=== PATIENT | female | born 1930 | race Caucasian/White ===

== ENCOUNTER 2017-02-24 09:01 | Inpatient (IN) | payer MEDICARE, OTHER ==
[2017-02-24] VITALS (9 sets, daily range): BP systolic 77–177; BP diastolic 59–88; PULSE 82–109; RESP 18–31; Ht 157.5 cm; Wt 66.0 kg
[~2017-02-24] VITALS: Ht 157.5 cm; Wt 66.0 kg
[~2017-02-24 09:01] MED LIST: ACET-141 PO; AMLO1CAP15 PO; ASPI-716 PO; ATOR40TA21 PO; CALC1TAB79 PO; CARV3.1260 PO; CLON-379 PO; ERGO500014 PO; FER325 PO; FURO40TA4 PO; GABA300C16 PO; INSU100V3 IJ; ISOS60TA PO; LANT3I SC; ONDA4TAB14 PO; PANT40VI7 PO; SENN-53 PO; TRAM-40 PO; ZOLP10TA PO
[2017-02-24] MEDS ORDERED: SODIUM CHLORIDE 0.9% 1L BAG IV* STA (09:15)
[2017-02-24] MEDS ORDERED: CEFTRIAXONE 1 GM/50 ML (PMX) 50 ML IVPB STA (09:15)
[2017-02-24] MEDS ORDERED: AZITHROMYCIN 500MG/NS (PMX) 250 ML IV STA (09:15)
[2017-02-24] MEDS ORDERED: PIPER-TAZO 3.375 GM IV (PMX) 50 ML IVPB STA (09:26)
--- NOTE | 2017-02-24 09:32 | ERD ---
ER Documentation Chief Complaint Chief Complaint WEAKNESS VSS HPI This is an 87-year-old female with a history of hypertension, CAD, diabetes brought in by ambulance from home complaining of generalized weakness and left lower quadrant pain. The patient states that she always has left lower quadrant pain from a hernia that she has, however it is slightly worse today. The pain is a 7 out of 10, nonradiating. No associated nausea, vomiting, fever , chills, diarrhea, constipation. She denies any dysuria. Her only complaint is generalized weakness but denies any associated headache, dizziness, chest pain, or shortness of breath. She has no new focal weakness or numbness. ROS All systems reviewed and are negative except as per history of present illness. Medications Home Meds Active Scripts Ondansetron (Ondansetron Odt) 4 Mg Tab.rapdis, 4 MG PO Q6H Y for NAUSEA AND/OR VOMITING, #10 TAB Prov:RG MOSQUEDA MD 01/02/16 Reported Medications Lisinopril* (Lisinopril*) 2.5 Mg Tablet, 2.5 MG PO DAILY, #30 TAB 02/24/17 Plecanatide (Trulance) 3 Mg Tablet, 3 MG PO DAILY, TAB 02/24/17 Insulin Detemir (Levemir Flextouch) 100 Unit/1 Ml Insuln.pen, 2 UNIT SQ QPM 02/24/17 Metoclopramide* (Reglan*) 5 Mg Tablet, 5 MG PO BID WITH MEALS, TAB 02/24/17 Insulin Degludec (Tresiba Flextouch U-200) 200 Unit/1 Ml Insuln.pen, 0 SQ QAM SLIDING SCALE 02/24/17 Carvedilol* (Carvedilol*) 6.25 Mg Tablet, 6.25 MG PO BID, #60 TAB 02/24/17 Sennosides* (Senna Lax*) 8.6 Mg Tablet, 1 TAB PO DAILY, TAB 01/02/16 Ferrous Sulfate* (Ferrous Sulfate*) 325 Mg Tabec, 325 MG PO DAILY, TAB 01/02/16 Calcium Carbonate/Vitamin D3 (Oysco 500+D Tablet) 1 Each Tablet, 1 EACH PO DAILY , TAB 01/02/16 Ergocalciferol* (Drisdol* (Vitamin D2)) 50,000 Unit Capsule, 73054 UNIT PO Q7D, CAP 01/02/16 Gabapentin* (Gabapentin*) 300 Mg Capsule, 300 MG PO TID, #90 CAP 01/02/16 Tramadol Hcl* (Ultram*) 50 Mg Tablet, 50 MG PO BID Y for PAIN, TAB 01/02/16 Amlodipine-Benazepril (Amlodipine-Benazepril) 10-40 Mg Capsule, 1 TAB PO DAILY, #30 TAB 01/02/16 Acetaminophen* (Acetaminophen*) 500 MG Extra Strength Tablet, 1-2 TAB PO Q6H Y for PAIN AND OR ELEVATED TEMP, TAB 01/02/16 Furosemide (Lasix) 40 Mg Tab, 40 MG PO DAILY 12/05/12 Aspirin* (Ecotrin*) 81 Mg Tablet.dr, 81 MG PO DAILY 12/05/12 Zolpidem Tartrate* (Ambien*) 10 Mg Tablet, 10 MG PO HS 12/05/12 Isosorbide Mononitrate* (Isosorbide Mononitrate*) 60 Mg Tab.er.24h, 60 MG PO DAILY 12/05/12 Clonidine Hcl* (Clonidine Hcl*) 0.1 Mg Tab, 0.1 MG PO BID 11/25/12 Atorvastatin (Lipitor) 40 Mg Tablet, 1 TAB PO HS 02/20/12 Pantoprazole* (Protonix* IV) 40 Mg Soln, 1 TAB PO DAILY 02/20/12 Discontinued Reported Medications Insulin Regular, Human (Humulin R) 100 Unit/1 Ml Vial, 0-6 UNIT IJ DIRECTED, VIAL SLIDING SCALE 01/02/16 Insulin Glargine* (Lantus*) 100 Unit/Ml Soln, 55 UNIT SC DAILY, #1 VIAL 01/02/16 Carvedilol* (Carvedilol*) 3.125 Mg Tablet, 3.125 MG PO BID, #60 TAB 01/02/16 Allergies Allergies: Coded Allergies: No Known Allergy (Unverified , 02/24/17) PMhx/Soc History of Surgery: No Hx Neurological Disorder: No Hx Respiratory Disorders: No Hx Cardiac Disorders: Yes (HTN, CAD) Hx Psychiatric Problems: No Hx Miscellaneous Medical Probl: Yes (R PELVIC FXS, DM, HTN, DJD, CAD, DEMENTIA , HYPERLIPID, OP, HYPONAT) Hx Alcohol Use: No Hx Substance Use: No Hx Tobacco Use: No FmHx Family History: No diabetes Physical Exam Vitals Vital Signs Date Time Temp Pulse Resp B/P Pulse Ox O2 Delivery O2 Flow Rate FiO2 02/24/17 13:13 90 18 120/54 100 Room Air 02/24/17 10:36 Nasal Cannula 2 02/24/17 09:08 97.8 105 32 95/62 98 Physical Exam Const: Nontoxic, appears to be in mild distress secondary to pain. Head: Atraumatic Eyes: Normal Conjunctiva ENT: Dry mucous membranes Neck: Full range of motion..~ No meningismus. Resp: Tachypneic, clear to auscultation bilaterally Cardio: Tachycardic with regular rhythm, no murmurs Abd: Soft, non tender, non distended. Normal bowel sounds Skin: No petechiae or rashes Back: No midline or flank tenderness Ext: No cyanosis, or edema Neur: Awake and alert , oriented to self and place, no facial asymmetry. Strength and sensations grossly intact. Psych: Normal Mood and Affect Result Diagram: 02/24/17 0915 02/24/17 1445 Results 24 hrs Laboratory Tests Test 02/24/17 09:15 02/24/17 09:23 02/24/17 10:00 02/24/17 12:30 White Blood Count 15.110^3/ul Red Blood Count 4.2110^6/ul Hemoglobin 10.6g/dl Hematocrit 32.5% Mean Corpuscular Volume 77.2fl Mean Corpuscular Hemoglobin 25.2pg Mean Corpuscular Hemoglobin Concent 32.6g/dl Red Cell Distribution Width 13.2% Platelet Count 32680^3/UL Mean Platelet Volume 10.2fl Neutrophils % 67.3% Lymphocytes % 21.2% Monocytes % 10.4% Eosinophils % 0.1% Basophils % 0.5% Nucleated Red Blood Cells % 0.0/100WBC Neutrophils # 10.210^3/ul Lymphocytes # 3.210^3/ul Monocytes # 1.610^3/ul Eosinophils # 0.010^3/ul Basophils # 0.110^3/ul Nucleated Red Blood Cells # 0.010^3/ul Prothrombin Time 14.1Sec Prothrombin Time Ratio 1.1 INR International Normalized Ratio 1.08 Activated Partial Thromboplast Time 28.7Sec Sodium Level 124mmol/L Potassium Level 5.2mmol/L Chloride Level 87mmol/L Carbon Dioxide Level 26mmol/L Anion Gap 16 Blood Urea Nitrogen 20mg/dl Creatinine 1.02mg/dl Glucose Level 205mg/dl Lactic Acid Level 1.6mmol/L 3.4mmol/L Calcium Level 9.3mg/dl Total Bilirubin 0.6mg/dl Direct Bilirubin 0.00mg/dl Indirect Bilirubin 0.6mg/dl Aspartate Amino Transf (AST/SGOT) 13IU/L Alanine Aminotransferase (ALT/SGPT) 27IU/L Alkaline Phosphatase 63IU/L Troponin I < 0.012ng/ml Total Protein 6.8g/dl Albumin 3.8g/dl Globulin 3.00g/dl Albumin/Globulin Ratio 1.26 Bedside Glucose 200mg/dL Urine Color YELLOW Urine Clarity TURBID Urine pH 5.0 Urine Specific [place] 1.019 Urine Ketones NEGATIVEmg/dL Urine Nitrite NEGATIVEmg/dL Urine Bilirubin NEGATIVEmg/dL Urine Urobilinogen 1+mg/dL Urine Leukocyte Esterase 2+Iesha/ul Urine Microscopic RBC 58/HPF Urine Microscopic WBC > 182/HPF Urine Bacteria MANY/HPF Urine Mucus FEW/HPF Urine Hemoglobin 3+mg/dL Urine Glucose NEGATIVEmg/dL Urine Total Protein 2+mg/dl Current Medications Medications (Trade) Dose Ordered Sig/Norma Route PRN Reason Start Time Stop Time Status Last Admin Dose Admin Sodium Chloride 2230 ml 2,230 ml BOLUS OVER 2 HOURS STAT IV* 02/24/17 09:15 02/24/17 09:21 DC 02/24/17 09:15 Ceftriaxone Sodium 50 ml @ 100 mls/hr ONCE STAT IVPB 02/24/17 09:15 02/24/17 09:27 DC Azithromycin 250 ml @ 250 mls/hr ONCE STAT IV 02/24/17 09:15 02/24/17 09:28 DC Piperacillin Sod/ Tazobactam Sod (Zosyn 3.375gm/ 50 ml (Pmx)) 50 ml @ 100 mls/hr ONCE STAT IVPB 02/24/17 09:26 02/24/17 09:55 DC 02/24/17 09:26 Procedures/MDM EMERGENT LABS AND DIAGNOSTIC STUDIES: Lab Results above were reviewed and interpreted by me. CBC: Leukocytosis of 15, anemia with hemoglobin of 10, thrombocytosis 480 CMP: Hyponatremia, hypochloremia, evidence of mild dehydration with elevated BUN and creatinine. Troponin within normal limits Lactate within normal limits UA: There is evidence of infection 12-lead EKG was interpreted by Elyssa Espinoza MD: Sinus tachycardia at 104 bpm Normal axis Normal intervals No acute ST or T wave changes suggestive of acute ischemia or STEMI. Radiology Results as interpreted by Radiology below were reviewed by Brigette Espinoza MD: Chest x-ray shows no acute abnormalities CT abdomen and pelvis show no acute abnormalities Initial Nursing notes reviewed. Previous Medical Records requested via the Electronic Health Record. EMERGENCY DEPARTMENT COURSE / MEDICAL DECISION MAKING: Patient was initially presenting with generalized weakness with vital signs notable for tachycardia and tachypnea. On my exam, her urine did have a foul odor, increasing my suspicion for possible UTI. Sepsis workup was initiated. Broad-spectrum antibiotics and a 30 cc/kg fluid bolus was given. Patient's initial lactate was not initially elevated. She was also noted to be hyponatremic, likely secondary to dehydration. she is still weak and not back to her baseline. Patient's infectious symptoms have not stabilized and the patient is at risk of rapid decompensation. The patient will be admitted for careful hydration, antibiotic therapy, and infectious source control. Severe Sepsis Assessment: Infectious Source: UTI End organ damage: none noted Severe Managment: Blood Cultures X 2 before broad spectrum antibiotics initiated within 3 hours of recognition. 30 ml/kg NS bolus Completed Initial Lactate: normal Repeat Lactate not indicated as initial < 2.0 Critical Care: Time: 35 minutes Treatments/Evaluations: Emergent fluid management, while maintaining close respiratory support. Immediate broad spectrum antibiotic therapy. Simultaneous assessment for possible sources in order to direct therapy. Consideration for invasive and chemical support to prevent respiratory or cardiac collapse. Septic Shock Assessment (1 hour post 30 ml/kg fluid bolus): Hypotension (SBP < 90 or 40 mmHg drop, MAP < 65): No Lactic acid > 4.0 No Accepting Care Team: Current data and ongoing care discussed. Time: Time of admission Primary Provider: Cali Consulting: none Outstanding Data: blood and urine cultures Departure Diagnosis: Primary Impression: Acute weakness Additional Impressions: UTI (urinary tract infection) Urinary tract infection type: acute cystitis Hematuria presence: without hematuria Qualified Code: N30.00 - Acute cystitis without hematuria Sepsis Sepsis type: sepsis due to unspecified organism Qualified Code: A41.9 - Sepsis, due to unspecified organism Hyponatremia Condition: Serious MARKELL ESPINOZA MD Feb 24, 2017 09:32
--- NOTE | 2017-02-24 09:42 | RADRPT ---
PROCEDURE: Chest x-ray CLINICAL INDICATION: Shortness of breath TECHNIQUE: Chest single view COMPARISON: 12/05/2012 FINDINGS: There is stable mild cardiomegaly and an sclerotic aortic calcification. Pulmonary vessels normal in caliber. There is mild opacity in the right lower lobe which may represent atelectasis versus evolv ing pneumonia. Small right pleural effusion seen. Bones are osteopenic. IMPRESSION: 1. Stable cardiomegaly and atherosclerotic aortic calcification. 2. Right lower lobe atelectasis versus evolving pneumonia. 3. Small right pleural effusion RPTAT: HH .Amarjit Lozano MD, Date Time Electronically viewed and signed by .Amarjit Lozano MD, on 02/24/2017 09:42 .W/
[2017-02-24 10:00] LABS: ABNORMAL IP MESSAGE 1; BASOPHIL # 0.1 10^3/ul (0.0-0.1); BASOPHILS % 0.5 % (0.0-2.0); EOSINOPHILS % 0.1 % (0.0-7.0); HEMATOCRIT 32.5 % (37.0-47.0); HEMOGLOBIN 10.6 g/dl (12.0-16.0); LYMPHOCYTES # 3.2 10^3/ul (0.8-2.9); LYMPHOCYTES % 21.2 % (15.0-51.0); MEAN CORPUSCULAR HEMOGLOBIN 25.2 pg (29.0-33.0); MEAN CORPUSCULAR HGB CONC 32.6 g/dl (32.0-37.0); MEAN CORPUSCULAR VOLUME 77.2 fl (82.0-101.0); MEAN PLATELET VOLUME 10.2 fl (7.4-10.4); MONOCYTE # 1.6 10^3/ul (0.3-0.9); MONOCYTES % 10.4 % (0.0-11.0); NEUTROPHIL # 10.2 10^3/ul (1.6-7.5); NEUTROPHILS % 67.3 % (39.0-77.0); PLATELET COUNT 480 10^3/UL (140-415); RED BLOOD COUNT 4.21 10^6/ul (4.20-5.40); RED CELL DISTRIBUTION WIDTH 13.2 % (11.5-14.5); WHITE BLOOD COUNT 15.1 10^3/ul (4.8-10.8)
[2017-02-24 10:07] LABS: POSITIVE DIFF @See below
[2017-02-24 10:13] LABS: ALANINE AMINOTRANSFERASE 27 IU/L (13-69); ALBUMIN 3.8 g/dl (3.3-4.9); ALBUMIN/GLOBULIN RATIO 1.26; ALKALINE PHOSPHATASE 63 IU/L (42-121); ANION GAP 16 (8-16); ASPARTATE AMINO TRANSFERASE 13 IU/L (15-46); BILIRUBIN,INDIRECT 0.6 mg/dl (0-1.1); BILIRUBIN,TOTAL 0.6 mg/dl (0.2-1.3); BLOOD UREA NITROGEN 20 mg/dl (7-20); CALCIUM 9.3 mg/dl (8.4-10.2); CARBON DIOXIDE 26 mmol/L (21-31); CHLORIDE 87 mmol/L (97-110); CREATININE 1.02 mg/dl (0.44-1.00); GLUCOSE 205 mg/dl (70-220); POTASSIUM 5.2 mmol/L (3.5-5.1); SODIUM 124 mmol/L (135-144); TOTAL PROTEIN 6.8 g/dl (6.1-8.1)
[2017-02-24] MEDS ORDERED: CARV6.2579 PO (10:13)
[2017-02-24 10:15] LABS: PARTIAL THROMBOPLASTIN TIME 28.7 Sec (25.0-35.0)
[2017-02-24] MEDS ORDERED: METO5TAB58 PO (10:15)
[2017-02-24] MEDS ORDERED: INSU200I4 SQ (10:15)
[2017-02-24] MEDS ORDERED: LISI2.5T59 PO (10:16)
[2017-02-24] MEDS ORDERED: PLEC3TAB PO (10:16)
[2017-02-24] MEDS ORDERED: INSU100I27 SQ (10:16)
[2017-02-24 10:26] LABS: INR 1.08; PROTIME 14.1 Sec (11.9-14.9); PT RATIO 1.1
[2017-02-24 10:28] LABS: ADD UMIC YES; UR ASCORBIC ACID NEGATIVE (NEGATIVE); UR BACTERIA MANY /HPF (NONE SEEN); UR BILIRUBIN (Dip) NEGATIVE (NEGATIVE); UR BLOOD (Dip) 3+ mg/dL (NEGATIVE); UR CLARITY TURBID (CLEAR); UR COLOR YELLOW (YELLOW); UR GLUCOSE (Dip) NEGATIVE (NEGATIVE); UR KETONES (Dip) NEGATIVE (NEGATIVE); UR LEUKOCYTE ESTERASE (Dip) 2+ Leu/ul (NEGATIVE); UR MUCUS FEW /HPF (NONE SEEN); UR NITRITE (Dip) NEGATIVE (NEGATIVE); UR RBC 58 /HPF (0-5); UR SPECIFIC GRAVITY (Dip) 1.019 (1.003-1.030); UR TOTAL PROTEIN (Dip) 2+ mg/dl (NEGATIVE); UR UROBILINOGEN (Dip) 1+ mg/dL (NEGATIVE)
[2017-02-24 10:29] LABS: TROPONIN-I < 0.012 ng/ml (0.00-0.12)
--- NOTE | 2017-02-24 12:20 | RADRPT ---
PROCEDURE: CT Abdomen and Pelvis without contrast. CLINICAL INDICATION: Abdominal pain. TECHNIQUE: CT scan of the abdomen and pelvis without contrast was performed on a multidetector hig h-resolution CT scanner. The patient was scanned without intravenous contrast. Coronal and sagittal reformatted images were obtained from the axial source images. Images were reviewed on a high-resol [employer] PACS workstation. One or more of the following dose reduction techniques were used: Automated exposure control, adjustment of the mA and/or kV according to patient size, use of iterative recon struction technique. DICOM images are available. The total exam CTDI equals 1.065 mGy and the tota l exam DLP equals 637.82 mGy-cm. COMPARISON: CT abdomen pelvis from 12/05/2012. FINDINGS: CT abdomen: There is a small right pleural effusion with atelectasis. There is a large low density pericardial e ffusion which is new since the prior exam. The liver is enlarged measuring 18.2 cm in size and demonstrates normal density without focal mass o r intrahepatic biliary dilatation. The spleen is normal in size and homogeneous in density. The st omach is grossly unremarkable. The pancreas as visualized is normal. The gallbladder is distended. A 2.5 cm stone seen dependently in the gallbladder fundus. The biliary tree is unremarkable and the re is no evidence for biliary dilatation. The adrenal glands are symmetric and normal. The kidneys are symmetrically unremarkable as well. No renal calculus or obstructive uropathy or mass lesion i s seen. The aorta is of normal caliber. Heavy aortoiliac atherosclerosis is present. There is no retroperit linda lymphadenopathy. The nasim hepatis region is clear. The small bowel and mesentery, as visual ized, are unremarkable. CT pelvis: The small bowel loops situated within the pelvis are unremarkable. The pelvic organs are normal. T he pelvic sidewalls and inguinal regions are clear. The sigmoid colon and rectum are unremarkable. The appendix is normal. No mass, lymphadenopathy, or free fluid is seen. No acute inflammation is s een. A small amount of air seen non dependently within the decompressed urinary bladder. Severe right hip degenerative changes are present. Old right superior pubic ramus fracture is presen t. The bones are diffusely osteopenic. No osteolytic or osteoblastic lesion is detected. IMPRESSION: 1. Gallbladder distension with cholelithiasis. Cannot rule out acute cholecystitis in the correct c linical setting. If there is further concern, consider HIDA scan and/or gallbladder ultrasound. 2. New, large pericardial effusion. 3. New small right pleural effusion with atelectasis. 4. Heavy aortoiliac atherosclerosis. 5. Small amount of air within the urinary bladder, may be secondary to recent catheterization or in fection. 6. Hepatomegaly. RPTAT: JJ .Rodrigo Weston MD, MD Date Time Electronically viewed and signed by .Rodrigo Weston MD, on 02/24/2017 12:19 .A/
[2017-02-24] MEDS ORDERED: ONDANSETRON 4 MG INJ IV PRN ×2 (13:30→15:00)
[2017-02-24] MEDS ORDERED: ACETAMINOPHEN 325 MG TAB PO PRN (13:30)
[2017-02-24] MEDS ORDERED: ACETAMINOPHEN 650 MG SUPP PR PRN (15:00)
[2017-02-24] MEDS ORDERED: NACL 0.9% 3 ML SYG IV SCH (15:00)
--- NOTE | 2017-02-24 15:09 | HP ---
Date/Time of Note Date/Time of Note DATE: 02/24/17 TIME: 14:52 Assessment/Plan VTE Prophylaxis VTE Prophylaxis Intervention: heparin, SCD's Assessment/Plan Chief Complaint/Hosp Course This is a 87-year-old female who was brought by paramedics for evaluation of generalized weakness who was noted with sepsis with UTI and incidental finding of pericardial effusion in CT abdomen. 1.Sepsis with UTI. Statsu:Acute -Admit as inpatient -IV ceftriaxone, IVFs -urine/blood cultures. 2. Pericardial effusion,Incidental finding Status: Acute -STAT Echocardiogram to follow and treat accordingly. - Cardiology consult. 3. Hyponatremia. Status: Acute on chronic. -Patient also takes loop diuretic at home and this will be held. She will be treated with normal saline IV fluids. -Obtain urine studies and nephrology consult for further management. 4. Hyperkalemia, mild. Status: Acute -Repeat BMP. Follow-up with nephrology recommendations. 5. Essential hypertension with too tight control regimen as outpt. Currently in borderline hypotension. Status: Chronic. -We will some down titration of her antihypertensives. -For now, we will switch Coreg to metoprolol as patient is also with diabetes. Will adjust Imdur to 30 mg and lisinopril to 5 mg. Hold clonidine. -Monitor blood pressure over the next 24 hours and will adjust as indicated. 6. Hyperglycemia with type 2 diabetes. Status: Chronic -Accu-Cheks/insulin sliding scale/Lantus in-house. Obtain A1c. 7. Coronary artery disease. Status: Chronic -Continue current medical management. 8. Hyperlipidemia Status: Chronic -On statin 9. Osteoporosis/osteoarthritis/degenerative joint disease. Status: Chronic -PT evaluation and treatment. 10. Dementia. -Supportive care. 11. Progressive debility. -Follow-up with PT recommendations regarding appropriate placement on discharge. Prophylaxis: Heparin/PPIs Rest of the management depend on hospital course. Approximately 60 minutes was spent on this history and physical. Patient was seen in collaboration with . Problems: HPI/ROS Admit Date/Time Admit Date/Time Feb 24, 2017 at 13:17 Hx of Present Illness This is a 87-year-old female who is also a poor historian with multiple comorbid conditions including coronary artery disease, hyperlipidemia, essential hypertension, type 2 diabetes, osteoarthritis/osteoporosis, degenerative joint disease, chronic hyponatremia, debility, pelvic fractures, who was brought by paramedics to the emergency room for evaluation of worsening weakness. In the emergency room, a urinalysis was positive for possible urinary tract infection. Patient also had elevated WBC 15,100. She was also noted with hemoglobin 10.6, hematocrit 32.5, sodium 124, potassium 5.2 and creatinine 1.02. Patient also had elevated lactic acid 3.[address] abdomen showed incidental finding of large pericardial effusion. ROS A 12 point review of system was assessed and patient denied any fever, chills, nausea, vomiting, abdominal pain, chest pain, palpitation, shortness of breath, loss of consciousness, headache, dizziness, numbness, tingling, dysuria, hematuria, urinary frequency/urgency or other constitutional symptoms. Patient is also incontinent and wears a diaper. PMH/Family/Social Past Medical History See HPI Past Surgical History See HPI Social History Patient denied any history of alcohol, smoking or illicit drug use. Smoking Status: Unknown if ever smoked Exam/Review of Systems Vital Signs Vitals Vital Signs Date Time Temp Pulse Resp B/P Pulse Ox O2 Delivery O2 Flow Rate FiO2 02/24/17 14:35 97.5 96 18 137/65 94 Room Air 02/24/17 10:36 2 Exam Exam General: Chronically ill looking elderly female, not in any acute distress . HEENT: Normocephalic, Atraumatic, No laceration or hematoma; Eyes: PEERL, Conjunctiva clear, Anicteric sclera Neck: Supple without any lymphadenopathy, nontender, no JVD, no carotid bruits, trachea midline, no thyromegaly Cardiac: S1, S2 auscultated, regular rhythm and rate, no mumurs or gallop Pulmonary: Normal respiratory effort. Chest clear to auscultation bilaterally, no adventitious breath sounds GI: Abdomen normal to inspection. Soft, non tender, non- distended, no masses, no rebound tenderness or guarding. Bowel sounds active on all four quadrants Genitourinary: Incontinent Extremities: Generalized weakness to all 4 extremities. No cyanosis, clubbing, or edema. Pulses [2+] bilaterally. No focal weakness. Neurologic: Alert oriented 3. Intact sensation. Skin: Clean,dry, and intact. No ecchymosis, no rashes, or lesions Labs Result Diagram: 02/24/1715 12/4/17 0915 Medications Medications Current Medications Aspirin (Halfprin) 81 mg DAILY PO ; Start 02/25/17 at 09:00 Atorvastatin Calcium (Lipitor) 40 mg HS PO ; Start 02/24/17 at 21:00 Calcium/Vitamin D (Oyster Shell/ Vit-D (500/200)) 1 tab DAILY PO ; Start at 09:00 Ergocalciferol (Drisdol) 50,000 unit Q7D PO ; Start 02/25/17 at 09:00 Ferrous Sulfate (Ferrous Sulfate (Ec)) 325 mg DAILY PO ; Start 02/25/17 at 09:00 Gabapentin (Neurontin) 300 mg TID PO ; Start 02/24/17 at 21:00 Isosorbide Mononitrate (Imdur) 60 mg DAILY PO ; Start 02/25/17 at 09:00 Senna (Senokot) 1 tab DAILY PO ; Start 02/25/17 at 09:00 Carvedilol (Coreg) 3.125 mg BID PO ; Start 02/24/17 at 21:00 Lisinopril (Zestril) 5 mg DAILY PO ; Start 02/25/17 at 09:00 MOIZ RICE NP Feb 24, 2017 15:03
[2017-02-24] MEDS ORDERED: GLUCAGON 1 MG INJ IM PRN (15:30)
[2017-02-24] MEDS ORDERED: DEXTROSE 50% 50 ML SYRINGE IV PRN ×2 (15:30)
[2017-02-24] MEDS ORDERED: GLUCOSE GEL 15 GRAM TUBE BUCCAL PRN (15:30)
[2017-02-24] MEDS ORDERED: GLUCOSE GEL 15 GRAM TUBE PO PRN ×2 (15:30)
[2017-02-24 15:44] LABS: CALCIUM 8.5 mg/dl (8.4-10.2); POTASSIUM 4.9 mmol/L (3.5-5.1)
[2017-02-24 16:07] LABS: CREATINE KINASE < 20 IU/L (23-200)
[2017-02-24] MEDS: CEFTRIAXONE 1 GM/50 ML (PMX) 50 ML IVPB SCH (16:12)
[2017-02-24] MEDS: SOD CHLORIDE 0.9% 1,000 ML IV SCH (16:13)
[2017-02-24 16:18] LABS: CK-MB < 0.22 ng/ml (0.0-2.4); TROPONIN-I < 0.012 ng/ml (0.00-0.12)
--- NOTE | 2017-02-24 17:38 | RADRPT ---
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 Physician: MOIZ RICE Quality: Adequate Procedures: Transthoracic echocardiogram with complete 2D, M-Mode, and doppler examination. Indications: R/O Pericardial Effussion. 2D/M Mode Doppler Measurement Value Normal Ranges Measurement Value Normal Ranges LVIDd 2D 3.7 3.5 - 5.6 cm AV Peak Carlos 1.5 m/sec LVIDs 2D 2.5 2.1 - 4.1 cm AV Peak PG 9.0 mmHg FS 2D 32.9 % AI Peak PG 36.0 mmHg LVPWd 2D 1.4 0.6 - 1.1 cm AI Peak Carlos 3.0 m/sec IVSd 2D 1.3 0.6 - 1.1 cm AI PHT 632.0 msec IVS/LVPW 2D 1.0 LVOT Peak Carlos 1.0 m/sec AoR Diam 2D 3.0 2.0 - 3.7 cm LVOT Peak PG 4.0 mmHg LA/Ao 2D 1 0 - 1 MV E Peak Carlos 0.6 m/sec EDV 2D 52.3 cm3 MV A Peak Carlos 1.3 m/sec ESV 2D 15.8 cm3 MV E/A 0.5 LA Dimen 2D 4.1 2.3 - 4.0 cm MV Decel Time 237 msec MV E/A 0.5 TR Peak Carlos 2.6 m/sec TR Peak PG 27.0 mmHg RVSP 37.0 mmHg Findings Left Ventricle: Normal left ventricular systolic function. Normal left ventricular cavity size. Moderate concentric left ventricular hypertrophy. Ejection fraction is visually estimated at 65 %. Abnormal Diastolic Function. Right Ventricle: Normal right ventricular size. Normal right ventricular systolic function. Left Atrium: There is mild enlargement of left atrium. Right Atrium: The right atrium is normal in size. Mitral Valve: Mild mitral leaflet calcification. Mild mitral annular calcification. Trace mitral regurgitation. Aortic Valve: Aortic sclerosis without stenosis. Mild aortic valve regurgitation. Tricuspid Valve: Normal appearance of the tricuspid valve. Estimated peak PA systolic pressure 37 mmHg. There is mild tricuspid regurgitation. Pulmonic Valve: Pulmonic valve not well visualized. There is trace pulmonic regurgitation. Pericardium: Moderate to large pericardial effusion. TV respiratory flow velocity variation consistent with tamponade. Pleural effusion seen. Aorta: Normal aortic root. IVC: Dilated inferior vena cava with poor inspiratory collapse consistent with elevated right atrial pressures. Conclusions 1.Normal left ventricular systolic function. Normal left ventricular cavity size. Moderate concentric left ventricular hypertrophy. Ejection fraction is visually estimated at 65 %. Abnormal Diastolic Function. 2.There is mild enlargement of left atrium. 3.Mild mitral leaflet calcification. Mild mitral annular calcification. Trace mitral regurgitation. 4.Aortic sclerosis without stenosis. Mild aortic valve regurgitation. 5.Normal appearance of the tricuspid valve. Estimated peak PA systolic pressure 37 mmHg. There is mild tricuspid regurgitation. 6.Dilated inferior vena cava with poor inspiratory collapse consistent with elevated right atrial pressures. 7.Moderate to large pericardial effusion. TV respiratory flow velocity variation consistent with tamponade. Pleural effusion seen. Electronically Signed By: Baron Tamez 24-Feb-2017 17:37:49 -0800 Patient Name: YAJAIRA ARANGO Study Date: 24-Feb-2017 [id number]
[2017-02-24] MEDS: INSULIN ASPART [NOVOLOG] 3 ML PEN SC SCH ×2 (17:51→21:24)
--- NOTE | 2017-02-24 18:38 | CONS ---
Date/Time of Note Date/Time of Note DATE: 02/24/17 TIME: 18:29 Assessment/Plan Assessment/Plan Chief Complaint/Hosp Course 1. Large pericardial effusion with signs of early cardiac tamponade 2. Hypertension 3. Diabetes/hyperglycemia 4. Dyslipidemia 5. Obesity 6. Possible UTI/sepsis 7. Generalized weakness 8. Hyponatremia 9. Hyperkalemia Recommendations: Antibiotic as per internal medicine. Patient will be transferred to ICU for close monitoring. We will allow for hypertension for now. Plan for pericardiocentesis tomorrow. Risks benefits and alternatives of procedure discussed with the patient and her son. Risks include not limited to risk of infection but bleeding complication perforation arrhythmias pneumothorax [place] etc. discussed with them in detail. Consent has been obtained. We will hold off heparin for now Aspirin was discontinued since the patient is having pericardiocentesis and has no history of coronary artery is a per family's report. Diabetic management as per internal medicine. Thank you for his referral. I will continue to follow along with you. SHREE TOPETE MD [facility] Problems: Consultation Date/Type/Reason Admit Date/Time Feb 24, 2017 at 13:17 Date of Consultation: Feb 24, 2017 Type of Consultation: cardiology Reason for Consultation pericardial effusion Referring Provider: HOA RICE NP Hx of Present Illness Cardiology consultation NOTE: CC: ashley HPI: Thank you for his referral. History obtained from the patient on discussion with her son discussion with the staff and discussion with physicians including Hoa Rice NP. This is a pleasant 87-year-old Kisw[place]ili female with history of hypertension who was brought in by family due to weakness and poor appetite shortness of breath. Patient was being worked up for possible sepsis. She was noted to be also tachycardic. CT of the abdomen was done that showed large pericardial effusion for which it was kindly asked to evaluate and treat. Echocardiogram was also done which was personally reviewed. It shows moderate to large pericardial effusion. There are early signs of tamponade including tricuspid and mitral inflow variations and some signs of RA and RV collapse. Patient denies any chest pain or pressure to me denies any recent fever to me. Allergies no known drug allergy Medication: Was reviewed as per medical reconciliation sheet Social history: Patient does not smoke or drink Past medical history: Hypertension Dyslipidemia "Some heart issues" but according to the Patient Has Not Had Any Heart Attacks Angioplasty or Stent. Obesity DM Family history: No reported early coronary artery disease. Review of system as above only. Social History Smoking Status: Unknown if ever smoked Exam/Review of Systems Vital Signs Vitals Vital Signs Date Time Temp Pulse Resp B/P Pulse Ox O2 Delivery O2 Flow Rate FiO2 02/24/17 18:27 107 166/77 97 Room Air 02/24/17 17:59 99.3 02/24/17 14:35 18 02/24/17 10:36 2 Exam General: Mild resp distress HEENT: NC/AT. pupils are equal. round. NECK: NO JVD. no stridor. CV: tachycardic. systolic murmur; no gallop or rubs. PULM: no wheezing mild rhonchi. GI: SOFT, NT, ND, no rebound or guarding Extremity: trace B/L LE edema. no clubbing. neuro: awake and alert, OX3. Psych: calm and pleasant rectal: deferred ECG NSR/ low voltage echo 02/24/17 reviewed personally: 1. Normal left ventricular systolic function. Normal left ventricular cavity size. Moderate concentric left ventricular hypertrophy. Ejection fraction is visually estimated at 65 %. Abnormal Diastolic Function. 2. There is mild enlargement of left atrium. 3. Mild mitral leaflet calcification. Mild mitral annular calcification. Trace mitral regurgitation. 4. Aortic sclerosis without stenosis. Mild aortic valve regurgitation. 5. Normal appearance of the tricuspid valve. Estimated peak PA systolic pressure 37 mmHg. There is mild tricuspid regurgitation. 6. Dilated inferior vena cava with poor inspiratory collapse consistent with elevated right atrial pressures. 7. Moderate to large pericardial effusion. TV respiratory flow velocity variation consistent with tamponade. Pleural effusion seen. Results Result Diagram: 02/24/17 0915 02/24/17 1445 Results 24 hrs Laboratory Tests Test 02/24/17 09:15 02/24/17 09:23 02/24/17 10:00 02/24/17 12:30 White Blood Count 15.1 #H Red Blood Count 4.21 Hemoglobin 10.6 L Hematocrit 32.5 L Mean Corpuscular Volume 77.2 L Mean Corpuscular Hemoglobin 25.2 L Mean Corpuscular Hemoglobin Concent 32.6 Red Cell Distribution Width 13.2 Platelet Count 480 H Mean Platelet Volume 10.2 # Neutrophils % 67.3 Lymphocytes % 21.2 Monocytes % 10.4 Eosinophils % 0.1 Basophils % 0.5 Nucleated Red Blood Cells % 0.0 Neutrophils # 10.2 H Lymphocytes # 3.2 H Monocytes # 1.6 H Eosinophils # 0.0 Basophils # 0.1 Nucleated Red Blood Cells # 0.0 Prothrombin Time 14.1 Prothrombin Time Ratio 1.1 INR International Normalized Ratio 1.08 Activated Partial Thromboplast Time 28.7 Sodium Level 124 L Potassium Level 5.2 H Chloride Level 87 L Carbon Dioxide Level 26 Anion Gap 16 Blood Urea Nitrogen 20 Creatinine 1.02 H Glucose Level 205 Lactic Acid Level 1.6 3.4 *H Calcium Level 9.3 Total Bilirubin 0.6 Direct Bilirubin 0.00 Indirect Bilirubin 0.6 Aspartate Amino Transf (AST/SGOT) 13 L Alanine Aminotransferase (ALT/SGPT) 27 Alkaline Phosphatase 63 Troponin I < 0.012 Total Protein 6.8 Albumin 3.8 Globulin 3.00 Albumin/Globulin Ratio 1.26 Bedside Glucose 200 Urine Color YELLOW Urine Clarity TURBID A Urine pH 5.0 Urine Specific [place] 1.019 Urine Ketones NEGATIVE Urine Nitrite NEGATIVE Urine Bilirubin NEGATIVE Urine Urobilinogen 1+ H Urine Leukocyte Esterase 2+ H Urine Microscopic RBC 58 H Urine Microscopic WBC > 182 H Urine Bacteria MANY A Urine Mucus FEW A Urine Hemoglobin 3+ H Urine Glucose NEGATIVE Urine Total Protein 2+ H Test 02/24/17 14:39 02/24/17 14:45 02/24/17 15:10 02/24/17 17:44 Lactic Acid Level 1.7 Sodium Level 127 L Potassium Level 4.9 Chloride Level 93 L Carbon Dioxide Level 24 Anion Gap 15 Blood Urea Nitrogen 20 Creatinine 1.00 Glucose Level 201 Osmolality 272 L Calcium Level 8.5 Creatine Kinase < 20 L Creatine Kinase Index Creatinine Kinase MB (Mass) < 0.22 Troponin I < 0.012 Bedside Glucose 182 Medications Medications Current Medications Aspirin (Halfprin) 81 mg DAILY PO ; Start 02/25/17 at 09:00 Atorvastatin Calcium (Lipitor) 40 mg HS PO ; Start 02/24/17 at 21:00 Calcium/Vitamin D (Oyster Shell/ Vit-D (500/200)) 1 tab DAILY PO ; Start at 09:00 Ergocalciferol (Drisdol) 50,000 unit Q7D PO ; Start 02/25/17 at 09:00 Ferrous Sulfate (Ferrous Sulfate (Ec)) 325 mg DAILY PO ; Start 02/25/17 at 09:00 Gabapentin (Neurontin) 300 mg TID PO ; Start 02/24/17 at 21:00 Senna (Senokot) 1 tab DAILY PO ; Start 02/25/17 at 09:00 Lisinopril 5 mg 5 mg DAILY PO ; Start 02/25/17 at 09:00 Sodium Chloride (NS) 1,000 ml @ 75 mls/hr [id number] IV Last administered on 02/24 16:13; Admin Dose 75 MLS/HR; Start 02/24/17 at 14:55 Ondansetron HCl (Zofran Inj) 4 mg Q6H PRN IV NAUSEA AND/OR VOMITING; Start 02/24/17 at 15:00 Acetaminophen (Tylenol Tab) 650 mg Q6H PRN PO PAIN LEVEL 1-3 OR FEVER; Start 02/24/17 at 15:00 Acetaminophen (Tylenol Supp) 650 mg Q6H PRN [place] PAIN LEVEL 1-3 OR FEVER; Start 02/24/17 at 15:00 Heparin Sodium (Porcine) (Heparin (5000 Units/0.5 ml)) 5,000 unit Q12 SC ; Start 02/24/17 at 21:00 Diagnostic Test (Pha) (Accu-Chek) 1 ea 02 XX ; Start 02/25/17 at 02:00 Insulin Glargine 11 unit 11 unit DAILY@20 SC ; Start 02/24/17 at 20:00 Ceftriaxone Sodium (Rocephin) 50 ml @ 100 mls/hr Q24H IVPB Last administered on 02/24/17 16:12; Admin Dose 100 MLS/HR; Start 02/24/17 at 15:00 Miscellaneous Information 1 ea NOTE XX ; Start 02/24/17 at 15:30 Glucose (Glutose) 15 gm Q15M PRN PO DECREASED GLUCOSE; Start 02/24/17 at 15:30 Glucose (Glutose) 22.5 gm Q15M PRN PO DECREASED GLUCOSE; Start 02/24/17 at 15: 30 Dextrose (D50w Syringe) 25 ml Q15M PRN IV DECREASED GLUCOSE; Start 02/24/17 at 15:30 Dextrose (D50w Syringe) 50 ml Q15M PRN IV DECREASED GLUCOSE; Start 02/24/17 at 15:30 Glucagon (Glucagen) 1 mg Q15M PRN IM DECREASED GLUCOSE; Start 02/24/17 at 15:30 Glucose (Glutose) 15 gm Q15M PRN BUCCAL DECREASED GLUCOSE; Start 02/24/17 at 15 :30 Isosorbide Mononitrate (Imdur) 30 mg DAILY PO ; Start 02/25/17 at 09:00 Metoprolol Tartrate (Lopressor) 25 mg BID PO ; Start 02/24/17 at 21:00 SHREE TOPETE MD Feb 24, 2017 18:38
--- NOTE | 2017-02-24 19:16 | CONS ---
Date/Time of Note Date/Time of Note DATE: 02/24/17 TIME: 19:12 Assessment/Plan Assessment/Plan Additional Assessment/Plan 87 yo Female with 1.Sepsis with UTI. 2. Pericardial effusion 3. Hyponatremia. 4. Hyperkalemia- Resolved 5. Essential hypertension 6. Hyperglycemia with type 2 diabetes. 7. Coronary artery disease. 8. Hyperlipidemia Would recommend holding DAR-I and diuretic Rx at this time due to hypotension and electrolyte abnormality Will f/u Urine studies CT scan reviewed, Kidney unremarkable. Cardiology following closely with possible intervention Low K diet Pt is on IV Abx Rx Ok to place kunz while critical status. Will cont to closely follow along with you. Thank you for the opportunity to participate in the care of Ms Pacheco. Consultation Date/Type/Reason Admit Date/Time Feb 24, 2017 at 13:17 Date of Consultation: Feb 24, 2017 Type of Consultation: renal Reason for Consultation Hyponatremia Referring Provider: MOIZ RICE NP Hx of Present Illness 87-year-old Turkmen female with coronary artery disease, hyperlipidemia, essential hypertension, type 2 diabetes, osteoarthritis/osteoporosis, degenerative joint disease, chronic hyponatremia, debility, pelvic fractures, BIBEMS for worsening weakness. In the emergency room, found to have urinary tract infection, elevated WBC 15,100. She was also noted with hemoglobin 10.6, hematocrit 32.5, sodium 124, potassium 5.2 and creatinine 1.02. Patient also had elevated lactic acid 3.[address] abdomen which incidentally found to have large pericardial effusion. Seen by cardiology. Nephrology consulted for Hyponatremia. Constitutional: No requiring O2 Past Medical History Medical History: coronary artery disease, diabetes, high cholesterol, hypertension Family History Significant Family History: no pertinent family hx Social History Alcohol Use: none Smoking Status: Unknown if ever smoked Drug Use: none Exam/Review of Systems Vital Signs Vitals Vital Signs Date Time Temp Pulse Resp B/P Pulse Ox O2 Delivery O2 Flow Rate FiO2 02/24/17 18:27 107 166/77 97 Room Air 02/24/17 17:59 99.3 02/24/17 14:35 18 02/24/17 10:36 2 Exam Constitutional: alert, oriented, No distress Psych: nl mood/affect, No anxiety Head: atraumatic, normocephalic Eyes: EOMI, PERRL, nl conjunctiva ENMT: mucosa pink and moist Neck: supple, No jvd Respiratory: clear to auscultation, No diminished breath sounds, No labored breathing Cardiovascular: regular rate and rhythm, No edema Gastrointestinal: non-tender, soft, No distended, No rebound or guarding Extremities: edema Neurological: ASSEMBLER TYPE BAR AND SEGMENT II-XII intact, No confused, No lethargic Skin: nl turgor, No diaphoresis, No rash or lesions Results Result Diagram: 02/24/17 0915 02/24/17 1445 Results 24 hrs Laboratory Tests Test 02/24/17 09:15 02/24/17 09:23 02/24/17 10:00 02/24/17 12:30 White Blood Count 15.1 #H Red Blood Count 4.21 Hemoglobin 10.6 L Hematocrit 32.5 L Mean Corpuscular Volume 77.2 L Mean Corpuscular Hemoglobin 25.2 L Mean Corpuscular Hemoglobin Concent 32.6 Red Cell Distribution Width 13.2 Platelet Count 480 H Mean Platelet Volume 10.2 # Neutrophils % 67.3 Lymphocytes % 21.2 Monocytes % 10.4 Eosinophils % 0.1 Basophils % 0.5 Nucleated Red Blood Cells % 0.0 Neutrophils # 10.2 H Lymphocytes # 3.2 H Monocytes # 1.6 H Eosinophils # 0.0 Basophils # 0.1 Nucleated Red Blood Cells # 0.0 Prothrombin Time 14.1 Prothrombin Time Ratio 1.1 INR International Normalized Ratio 1.08 Activated Partial Thromboplast Time 28.7 Sodium Level 124 L Potassium Level 5.2 H Chloride Level 87 L Carbon Dioxide Level 26 Anion Gap 16 Blood Urea Nitrogen 20 Creatinine 1.02 H Glucose Level 205 Lactic Acid Level 1.6 3.4 *H Calcium Level 9.3 Total Bilirubin 0.6 Direct Bilirubin 0.00 Indirect Bilirubin 0.6 Aspartate Amino Transf (AST/SGOT) 13 L Alanine Aminotransferase (ALT/SGPT) 27 Alkaline Phosphatase 63 Troponin I < 0.012 Total Protein 6.8 Albumin 3.8 Globulin 3.00 Albumin/Globulin Ratio 1.26 Bedside Glucose 200 Urine Color YELLOW Urine Clarity TURBID A Urine pH 5.0 Urine Specific [place] 1.019 Urine Ketones NEGATIVE Urine Nitrite NEGATIVE Urine Bilirubin NEGATIVE Urine Urobilinogen 1+ H Urine Leukocyte Esterase 2+ H Urine Microscopic RBC 58 H Urine Microscopic WBC > 182 H Urine Bacteria MANY A Urine Mucus FEW A Urine Hemoglobin 3+ H Urine Glucose NEGATIVE Urine Total Protein 2+ H Test 02/24/17 14:39 02/24/17 14:45 02/24/17 15:10 02/24/17 17:44 Lactic Acid Level 1.7 Sodium Level 127 L Potassium Level 4.9 Chloride Level 93 L Carbon Dioxide Level 24 Anion Gap 15 Blood Urea Nitrogen 20 Creatinine 1.00 Glucose Level 201 Osmolality 272 L Calcium Level 8.5 Creatine Kinase < 20 L Creatine Kinase Index Creatinine Kinase MB (Mass) < 0.22 Troponin I < 0.012 Bedside Glucose 182 Imaging Free Text/Dictation PROCEDURE: Chest x-ray CLINICAL INDICATION: Shortness of breath TECHNIQUE: Chest single view COMPARISON: 12/05/2012 FINDINGS: There is stable mild cardiomegaly and an sclerotic aortic calcification. Pulmonary vessels normal in caliber. There is mild opacity in the right lower lobe which may represent atelectasis versus evolving pneumonia. Small right pleural effusion seen. Bones are osteopenic. IMPRESSION: 1. Stable cardiomegaly and atherosclerotic aortic calcification. 2. Right lower lobe atelectasis versus evolving pneumonia. 3. Small right pleural effusion RPTAT: HH .Amarjit Lozano MD, MD Date Time Medications Medications Current Medications Atorvastatin Calcium (Lipitor) 40 mg HS PO ; Start 02/24/17 at 21:00 Calcium/Vitamin D (Oyster Shell/ Vit-D (500/200)) 1 tab DAILY PO ; Start at 09:00 Ergocalciferol (Drisdol) 50,000 unit Q7D PO ; Start 02/25/17 at 09:00 Ferrous Sulfate (Ferrous Sulfate (Ec)) 325 mg DAILY PO ; Start 02/25/17 at 09:00 Gabapentin (Neurontin) 300 mg TID PO ; Start 02/24/17 at 21:00 Senna (Senokot) 1 tab DAILY PO ; Start 02/25/17 at 09:00 Lisinopril 5 mg 5 mg DAILY PO ; Start 02/25/17 at 09:00 Sodium Chloride (NS) 1,000 ml @ 75 mls/hr [id number] IV Last administered on 02/24 16:13; Admin Dose 75 MLS/HR; Start 02/24/17 at 14:55 Ondansetron HCl (Zofran Inj) 4 mg Q6H PRN IV NAUSEA AND/OR VOMITING; Start 02/24/17 at 15:00 Acetaminophen (Tylenol Tab) 650 mg Q6H PRN PO PAIN LEVEL 1-3 OR FEVER; Start 02/24/17 at 15:00 Acetaminophen (Tylenol Supp) 650 mg Q6H PRN [place] PAIN LEVEL 1-3 OR FEVER; Start 02/24/17 at 15:00 Heparin Sodium (Porcine) (Heparin (5000 Units/0.5 ml)) 5,000 unit Q12 SC ; Start 02/24/17 at 21:00; Status Future Hold Diagnostic Test (Pha) (Accu-Chek) 1 ea 02 XX ; Start 02/25/17 at 02:00 Insulin Glargine 11 unit 11 unit DAILY@20 SC ; Start 02/24/17 at 20:00 Ceftriaxone Sodium (Rocephin) 50 ml @ 100 mls/hr Q24H IVPB Last administered on 02/24/17 16:12; Admin Dose 100 MLS/HR; Start 02/24/17 at 15:00 Miscellaneous Information 1 ea NOTE XX ; Start 02/24/17 at 15:30 Glucose (Glutose) 15 gm Q15M PRN PO DECREASED GLUCOSE; Start 02/24/17 at 15:30 Glucose (Glutose) 22.5 gm Q15M PRN PO DECREASED GLUCOSE; Start 02/24/17 at 15: 30 Dextrose (D50w Syringe) 25 ml Q15M PRN IV DECREASED GLUCOSE; Start 02/24/17 at 15:30 Dextrose (D50w Syringe) 50 ml Q15M PRN IV DECREASED GLUCOSE; Start 02/24/17 at 15:30 Glucagon (Glucagen) 1 mg Q15M PRN IM DECREASED GLUCOSE; Start 02/24/17 at 15:30 Glucose (Glutose) 15 gm Q15M PRN BUCCAL DECREASED GLUCOSE; Start 02/24/17 at 15 :30 Isosorbide Mononitrate (Imdur) 30 mg DAILY PO ; Start 02/25/17 at 09:00 Metoprolol Tartrate (Lopressor) 25 mg BID PO ; Start 02/24/17 at 21:[address] abdomen IMPRESSION: 1. Gallbladder distension with cholelithiasis. Cannot rule out acute cholecystitis in the correct clinical setting. If there is further concern, consider HIDA scan and/or gallbladder ultrasound. 2. New, large pericardial effusion. 3. New small right pleural effusion with atelectasis. 4. Heavy aortoiliac atherosclerosis. 5. Small amount of air within the urinary bladder, may be secondary to recent catheterization or infection. 6. Hepatomegaly RPTAT: JJ .Rodrigo Weston MD, MD Date Time Electronically viewed and signed by .Rodrigo Weston MD, MD on 02/24/2017 12:19 RALPH KNOTT MD Feb 24, 2017 19:16
[2017-02-24] MEDS ORDERED: HEPARIN 5,000 UNIT/0.5 ML VIAL SC SCH (21:00)
[2017-02-24] MEDS: METOPROLOL 25 MG TAB PO SCH (21:11)
[2017-02-24] MEDS: GABAPENTIN 300 MG CAP PO SCH (21:11)
[2017-02-24] MEDS: ATORVASTATIN 40 MG TAB PO SCH (21:11)
[2017-02-24 21:22] LABS: CREATINE KINASE < 20 IU/L (23-200)
[2017-02-24] MEDS: INSULIN GLARGINE [LANtus] 3 ML PEN SC SCH (21:28)
[2017-02-24 21:33] LABS: CK-MB < 0.22 ng/ml (0.0-2.4)
[2017-02-24 21:49] LABS: TROPONIN-I < 0.012 ng/ml (0.00-0.12)
[2017-02-25] VITALS (21 sets, daily range): BP systolic 105–172; BP diastolic 43–85; PULSE 82–116; RESP 18–40
[2017-02-25] MEDS: ZOLPIDEM 5 MG TAB PO PRN (01:32)
[2017-02-25] MEDS: ACCU-CHEK XX SCH (02:00)
[2017-02-25] MEDS: SOD CHLORIDE 0.9% 1,000 ML IV SCH ×2 (06:39→17:35)
[2017-02-25 06:43] LABS: ABNORMAL IP MESSAGE 1; BASOPHIL # 0.1 10^3/ul (0.0-0.1); BASOPHILS % 0.4 % (0.0-2.0); EOSINOPHILS # 0.1 10^3/ul (0.0-0.5); EOSINOPHILS % 0.8 % (0.0-7.0); HEMATOCRIT 33.3 % (37.0-47.0); HEMOGLOBIN 10.6 g/dl (12.0-16.0); LYMPHOCYTES # 3.1 10^3/ul (0.8-2.9); LYMPHOCYTES % 25.1 % (15.0-51.0); MEAN CORPUSCULAR HEMOGLOBIN 24.9 pg (29.0-33.0); MEAN CORPUSCULAR HGB CONC 31.8 g/dl (32.0-37.0); MEAN CORPUSCULAR VOLUME 78.4 fl (82.0-101.0); MEAN PLATELET VOLUME 10.4 fl (7.4-10.4); MONOCYTE # 1.6 10^3/ul (0.3-0.9); MONOCYTES % 12.7 % (0.0-11.0); NEUTROPHIL # 7.5 10^3/ul (1.6-7.5); NEUTROPHILS % 60.4 % (39.0-77.0); PLATELET COUNT 406 10^3/UL (140-415); RED BLOOD COUNT 4.25 10^6/ul (4.20-5.40); RED CELL DISTRIBUTION WIDTH 13.1 % (11.5-14.5); WHITE BLOOD COUNT 12.4 10^3/ul (4.8-10.8)
[2017-02-25 06:56] LABS: POSITIVE DIFF @See below
[2017-02-25 07:04] LABS: INR 1.09; PROTIME 14.2 Sec (11.9-14.9); PT RATIO 1.1
[2017-02-25 07:13] LABS: ALBUMIN 2.9 g/dl (3.3-4.9); ALBUMIN/GLOBULIN RATIO 0.96; BILIRUBIN,INDIRECT 0.3 mg/dl (0-1.1); BILIRUBIN,TOTAL 0.3 mg/dl (0.2-1.3); CALCIUM 9.2 mg/dl (8.4-10.2); CHOL/HDL RATIO 4.7 RATIO; CREATININE 0.77 mg/dl (0.44-1.00); MAGNESIUM 1.7 mg/dl (1.7-2.5); PHOSPHORUS 3.6 mg/dl (2.5-4.9); POTASSIUM 5.4 mmol/L (3.5-5.1); TOTAL PROTEIN 5.9 g/dl (6.1-8.1)
[2017-02-25 07:23] LABS: T3 UPTAKE 35.4 % (23.5-40.5)
[2017-02-25] MEDS: LABETALOL HCL 20MG INJ IV PRN (07:35)
[2017-02-25] MEDS: INSULIN ASPART [NOVOLOG] 3 ML PEN SC SCH ×4 (07:35→20:30)
[2017-02-25 07:36] LABS: THYROID STIMULATING HORMONE 1.16 MIU/L (0.465-4.680)
[2017-02-25 07:43] LABS: CREATINE KINASE < 20 IU/L (23-200)
[2017-02-25 07:56] LABS: TROPONIN-I < 0.012 ng/ml (0.00-0.12)
[2017-02-25 07:57] LABS: CK-MB < 0.22 ng/ml (0.0-2.4)
[2017-02-25] MEDS: FERROUS SULFATE (EC) 325 MG TAB PO SCH (09:00)
[2017-02-25] MEDS ORDERED: ISOSORBIDE MONONITRATE(SR)60 MG TAB PO SCH (09:00)
[2017-02-25] MEDS: SENNA TAB PO SCH (09:00)
[2017-02-25] MEDS ORDERED: ERGOCALCIFEROL 50,000 UNIT CAP PO SCH (09:00)
[2017-02-25] MEDS: CALCIUM/VITAMIN D (500/200) TAB PO SCH (09:00)
[2017-02-25] MEDS ORDERED: ASPIRIN (EC) 81 MG TAB PO SCH (09:00)
[2017-02-25] MEDS ORDERED: LISINOPRIL 5 MG TAB PO SCH (09:00)
[2017-02-25] MEDS: METOPROLOL 25 MG TAB PO SCH ×2 (09:06→20:28)
[2017-02-25] MEDS: GABAPENTIN 300 MG CAP PO SCH ×3 (09:06→20:28)
[2017-02-25] MEDS: ISOSORBIDE MONONITRATE(SR)60 MG TAB PO SCH (09:06)
--- NOTE | 2017-02-25 09:55 | PN ---
Date/Time of Note Date/Time of Note DATE: 02/25/17 TIME: 09:36 Assessment/Plan VTE Prophylaxis VTE Prophylaxis Intervention: heparin, SCD's Lines/Catheters IV Catheter Type (from [facility]): [place] [employer] line still needed: Yes Urinary Cath still in place: Yes Reason Cath still needed: other (indicate) Assessment/Plan Chief Complaint/Hosp Course This is a 87-year-old female who was brought by paramedics for evaluation of generalized weakness who was noted with sepsis with UTI and incidental finding of pericardial effusion in CT abdomen. 1.Sepsis with UTI. Improving. Status:Acute -Continue IV ceftriaxone, IVFs -F/U urine/blood cultures. 2. Pericardial effusion with diagnostic evidence of early Cardiac tamponade Status: Acute -Cards on board and is for pericardiocentesis. 3. Hyponatremia. Status: Acute on chronic. -Sodium nicely improving. Will avoid further aggressive correction-Defer to nephrology. -Continue to hold loop diuretics. 4. Hyperkalemia, mild,possible ACEi-induced? Status: Acute -Resolved. Stop ACEi. 5. Essential hypertension with too tight control regimen as outpt. Status: Chronic. -BP meds titrated down to keep adequate perfusion. Cards to further manage BP 6. Type 2 diabetes. A1C 8.1. Status: Chronic -Stable glycemic trends. Accu-Cheks/insulin sliding scale/Lantus in-house. 7. Coronary artery disease. Status: Chronic -Continue current medical management. 8. Hyperlipidemia Status: Chronic -On statin 9. Osteoporosis/osteoarthritis/degenerative joint disease. Status: Chronic -PT evaluation and treatment. 10. Dementia. -Supportive care. 11. Progressive debility. -Follow-up with PT recommendations regarding appropriate placement on discharge. Prophylaxis: Heparin/PPIs Patient was seen in collaboration with . Problems: Subjective 24 Hr Interval Summary Free Text/Dictation Patient was transferred to ICU due to early signs of cardiac tamponade shown in Echo.She is hemodynamically doing well. Having some epigastric/substernal discomfort. Exam/Review of Systems Vital Signs Vitals Vital Signs Date Time Temp Pulse Resp B/P Pulse Ox O2 Delivery O2 Flow Rate FiO2 02/25/17 09:00 97 24 137/68 98 Room Air 02/25/17 08:00 97.7 02/24/17 10:36 2 Intake and Output 02/24/17 02/24/17 02/25/17 15:00 23:00 07:00 Intake Total 650 ml 525 ml Output Total 125 ml Balance 650 ml 400 ml Exam General: Chronically ill looking elderly female, not in any acute distress . HEENT: Normocephalic, Atraumatic, No laceration or hematoma; Eyes: PEERL, Conjunctiva clear, Anicteric sclera Neck: Supple without any lymphadenopathy, nontender, no JVD, no carotid bruits, trachea midline, no thyromegaly Cardiac: S1, S2 auscultated, regular rhythm and rate, no mumurs or gallop Pulmonary: Normal respiratory effort. Chest clear to auscultation bilaterally, no adventitious breath sounds GI: Mild tenderness to epigastric/substernal area. Abdomen normal to inspection. Soft, non- distended, no masses, no rebound tenderness or guarding. Bowel sounds active on all four quadrants Genitourinary: Incontinent Extremities: Generalized weakness to all 4 extremities. No cyanosis, clubbing, or edema. Pulses [2+] bilaterally. No focal weakness. Neurologic: Alert oriented 3. Intact sensation. Skin: Clean,dry, and intact. No ecchymosis, no rashes, or lesions Results Result Diagram: 02/25/17 0602/25/17 0604 Results 24 hrs Laboratory Tests Test 02/24/17 10:00 02/24/17 12:30 02/24/17 14:39 02/24/17 14:45 Urine Color YELLOW Urine Clarity TURBID A Urine pH 5.0 Urine Specific [place] 1.019 Urine Ketones NEGATIVE Urine Nitrite NEGATIVE Urine Bilirubin NEGATIVE Urine Urobilinogen 1+ H Urine Leukocyte Esterase 2+ H Urine Microscopic RBC 58 H Urine Microscopic WBC > 182 H Urine Bacteria MANY A Urine Mucus FEW A Urine Hemoglobin 3+ H Urine Osmolality 432 Urine Random Creatinine 159.82 Urine Random Sodium 35 Urine Glucose NEGATIVE Urine Total Protein 2+ H Lactic Acid Level 3.4 *H 1.7 Sodium Level 127 L Potassium Level 4.9 Chloride Level 93 L Carbon Dioxide Level 24 Anion Gap 15 Blood Urea Nitrogen 20 Creatinine 1.00 Glucose Level 201 Osmolality 272 L Calcium Level 8.5 Test 02/24/17 15:10 02/24/17 17:44 02/24/17 20:45 02/24/17 21:16 Creatine Kinase < 20 L < 20 L Creatine Kinase Index Creatinine Kinase MB (Mass) < 0.22 < 0.22 Troponin I < 0.012 < 0.012 Bedside Glucose 182 245 H Test 02/25/17 02:04 02/25/17 06:04 02/25/17 06:05 02/25/17 08:10 Bedside Glucose 208 135 Prothrombin Time 14.2 Prothrombin Time Ratio 1.1 INR International Normalized Ratio 1.09 Sodium Level 132 L Potassium Level 5.4 H Chloride Level 98 Carbon Dioxide Level 25 Anion Gap 14 Blood Urea Nitrogen 18 Creatinine 0.77 Glucose Level 140 # Lactic Acid Level 1.7 Calcium Level 9.2 Phosphorus Level 3.6 Magnesium Level 1.7 Total Bilirubin 0.3 Direct Bilirubin 0.00 Indirect Bilirubin 0.3 Aspartate Amino Transf (AST/SGOT) 16 Alanine Aminotransferase (ALT/SGPT) 26 Alkaline Phosphatase 46 Creatine Kinase < 20 L Creatine Kinase Index Creatinine Kinase MB (Mass) < 0.22 Troponin I < 0.012 Total Protein 5.9 L Albumin 2.9 L Globulin 3.00 Albumin/Globulin Ratio 0.96 Triglycerides Level 78 Cholesterol Level 129 LDL Cholesterol, Calculated 86 HDL Cholesterol 27 L Cholesterol/HDL Ratio 4.7 Thyroid Stimulating Hormone (TSH) 1.160 Free Thyroxine 1.64 Free Thyroxine Index 3.19 Thyroxine (T4) 9.0 Triiodothyronine (T3) Uptake 35.4 White Blood Count 12.4 H Red Blood Count 4.25 Hemoglobin 10.6 L Hematocrit 33.3 L Mean Corpuscular Volume 78.4 L Mean Corpuscular Hemoglobin 24.9 L Mean Corpuscular Hemoglobin Concent 31.8 L Red Cell Distribution Width 13.1 Platelet Count 406 Mean Platelet Volume 10.4 Neutrophils % 60.4 Lymphocytes % 25.1 Monocytes % 12.7 H Eosinophils % 0.8 Basophils % 0.4 Nucleated Red Blood Cells % 0.0 Neutrophils # 7.5 Lymphocytes # 3.1 H Monocytes # 1.6 H Eosinophils # 0.1 Basophils # 0.1 Nucleated Red Blood Cells # 0.0 Hemoglobin A1c 8.1 H B-Type Natriuretic Peptide 1160 H Medications Medications Current Medications Atorvastatin Calcium (Lipitor) 40 mg HS PO Last administered on 02/24/17t 21:11 ; Admin Dose 40 MG; Start 02/24/17 at 21:00 Calcium/Vitamin D (Oyster Shell/ Vit-D (500/200)) 1 tab DAILY PO ; Start at 09:00 Ergocalciferol (Drisdol) 50,000 unit Q7D PO ; Start 02/25/17 at 09:00 Ferrous Sulfate (Ferrous Sulfate (Ec)) 325 mg DAILY PO ; Start 02/25/17 at 09:00 Gabapentin (Neurontin) 300 mg TID PO Last administered on 02/25/17 09:06; Admin Dose 300 MG; Start 02/24/17 at 21:00 Senna (Senokot) 1 tab DAILY PO ; Start 02/25/17 at 09:00 Lisinopril 5 mg 5 mg DAILY PO Last administered on 02/25/17 09:06; Admin Dose 5 MG; Start 02/25/17 at 09:00 Sodium Chloride (NS) 1,000 ml @ 75 mls/hr [id number] IV Last administered on 02/25 06:39; Admin Dose 75 MLS/HR; Start 02/24/17 at 14:55 Ondansetron HCl (Zofran Inj) 4 mg Q6H PRN IV NAUSEA AND/OR VOMITING Last administered on 02/25/17 08:32; Admin Dose 4 MG; Start 02/24/17 at 15:00 Acetaminophen (Tylenol Tab) 650 mg Q6H PRN PO PAIN LEVEL 1-3 OR FEVER; Start 02/24/17 at 15:00 Acetaminophen (Tylenol Supp) 650 mg Q6H PRN [place] PAIN LEVEL 1-3 OR FEVER; Start 02/24/17 at 15:00 Heparin Sodium (Porcine) (Heparin (5000 Units/0.5 ml)) 5,000 unit Q12 SC ; Start 02/24/17 at 21:00; Status Future Hold Diagnostic Test (Pha) (Accu-Chek) 1 ea 02 XX ; Start 02/25/17 at 02:00 Insulin Glargine 11 unit 11 unit DAILY@20 SC Last administered on 02/24/17 21: 28; Admin Dose 11 UNIT; Start 02/24/17 at 20:00 Ceftriaxone Sodium (Rocephin) 50 ml @ 100 mls/hr Q24H IVPB Last administered on 02/24/17 16:12; Admin Dose 100 MLS/HR; Start 02/24/17 at 15:00 Miscellaneous Information 1 ea NOTE XX ; Start 02/24/17 at 15:30 Glucose (Glutose) 15 gm Q15M PRN PO DECREASED GLUCOSE; Start 02/24/17 at 15:30 Glucose (Glutose) 22.5 gm Q15M PRN PO DECREASED GLUCOSE; Start 02/24/17 at 15: 30 Dextrose (D50w Syringe) 25 ml Q15M PRN IV DECREASED GLUCOSE; Start 02/24/17 at 15:30 Dextrose (D50w Syringe) 50 ml Q15M PRN IV DECREASED GLUCOSE; Start 02/24/17 at 15:30 Glucagon (Glucagen) 1 mg Q15M PRN IM DECREASED GLUCOSE; Start 02/24/17 at 15:30 Glucose (Glutose) 15 gm Q15M PRN BUCCAL DECREASED GLUCOSE; Start 02/24/17 at 15 :30 Isosorbide Mononitrate (Imdur) 30 mg DAILY PO Last administered on 02/25/17 09 :06; Admin Dose 30 MG; Start 02/25/17 at 09:00 Metoprolol Tartrate (Lopressor) 25 mg BID PO Last administered on 02/25/17 09: 06; Admin Dose 25 MG; Start 02/24/17 at 21:00 Labetalol HCl (Labetalol) 20 mg Q2 PRN IV for sys >160, hold for hr <65 Last administered on 02/25/17 07:35; Admin Dose 20 MG; Start 02/25/17 at 07:30 MOIZ RICE NP Feb 25, 2017 09:48
[2017-02-25 10:19] LABS: IRON 24 ug/dl (35-150)
[2017-02-25 10:28] LABS: TOTAL IRON BINDING CAPACITY 247 ug/dl (241-421)
[2017-02-25] MEDS: morphine 2 MG INJ IV PRN ×3 (10:41→21:55)
--- NOTE | 2017-02-25 12:24 | CONS ---
Date/Time of Note Date/Time of Note DATE: 02/25/17 TIME: 12:22 Consult Date/Type/Reason Admit Date/Time Feb 24, 2017 at 13:17 Initial Consult Date 02/24/17 Type of Consultation: card Ordering Provider: MOIZ RICE NP Subjective cardiology follow up note: S: d/w staff and DR Bautista pt remains in NSR no chest pain or pressure. c/o LLQ abd pain breathing has improved. O: General: no resp distress HEENT: NC/AT. pupils are equal. round. NECK: NO JVD. no stridor. CV: tachycardic. systolic murmur; no gallop or rubs. PULM: no wheezing mild rhonchi. GI: SOFT, NT, ND, no rebound or guarding Extremity: trace B/L LE edema. no clubbing. neuro: awake and alert, OX3. Psych: calm and pleasant rectal: deferred ECG NSR/ low voltage echo 02/24/17 reviewed personally: 1. Normal left ventricular systolic function. Normal left ventricular cavity size. Moderate concentric left ventricular hypertrophy. Ejection fraction is visually estimated at 65 %. Abnormal Diastolic Function. 2. There is mild enlargement of left atrium. 3. Mild mitral leaflet calcification. Mild mitral annular calcification. Trace mitral regurgitation. 4. Aortic sclerosis without stenosis. Mild aortic valve regurgitation. 5. Normal appearance of the tricuspid valve. Estimated peak PA systolic pressure 37 mmHg. There is mild tricuspid regurgitation. 6. Dilated inferior vena cava with poor inspiratory collapse consistent with elevated right atrial pressures. 7. Moderate to large pericardial effusion. TV respiratory flow velocity variation consistent with tamponade. Pleural effusion seen. Objective Vital Signs Date Time Temp Pulse Resp B/P Pulse Ox O2 Delivery O2 Flow Rate FiO2 02/25/17 11:00 94 28 122/61 94 Room Air 02/25/17 08:00 97.7 02/24/17 10:36 2 Intake and Output 02/24/17 02/24/17 02/25/17 15:00 23:00 07:00 Intake Total 650 ml 525 ml Output Total 125 ml Balance 650 ml 400 ml Results/Medications Result Diagram: 02/25/17 0605 02/25/17 0604 Results 24 hrs Laboratory Tests Test 02/24/17 12:30 02/24/17 14:39 02/24/17 14:45 02/24/17 15:10 Lactic Acid Level 3.4 *H 1.7 Sodium Level 127 L Potassium Level 4.9 Chloride Level 93 L Carbon Dioxide Level 24 Anion Gap 15 Blood Urea Nitrogen 20 Creatinine 1.00 Glucose Level 201 Osmolality 272 L Calcium Level 8.5 Creatine Kinase < 20 L Creatine Kinase Index Creatinine Kinase MB (Mass) < 0.22 Troponin I < 0.012 Test 02/24/17 17:44 02/24/17 20:45 02/24/17 21:16 02/25/17 02:04 Bedside Glucose 182 245 H 208 Creatine Kinase < 20 L Creatine Kinase Index Creatinine Kinase MB (Mass) < 0.22 Troponin I < 0.012 Test 02/25/17 06:04 02/25/17 06:05 02/25/17 08:10 Prothrombin Time 14.2 Prothrombin Time Ratio 1.1 INR International Normalized Ratio 1.09 Sodium Level 132 L Potassium Level 5.4 H Chloride Level 98 Carbon Dioxide Level 25 Anion Gap 14 Blood Urea Nitrogen 18 Creatinine 0.77 Glucose Level 140 # Lactic Acid Level 1.7 Calcium Level 9.2 Phosphorus Level 3.6 Magnesium Level 1.7 Iron Level 24 L Total Iron Binding Capacity 247 Percent Iron Saturation 10 L Total Bilirubin 0.3 Direct Bilirubin 0.00 Indirect Bilirubin 0.3 Aspartate Amino Transf (AST/SGOT) 16 Alanine Aminotransferase (ALT/SGPT) 26 Alkaline Phosphatase 46 Creatine Kinase < 20 L Creatine Kinase Index Creatinine Kinase MB (Mass) < 0.22 Troponin I < 0.012 Total Protein 5.9 L Albumin 2.9 L Globulin 3.00 Albumin/Globulin Ratio 0.96 Triglycerides Level 78 Cholesterol Level 129 LDL Cholesterol, Calculated 86 HDL Cholesterol 27 L Cholesterol/HDL Ratio 4.7 Thyroid Stimulating Hormone (TSH) 1.160 Free Thyroxine 1.64 Free Thyroxine Index 3.19 Thyroxine (T4) 9.0 Triiodothyronine (T3) Uptake 35.4 White Blood Count 12.4 H Red Blood Count 4.25 Hemoglobin 10.6 L Hematocrit 33.3 L Mean Corpuscular Volume 78.4 L Mean Corpuscular Hemoglobin 24.9 L Mean Corpuscular Hemoglobin Concent 31.8 L Red Cell Distribution Width 13.1 Platelet Count 406 Mean Platelet Volume 10.4 Neutrophils % 60.4 Lymphocytes % 25.1 Monocytes % 12.7 H Eosinophils % 0.8 Basophils % 0.4 Nucleated Red Blood Cells % 0.0 Neutrophils # 7.5 Lymphocytes # 3.1 H Monocytes # 1.6 H Eosinophils # 0.1 Basophils # 0.1 Nucleated Red Blood Cells # 0.0 Hemoglobin A1c 8.1 H B-Type Natriuretic Peptide 1160 H Bedside Glucose 135 Medications Current Medications Atorvastatin Calcium (Lipitor) 40 mg HS PO Last administered on 02/24/17 21:11 ; Admin Dose 40 MG; Start 02/24/17 at 21:00 Calcium/Vitamin D (Oyster Shell/ Vit-D (500/200)) 1 tab DAILY PO ; Start at 09:00 Ergocalciferol (Drisdol) 50,000 unit Q7D PO ; Start 02/25/17 at 09:00 Ferrous Sulfate (Ferrous Sulfate (Ec)) 325 mg DAILY PO ; Start 02/25/17 at 09:00 Gabapentin (Neurontin) 300 mg TID PO Last administered on 02/25/17 09:06; Admin Dose 300 MG; Start 02/24/17 at 21:00 Senna 1 tab 1 tab DAILY PO ; Start 02/25/17 at 09:00 Sodium Chloride (NS) 1,000 ml @ 75 mls/hr [id number] IV Last administered on 02/25 06:39; Admin Dose 75 MLS/HR; Start 02/24/17 at 14:55 Ondansetron HCl (Zofran Inj) 4 mg Q6H PRN IV NAUSEA AND/OR VOMITING Last administered on 02/25/17 08:32; Admin Dose 4 MG; Start 02/24/17 at 15:00 Acetaminophen (Tylenol Tab) 650 mg Q6H PRN PO PAIN LEVEL 1-3 OR FEVER; Start 02/24/17 at 15:00 Acetaminophen (Tylenol Supp) 650 mg Q6H PRN [place] PAIN LEVEL 1-3 OR FEVER; Start 02/24/17 at 15:00 Heparin Sodium (Porcine) (Heparin (5000 Units/0.5 ml)) 5,000 unit Q12 SC ; Start 02/24/17 at 21:00; Status Future Hold Diagnostic Test (Pha) (Accu-Chek) 1 ea 02 XX ; Start 02/25/17 at 02:00 Insulin Glargine 11 unit 11 unit DAILY@20 SC Last administered on 02/24/17 21: 28; Admin Dose 11 UNIT; Start 02/24/17 at 20:00 Ceftriaxone Sodium (Rocephin) 50 ml @ 100 mls/hr Q24H IVPB Last administered on 02/24/17 16:12; Admin Dose 100 MLS/HR; Start 02/24/17 at 15:00 Miscellaneous Information 1 ea NOTE XX ; Start 02/24/17 at 15:30 Glucose (Glutose) 15 gm Q15M PRN PO DECREASED GLUCOSE; Start 02/24/17 at 15:30 Glucose (Glutose) 22.5 gm Q15M PRN PO DECREASED GLUCOSE; Start 02/24/17 at 15: 30 Dextrose (D50w Syringe) 25 ml Q15M PRN IV DECREASED GLUCOSE; Start 02/24/17 at 15:30 Dextrose (D50w Syringe) 50 ml Q15M PRN IV DECREASED GLUCOSE; Start 02/24/17 at 15:30 Glucagon (Glucagen) 1 mg Q15M PRN IM DECREASED GLUCOSE; Start 02/24/17 at 15:30 Glucose (Glutose) 15 gm Q15M PRN BUCCAL DECREASED GLUCOSE; Start 02/24/17 at 15 :30 Isosorbide Mononitrate (Imdur) 30 mg DAILY PO Last administered on 02/25/17 09 :06; Admin Dose 30 MG; Start 02/25/17 at 09:00 Metoprolol Tartrate (Lopressor) 25 mg BID PO Last administered on 02/25/17 09: 06; Admin Dose 25 MG; Start 02/24/17 at 21:00 Labetalol HCl (Labetalol) 20 mg Q2 PRN IV for sys >160, hold for hr <65 Last administered on 02/25/17 07:35; Admin Dose 20 MG; Start 02/25/17 at 07:30 Morphine Sulfate (morphine) 2 mg Q4H PRN IV PAIN Last administered on 10:41; Admin Dose 2 MG; Start 02/25/17 at 10:30 Assessment/Plan Chief Complaint/Hosp Course 1. mod/Large pericardial effusion with signs of early cardiac tamponade 2. Hypertension 3. Diabetes/hyperglycemia 4. Dyslipidemia 5. Obesity 6. Possible UTI/sepsis 7. Generalized weakness 8. Hyponatremia 9. Hyperkalemia Recommendations: Antibiotic as per internal medicine. Patient will be monitored in ICU for close monitoring. We will allow for hypertension for now. Plan for pericardiocentesis today. Risks benefits and alternatives of procedure discussed with the patient and her son. Risks include not limited to risk of infection but bleeding complication perforation arrhythmias pneumothorax [place] etc. discussed with them in detail. Consent has been obtained. We will hold off heparin for now Aspirin was discontinued since the patient is having pericardiocentesis and has no history of coronary artery is a per family's report. Diabetic management as per internal medicine. correction of lytes as per renal Thank you for his referral. I will continue to follow along with you. SHREE TOPETE MD [facility] Problems: SHREE TOPETE MD Feb 25, 2017 12:24
--- NOTE | 2017-02-25 12:26 | CONS ---
Date/Time of Note Date/Time of Note DATE: 02/25/17 TIME: 12:15 Assessment/Plan Assessment/Plan Additional Assessment/Plan 87 yo Female with 1. Sepsis with UTI. 2. Pericardial effusion 3. Hyponatremia. 4. Hyperkalemia 5. Essential hypertension 6. Hyperglycemia with type 2 diabetes. 7. Coronary artery disease. 8. Hyperlipidemia Na improved Hold DAR-I and diuretic Rx at this time due to hypotension and electrolyte abnormality Urine studies reviewed. CT scan reviewed, Kidney unremarkable. Cardiology following closely with plan for pericardiocentesis today. currently NPO, Low K diet when on diet. Pt is on IV Abx Rx Cont kunz. Will cont to closely follow along with you. Discussed case with [facility] and Cardiology. Thank you for the opportunity to participate in the care of Ms Pacheco. Consultation Date/Type/Reason Admit Date/Time Feb 24, 2017 at 13:17 Initial Consult Date 02/24/17 Type of Consultation: renal Reason for Consultation Hyponatremia Referring Provider: MOIZ RICE NP 24 HR Interval Summary Free Text/Dictation Left LLQ pain. Pt was given DAR-I this am. Subjective hx not possible: pt critical status Constitutional: No requiring O2 Exam/Review of Systems Vital Signs Vitals Vital Signs Date Time Temp Pulse Resp B/P Pulse Ox O2 Delivery O2 Flow Rate FiO2 02/25/17 11:00 94 28 122/61 94 Room Air 02/25/17 08:00 97.7 02/24/17 10:36 2 Intake and Output 02/24/17 02/24/17 02/25/17 15:00 23:00 07:00 Intake Total 650 ml 525 ml Output Total 125 ml Balance 650 ml 400 ml Exam Constitutional: alert, distress, oriented ENMT: mucosa pink and moist Neck: No jvd Respiratory: No diminished breath sounds, No labored breathing Cardiovascular: regular rate and rhythm, No edema Gastrointestinal: soft, tender, No rebound or guarding Musculoskeletal: nl extremities to inspection Neurological: MULTIPLE DRUM SANDER II-XII intact, nl mental status, No lethargic Skin: No diaphoresis Results Result Diagram: 02/25/17 0605 02/25/17 0604 Results 24 hrs Laboratory Tests Test 02/24/17 12:30 02/24/17 14:39 02/24/17 14:45 02/24/17 15:10 Lactic Acid Level 3.4 *H 1.7 Sodium Level 127 L Potassium Level 4.9 Chloride Level 93 L Carbon Dioxide Level 24 Anion Gap 15 Blood Urea Nitrogen 20 Creatinine 1.00 Glucose Level 201 Osmolality 272 L Calcium Level 8.5 Creatine Kinase < 20 L Creatine Kinase Index Creatinine Kinase MB (Mass) < 0.22 Troponin I < 0.012 Test 02/24/17 17:44 02/24/17 20:45 02/24/17 21:16 02/25/17 02:04 Bedside Glucose 182 245 H 208 Creatine Kinase < 20 L Creatine Kinase Index Creatinine Kinase MB (Mass) < 0.22 Troponin I < 0.012 Test 02/25/17 06:04 02/25/17 06:05 02/25/17 08:10 Prothrombin Time 14.2 Prothrombin Time Ratio 1.1 INR International Normalized Ratio 1.09 Sodium Level 132 L Potassium Level 5.4 H Chloride Level 98 Carbon Dioxide Level 25 Anion Gap 14 Blood Urea Nitrogen 18 Creatinine 0.77 Glucose Level 140 # Lactic Acid Level 1.7 Calcium Level 9.2 Phosphorus Level 3.6 Magnesium Level 1.7 Iron Level 24 L Total Iron Binding Capacity 247 Percent Iron Saturation 10 L Total Bilirubin 0.3 Direct Bilirubin 0.00 Indirect Bilirubin 0.3 Aspartate Amino Transf (AST/SGOT) 16 Alanine Aminotransferase (ALT/SGPT) 26 Alkaline Phosphatase 46 Creatine Kinase < 20 L Creatine Kinase Index Creatinine Kinase MB (Mass) < 0.22 Troponin I < 0.012 Total Protein 5.9 L Albumin 2.9 L Globulin 3.00 Albumin/Globulin Ratio 0.96 Triglycerides Level 78 Cholesterol Level 129 LDL Cholesterol, Calculated 86 HDL Cholesterol 27 L Cholesterol/HDL Ratio 4.7 Thyroid Stimulating Hormone (TSH) 1.160 Free Thyroxine 1.64 Free Thyroxine Index 3.19 Thyroxine (T4) 9.0 Triiodothyronine (T3) Uptake 35.4 White Blood Count 12.4 H Red Blood Count 4.25 Hemoglobin 10.6 L Hematocrit 33.3 L Mean Corpuscular Volume 78.4 L Mean Corpuscular Hemoglobin 24.9 L Mean Corpuscular Hemoglobin Concent 31.8 L Red Cell Distribution Width 13.1 Platelet Count 406 Mean Platelet Volume 10.4 Neutrophils % 60.4 Lymphocytes % 25.1 Monocytes % 12.7 H Eosinophils % 0.8 Basophils % 0.4 Nucleated Red Blood Cells % 0.0 Neutrophils # 7.5 Lymphocytes # 3.1 H Monocytes # 1.6 H Eosinophils # 0.1 Basophils # 0.1 Nucleated Red Blood Cells # 0.0 Hemoglobin A1c 8.1 H B-Type Natriuretic Peptide 1160 H Bedside Glucose 135 Medications Medications Current Medications Atorvastatin Calcium (Lipitor) 40 mg HS PO Last administered on 02/24/17 21:11 ; Admin Dose 40 MG; Start 02/24/17 at 21:00 Calcium/Vitamin D (Oyster Shell/ Vit-D (500/200)) 1 tab DAILY PO ; Start at 09:00 Ergocalciferol (Drisdol) 50,000 unit Q7D PO ; Start 02/25/17 at 09:00 Ferrous Sulfate (Ferrous Sulfate (Ec)) 325 mg DAILY PO ; Start 02/25/17 at 09:00 Gabapentin (Neurontin) 300 mg TID PO Last administered on 02/25/17 09:06; Admin Dose 300 MG; Start 02/24/17 at 21:00 Senna 1 tab 1 tab DAILY PO ; Start 02/25/17 at 09:00 Sodium Chloride (NS) 1,000 ml @ 75 mls/hr [id number] IV Last administered on 02/25 06:39; Admin Dose 75 MLS/HR; Start 02/24/17 at 14:55 Ondansetron HCl (Zofran Inj) 4 mg Q6H PRN IV NAUSEA AND/OR VOMITING Last administered on 02/25/17 08:32; Admin Dose 4 MG; Start 02/24/17 at 15:00 Acetaminophen (Tylenol Tab) 650 mg Q6H PRN PO PAIN LEVEL 1-3 OR FEVER; Start 02/24/17 at 15:00 Acetaminophen (Tylenol Supp) 650 mg Q6H PRN [place] PAIN LEVEL 1-3 OR FEVER; Start 02/24/17 at 15:00 Heparin Sodium (Porcine) (Heparin (5000 Units/0.5 ml)) 5,000 unit Q12 SC ; Start 02/24/17 at 21:00; Status Future Hold Diagnostic Test (Pha) (Accu-Chek) 1 ea 02 XX ; Start 02/25/17 at 02:00 Insulin Glargine 11 unit 11 unit DAILY@20 SC Last administered on 02/24/17 21: 28; Admin Dose 11 UNIT; Start 02/24/17 at 20:00 Ceftriaxone Sodium (Rocephin) 50 ml @ 100 mls/hr Q24H IVPB Last administered on 02/24/17 16:12; Admin Dose 100 MLS/HR; Start 02/24/17 at 15:00 Miscellaneous Information 1 ea NOTE XX ; Start 02/24/17 at 15:30 Glucose (Glutose) 15 gm Q15M PRN PO DECREASED GLUCOSE; Start 02/24/17 at 15:30 Glucose (Glutose) 22.5 gm Q15M PRN PO DECREASED GLUCOSE; Start 02/24/17 at 15: 30 Dextrose (D50w Syringe) 25 ml Q15M PRN IV DECREASED GLUCOSE; Start 02/24/17 at 15:30 Dextrose (D50w Syringe) 50 ml Q15M PRN IV DECREASED GLUCOSE; Start 02/24/17 at 15:30 Glucagon (Glucagen) 1 mg Q15M PRN IM DECREASED GLUCOSE; Start 02/24/17 at 15:30 Glucose (Glutose) 15 gm Q15M PRN BUCCAL DECREASED GLUCOSE; Start 02/24/17 at 15 :30 Isosorbide Mononitrate (Imdur) 30 mg DAILY PO Last administered on 02/25/17 09 :06; Admin Dose 30 MG; Start 02/25/17 at 09:00 Metoprolol Tartrate (Lopressor) 25 mg BID PO Last administered on 02/25/17 09: 06; Admin Dose 25 MG; Start 02/24/17 at 21:00 Labetalol HCl (Labetalol) 20 mg Q2 PRN IV for sys >160, hold for hr <65 Last administered on 02/25/17 07:35; Admin Dose 20 MG; Start 02/25/17 at 07:30 Morphine Sulfate (morphine) 2 mg Q4H PRN IV PAIN Last administered on 10:41; Admin Dose 2 MG; Start 02/25/17 at 10:30 RALPH KNOTT MD Feb 25, 2017 12:26
[2017-02-25] MEDS ORDERED: FENTAnyl 50 MCG/ML VIAL ONE (14:35)
[2017-02-25] MEDS ORDERED: MIDAZOLAM 1 MG/ML 2 ML INJ ONE (14:35)
[2017-02-25] MEDS ORDERED: LIDOCAINE 1% (MDV) 20 ML INJ ONE (14:35)
--- NOTE | 2017-02-25 15:34 | OPR ---
Date/Time of Note Date/Time of Note DATE: 02/25/17 TIME: 15:24 Operative Report Procedure Date: Feb 25, 2017 Preoperative Diagnosis Moderate/ large pericardial effusion with echocardiographic signs of tamponade Postoperative Diagnosis same Surgeon see signature line Branch Service Leader none Anesthesia Type: moderate sedation Estimated Blood Loss: none Transfusion none Specimen 540 cc serosangeous fluid. Grafts/Implants none Complications none Procedure Description procedure NOTE: Procedure performed: u/s guided and fluouroscopy guided pericardiocentesis. Vegetable Farmer: SHREE TOPETE MD INDICATION: pericardial effusion and echocardiographic signs of tamponade. Procedure in detail: Written informed consent was obtained after risks benefits alternatives discussed with the patient and her son in detail. Patient was brought in catheter placed in supine position. Subxiphoid area was prepped in the regular sterile fashion. It was anesthetized 1% lidocaine. Pericardiocentesis needle was advanced into the pericardium. Pericardial fluid was removed. Wire was advanced and after it was dilated the pigtail was advanced under direct fluoroscopy into the pericardium. Pigtail was connected to the tubing and the fluid was drained. Echocardiogram was done which confirmed resolution of the pericardial effusion. Total of about 540 cc of serosanguineous fluid was removed. It will be sent to the labs. Pericardial pigtail catheter was sutured in and Tegaderm was applied. Complications none Patient is to be transferred back to the ICU. Conclusion: Successful pericardiocentesis SHREE TOPETE MD [facility] SHREE TOPETE MD Feb 25, 2017 15:34
[2017-02-25] MEDS: CEFTRIAXONE 1 GM/50 ML (PMX) 50 ML IVPB SCH (16:04)
--- NOTE | 2017-02-25 16:14 | RADRPT ---
PROCEDURE: XR Chest. CLINICAL INDICATION: Chest pain. Post pericardiocentesis TECHNIQUE: Portable AP semi erect view of the chest was obtained. COMPARISON: 02/24/2017 FINDINGS: A pigtail tip of the catheter is now present projecting over the left hilum presumably related to pe ricardial effusion and drainage. The cardiomediastinal silhouette has mildly decreased since the pre vious exam. Bibasilar subsegmental atelectasis appear slightly worse and greater on the right. Obs curing of the diaphragm is compatible with small bilateral pleural effusions slightly greater on the right. There is no evidence of pneumothorax. No pulmonary vascular congestion is appreciated. Diff use decreased mineralization cannot exclude osteopenia or osteoporosis. Degenerative spondylosis of the thoracic spine is again demonstrated. Calcification is seen within the aorta RPTAT:HJJR IMPRESSION: 1. Interval percutaneous catheter placement the distal tip projecting over the left hilum with assoc iated decrease in size of the cardiomediastinal silhouette as compared to 02/24/2017. 2. No evidence of a pneumothorax or pneumomediastinum. 3. Right larger than left pleural effusions and associated subsegmental atelectasis of the lung bas es slightly worse compared to the prior exam. Physician Arthur Date Time Electronically viewed and signed by Physician Arthur on 02/25/2017 16:14 /
[2017-02-25 16:48] LABS: FLD PMN% 28.7 %; FLD RBC 76000 /uL; FLD WBC 4310 /cmm
[2017-02-25 17:06] LABS: FLD CLARITY TURBID; FLD COLOR RED; FLD TYPE OTHERS
[2017-02-25 17:07] LABS: FLD MN% 71.3 %
[2017-02-25] MEDS: ATORVASTATIN 40 MG TAB PO SCH (20:28)
[2017-02-25] MEDS: INSULIN GLARGINE [LANtus] 3 ML PEN SC SCH (20:29)
[2017-02-25] MEDS ORDERED: NA POLYST SULFON 15 GM/60 ML BTL PO ONE (21:30)
[2017-02-26] VITALS (31 sets, daily range): BP systolic 95–178; BP diastolic 38–142; PULSE 70–109; RESP 15–30
[2017-02-26] MEDS: ACCU-CHEK XX SCH (02:00)
[2017-02-26] MEDS: SOD CHLORIDE 0.9% 1,000 ML IV SCH ×2 (02:34→20:25)
[2017-02-26] MEDS: ACETAMINOPHEN 325 MG TAB PO PRN ×2 (02:57→09:23)
[2017-02-26] MEDS: morphine 2 MG INJ IV PRN ×3 (05:00→23:02)
[2017-02-26 05:52] LABS: BASOPHIL # 0.1 10^3/ul (0.0-0.1); BASOPHILS % 0.5 % (0.0-2.0); EOSINOPHILS # 0.1 10^3/ul (0.0-0.5); EOSINOPHILS % 0.9 % (0.0-7.0); HEMATOCRIT 27.4 % (37.0-47.0); HEMOGLOBIN 8.9 g/dl (12.0-16.0); LYMPHOCYTES # 3.4 10^3/ul (0.8-2.9); LYMPHOCYTES % 33.1 % (15.0-51.0); MEAN CORPUSCULAR HEMOGLOBIN 25.4 pg (29.0-33.0); MEAN CORPUSCULAR HGB CONC 32.5 g/dl (32.0-37.0); MEAN CORPUSCULAR VOLUME 78.1 fl (82.0-101.0); MEAN PLATELET VOLUME 9.8 fl (7.4-10.4); MONOCYTE # 1.3 10^3/ul (0.3-0.9); MONOCYTES % 12.8 % (0.0-11.0); NEUTROPHIL # 5.4 10^3/ul (1.6-7.5); NEUTROPHILS % 52.4 % (39.0-77.0); PLATELET COUNT 421 10^3/UL (140-415); RED BLOOD COUNT 3.51 10^6/ul (4.20-5.40); RED CELL DISTRIBUTION WIDTH 13.2 % (11.5-14.5); WHITE BLOOD COUNT 10.3 10^3/ul (4.8-10.8)
[2017-02-26 06:30] LABS: ALBUMIN 2.5 g/dl (3.3-4.9); ALBUMIN/GLOBULIN RATIO 0.86; BILIRUBIN,INDIRECT 0.2 mg/dl (0-1.1); BILIRUBIN,TOTAL 0.2 mg/dl (0.2-1.3); CALCIUM 8.2 mg/dl (8.4-10.2); CREATININE 0.81 mg/dl (0.44-1.00); POTASSIUM 3.9 mmol/L (3.5-5.1); TOTAL PROTEIN 5.4 g/dl (6.1-8.1)
[2017-02-26] MEDS: INSULIN ASPART [NOVOLOG] 3 ML PEN SC SCH ×3 (07:35→20:41)
--- NOTE | 2017-02-26 09:16 | CONS ---
Date/Time of Note Date/Time of Note DATE: 02/26/17 TIME: 09:12 Consult Date/Type/Reason Admit Date/Time Feb 24, 2017 at 13:17 Initial Consult Date 02/24/17 Type of Consultation: card Ordering Provider: MOIZ RICE NP Subjective cardiology follow up note: S: d/w staff and son pt remains in NSR no chest pain or pressure. c/o mild abd pain breathing has improved. s/p pericardiocentesis on 02/25/17 and removal of more than 540 cc. pt with additional 90 cc drainage over night . O: General: no resp distress HEENT: NC/AT. pupils are equal. round. NECK: NO JVD. no stridor. CV: tachycardic. systolic murmur; no gallop or rubs. PULM: no wheezing mild rhonchi. chest: s/p pericardiocentsis pigtail in place. GI: SOFT, NT, ND, no rebound or guarding Extremity: trace B/L LE edema. no clubbing. neuro: awake and alert, OX3. Psych: calm and pleasant rectal: deferred ECG NSR/ low voltage echo 02/24/17 reviewed personally: 1. Normal left ventricular systolic function. Normal left ventricular cavity size. Moderate concentric left ventricular hypertrophy. Ejection fraction is visually estimated at 65 %. Abnormal Diastolic Function. 2. There is mild enlargement of left atrium. 3. Mild mitral leaflet calcification. Mild mitral annular calcification. Trace mitral regurgitation. 4. Aortic sclerosis without stenosis. Mild aortic valve regurgitation. 5. Normal appearance of the tricuspid valve. Estimated peak PA systolic pressure 37 mmHg. There is mild tricuspid regurgitation. 6. Dilated inferior vena cava with poor inspiratory collapse consistent with elevated right atrial pressures. 7. Moderate to large pericardial effusion. TV respiratory flow velocity variation consistent with tamponade. Pleural effusion seen. Objective Vital Signs Date Time Temp Pulse Resp B/P Pulse Ox O2 Delivery O2 Flow Rate FiO2 02/26/17 07:00 73 15 101/38 97 Room Air 02/26/17 05:00 97.8 02/24/17 10:36 2 Intake and Output 02/25/17 02/25/17 02/26/17 15:00 23:00 07:00 Intake Total 450 ml 1240 ml 700 ml Output Total 45 ml 410 ml 320 ml Balance 405 ml 830 ml 380 ml Results/Medications Result Diagram: 02/26/17 0455 02/26/17 0455 Results 24 hrs Laboratory Tests Test 02/25/17 12:29 02/25/17 15:20 02/25/17 17:40 02/25/17 20:26 Bedside Glucose 125 126 170 Body Fluid Type OTHERS Body Fluid Volume 350.0 Body Fluid Color RED Body Fluid Appearance TURBID Body Fluid WBC 4310 Body Fluid RBC (Auto) 85158 Body Fluid Polynuclear WBCs (%) 28.7 Body Fluid Mononuclear Cells % Auto 71.3 Test 02/26/17 02:32 02/26/17 04:55 Bedside Glucose 87 White Blood Count 10.3 Red Blood Count 3.51 L Hemoglobin 8.9 L Hematocrit 27.4 L Mean Corpuscular Volume 78.1 L Mean Corpuscular Hemoglobin 25.4 L Mean Corpuscular Hemoglobin Concent 32.5 Red Cell Distribution Width 13.2 Platelet Count 421 H Mean Platelet Volume 9.8 Neutrophils % 52.4 Lymphocytes % 33.1 Monocytes % 12.8 H Eosinophils % 0.9 Basophils % 0.5 Nucleated Red Blood Cells % 0.0 Neutrophils # 5.4 Lymphocytes # 3.4 H Monocytes # 1.3 H Eosinophils # 0.1 Basophils # 0.1 Nucleated Red Blood Cells # 0.0 Sodium Level 134 L Potassium Level 3.9 Chloride Level 101 Carbon Dioxide Level 25 Anion Gap 12 Blood Urea Nitrogen 14 Creatinine 0.81 Glucose Level 62 #L Calcium Level 8.2 L Magnesium Level 1.6 L Total Bilirubin 0.2 Direct Bilirubin 0.00 Indirect Bilirubin 0.2 Aspartate Amino Transf (AST/SGOT) 13 L Alanine Aminotransferase (ALT/SGPT) 22 Alkaline Phosphatase 49 Total Protein 5.4 L Albumin 2.5 L Globulin 2.90 Albumin/Globulin Ratio 0.86 Medications Current Medications Atorvastatin Calcium (Lipitor) 40 mg HS PO Last administered on 02/25/17t 20:28 ; Admin Dose 40 MG; Start 02/24/17 at 21:00 Calcium/Vitamin D (Oyster Shell/ Vit-D (500/200)) 1 tab DAILY PO ; Start at 09:00 Ergocalciferol (Drisdol) 50,000 unit Q7D PO ; Start 02/25/17 at 09:00 Ferrous Sulfate (Ferrous Sulfate (Ec)) 325 mg DAILY PO ; Start 02/25/17 at 09:00 Gabapentin (Neurontin) 300 mg TID PO Last administered on 02/25/17 20:28; Admin Dose 300 MG; Start 02/24/17 at 21:00 Senna 1 tab 1 tab DAILY PO ; Start 02/25/17 at 09:00 Sodium Chloride (NS) 1,000 ml @ 75 mls/hr [id number] IV Last administered on 02/26 02:34; Admin Dose 75 MLS/HR; Start 02/24/17 at 14:55 Ondansetron HCl (Zofran Inj) 4 mg Q6H PRN IV NAUSEA AND/OR VOMITING Last administered on 02/25/17 08:32; Admin Dose 4 MG; Start 02/24/17 at 15:00 Acetaminophen (Tylenol Tab) 650 mg Q6H PRN PO PAIN LEVEL 1-3 OR FEVER Last administered on 02/26/17 02:57; Admin Dose 650 MG; Start 02/24/17 at 15:00 Acetaminophen (Tylenol Supp) 650 mg Q6H PRN [place] PAIN LEVEL 1-3 OR FEVER; Start 02/24/17 at 15:00 Heparin Sodium (Porcine) (Heparin (5000 Units/0.5 ml)) 5,000 unit Q12 SC ; Start 02/24/17 at 21:00; Status Future Hold Diagnostic Test (Pha) (Accu-Chek) 1 ea 02 XX ; Start 02/25/17 at 02:00 Insulin Glargine 11 unit 11 unit DAILY@20 SC Last administered on 02/25/17 20: 29; Admin Dose 11 UNIT; Start 02/24/17 at 20:00 Ceftriaxone Sodium (Rocephin) 50 ml @ 100 mls/hr Q24H IVPB Last administered on 02/25/17 16:04; Admin Dose 100 MLS/HR; Start 02/24/17 at 15:00 Miscellaneous Information 1 ea NOTE XX ; Start 02/24/17 at 15:30 Glucose (Glutose) 15 gm Q15M PRN PO DECREASED GLUCOSE; Start 02/24/17 at 15:30 Glucose (Glutose) 22.5 gm Q15M PRN PO DECREASED GLUCOSE; Start 02/24/17 at 15: 30 Dextrose (D50w Syringe) 25 ml Q15M PRN IV DECREASED GLUCOSE; Start 02/24/17 at 15:30 Dextrose (D50w Syringe) 50 ml Q15M PRN IV DECREASED GLUCOSE; Start 02/24/17 at 15:30 Glucagon (Glucagen) 1 mg Q15M PRN IM DECREASED GLUCOSE; Start 02/24/17 at 15:30 Glucose (Glutose) 15 gm Q15M PRN BUCCAL DECREASED GLUCOSE; Start 02/24/17 at 15 :30 Isosorbide Mononitrate (Imdur) 30 mg DAILY PO Last administered on 02/25/17 09 :06; Admin Dose 30 MG; Start 02/25/17 at 09:00 Metoprolol Tartrate (Lopressor) 25 mg BID PO Last administered on 02/25/17 20: 28; Admin Dose 25 MG; Start 02/24/17 at 21:00 Labetalol HCl (Labetalol) 20 mg Q2 PRN IV for sys >160, hold for hr <65 Last administered on 02/25/17 07:35; Admin Dose 20 MG; Start 02/25/17 at 07:30 Morphine Sulfate (morphine) 2 mg Q4H PRN IV PAIN Last administered on 05:00; Admin Dose 2 MG; Start 02/25/17 at 10:30 Assessment/Plan Chief Complaint/Hosp Course 1. mod/Large pericardial effusion with signs of early cardiac tamponade: s/p pericardiocentesis now. 2. Hypertension 3. Diabetes/hyperglycemia 4. Dyslipidemia 5. Obesity 6. Possible UTI/sepsis 7. Generalized weakness 8. Hyponatremia 9. Hyperkalemia Recommendations: Antibiotic as per internal medicine. Patient will be monitored in ICU for close monitoring. will resume DVT prophylaxis with heparin Diabetic management as per internal medicine. correction of lytes as per renal will keep the pigtail in place and repeat limited echo Thank you for his referral. I will continue to follow along with you. SHREE TOPETE MD [facility] Problems: SHREE TOPETE MD Feb 26, 2017 09:16
[2017-02-26] MEDS ORDERED: ALBUTEROL/IPRATROPIUM (NEB) 3 ML AMP HHN STA (09:18)
[2017-02-26] MEDS: FERROUS SULFATE (EC) 325 MG TAB PO SCH (09:22)
[2017-02-26] MEDS: GABAPENTIN 300 MG CAP PO SCH ×3 (09:22→20:25)
[2017-02-26] MEDS: CALCIUM/VITAMIN D (500/200) TAB PO SCH (09:22)
[2017-02-26] MEDS: ISOSORBIDE MONONITRATE(SR)60 MG TAB PO SCH (09:22)
[2017-02-26] MEDS: SENNA TAB PO SCH (09:22)
[2017-02-26] MEDS: METOPROLOL 25 MG TAB PO SCH ×2 (09:29→20:25)
[2017-02-26] MEDS ORDERED: MAGNESIUM SULFATE 2 GM/50 ML 50 ML IVPB ONE (09:30)
[2017-02-26] MEDS ORDERED: HEPARIN 5,000 UNIT/0.5 ML VIAL SC SCH (09:30)
[2017-02-26] MEDS ORDERED: ALBUTEROL/IPRATROPIUM (NEB) 3 ML AMP HHN PRN (09:30)
--- NOTE | 2017-02-26 09:37 | PN ---
Date/Time of Note Date/Time of Note DATE: 02/26/17 TIME: 09:27 Assessment/Plan VTE Prophylaxis VTE Prophylaxis Intervention: heparin Lines/Catheters IV [facility]from [facility] Urinary Cath still in place: Yes Reason Cath still needed: other (indicate) Assessment/Plan Chief Complaint/Hosp Course This is a 87-year-old female who was brought by paramedics for evaluation of generalized weakness who was noted with sepsis with UTI and incidental finding of pericardial effusion in CT abdomen. 1.Sepsis with Ecoli UTI. Resolving. Status:Acute -Continue IV ceftriaxone, IVFs 2. Pericardial effusion with echocardiographic evidence of early Cardiac tamponade. Status: Acute -Status post pericardiocentesis with removal of 540cc serosanguineous. -Pigtail drain management per cards. F/u repeat Echo. 3. Hyponatremia.Stable. Status: Acute on chronic. -Continue to hold loop diuretics. 4. Hyperkalemia, mild,possible ACEi-induced? Stable. Status: Acute -Resolved. No ACEi on discharge. 5. Essential hypertension with too tight control regimen as outpt. Status: Chronic. -Continue current antihypertensive regimen. -BP meds titrated down to keep adequate perfusion. Cards to further manage BP 6. Type 2 diabetes. A1C 8.1.Now with hypoglycemic episodes with too tight control. Status: Chronic -Deescalate Lantus. Continue Accu-Cheks/insulin sliding scale 7. Coronary artery disease. Status: Chronic -Continue current medical management. 8. Hyperlipidemia Status: Chronic -On statin 9. Osteoporosis/osteoarthritis/degenerative joint disease. Status: Chronic -PT evaluation and treatment. 10. Dementia. -Supportive care. 11. Progressive debility. -Follow-up with PT recommendations regarding appropriate placement on discharge. 12.Postoperative atelectasias -Incentive spirometer Q1H/ Duoneb Neb. -F/u chest Xray Prophylaxis: Heparin/PPIs Continue ICU care. 45 mins CC time spent. Patient was seen in collaboration with . Problems: Subjective 24 Hr Interval Summary Free Text/Dictation Patient is status post pericardiocentesis with pigtaul drainage cath in place , drained total 95 ml over last 24hours. No CP/Palpitation/SOB. Exam/Review of Systems Vital Signs Vitals Vital Signs Date Time Temp Pulse Resp B/P Pulse Ox O2 Delivery O2 Flow Rate FiO2 02/26/17 07:00 73 15 101/38 97 Room Air 02/26/17 05:00 97.8 02/24/17 10:36 2 Intake and Output 02/25/17 02/25/17 02/26/17 15:00 23:00 07:00 Intake Total 450 ml 1240 ml 700 ml Output Total 45 ml 410 ml 320 ml Balance 405 ml 830 ml 380 ml Exam General: Chronically ill looking elderly female, not in any acute distress . HEENT: Normocephalic, Atraumatic, No laceration or hematoma; Eyes: PEERL, Conjunctiva clear, Anicteric sclera Neck: Supple without any lymphadenopathy, nontender, no JVD, no carotid bruits, trachea midline, no thyromegaly Cardiac: Pericardial pigtail drainage cath with serosanguineous drainage. S1, S2 auscultated, regular rhythm and rate, no mumurs or gallop Pulmonary: Diminished breath sounds bibasilar.Normal respiratory effort. Chest clear to auscultation bilaterally, no adventitious breath sounds GI: Mild tenderness to epigastric/substernal area. Abdomen normal to inspection. Soft, non- distended, no masses, no rebound tenderness or guarding. Bowel sounds active on all four quadrants Genitourinary: Incontinent Extremities: Generalized weakness to all 4 extremities. No cyanosis, clubbing, or edema. Pulses [2+] bilaterally. No focal weakness. Neurologic: Alert oriented 3. Intact sensation. Skin: Clean,dry, and intact. No ecchymosis, no rashes, or lesions Results Result Diagram: 02/26/17 0455 02/26/17 0455 Results 24 hrs Laboratory Tests Test 02/25/17 12:29 02/25/17 15:20 02/25/17 17:40 02/25/17 20:26 Bedside Glucose 125 126 170 Body Fluid Type OTHERS Body Fluid Volume 350.0 Body Fluid Color RED Body Fluid Appearance TURBID Body Fluid WBC 4310 Body Fluid RBC (Auto) 71739 Body Fluid Polynuclear WBCs (%) 28.7 Body Fluid Mononuclear Cells % Auto 71.3 Test 02/26/17 02:32 02/26/17 04:55 02/26/17 09:05 Bedside Glucose 87 39 *L White Blood Count 10.3 Red Blood Count 3.51 L Hemoglobin 8.9 L Hematocrit 27.4 L Mean Corpuscular Volume 78.1 L Mean Corpuscular Hemoglobin 25.4 L Mean Corpuscular Hemoglobin Concent 32.5 Red Cell Distribution Width 13.2 Platelet Count 421 H Mean Platelet Volume 9.8 Neutrophils % 52.4 Lymphocytes % 33.1 Monocytes % 12.8 H Eosinophils % 0.9 Basophils % 0.5 Nucleated Red Blood Cells % 0.0 Neutrophils # 5.4 Lymphocytes # 3.4 H Monocytes # 1.3 H Eosinophils # 0.1 Basophils # 0.1 Nucleated Red Blood Cells # 0.0 Sodium Level 134 L Potassium Level 3.9 Chloride Level 101 Carbon Dioxide Level 25 Anion Gap 12 Blood Urea Nitrogen 14 Creatinine 0.81 Glucose Level 62 #L Calcium Level 8.2 L Magnesium Level 1.6 L Total Bilirubin 0.2 Direct Bilirubin 0.00 Indirect Bilirubin 0.2 Aspartate Amino Transf (AST/SGOT) 13 L Alanine Aminotransferase (ALT/SGPT) 22 Alkaline Phosphatase 49 Total Protein 5.4 L Albumin 2.5 L Globulin 2.90 Albumin/Globulin Ratio 0.86 Medications Medications Current Medications Atorvastatin Calcium (Lipitor) 40 mg HS PO Last administered on 02/25/17 20:28 ; Admin Dose 40 MG; Start 02/24/17 at 21:00 Calcium/Vitamin D (Oyster Shell/ Vit-D (500/200)) 1 tab DAILY PO ; Start at 09:00 Ergocalciferol (Drisdol) 50,000 unit Q7D PO ; Start 02/25/17 at 09:00 Ferrous Sulfate (Ferrous Sulfate (Ec)) 325 mg DAILY PO ; Start 02/25/17 at 09:00 Gabapentin (Neurontin) 300 mg TID PO Last administered on 02/25/17 20:28; Admin Dose 300 MG; Start 02/24/17 at 21:00 Senna 1 tab 1 tab DAILY PO ; Start 02/25/17 at 09:00 Sodium Chloride (NS) 1,000 ml @ 75 mls/hr [id number] IV Last administered on 02/26 02:34; Admin Dose 75 MLS/HR; Start 02/24/17 at 14:55 Ondansetron HCl (Zofran Inj) 4 mg Q6H PRN IV NAUSEA AND/OR VOMITING Last administered on 02/25/17 08:32; Admin Dose 4 MG; Start 02/24/17 at 15:00 Acetaminophen (Tylenol Tab) 650 mg Q6H PRN PO PAIN LEVEL 1-3 OR FEVER Last administered on 02/26/17 02:57; Admin Dose 650 MG; Start 02/24/17 at 15:00 Acetaminophen (Tylenol Supp) 650 mg Q6H PRN [place] PAIN LEVEL 1-3 OR FEVER; Start 02/24/17 at 15:00 Heparin Sodium (Porcine) (Heparin (5000 Units/0.5 ml)) 5,000 unit Q12 SC ; Start 02/24/17 at 21:00; Status Future Hold Diagnostic Test (Pha) (Accu-Chek) 1 ea 02 XX ; Start 02/25/17 at 02:00 Insulin Glargine 11 unit 11 unit DAILY@20 SC Last administered on 02/25/17 20: 29; Admin Dose 11 UNIT; Start 02/24/17 at 20:00 Ceftriaxone Sodium (Rocephin) 50 ml @ 100 mls/hr Q24H IVPB Last administered on 02/25/17 16:04; Admin Dose 100 MLS/HR; Start 02/24/17 at 15:00 Miscellaneous Information 1 ea NOTE XX ; Start 02/24/17 at 15:30 Glucose (Glutose) 15 gm Q15M PRN PO DECREASED GLUCOSE; Start 02/24/17 at 15:30 Glucose (Glutose) 22.5 gm Q15M PRN PO DECREASED GLUCOSE; Start 02/24/17 at 15: 30 Dextrose (D50w Syringe) 25 ml Q15M PRN IV DECREASED GLUCOSE; Start 02/24/17 at 15:30 Dextrose (D50w Syringe) 50 ml Q15M PRN IV DECREASED GLUCOSE; Start 02/24/17 at 15:30 Glucagon (Glucagen) 1 mg Q15M PRN IM DECREASED GLUCOSE; Start 02/24/17 at 15:30 Glucose (Glutose) 15 gm Q15M PRN BUCCAL DECREASED GLUCOSE; Start 02/24/17 at 15 :30 Isosorbide Mononitrate (Imdur) 30 mg DAILY PO Last administered on 02/25/17 09 :06; Admin Dose 30 MG; Start 02/25/17 at 09:00 Metoprolol Tartrate (Lopressor) 25 mg BID PO Last administered on 02/25/17 20: 28; Admin Dose 25 MG; Start 02/24/17 at 21:00 Labetalol HCl (Labetalol) 20 mg Q2 PRN IV for sys >160, hold for hr <65 Last administered on 02/25/17 07:35; Admin Dose 20 MG; Start 02/25/17 at 07:30 Morphine Sulfate (morphine) 2 mg Q4H PRN IV PAIN Last administered on 05:00; Admin Dose 2 MG; Start 02/25/17 at 10:30 MOIZ RICE NP Feb 26, 2017 09:37
--- NOTE | 2017-02-26 09:54 | RADRPT ---
Echocardiogram Report Patient Name: YAJAIRA ARANGO Gender: Female Date: 1930 Study Date: 26-Feb-2017 Data Migration Lead: Florecita Ramos RDCS Location: [facility] Ref. Physician: BARON TAMEZ Quality: Good Procedures: Transthoracic echocardiogram examination. Indications: f/u Pericardial Effusion. Findings Left Ventricle: The left ventricular ejection fraction is visually estimated at 65 %. Pericardium: Small pericardial effusion. Conclusions 1.Small pericardial effusion around RV. Electronically Signed By: Baron Tamez 26-Feb-2017 09:53:36 -0800 Patient Name: YAJAIRA ARANGO Study Date: 26-Feb-2017 [id number]
[2017-02-26] MEDS: LABETALOL HCL 20MG INJ IV PRN ×2 (09:56→23:28)
[2017-02-26] MEDS: ALBUTEROL/IPRATROPIUM (NEB) 3 ML AMP HHN SCH ×3 (13:51→20:54)
--- NOTE | 2017-02-26 14:51 | CONS ---
Date/Time of Note Date/Time of Note DATE: 02/26/17 TIME: 14:48 Assessment/Plan Assessment/Plan Additional Assessment/Plan 87 yo Female with 1. Sepsis with UTI. 2. Pericardial effusion- S/p drain 3. Hyponatremia- Improved 4. Hyperkalemia- Resolved 5. Essential hypertension - Controlled 6. Hyperglycemia with type 2 diabetes. 7. Coronary artery disease. 8. Hyperlipidemia 9. Hypomagnesemia Na cont to improve Cont to Hold DAR-I and diuretic Rx at this time due to hypotension and electrolyte abnormality Low K diet when on diet. Pt is on IV Abx Rx DC kunz in am Mg supplemented Will cont to closely follow along with you. Discussed case with SALES SUPPORT ADMINISTRATOR Thank you for the opportunity to participate in the care of Ms Pacheco. Consultation Date/Type/Reason Admit Date/Time Feb 24, 2017 at 13:17 Initial Consult Date 02/24/17 Type of Consultation: Renal Referring Provider: MOIZ RICE NP 24 HR Interval Summary Free Text/Dictation S/p Pericardiocentesis. Abdominal pain improved. Kunz present Good UO. Constitutional: No requiring O2 Exam/Review of Systems Vital Signs Vitals Vital Signs Date Time Temp Pulse Resp B/P Pulse Ox O2 Delivery O2 Flow Rate FiO2 02/26/17 13:52 72 20 100 Nasal Cannula 2.0 02/26/17 13:30 133/49 02/26/17 12:30 98.5 Intake and Output 02/25/17 02/25/17 02/26/17 15:00 23:00 07:00 Intake Total 450 ml 1240 ml 775 ml Output Total 45 ml 410 ml 320 ml Balance 405 ml 830 ml 455 ml Exam Constitutional: alert, oriented, No distress ENMT: mucosa pink and moist Neck: No jvd Respiratory: clear to auscultation, No diminished breath sounds, No labored breathing Cardiovascular: regular rate and rhythm, No edema Gastrointestinal: non-tender, soft Neurological: nl mental status, No confused, No lethargic Skin: No diaphoresis Results Result Diagram: 02/26/17 0455 02/26/17 0455 Results 24 hrs Laboratory Tests Test 02/25/17 15:20 02/25/17 17:40 02/25/17 20:26 02/26/17 02:32 Body Fluid Type OTHERS Body Fluid Volume 350.0 Body Fluid Color RED Body Fluid Appearance TURBID Body Fluid WBC 4310 Body Fluid RBC (Auto) 39168 Body Fluid Polynuclear WBCs (%) 28.7 Body Fluid Mononuclear Cells % Auto 71.3 Bedside Glucose 126 170 87 Test 02/26/17 04:55 02/26/17 09:05 02/26/17 10:00 02/26/17 10:03 White Blood Count 10.3 Red Blood Count 3.51 L Hemoglobin 8.9 L Hematocrit 27.4 L Mean Corpuscular Volume 78.1 L Mean Corpuscular Hemoglobin 25.4 L Mean Corpuscular Hemoglobin Concent 32.5 Red Cell Distribution Width 13.2 Platelet Count 421 H Mean Platelet Volume 9.8 Neutrophils % 52.4 Lymphocytes % 33.1 Monocytes % 12.8 H Eosinophils % 0.9 Basophils % 0.5 Nucleated Red Blood Cells % 0.0 Neutrophils # 5.4 Lymphocytes # 3.4 H Monocytes # 1.3 H Eosinophils # 0.1 Basophils # 0.1 Nucleated Red Blood Cells # 0.0 Sodium Level 134 L Potassium Level 3.9 Chloride Level 101 Carbon Dioxide Level 25 Anion Gap 12 Blood Urea Nitrogen 14 Creatinine 0.81 Glucose Level 62 #L Calcium Level 8.2 L Magnesium Level 1.6 L Total Bilirubin 0.2 Direct Bilirubin 0.00 Indirect Bilirubin 0.2 Aspartate Amino Transf (AST/SGOT) 13 L Alanine Aminotransferase (ALT/SGPT) 22 Alkaline Phosphatase 49 Total Protein 5.4 L Albumin 2.5 L Globulin 2.90 Albumin/Globulin Ratio 0.86 Bedside Glucose 39 *L 139 Urine Total Protein 47.0 H Test 02/26/17 13:15 Bedside Glucose 151 Medications Medications Current Medications Atorvastatin Calcium (Lipitor) 40 mg HS PO Last administered on 02/25/17 20:28 ; Admin Dose 40 MG; Start 02/24/17 at 21:00 Calcium/Vitamin D (Oyster Shell/ Vit-D (500/200)) 1 tab DAILY PO Last administered on 02/26/17 09:22; Admin Dose 1 TAB; Start 02/25/17 at 09:00 Ergocalciferol (Drisdol) 50,000 unit Q7D PO ; Start 02/25/17 at 09:00 Ferrous Sulfate (Ferrous Sulfate (Ec)) 325 mg DAILY PO Last administered on 09:22; Admin Dose 325 MG; Start 02/25/17 at 09:00 Gabapentin (Neurontin) 300 mg TID PO Last administered on 02/26/17 12:27; Admin Dose 300 MG; Start 02/24/17 at 21:00 Senna 1 tab 1 tab DAILY PO Last administered on 02/26/17 09:22; Admin Dose 1 TAB; Start 02/25/17 at 09:00 Sodium Chloride (NS) 1,000 ml @ 75 mls/hr [id number] IV Last administered on 02/26 02:34; Admin Dose 75 MLS/HR; Start 02/24/17 at 14:55 Ondansetron HCl (Zofran Inj) 4 mg Q6H PRN IV NAUSEA AND/OR VOMITING Last administered on 02/25/17 08:32; Admin Dose 4 MG; Start 02/24/17 at 15:00 Acetaminophen (Tylenol Tab) 650 mg Q6H PRN PO PAIN LEVEL 1-3 OR FEVER Last administered on 02/26/17 09:23; Admin Dose 650 MG; Start 02/24/17 at 15:00 Acetaminophen (Tylenol Supp) 650 mg Q6H PRN [place] PAIN LEVEL 1-3 OR FEVER; Start 02/24/17 at 15:00 Diagnostic Test (Pha) 1 ea 1 ea 02 XX ; Start 02/25/17 at 02:00 Ceftriaxone Sodium (Rocephin) 50 ml @ 100 mls/hr Q24H IVPB Last administered on 02/25/17 16:04; Admin Dose 100 MLS/HR; Start 02/24/17 at 15:00 Miscellaneous Information 1 ea NOTE XX ; Start 02/24/17 at 15:30 Glucose (Glutose) 15 gm Q15M PRN PO DECREASED GLUCOSE; Start 02/24/17 at 15:30 Glucose (Glutose) 22.5 gm Q15M PRN PO DECREASED GLUCOSE; Start 02/24/17 at 15: 30 Dextrose (D50w Syringe) 25 ml Q15M PRN IV DECREASED GLUCOSE Last administered on 02/26/17 09:22; Admin Dose 25 ML; Start 02/24/17 at 15:30 Dextrose (D50w Syringe) 50 ml Q15M PRN IV DECREASED GLUCOSE; Start 02/24/17 at 15:30 Glucagon (Glucagen) 1 mg Q15M PRN IM DECREASED GLUCOSE; Start 02/24/17 at 15:30 Glucose (Glutose) 15 gm Q15M PRN BUCCAL DECREASED GLUCOSE; Start 02/24/17 at 15 :30 Isosorbide Mononitrate (Imdur) 30 mg DAILY PO Last administered on 02/26/17 09 :22; Admin Dose 30 MG; Start 02/25/17 at 09:00 Metoprolol Tartrate (Lopressor) 25 mg BID PO Last administered on 02/26/17 09: 29; Admin Dose 25 MG; Start 02/24/17 at 21:00 Labetalol HCl (Labetalol) 20 mg Q2 PRN IV for sys >160, hold for hr <65 Last administered on 02/26/17 09:56; Admin Dose 20 MG; Start 02/25/17 at 07:30 Morphine Sulfate (morphine) 2 mg Q4H PRN IV PAIN Last administered on 12:27; Admin Dose 2 MG; Start 02/25/17 at 10:30 Heparin Sodium (Porcine) (Heparin (5000 Units/0.5 ml)) 5,000 unit BID SC Last administered on 02/26/17 09:45; Admin Dose 5,000 UNIT; Start 02/26/17 at 09:30 Procedures Procedures OCEDURE: XR Chest. CLINICAL INDICATION: Chest pain. Post pericardiocentesis TECHNIQUE: Portable AP semi erect view of the chest was obtained. COMPARISON: 02/24/2017 FINDINGS: A pigtail tip of the catheter is now present projecting over the left hilum presumably related to pericardial effusion and drainage. The cardiomediastinal silhouette has mildly decreased since the previous exam. Bibasilar subsegmental atelectasis appear slightly worse and greater on the right. Obscuring of the diaphragm is compatible with small bilateral pleural effusions slightly greater on the right. There is no evidence of pneumothorax. No pulmonary vascular congestion is appreciated. Diffuse decreased mineralization cannot exclude osteopenia or osteoporosis. Degenerative spondylosis of the thoracic spine is again demonstrated. Calcification is seen within the aorta RPTAT:HJJR IMPRESSION: 1. Interval percutaneous catheter placement the distal tip projecting over the left hilum with associated decrease in size of the cardiomediastinal silhouette as compared to 02/24/2017. 2. No evidence of a pneumothorax or pneumomediastinum. 3. Right larger than left pleural effusions and associated subsegmental atelectasis of the lung bases slightly worse compared to the prior exam. Watson Gong Physician Date Time Electronically viewed and signed by Watson Gong, Physician on 02/25/2017 16:14 RALPH KNOTT MD Feb 26, 2017 14:51
[2017-02-26] MEDS: CEFTRIAXONE 1 GM/50 ML (PMX) 50 ML IVPB SCH (14:59)
[2017-02-26] MEDS: ATORVASTATIN 40 MG TAB PO SCH (20:25)
[2017-02-27] VITALS (22 sets, daily range): BP systolic 127–191; BP diastolic 43–82; PULSE 74–120; RESP 17–27
[2017-02-27] MEDS: ACCU-CHEK XX SCH (01:33)
[2017-02-27] MEDS: ACETAMINOPHEN 325 MG TAB PO PRN ×2 (02:15→09:05)
[2017-02-27 06:05] LABS: BASOPHIL # 0.1 10^3/ul (0.0-0.1); BASOPHILS % 0.7 % (0.0-2.0); EOSINOPHILS # 0.1 10^3/ul (0.0-0.5); EOSINOPHILS % 1.2 % (0.0-7.0); HEMOGLOBIN 8.7 g/dl (12.0-16.0); LYMPHOCYTES # 3.4 10^3/ul (0.8-2.9); LYMPHOCYTES % 33.7 % (15.0-51.0); MEAN CORPUSCULAR HEMOGLOBIN 25.1 pg (29.0-33.0); MEAN CORPUSCULAR HGB CONC 32.2 g/dl (32.0-37.0); MEAN CORPUSCULAR VOLUME 77.8 fl (82.0-101.0); MEAN PLATELET VOLUME 9.5 fl (7.4-10.4); MONOCYTE # 0.9 10^3/ul (0.3-0.9); MONOCYTES % 9.2 % (0.0-11.0); NEUTROPHIL # 5.5 10^3/ul (1.6-7.5); NEUTROPHILS % 54.8 % (39.0-77.0); PLATELET COUNT 423 10^3/UL (140-415); RED BLOOD COUNT 3.47 10^6/ul (4.20-5.40); RED CELL DISTRIBUTION WIDTH 13.3 % (11.5-14.5)
[2017-02-27 06:30] LABS: ALBUMIN 2.4 g/dl (3.3-4.9); ALBUMIN/GLOBULIN RATIO 0.85; BILIRUBIN,INDIRECT 0.2 mg/dl (0-1.1); BILIRUBIN,TOTAL 0.2 mg/dl (0.2-1.3); CREATININE 0.66 mg/dl (0.44-1.00); POTASSIUM 3.8 mmol/L (3.5-5.1); TOTAL PROTEIN 5.2 g/dl (6.1-8.1)
--- NOTE | 2017-02-27 07:36 | RADRPT ---
PROCEDURE: XR Chest. CLINICAL INDICATION: Shortness of breath TECHNIQUE: An AP view of the chest was obtained. COMPARISON: CHEST 02/25/2017; CHEST 02/24/2017; JOI CHEST 12/05/2012; JOI CHEST 11/30/2012; JOI CHES T 11/28/2012; CR CHEST 11/27/2012 FINDINGS: There is a pericardial drainage catheter in place. There is prominence of the interstitial and central pulmonary vascular markings with small bilatera l pleural effusions. No focal airspace opacification or pneumothorax is seen. The cardiomediastin al silhouette is mildly enlarged . Calcifications are seen within the aortic arch. The osseous str uctures demonstrate senescent changes. IMPRESSION: 1. Findings suggestive of pulmonary vascular congestion with small bilateral pleural effusions. No significant interval change. 2. Mild cardiomegaly and aortic atherosclerosis. 3. Pericardial drainage catheter in place. RPTAT: HH .Kell Aguayo MD, MD Date Time Electronically viewed and signed by .Kell Aguayo MD, on 02/27/2017 07:36 .G/
[2017-02-27] MEDS: INSULIN ASPART [NOVOLOG] 3 ML PEN SC SCH ×4 (08:03→20:37)
[2017-02-27] MEDS: ALBUTEROL/IPRATROPIUM (NEB) 3 ML AMP HHN SCH ×5 (08:43→21:58)
--- NOTE | 2017-02-27 08:59 | CONS ---
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 no sob. s/p pericardiocentesis on 02/25/17 and removal of more than 540 cc initially . pt with additional 90 cc drainage first night but no more drainage over night . O: General: no resp distress HEENT: NC/AT. pupils are equal. round. NECK: NO JVD. no stridor. CV: tachycardic. systolic murmur; no gallop or rubs. PULM: no wheezing mild rhonchi. chest: s/p pericardiocentsis pigtail in place. GI: SOFT, NT, ND, no rebound or guarding Extremity: trace B/L LE edema. no clubbing. neuro: awake and alert, OX3. Psych: calm and pleasant rectal: deferred ECG NSR/ low voltage echo 02/24/17 reviewed personally: 1. Normal left ventricular systolic function. Normal left ventricular cavity size. Moderate concentric left ventricular hypertrophy. Ejection fraction is visually estimated at 65 %. Abnormal Diastolic Function. 2. There is mild enlargement of left atrium. 3. Mild mitral leaflet calcification. Mild mitral annular calcification. Trace mitral regurgitation. 4. Aortic sclerosis without stenosis. Mild aortic valve regurgitation. 5. Normal appearance of the tricuspid valve. Estimated peak PA systolic pressure 37 mmHg. There is mild tricuspid regurgitation. 6. Dilated inferior vena cava with poor inspiratory collapse consistent with elevated right atrial pressures. 7. Moderate to large pericardial effusion. TV respiratory flow velocity variation consistent with tamponade. Pleural effusion seen. repeat Echo 02/27: minimal effusion only Objective Vital Signs Date Time Temp Pulse Resp B/P Pulse Ox O2 Delivery O2 Flow Rate FiO2 02/27/17 08:43 93 24 97 21 02/27/17 07:00 142/44 Room Air 02/27/17 04:00 99.0 02/26/17 17:47 2.0 Intake and Output 02/26/17 02/26/17 02/27/17 15:00 23:00 07:00 Intake Total 960 ml 690 ml 700 ml Output Total 495 ml 690 ml 570 ml Balance 465 ml 0 ml 130 ml Results/Medications Result Diagram: 02/27/17 0530 02/27/17 0530 Results 24 hrs Laboratory Tests Test 02/26/17 09:05 02/26/17 10:00 02/26/17 10:03 02/26/17 13:15 Bedside Glucose 39 *L 139 151 Urine Total Protein 47.0 H Test 02/26/17 17:32 02/26/17 20:27 02/27/17 01:32 02/27/17 05:30 Bedside Glucose 199 197 194 White Blood Count 10.0 Red Blood Count 3.47 L Hemoglobin 8.7 L Hematocrit 27.0 L Mean Corpuscular Volume 77.8 L Mean Corpuscular Hemoglobin 25.1 L Mean Corpuscular Hemoglobin Concent 32.2 Red Cell Distribution Width 13.3 Platelet Count 423 H Mean Platelet Volume 9.5 Neutrophils % 54.8 Lymphocytes % 33.7 Monocytes % 9.2 Eosinophils % 1.2 Basophils % 0.7 Nucleated Red Blood Cells % 0.0 Neutrophils # 5.5 Lymphocytes # 3.4 H Monocytes # 0.9 Eosinophils # 0.1 Basophils # 0.1 Nucleated Red Blood Cells # 0.0 Sodium Level 136 Potassium Level 3.8 Chloride Level 101 Carbon Dioxide Level 26 Anion Gap 13 Blood Urea Nitrogen 10 Creatinine 0.66 Glucose Level 175 # Calcium Level 8.0 L Magnesium Level 2.0 Total Bilirubin 0.2 Direct Bilirubin 0.00 Indirect Bilirubin 0.2 Aspartate Amino Transf (AST/SGOT) 11 L Alanine Aminotransferase (ALT/SGPT) 32 Alkaline Phosphatase 56 B-Type Natriuretic Peptide 4070 H Total Protein 5.2 L Albumin 2.4 L Globulin 2.80 Albumin/Globulin Ratio 0.85 Test 02/27/17 07:52 Bedside Glucose 151 Medications Current Medications Atorvastatin Calcium (Lipitor) 40 mg HS PO Last administered on 02/26/17 20:25 ; Admin Dose 40 MG; Start 02/24/17 at 21:00 Calcium/Vitamin D (Oyster Shell/ Vit-D (500/200)) 1 tab DAILY PO Last administered on 02/26/17 09:22; Admin Dose 1 TAB; Start 02/25/17 at 09:00 Ergocalciferol (Drisdol) 50,000 unit Q7D PO ; Start 02/25/17 at 09:00 Ferrous Sulfate (Ferrous Sulfate (Ec)) 325 mg DAILY PO Last administered on 09:22; Admin Dose 325 MG; Start 02/25/17 at 09:00 Gabapentin (Neurontin) 300 mg TID PO Last administered on 02/26/17 20:25; Admin Dose 300 MG; Start 02/24/17 at 21:00 Senna 1 tab 1 tab DAILY PO Last administered on 02/26/17 09:22; Admin Dose 1 TAB; Start 02/25/17 at 09:00 Sodium Chloride (NS) 1,000 ml @ 75 mls/hr [id number] IV Last administered on 02/26 20:25; Admin Dose 75 MLS/HR; Start 02/24/17 at 14:55 Ondansetron HCl (Zofran Inj) 4 mg Q6H PRN IV NAUSEA AND/OR VOMITING Last administered on 02/25/17 08:32; Admin Dose 4 MG; Start 02/24/17 at 15:00 Acetaminophen (Tylenol Tab) 650 mg Q6H PRN PO PAIN LEVEL 1-3 OR FEVER Last administered on 02/27/17 02:15; Admin Dose 650 MG; Start 02/24/17 at 15:00 Acetaminophen (Tylenol Supp) 650 mg Q6H PRN [place] PAIN LEVEL 1-3 OR FEVER; Start 02/24/17 at 15:00 Diagnostic Test (Pha) 1 ea 1 ea 02 XX ; Start 02/25/17 at 02:00 Ceftriaxone Sodium (Rocephin) 50 ml @ 100 mls/hr Q24H IVPB Last administered on 02/26/17 14:59; Admin Dose 100 MLS/HR; Start 02/24/17 at 15:00 Miscellaneous Information 1 ea NOTE XX ; Start 02/24/17 at 15:30 Glucose (Glutose) 15 gm Q15M PRN PO DECREASED GLUCOSE; Start 02/24/17 at 15:30 Glucose (Glutose) 22.5 gm Q15M PRN PO DECREASED GLUCOSE; Start 02/24/17 at 15: 30 Dextrose (D50w Syringe) 25 ml Q15M PRN IV DECREASED GLUCOSE Last administered on 02/26/17 09:22; Admin Dose 25 ML; Start 02/24/17 at 15:30 Dextrose (D50w Syringe) 50 ml Q15M PRN IV DECREASED GLUCOSE; Start 02/24/17 at 15:30 Glucagon (Glucagen) 1 mg Q15M PRN IM DECREASED GLUCOSE; Start 02/24/17 at 15:30 Glucose (Glutose) 15 gm Q15M PRN BUCCAL DECREASED GLUCOSE; Start 02/24/17 at 15 :30 Isosorbide Mononitrate (Imdur) 30 mg DAILY PO Last administered on 02/26/17 09 :22; Admin Dose 30 MG; Start 02/25/17 at 09:00 Metoprolol Tartrate (Lopressor) 25 mg BID PO Last administered on 02/26/17 20: 25; Admin Dose 25 MG; Start 02/24/17 at 21:00 Labetalol HCl (Labetalol) 20 mg Q2 PRN IV for sys >160, hold for hr <65 Last administered on 02/26/17 23:28; Admin Dose 20 MG; Start 02/25/17 at 07:30 Morphine Sulfate (morphine) 2 mg Q4H PRN IV PAIN Last administered on 23:02; Admin Dose 2 MG; Start 02/25/17 at 10:30 Heparin Sodium (Porcine) (Heparin (5000 Units/0.5 ml)) 5,000 unit BID SC Last administered on 02/26/17 09:45; Admin Dose 5,000 UNIT; Start 02/26/17 at 09:30 ; Status Future Hold Assessment/Plan Chief Complaint/Hosp Course 1. mod/Large pericardial effusion with signs of early cardiac tamponade: s/p pericardiocentesis now. 2. Hypertension 3. Diabetes/hyperglycemia 4. Dyslipidemia 5. Obesity 6. Possible UTI/sepsis 7. Generalized weakness 8. Hyponatremia 9. Hyperkalemia 10. anemia: will defer to IM Recommendations: Antibiotic as per internal medicine. Patient will be monitored in ICU for close monitoring. will cont DVT prophylaxis with heparin Diabetic management as per internal medicine. correction of lytes as per renal will remove the pigtail today lasix x 1 dose now Thank you for his referral. I will continue to follow along with you. SHREE TOPETE MD [facility] Problems: SHREE TOPETE MD Feb 27, 2017 08:59
[2017-02-27] MEDS ORDERED: POTASSIUM CHLORIDE (SR) 10 MEQ TAB PO ONE (09:00)
[2017-02-27] MEDS ORDERED: FUROSEMIDE 20 MG INJ IV ONE (09:00)
[2017-02-27] MEDS: GABAPENTIN 300 MG CAP PO SCH ×3 (09:02→20:26)
[2017-02-27] MEDS: ISOSORBIDE MONONITRATE(SR)60 MG TAB PO SCH (09:02)
[2017-02-27] MEDS: SENNA TAB PO SCH (09:03)
[2017-02-27] MEDS: CALCIUM/VITAMIN D (500/200) TAB PO SCH (09:03)
[2017-02-27] MEDS: METOPROLOL 25 MG TAB PO SCH ×2 (09:04→20:37)
[2017-02-27] MEDS: FERROUS SULFATE (EC) 325 MG TAB PO SCH (09:04)
[2017-02-27] MEDS: SOD CHLORIDE 0.9% 1,000 ML IV SCH ×2 (09:05→23:45)
--- NOTE | 2017-02-27 12:47 | PN ---
Date/Time of Note Date/Time of Note DATE: 02/27/17 TIME: 12:41 Assessment/Plan VTE Prophylaxis VTE Prophylaxis Intervention: ambulation Lines/Catheters IV [facility]ter [facility] (from [facility] Peripheral IV Urinary Cath still in place: No Assessment/Plan Chief Complaint/Hosp Course This is a 87-year-old female who was brought by paramedics for evaluation of generalized weakness who was noted with sepsis with UTI and incidental finding of pericardial effusion in CT abdomen. 1.Status post Sepsis with Ecoli UTI. Status:Acute -Continue IV ceftriaxone, IVFs 2. Pericardial effusion with echocardiographic evidence of early Cardiac tamponade. Status: Acute -Status post pericardiocentesis with removal of 540cc serosanguineous. -Pigtail drain removed today. Repeat Echo stable. 3. Hyponatremia.Stable. Status: Acute on chronic. -Lasix on hold-Resume? Xray with pulmonary vascular congestion-we will discuss with nephrology team. 4. Hyperkalemia, mild,possible ACEi-induced? Stable. Status: Acute -Resolved. No ACEi on discharge. 5. Essential hypertension with too tight control regimen as outpt. Status: Chronic. -Continue current antihypertensive regimen. -BP meds titrated down to keep adequate perfusion. Cards to further manage BP 6. Type 2 diabetes. A1C 8.1.Now with hypoglycemic episodes with too tight control. Status: Chronic -Deescalate Lantus. Continue Accu-Cheks/insulin sliding scale 7. Coronary artery disease. Status: Chronic -Continue current medical management. 8. Hyperlipidemia Status: Chronic -On statin 9. Osteoporosis/osteoarthritis/degenerative joint disease. Status: Chronic -PT evaluation and treatment. 10. Dementia. -Supportive care. 11. Progressive debility. -Follow-up with PT recommendations 12. Reported Abdominal hernia. Not a surgical candidate. Status;Chronic. Stable.Monitor. Prophylaxis: Heparin/PPIs Transfer to tele. PT eval &Tx.Family wants Home dicposition with full family support. HHPT if recommended by PT. Patient was seen in collaboration with . Problems: Subjective 24 Hr Interval Summary Free Text/Dictation Doing well. No acute distress. Pericardial drain removed today. Exam/Review of Systems Vital Signs Vitals Vital Signs Date Time Temp Pulse Resp B/P Pulse Ox O2 Delivery O2 Flow Rate FiO2 02/27/17 08:43 93 24 97 21 02/27/17 07:00 142/44 Room Air 02/27/17 04:00 99.0 02/26/17 17:47 2.0 Intake and Output 02/26/17 02/26/17 02/27/17 15:00 23:00 07:00 Intake Total 960 ml 690 ml 700 ml Output Total 495 ml 690 ml 570 ml Balance 465 ml 0 ml 130 ml Exam General: Chronically ill looking elderly female, not in any acute distress . HEENT: Normocephalic, Atraumatic, No laceration or hematoma; Eyes: PEERL, Conjunctiva clear, Anicteric sclera Neck: Supple without any lymphadenopathy, nontender, no JVD, no carotid bruits, trachea midline, no thyromegaly Cardiac: S1, S2 auscultated, regular rhythm and rate, no mumurs or gallop Pulmonary: Diminished breath sounds bibasilar.Normal respiratory effort. Chest clear to auscultation bilaterally, no adventitious breath sounds GI: Mild tenderness to epigastric/substernal area. Abdomen normal to inspection. Soft, non- distended, no masses, no rebound tenderness or guarding. Bowel sounds active on all four quadrants Genitourinary: Incontinent Extremities: Generalized weakness to all 4 extremities. No cyanosis, clubbing, or edema. Pulses [2+] bilaterally. No focal weakness. Neurologic: Alert oriented 3. Intact sensation. Skin: Clean,dry, and intact. No ecchymosis, no rashes, or lesions Results Result Diagram: 02/27/17 0530 02/27/17 0530 Results 24 hrs Laboratory Tests Test 02/26/17 13:15 02/26/17 17:32 02/26/17 20:27 02/27/17 01:32 Bedside Glucose 151 199 197 194 Test 02/27/17 05:30 02/27/17 07:52 White Blood Count 10.0 Red Blood Count 3.47 L Hemoglobin 8.7 L Hematocrit 27.0 L Mean Corpuscular Volume 77.8 L Mean Corpuscular Hemoglobin 25.1 L Mean Corpuscular Hemoglobin Concent 32.2 Red Cell Distribution Width 13.3 Platelet Count 423 H Mean Platelet Volume 9.5 Neutrophils % 54.8 Lymphocytes % 33.7 Monocytes % 9.2 Eosinophils % 1.2 Basophils % 0.7 Nucleated Red Blood Cells % 0.0 Neutrophils # 5.5 Lymphocytes # 3.4 H Monocytes # 0.9 Eosinophils # 0.1 Basophils # 0.1 Nucleated Red Blood Cells # 0.0 Sodium Level 136 Potassium Level 3.8 Chloride Level 101 Carbon Dioxide Level 26 Anion Gap 13 Blood Urea Nitrogen 10 Creatinine 0.66 Glucose Level 175 # Calcium Level 8.0 L Magnesium Level 2.0 Total Bilirubin 0.2 Direct Bilirubin 0.00 Indirect Bilirubin 0.2 Aspartate Amino Transf (AST/SGOT) 11 L Alanine Aminotransferase (ALT/SGPT) 32 Alkaline Phosphatase 56 B-Type Natriuretic Peptide 4070 H Total Protein 5.2 L Albumin 2.4 L Globulin 2.80 Albumin/Globulin Ratio 0.85 Bedside Glucose 151 Medications Medications Current Medications Atorvastatin Calcium (Lipitor) 40 mg HS PO Last administered on 02/26/17 20:25 ; Admin Dose 40 MG; Start 02/24/17 at 21:00 Calcium/Vitamin D (Oyster Shell/ Vit-D (500/200)) 1 tab DAILY PO Last administered on 02/27/17 09:03; Admin Dose 1 TAB; Start 02/25/17 at 09:00 Ergocalciferol (Drisdol) 50,000 unit Q7D PO ; Start 02/25/17 at 09:00 Ferrous Sulfate (Ferrous Sulfate (Ec)) 325 mg DAILY PO Last administered on 09:04; Admin Dose 325 MG; Start 02/25/17 at 09:00 Gabapentin (Neurontin) 300 mg TID PO Last administered on 02/27/17 09:02; Admin Dose 300 MG; Start 02/24/17 at 21:00 Senna 1 tab 1 tab DAILY PO Last administered on 02/27/17 09:03; Admin Dose 1 TAB; Start 02/25/17 at 09:00 Sodium Chloride (NS) 1,000 ml @ 75 mls/hr [id number] IV Last administered on 02/27 09:05; Admin Dose 75 MLS/HR; Start 02/24/17 at 14:55 Ondansetron HCl (Zofran Inj) 4 mg Q6H PRN IV NAUSEA AND/OR VOMITING Last administered on 02/25/17 08:32; Admin Dose 4 MG; Start 02/24/17 at 15:00 Acetaminophen (Tylenol Tab) 650 mg Q6H PRN PO PAIN LEVEL 1-3 OR FEVER Last administered on 02/27/17 09:05; Admin Dose 650 MG; Start 02/24/17 at 15:00 Acetaminophen (Tylenol Supp) 650 mg Q6H PRN [place] PAIN LEVEL 1-3 OR FEVER; Start 02/24/17 at 15:00 Diagnostic Test (Pha) 1 ea 1 ea 02 XX ; Start 02/25/17 at 02:00 Ceftriaxone Sodium (Rocephin) 50 ml @ 100 mls/hr Q24H IVPB Last administered on 02/26/17 14:59; Admin Dose 100 MLS/HR; Start 02/24/17 at 15:00 Miscellaneous Information 1 ea NOTE XX ; Start 02/24/17 at 15:30 Glucose (Glutose) 15 gm Q15M PRN PO DECREASED GLUCOSE; Start 02/24/17 at 15:30 Glucose (Glutose) 22.5 gm Q15M PRN PO DECREASED GLUCOSE; Start 02/24/17 at 15: 30 Dextrose (D50w Syringe) 25 ml Q15M PRN IV DECREASED GLUCOSE Last administered on 02/26/17 09:22; Admin Dose 25 ML; Start 02/24/17 at 15:30 Dextrose (D50w Syringe) 50 ml Q15M PRN IV DECREASED GLUCOSE; Start 02/24/17 at 15:30 Glucagon (Glucagen) 1 mg Q15M PRN IM DECREASED GLUCOSE; Start 02/24/17 at 15:30 Glucose (Glutose) 15 gm Q15M PRN BUCCAL DECREASED GLUCOSE; Start 02/24/17 at 15 :30 Isosorbide Mononitrate (Imdur) 30 mg DAILY PO Last administered on 02/27/17 09 :02; Admin Dose 30 MG; Start 02/25/17 at 09:00 Metoprolol Tartrate (Lopressor) 25 mg BID PO Last administered on 02/27/17 09: 04; Admin Dose 25 MG; Start 02/24/17 at 21:00 Labetalol HCl (Labetalol) 20 mg Q2 PRN IV for sys >160, hold for hr <65 Last administered on 02/26/17 23:28; Admin Dose 20 MG; Start 02/25/17 at 07:30 Morphine Sulfate (morphine) 2 mg Q4H PRN IV PAIN Last administered on 23:02; Admin Dose 2 MG; Start 02/25/17 at 10:30 Heparin Sodium (Porcine) (Heparin (5000 Units/0.5 ml)) 5,000 unit BID SC Last administered on 02/26/17 09:45; Admin Dose 5,000 UNIT; Start 02/26/17 at 09:30 ; Status Future Hold MOIZ RICE NP Feb 27, 2017 12:47
[2017-02-27] MEDS: FUROSEMIDE 40 MG INJ IV SCH (14:00)
--- NOTE | 2017-02-27 14:33 | CONS ---
Date/Time of Note Date/Time of Note DATE: 02/27/17 TIME: 14:31 Assessment/Plan Assessment/Plan Additional Assessment/Plan Additional Assessment/Plan 87 yo Female with 1. Sepsis with UTI. 2. Pericardial effusion- S/p drain 3. Hyponatremia- Improved 4. Hyperkalemia- Resolved 5. Essential hypertension 6. Hyperglycemia with type 2 diabetes. 7. Coronary artery disease. 8. Hyperlipidemia 9. Hypomagnesemia Na now normal Cr wnl Ok to resume Diuretic Rx S/p Lasix 40mg Will start DAR-I Rx. Low K diet when on diet. Pt is on IV Abx Rx DC kunz Monitor K and Mg Will cont to closely follow along with you. Discussed case with 1[employer] GR[employer] TEACHER Thank you for the opportunity to participate in the care of Ms Pacheco. Consultation Date/Type/Reason Admit Date/Time Feb 24, 2017 at 13:17 Initial Consult Date 02/24/17 Type of Consultation: Renal Referring Provider: MOIZ RICE NP 24 HR Interval Summary Free Text/Dictation S/p Lasix, CXR had shown congestion, Plan to DC kunz and transfer out of ICU. Constitutional: No requiring O2 Exam/Review of Systems Vital Signs Vitals Vital Signs Date Time Temp Pulse Resp B/P Pulse Ox O2 Delivery O2 Flow Rate FiO2 02/27/17 13:49 87 24 98 21 02/27/17 12:00 97.6 153/53 02/27/17 07:00 Room Air 02/26/17 17:47 2.0 Intake and Output 02/26/17 02/26/17 02/27/17 15:00 23:00 07:00 Intake Total 960 ml 690 ml 700 ml Output Total 495 ml 690 ml 570 ml Balance 465 ml 0 ml 130 ml Exam Constitutional: No distress ENMT: mucosa pink and moist Neck: No jvd Respiratory: No labored breathing Cardiovascular: edema (trace) Gastrointestinal: non-tender, soft, No rebound or guarding Neurological: nl mental status, No lethargic Skin: No diaphoresis Results Result Diagram: 02/27/17 0530 02/27/17 0530 Results 24 hrs Laboratory Tests Test 02/26/17 17:32 02/26/17 20:27 02/27/17 01:32 02/27/17 05:30 Bedside Glucose 199 197 194 White Blood Count 10.0 Red Blood Count 3.47 L Hemoglobin 8.7 L Hematocrit 27.0 L Mean Corpuscular Volume 77.8 L Mean Corpuscular Hemoglobin 25.1 L Mean Corpuscular Hemoglobin Concent 32.2 Red Cell Distribution Width 13.3 Platelet Count 423 H Mean Platelet Volume 9.5 Neutrophils % 54.8 Lymphocytes % 33.7 Monocytes % 9.2 Eosinophils % 1.2 Basophils % 0.7 Nucleated Red Blood Cells % 0.0 Neutrophils # 5.5 Lymphocytes # 3.4 H Monocytes # 0.9 Eosinophils # 0.1 Basophils # 0.1 Nucleated Red Blood Cells # 0.0 Sodium Level 136 Potassium Level 3.8 Chloride Level 101 Carbon Dioxide Level 26 Anion Gap 13 Blood Urea Nitrogen 10 Creatinine 0.66 Glucose Level 175 # Calcium Level 8.0 L Magnesium Level 2.0 Total Bilirubin 0.2 Direct Bilirubin 0.00 Indirect Bilirubin 0.2 Aspartate Amino Transf (AST/SGOT) 11 L Alanine Aminotransferase (ALT/SGPT) 32 Alkaline Phosphatase 56 B-Type Natriuretic Peptide 4070 H Total Protein 5.2 L Albumin 2.4 L Globulin 2.80 Albumin/Globulin Ratio 0.85 Test 02/27/17 07:52 02/27/17 12:35 02/27/17 13:29 Bedside Glucose 151 189 224 H Medications Medications Current Medications Atorvastatin Calcium (Lipitor) 40 mg HS PO Last administered on 02/26/17 20:25 ; Admin Dose 40 MG; Start 02/24/17 at 21:00 Calcium/Vitamin D (Oyster Shell/ Vit-D (500/200)) 1 tab DAILY PO Last administered on 02/27/17 09:03; Admin Dose 1 TAB; Start 02/25/17 at 09:00 Ergocalciferol (Drisdol) 50,000 unit Q7D PO ; Start 02/25/17 at 09:00 Ferrous Sulfate (Ferrous Sulfate (Ec)) 325 mg DAILY PO Last administered on 09:04; Admin Dose 325 MG; Start 02/25/17 at 09:00 Gabapentin (Neurontin) 300 mg TID PO Last administered on 02/27/17 14:06; Admin Dose 300 MG; Start 02/24/17 at 21:00 Senna 1 tab 1 tab DAILY PO Last administered on 02/27/17 09:03; Admin Dose 1 TAB; Start 02/25/17 at 09:00 Sodium Chloride (NS) 1,000 ml @ 75 mls/hr [id number] IV Last administered on 02/27 09:05; Admin Dose 75 MLS/HR; Start 02/24/17 at 14:55 Ondansetron HCl (Zofran Inj) 4 mg Q6H PRN IV NAUSEA AND/OR VOMITING Last administered on 02/25/17 08:32; Admin Dose 4 MG; Start 02/24/17 at 15:00 Acetaminophen (Tylenol Tab) 650 mg Q6H PRN PO PAIN LEVEL 1-3 OR FEVER Last administered on 02/27/17 09:05; Admin Dose 650 MG; Start 02/24/17 at 15:00 Acetaminophen (Tylenol Supp) 650 mg Q6H PRN [place] PAIN LEVEL 1-3 OR FEVER; Start 02/24/17 at 15:00 Diagnostic Test (Pha) 1 ea 1 ea 02 XX ; Start 02/25/17 at 02:00 Ceftriaxone Sodium (Rocephin) 50 ml @ 100 mls/hr Q24H IVPB Last administered on 02/26/17 14:59; Admin Dose 100 MLS/HR; Start 02/24/17 at 15:00 Miscellaneous Information 1 ea NOTE XX ; Start 02/24/17 at 15:30 Glucose (Glutose) 15 gm Q15M PRN PO DECREASED GLUCOSE; Start 02/24/17 at 15:30 Glucose (Glutose) 22.5 gm Q15M PRN PO DECREASED GLUCOSE; Start 02/24/17 at 15: 30 Dextrose (D50w Syringe) 25 ml Q15M PRN IV DECREASED GLUCOSE Last administered on 02/26/17 09:22; Admin Dose 25 ML; Start 02/24/17 at 15:30 Dextrose (D50w Syringe) 50 ml Q15M PRN IV DECREASED GLUCOSE; Start 02/24/17 at 15:30 Glucagon (Glucagen) 1 mg Q15M PRN IM DECREASED GLUCOSE; Start 02/24/17 at 15:30 Glucose (Glutose) 15 gm Q15M PRN BUCCAL DECREASED GLUCOSE; Start 02/24/17 at 15 :30 Isosorbide Mononitrate (Imdur) 30 mg DAILY PO Last administered on 02/27/17 09 :02; Admin Dose 30 MG; Start 02/25/17 at 09:00 Metoprolol Tartrate (Lopressor) 25 mg BID PO Last administered on 02/27/17 09: 04; Admin Dose 25 MG; Start 02/24/17 at 21:00 Labetalol HCl (Labetalol) 20 mg Q2 PRN IV for sys >160, hold for hr <65 Last administered on 02/26/17 23:28; Admin Dose 20 MG; Start 02/25/17 at 07:30 Morphine Sulfate (morphine) 2 mg Q4H PRN IV PAIN Last administered on 23:02; Admin Dose 2 MG; Start 02/25/17 at 10:30 Heparin Sodium (Porcine) (Heparin (5000 Units/0.5 ml)) 5,000 unit BID SC Last administered on 02/26/17 09:45; Admin Dose 5,000 UNIT; Start 02/26/17 at 09:30 ; Status Future Hold Furosemide (Lasix) 40 mg DAILY IV ; Start 02/27/17 at 14:00 RALPH KNOTT MD Feb 27, 2017 14:33
[2017-02-27] MEDS: CEFTRIAXONE 1 GM/50 ML (PMX) 50 ML IVPB SCH (15:29)
[2017-02-27] MEDS: LABETALOL HCL 20MG INJ IV PRN ×3 (15:37→23:46)
[2017-02-27] MEDS: morphine 2 MG INJ IV PRN (20:26)
[2017-02-27] MEDS: ATORVASTATIN 40 MG TAB PO SCH (20:26)
[2017-02-27] MEDS: LISINOPRIL 5 MG TAB PO SCH (20:38)
[2017-02-27] MEDS: ZOLPIDEM 5 MG TAB PO PRN (23:45)
[2017-02-28] VITALS (14 sets, daily range): BP systolic 161–187; BP diastolic 69–86; PULSE 80–101; RESP 18–20
[2017-02-28] MEDS: morphine 2 MG INJ IV PRN ×2 (00:30→22:10)
[2017-02-28] MEDS: LABETALOL HCL 20MG INJ IV PRN ×3 (02:17→20:32)
[2017-02-28] MEDS: ACCU-CHEK XX SCH (02:18)
[2017-02-28 07:14] LABS: BASOPHIL # 0.1 10^3/ul (0.0-0.1); BASOPHILS % 0.8 % (0.0-2.0); EOSINOPHILS # 0.3 10^3/ul (0.0-0.5); HEMATOCRIT 27.8 % (37.0-47.0); HEMOGLOBIN 8.9 g/dl (12.0-16.0); LYMPHOCYTES # 3.3 10^3/ul (0.8-2.9); LYMPHOCYTES % 35.5 % (15.0-51.0); MEAN CORPUSCULAR HEMOGLOBIN 24.9 pg (29.0-33.0); MEAN CORPUSCULAR VOLUME 77.9 fl (82.0-101.0); MEAN PLATELET VOLUME 9.5 fl (7.4-10.4); MONOCYTE # 0.9 10^3/ul (0.3-0.9); MONOCYTES % 9.6 % (0.0-11.0); NEUTROPHIL # 4.7 10^3/ul (1.6-7.5); NEUTROPHILS % 50.8 % (39.0-77.0); PLATELET COUNT 449 10^3/UL (140-415); RED BLOOD COUNT 3.57 10^6/ul (4.20-5.40); RED CELL DISTRIBUTION WIDTH 13.2 % (11.5-14.5); WHITE BLOOD COUNT 9.2 10^3/ul (4.8-10.8)
[2017-02-28 07:37] LABS: ALBUMIN 2.6 g/dl (3.3-4.9); ALBUMIN/GLOBULIN RATIO 0.96; BILIRUBIN,INDIRECT 0.1 mg/dl (0-1.1); BILIRUBIN,TOTAL 0.1 mg/dl (0.2-1.3); CREATININE 0.65 mg/dl (0.44-1.00); MAGNESIUM 1.6 mg/dl (1.7-2.5); POTASSIUM 3.3 mmol/L (3.5-5.1); TOTAL PROTEIN 5.3 g/dl (6.1-8.1)
[2017-02-28] MEDS: SENNA TAB PO SCH ×2 (08:17→23:44)
[2017-02-28] MEDS: ISOSORBIDE MONONITRATE(SR)60 MG TAB PO SCH (08:17)
[2017-02-28] MEDS: GABAPENTIN 300 MG CAP PO SCH ×3 (08:18→20:31)
[2017-02-28] MEDS: CALCIUM/VITAMIN D (500/200) TAB PO SCH (08:18)
[2017-02-28] MEDS: LISINOPRIL 5 MG TAB PO SCH ×2 (08:18→20:31)
[2017-02-28] MEDS: FERROUS SULFATE (EC) 325 MG TAB PO SCH (08:18)
[2017-02-28] MEDS: METOPROLOL 25 MG TAB PO SCH ×2 (08:19→20:32)
[2017-02-28] MEDS: FUROSEMIDE 40 MG INJ IV SCH (08:19)
[2017-02-28] MEDS: INSULIN ASPART [NOVOLOG] 3 ML PEN SC SCH ×4 (08:21→20:58)
[2017-02-28] MEDS ORDERED: POTASSIUM CHLORIDE (SR) 20 MEQ TAB PO STA (08:31)
[2017-02-28] MEDS: ALBUTEROL/IPRATROPIUM (NEB) 3 ML AMP HHN SCH ×4 (08:46→20:02)
[2017-02-28] MEDS ORDERED: MAGNESIUM SULFATE 2 GM/50 ML 50 ML IVPB ONE (09:00)
--- NOTE | 2017-02-28 09:37 | RADRPT ---
Echocardiogram Report Patient Name: YAJAIRA ARANGO Gender: Female Date: 1930 Study Date: 27-Feb-2017 In Processing Instructor: Florecita Ramos DAVID Location: [facility] Ref. Physician: SHREE TAMEZ Quality: Good Procedures: Transthoracic echocardiogram examination. Indications: f/u Pericardial Effusion. Findings Left Ventricle: The left ventricular ejection fraction is visually estimated at 65 %. Pericardium: Trivial effusion. IVC: Dilated inferior vena cava with normal respiratory collapse. Conclusions 1.Trivial effusion. Electronically Signed By: Shree Tamez 28-Feb-2017 09:37:30 -0800 Patient Name: YAJAIRA ARANGO Study Date: 27-Feb-[id number]
--- NOTE | 2017-02-28 09:57 | CONS ---
Date/Time of Note Date/Time of Note DATE: 02/28/17 TIME: 09:54 Consult Date/Type/Reason Admit Date/Time Feb 24, 2017 at 13:17 Initial Consult Date 02/24/17 Type of Consultation: cardiology Ordering Provider: MOIZ RICE V. MECHATRONICS ENGINEER Subjective S: d/w staff and rhythm was reviewed pt remains in NSR no chest pain or pressure. no sob. s/p pericardiocentesis on 02/25/17 and removal of more than 540 cc initially . pigtail removed she is feeling better and wants to go home O: General: no resp distress HEENT: NC/AT. pupils are equal. round. NECK: NO JVD. no stridor. CV: tachycardic. systolic murmur; no gallop or rubs. PULM: no wheezing. mild rhonchi. chest: s/p pericardiocentsis pigtail removed GI: SOFT, NT, ND, no rebound or guarding Extremity: trace B/L LE edema. no clubbing. neuro: awake and alert, OX3. Psych: calm and pleasant rectal: deferred ECG NSR/ low voltage echo 02/24/17 reviewed personally: 1. Normal left ventricular systolic function. Normal left ventricular cavity size. Moderate concentric left ventricular hypertrophy. Ejection fraction is visually estimated at 65 %. Abnormal Diastolic Function. 2. There is mild enlargement of left atrium. 3. Mild mitral leaflet calcification. Mild mitral annular calcification. Trace mitral regurgitation. 4. Aortic sclerosis without stenosis. Mild aortic valve regurgitation. 5. Normal appearance of the tricuspid valve. Estimated peak PA systolic pressure 37 mmHg. There is mild tricuspid regurgitation. 6. Dilated inferior vena cava with poor inspiratory collapse consistent with elevated right atrial pressures. 7. Moderate to large pericardial effusion. TV respiratory flow velocity variation consistent with tamponade. Pleural effusion seen. repeat Echo 02/27: minimal effusion only Objective Vital Signs Date Time Temp Pulse Resp B/P Pulse Ox O2 Delivery O2 Flow Rate FiO2 02/28/17 08:47 82 18 93 21 02/28/17 07:47 98.2 184/86 02/27/17 07:00 Room Air 02/26/17 17:47 2.0 Intake and Output 02/27/17 02/27/17 02/28/17 15:00 23:00 07:00 Intake Total 575 ml 1925 ml Output Total 1650 ml 300 ml Balance -1075 ml -300 ml 1925 ml Results/Medications Result Diagram: 02/28/17 0643 02/28/17 0643 Results 24 hrs Laboratory Tests Test 02/27/17 12:35 02/27/17 13:29 02/27/17 17:16 02/27/17 20:31 Bedside Glucose 189 224 H 238 H 202 Test 02/28/17 02:16 02/28/17 06:43 02/28/17 08:07 Bedside Glucose 191 172 White Blood Count 9.2 Red Blood Count 3.57 L Hemoglobin 8.9 L Hematocrit 27.8 L Mean Corpuscular Volume 77.9 L Mean Corpuscular Hemoglobin 24.9 L Mean Corpuscular Hemoglobin Concent 32.0 Red Cell Distribution Width 13.2 Platelet Count 449 H Mean Platelet Volume 9.5 Neutrophils % 50.8 Lymphocytes % 35.5 Monocytes % 9.6 Eosinophils % 3.0 Basophils % 0.8 Nucleated Red Blood Cells % 0.0 Neutrophils # 4.7 Lymphocytes # 3.3 H Monocytes # 0.9 Eosinophils # 0.3 Basophils # 0.1 Nucleated Red Blood Cells # 0.0 Sodium Level 134 L Potassium Level 3.3 L Chloride Level 99 Carbon Dioxide Level 27 Anion Gap 11 Blood Urea Nitrogen 6 L Creatinine 0.65 Glucose Level 176 Calcium Level 8.0 L Magnesium Level 1.6 L Total Bilirubin 0.1 L Direct Bilirubin 0.00 Indirect Bilirubin 0.1 Aspartate Amino Transf (AST/SGOT) 10 L Alanine Aminotransferase (ALT/SGPT) 32 Alkaline Phosphatase 62 B-Type Natriuretic Peptide 3240 H Total Protein 5.3 L Albumin 2.6 L Globulin 2.70 Albumin/Globulin Ratio 0.96 Medications Current Medications Atorvastatin Calcium (Lipitor) 40 mg HS PO Last administered on 02/27/17 20:26 ; Admin Dose 40 MG; Start 02/24/17 at 21:00 Calcium/Vitamin D (Oyster Shell/ Vit-D (500/200)) 1 tab DAILY PO Last administered on 02/28/17 08:18; Admin Dose 1 TAB; Start 02/25/17 at 09:00 Ergocalciferol (Drisdol) 50,000 unit Q7D PO ; Start 02/25/17 at 09:00 Ferrous Sulfate (Ferrous Sulfate (Ec)) 325 mg DAILY PO Last administered on 08:18; Admin Dose 325 MG; Start 02/25/17 at 09:00 Gabapentin (Neurontin) 300 mg TID PO Last administered on 02/28/17 08:18; Admin Dose 300 MG; Start 02/24/17 at 21:00 Senna 1 tab 1 tab DAILY PO Last administered on 02/28/17 08:17; Admin Dose 1 TAB; Start 02/25/17 at 09:00 Sodium Chloride (NS) 1,000 ml @ 75 mls/hr [id number] IV Last administered on 02/27 23:45; Admin Dose 75 MLS/HR; Start 02/24/17 at 14:55 Ondansetron HCl (Zofran Inj) 4 mg Q6H PRN IV NAUSEA AND/OR VOMITING Last administered on 02/25/17 08:32; Admin Dose 4 MG; Start 02/24/17 at 15:00 Acetaminophen (Tylenol Tab) 650 mg Q6H PRN PO PAIN LEVEL 1-3 OR FEVER Last administered on 02/27/17 09:05; Admin Dose 650 MG; Start 02/24/17 at 15:00 Acetaminophen (Tylenol Supp) 650 mg Q6H PRN [place] PAIN LEVEL 1-3 OR FEVER; Start 02/24/17 at 15:00 Diagnostic Test (Pha) 1 ea 1 ea 02 XX Last administered on 02/28/17 02:18; Admin Dose 1 EA; Start 02/25/17 at 02:00 Ceftriaxone Sodium (Rocephin) 50 ml @ 100 mls/hr Q24H IVPB Last administered on 02/27/17 15:29; Admin Dose 100 MLS/HR; Start 02/24/17 at 15:00 Miscellaneous Information 1 ea NOTE XX ; Start 02/24/17 at 15:30 Glucose (Glutose) 15 gm Q15M PRN PO DECREASED GLUCOSE; Start 02/24/17 at 15:30 Glucose (Glutose) 22.5 gm Q15M PRN PO DECREASED GLUCOSE; Start 02/24/17 at 15: 30 Dextrose (D50w Syringe) 25 ml Q15M PRN IV DECREASED GLUCOSE Last administered on 02/26/17 09:22; Admin Dose 25 ML; Start 02/24/17 at 15:30 Dextrose (D50w Syringe) 50 ml Q15M PRN IV DECREASED GLUCOSE; Start 02/24/17 at 15:30 Glucagon (Glucagen) 1 mg Q15M PRN IM DECREASED GLUCOSE; Start 02/24/17 at 15:30 Glucose (Glutose) 15 gm Q15M PRN BUCCAL DECREASED GLUCOSE; Start 02/24/17 at 15 :30 Isosorbide Mononitrate (Imdur) 30 mg DAILY PO Last administered on 02/28/17 08 :17; Admin Dose 30 MG; Start 02/25/17 at 09:00 Metoprolol Tartrate (Lopressor) 25 mg BID PO Last administered on 02/28/17 08: 19; Admin Dose 25 MG; Start 02/24/17 at 21:00 Labetalol HCl (Labetalol) 20 mg Q2 PRN IV for sys >160, hold for hr <65 Last administered on 02/28/17 02:17; Admin Dose 20 MG; Start 02/25/17 at 07:30 Morphine Sulfate (morphine) 2 mg Q4H PRN IV PAIN Last administered on 00:30; Admin Dose 2 MG; Start 02/25/17 at 10:30 Heparin Sodium (Porcine) (Heparin (5000 Units/0.5 ml)) 5,000 unit BID SC Last administered on 02/26/17 09:45; Admin Dose 5,000 UNIT; Start 02/26/17 at 09:30 ; Status Future Hold Furosemide (Lasix) 40 mg DAILY IV Last administered on 02/28/17 08:19; Admin Dose 40 MG; Start 02/27/17 at 14:00 Lisinopril 2.5 mg 2.5 mg BID PO Last administered on 02/28/17 08:18; Admin Dose 2.5 MG; Start 02/27/17 at 21:00 Magnesium Sulfate (Magnesium Sulfate 2 Gm/50 ml) 50 ml @ 25 mls/hr ONCE ONCE IVPB ; Start 02/28/17 at 09:00; Stop 02/28/17 at 10:59 Assessment/Plan Chief Complaint/Hosp Course 1. mod/Large pericardial effusion with signs of early cardiac tamponade: s/p pericardiocentesis now. 2. Hypertension 3. Diabetes/hyperglycemia 4. Dyslipidemia 5. Obesity 6. Possible UTI/sepsis 7. Generalized weakness 8. Hyponatremia 9. Hyperkalemia 10. anemia: will defer to IM Recommendations: Antibiotic as per internal medicine. will cont DVT prophylaxis with heparin Diabetic management as per internal medicine. correction of lytes as per renal diuretics as per renal no further cardiac rec at this time. will f/u prn over the weekend. pt needs to follow up with me as out pt. will consider repeat echo in few weeks SHREE TOPETE MD FACC Problems: SHREE TOPETE MD Feb 28, 2017 09:57
--- NOTE | 2017-02-28 11:47 | PN ---
Date/Time of Note Date/Time of Note DATE: 02/28/17 TIME: 11:33 Assessment/Plan VTE Prophylaxis VTE Prophylaxis Intervention: heparin Lines/Catheters IV C[facility]ter Type (from [facility]): Peripheral IV Urinary Cath still in place: No Assessment/Plan Chief Complaint/Hosp Course This is a 87-year-old female who was brought by paramedics for evaluation of generalized weakness who was noted with sepsis with UTI and incidental finding of pericardial effusion in CT abdomen. 1.Status post Sepsis with Ecoli UTI. Status:Acute -Continue IV ceftriaxone, IVFs 2. Pericardial effusion with echocardiographic evidence of early Cardiac tamponade. Status: Acute -Status post pericardiocentesis with removal of 540cc serosanguineous. -s/p Pigtail drain removed. Repeat Echo stable. 3. Hyponatremia.Stable. Status: Acute on chronic. -Nephrology on board. Lasix has been resumed. 4. Hyperkalemia, mild,possible ACEi-induced? Stable. Status: Acute -Resolved. - Resumed on DAR inhibitor-will monitor potassium. 5. Essential hypertension with too tight control regimen as outpt. Status: Chronic. -Continue current antihypertensive regimen. -BP meds titrated down to keep adequate perfusion. Cards to further manage BP 6. Type 2 diabetes. A1C 8.1.Now with hypoglycemic episodes with too tight control. Status: Chronic -Deescalate Lantus. Continue Accu-Cheks/insulin sliding scale 7. Coronary artery disease. Status: Chronic -Continue current medical management. 8. Hyperlipidemia Status: Chronic -On statin 9. Osteoporosis/osteoarthritis/degenerative joint disease. Status: Chronic -PT evaluation and treatment. 10. Dementia. -Supportive care. 11. Progressive debility. -Follow-up with PT recommendations 12. Reported Abdominal hernia. Not a surgical candidate. Status;Chronic. Stable.Monitor. Prophylaxis: Heparin/PPIs Please follow-up with physical therapy recommendation on further PT needs before discharge. Patient received for antibiotic course in house and no need to continue on discharge. Patient was seen in collaboration with . Problems: Subjective 24 Hr Interval Summary Free Text/Dictation Doing well. Pending PT eval. Exam/Review of Systems Vital Signs Vitals Vital Signs Date Time Temp Pulse Resp B/P Pulse Ox O2 Delivery O2 Flow Rate FiO2 02/28/17 08:47 82 18 93 21 02/28/17 07:47 98.2 184/86 02/27/17 07:00 Room Air 02/26/17 17:47 2.0 Intake and Output 02/27/17 02/27/17 02/28/17 15:00 23:00 07:00 Intake Total 575 ml 1925 ml Output Total 1650 ml 300 ml Balance -1075 ml -300 ml 1925 ml Exam General: Chronically ill looking elderly female, not in any acute distress . HEENT: Normocephalic, Atraumatic, No laceration or hematoma; Eyes: PEERL, Conjunctiva clear, Anicteric sclera Neck: Supple without any lymphadenopathy, nontender, no JVD, no carotid bruits, trachea midline, no thyromegaly Cardiac: S1, S2 auscultated, regular rhythm and rate, no mumurs or gallop Pulmonary: Diminished breath sounds bibasilar.Normal respiratory effort. Chest clear to auscultation bilaterally, no adventitious breath sounds GI: Mild tenderness to epigastric/substernal area. Abdomen normal to inspection. Soft, non- distended, no masses, no rebound tenderness or guarding. Bowel sounds active on all four quadrants Genitourinary: Incontinent Extremities: Generalized weakness to all 4 extremities. No cyanosis, clubbing, or edema. Pulses [2+] bilaterally. No focal weakness. Neurologic: Alert oriented 3. Intact sensation. Skin: Clean,dry, and intact. No ecchymosis, no rashes, or lesions Results Result Diagram: 02/28/17 0643 02/28/17 0643 Results 24 hrs Laboratory Tests Test 02/27/17 12:35 02/27/17 13:29 02/27/17 17:16 02/27/17 20:31 Bedside Glucose 189 224 H 238 H 202 Test 02/28/17 02:16 02/28/17 06:43 02/28/17 08:07 Bedside Glucose 191 172 White Blood Count 9.2 Red Blood Count 3.57 L Hemoglobin 8.9 L Hematocrit 27.8 L Mean Corpuscular Volume 77.9 L Mean Corpuscular Hemoglobin 24.9 L Mean Corpuscular Hemoglobin Concent 32.0 Red Cell Distribution Width 13.2 Platelet Count 449 H Mean Platelet Volume 9.5 Neutrophils % 50.8 Lymphocytes % 35.5 Monocytes % 9.6 Eosinophils % 3.0 Basophils % 0.8 Nucleated Red Blood Cells % 0.0 Neutrophils # 4.7 Lymphocytes # 3.3 H Monocytes # 0.9 Eosinophils # 0.3 Basophils # 0.1 Nucleated Red Blood Cells # 0.0 Sodium Level 134 L Potassium Level 3.3 L Chloride Level 99 Carbon Dioxide Level 27 Anion Gap 11 Blood Urea Nitrogen 6 L Creatinine 0.65 Glucose Level 176 Calcium Level 8.0 L Magnesium Level 1.6 L Total Bilirubin 0.1 L Direct Bilirubin 0.00 Indirect Bilirubin 0.1 Aspartate Amino Transf (AST/SGOT) 10 L Alanine Aminotransferase (ALT/SGPT) 32 Alkaline Phosphatase 62 B-Type Natriuretic Peptide 3240 H Total Protein 5.3 L Albumin 2.6 L Globulin 2.70 Albumin/Globulin Ratio 0.96 Medications Medications Current Medications Atorvastatin Calcium (Lipitor) 40 mg HS PO Last administered on 02/27/17 20:26 ; Admin Dose 40 MG; Start 02/24/17 at 21:00 Calcium/Vitamin D (Oyster Shell/ Vit-D (500/200)) 1 tab DAILY PO Last administered on 02/28/17 08:18; Admin Dose 1 TAB; Start 02/25/17 at 09:00 Ergocalciferol (Drisdol) 50,000 unit Q7D PO ; Start 02/25/17 at 09:00 Ferrous Sulfate (Ferrous Sulfate (Ec)) 325 mg DAILY PO Last administered on 08:18; Admin Dose 325 MG; Start 02/25/17 at 09:00 Gabapentin (Neurontin) 300 mg TID PO Last administered on 02/28/17 08:18; Admin Dose 300 MG; Start 02/24/17 at 21:00 Senna 1 tab 1 tab DAILY PO Last administered on 02/28/17 08:17; Admin Dose 1 TAB; Start 02/25/17 at 09:00 Sodium Chloride (NS) 1,000 ml @ 75 mls/hr [id number] IV Last administered on 02/27 23:45; Admin Dose 75 MLS/HR; Start 02/24/17 at 14:55 Ondansetron HCl (Zofran Inj) 4 mg Q6H PRN IV NAUSEA AND/OR VOMITING Last administered on 02/25/17 08:32; Admin Dose 4 MG; Start 02/24/17 at 15:00 Acetaminophen (Tylenol Tab) 650 mg Q6H PRN PO PAIN LEVEL 1-3 OR FEVER Last administered on 02/27/17 09:05; Admin Dose 650 MG; Start 02/24/17 at 15:00 Acetaminophen (Tylenol Supp) 650 mg Q6H PRN [place] PAIN LEVEL 1-3 OR FEVER; Start 02/24/17 at 15:00 Diagnostic Test (Pha) 1 ea 1 ea 02 XX Last administered on 02/28/17 02:18; Admin Dose 1 EA; Start 02/25/17 at 02:00 Ceftriaxone Sodium (Rocephin) 50 ml @ 100 mls/hr Q24H IVPB Last administered on 02/27/17 15:29; Admin Dose 100 MLS/HR; Start 02/24/17 at 15:00 Miscellaneous Information 1 ea NOTE XX ; Start 02/24/17 at 15:30 Glucose (Glutose) 15 gm Q15M PRN PO DECREASED GLUCOSE; Start 02/24/17 at 15:30 Glucose (Glutose) 22.5 gm Q15M PRN PO DECREASED GLUCOSE; Start 02/24/17 at 15: 30 Dextrose (D50w Syringe) 25 ml Q15M PRN IV DECREASED GLUCOSE Last administered on 02/26/17 09:22; Admin Dose 25 ML; Start 02/24/17 at 15:30 Dextrose (D50w Syringe) 50 ml Q15M PRN IV DECREASED GLUCOSE; Start 02/24/17 at 15:30 Glucagon (Glucagen) 1 mg Q15M PRN IM DECREASED GLUCOSE; Start 02/24/17 at 15:30 Glucose (Glutose) 15 gm Q15M PRN BUCCAL DECREASED GLUCOSE; Start 02/24/17 at 15 :30 Isosorbide Mononitrate (Imdur) 30 mg DAILY PO Last administered on 02/28/17 08 :17; Admin Dose 30 MG; Start 02/25/17 at 09:00 Metoprolol Tartrate (Lopressor) 25 mg BID PO Last administered on 02/28/17 08: 19; Admin Dose 25 MG; Start 02/24/17 at 21:00 Labetalol HCl (Labetalol) 20 mg Q2 PRN IV for sys >160, hold for hr <65 Last administered on 02/28/17 02:17; Admin Dose 20 MG; Start 02/25/17 at 07:30 Morphine Sulfate (morphine) 2 mg Q4H PRN IV PAIN Last administered on 00:30; Admin Dose 2 MG; Start 02/25/17 at 10:30 Heparin Sodium (Porcine) (Heparin (5000 Units/0.5 ml)) 5,000 unit BID SC Last administered on 02/26/17 09:45; Admin Dose 5,000 UNIT; Start 02/26/17 at 09:30 ; Status Future Hold Furosemide (Lasix) 40 mg DAILY IV Last administered on 02/28/17 08:19; Admin Dose 40 MG; Start 02/27/17 at 14:00 Lisinopril (Zestril) 2.5 mg BID PO Last administered on 02/28/17 08:18; Admin Dose 2.5 MG; Start 02/27/17 at 21:00 MOIZ RICE NP Feb 28, 2017 11:46
--- NOTE | 2017-02-28 14:46 | CONS ---
Date/Time of Note Date/Time of Note DATE: 02/28/17 TIME: 14:44 Assessment/Plan Assessment/Plan Additional Assessment/Plan 87 yo Female with 1. Sepsis with UTI. 2. Pericardial effusion- S/p drain 3. Hyponatremia- Improved 4. Hyperkalemia- Resolved 5. Essential hypertension 6. Hyperglycemia with type 2 diabetes. 7. Coronary artery disease. 8. Hyperlipidemia 9. Hypomagnesemia Na now normal Cr stable K Supplemented Will increase Lisinopril to 5mg po bid Pt void after Kunz removal Monitor K and Mg Will cont to closely follow along with you. Thank you for the opportunity to participate in the care of Ms Pacheco. Consultation Date/Type/Reason Admit Date/Time Feb 24, 2017 at 13:17 Initial Consult Date 02/24/17 Type of Consultation: Renal Referring Provider: MOIZ RICE NP 24 HR Interval Summary Free Text/Dictation Voided after kunz removal, K supplemented. Constitutional: No requiring O2 Exam/Review of Systems Vital Signs Vitals Vital Signs Date Time Temp Pulse Resp B/P Pulse Ox O2 Delivery O2 Flow Rate FiO2 02/28/17 12:59 88 20 94 21 02/28/17 12:07 98.1 167/74 02/27/17 07:00 Room Air 02/26/17 17:47 2.0 Intake and Output 02/27/17 02/27/17 02/28/17 15:00 23:00 07:00 Intake Total 575 ml 1925 ml Output Total 1650 ml 300 ml Balance -1075 ml -300 ml 1925 ml Exam Constitutional: alert, No distress ENMT: mucosa pink and moist Neck: No jvd Respiratory: clear to auscultation Cardiovascular: regular rate and rhythm, No edema Gastrointestinal: non-tender, soft Neurological: TANKERMAN II-XII intact, nl mental status, No lethargic Skin: No diaphoresis Results Result Diagram: 02/28/17 0643 02/28/17 0643 Results 24 hrs Laboratory Tests Test 02/27/17 17:16 02/27/17 20:31 02/28/17 02:16 02/28/17 06:43 Bedside Glucose 238 H 202 191 White Blood Count 9.2 Red Blood Count 3.57 L Hemoglobin 8.9 L Hematocrit 27.8 L Mean Corpuscular Volume 77.9 L Mean Corpuscular Hemoglobin 24.9 L Mean Corpuscular Hemoglobin Concent 32.0 Red Cell Distribution Width 13.2 Platelet Count 449 H Mean Platelet Volume 9.5 Neutrophils % 50.8 Lymphocytes % 35.5 Monocytes % 9.6 Eosinophils % 3.0 Basophils % 0.8 Nucleated Red Blood Cells % 0.0 Neutrophils # 4.7 Lymphocytes # 3.3 H Monocytes # 0.9 Eosinophils # 0.3 Basophils # 0.1 Nucleated Red Blood Cells # 0.0 Sodium Level 134 L Potassium Level 3.3 L Chloride Level 99 Carbon Dioxide Level 27 Anion Gap 11 Blood Urea Nitrogen 6 L Creatinine 0.65 Glucose Level 176 Calcium Level 8.0 L Magnesium Level 1.6 L Total Bilirubin 0.1 L Direct Bilirubin 0.00 Indirect Bilirubin 0.1 Aspartate Amino Transf (AST/SGOT) 10 L Alanine Aminotransferase (ALT/SGPT) 32 Alkaline Phosphatase 62 B-Type Natriuretic Peptide 3240 H Total Protein 5.3 L Albumin 2.6 L Globulin 2.70 Albumin/Globulin Ratio 0.96 Test 02/28/17 08:07 02/28/17 12:56 Bedside Glucose 172 217 Medications Medications Current Medications Atorvastatin Calcium (Lipitor) 40 mg HS PO Last administered on 02/27/17 20:26 ; Admin Dose 40 MG; Start 02/24/17 at 21:00 Calcium/Vitamin D (Oyster Shell/ Vit-D (500/200)) 1 tab DAILY PO Last administered on 02/28/17 08:18; Admin Dose 1 TAB; Start 02/25/17 at 09:00 Ergocalciferol (Drisdol) 50,000 unit Q7D PO ; Start 02/25/17 at 09:00 Ferrous Sulfate (Ferrous Sulfate (Ec)) 325 mg DAILY PO Last administered on 08:18; Admin Dose 325 MG; Start 02/25/17 at 09:00 Gabapentin (Neurontin) 300 mg TID PO Last administered on 02/28/17 12:59; Admin Dose 300 MG; Start 02/24/17 at 21:00 Senna 1 tab 1 tab DAILY PO Last administered on 02/28/17 08:17; Admin Dose 1 TAB; Start 02/25/17 at 09:00 Sodium Chloride (NS) 1,000 ml @ 75 mls/hr [id number] IV Last administered on 02/27 23:45; Admin Dose 75 MLS/HR; Start 02/24/17 at 14:55 Ondansetron HCl (Zofran Inj) 4 mg Q6H PRN IV NAUSEA AND/OR VOMITING Last administered on 02/25/17 08:32; Admin Dose 4 MG; Start 02/24/17 at 15:00 Acetaminophen (Tylenol Tab) 650 mg Q6H PRN PO PAIN LEVEL 1-3 OR FEVER Last administered on 02/27/17 09:05; Admin Dose 650 MG; Start 02/24/17 at 15:00 Acetaminophen (Tylenol Supp) 650 mg Q6H PRN [place] PAIN LEVEL 1-3 OR FEVER; Start 02/24/17 at 15:00 Diagnostic Test (Pha) 1 ea 1 ea 02 XX Last administered on 02/28/17 02:18; Admin Dose 1 EA; Start 02/25/17 at 02:00 Ceftriaxone Sodium (Rocephin) 50 ml @ 100 mls/hr Q24H IVPB Last administered on 02/27/17 15:29; Admin Dose 100 MLS/HR; Start 02/24/17 at 15:00 Miscellaneous Information 1 ea NOTE XX ; Start 02/24/17 at 15:30 Glucose (Glutose) 15 gm Q15M PRN PO DECREASED GLUCOSE; Start 02/24/17 at 15:30 Glucose (Glutose) 22.5 gm Q15M PRN PO DECREASED GLUCOSE; Start 02/24/17 at 15: 30 Dextrose (D50w Syringe) 25 ml Q15M PRN IV DECREASED GLUCOSE Last administered on 02/26/17 09:22; Admin Dose 25 ML; Start 02/24/17 at 15:30 Dextrose (D50w Syringe) 50 ml Q15M PRN IV DECREASED GLUCOSE; Start 02/24/17 at 15:30 Glucagon (Glucagen) 1 mg Q15M PRN IM DECREASED GLUCOSE; Start 02/24/17 at 15:30 Glucose (Glutose) 15 gm Q15M PRN BUCCAL DECREASED GLUCOSE; Start 02/24/17 at 15 :30 Isosorbide Mononitrate (Imdur) 30 mg DAILY PO Last administered on 02/28/17 08 :17; Admin Dose 30 MG; Start 02/25/17 at 09:00 Metoprolol Tartrate (Lopressor) 25 mg BID PO Last administered on 02/28/17 08: 19; Admin Dose 25 MG; Start 02/24/17 at 21:00 Labetalol HCl (Labetalol) 20 mg Q2 PRN IV for sys >160, hold for hr <65 Last administered on 02/28/17 13:14; Admin Dose 20 MG; Start 02/25/17 at 07:30 Morphine Sulfate (morphine) 2 mg Q4H PRN IV PAIN Last administered on 00:30; Admin Dose 2 MG; Start 02/25/17 at 10:30 Heparin Sodium (Porcine) (Heparin (5000 Units/0.5 ml)) 5,000 unit BID SC Last administered on 02/26/17 09:45; Admin Dose 5,000 UNIT; Start 02/26/17 at 09:30 ; Status Future Hold Furosemide (Lasix) 40 mg DAILY IV Last administered on 02/28/17 08:19; Admin Dose 40 MG; Start 02/27/17 at 14:00 Lisinopril (Zestril) 2.5 mg BID PO Last administered on 02/28/17 08:18; Admin Dose 2.5 MG; Start 02/27/17 at 21:00 RALPH KNOTT MD Feb 28, 2017 14:46
[2017-02-28] MEDS: CEFTRIAXONE 1 GM/50 ML (PMX) 50 ML IVPB SCH (14:55)
[2017-02-28] MEDS: SOD CHLORIDE 0.9% 1,000 ML IV SCH (14:59)
[2017-02-28] MEDS: ATORVASTATIN 40 MG TAB PO SCH (20:32)
[2017-02-28] MEDS: ZOLPIDEM 5 MG TAB PO PRN (22:10)
[2017-02-28] MEDS ORDERED: MAGNESIUM HYDROXIDE 30ML CUP PO PRN (22:30)
[2017-03-01] VITALS (8 sets, daily range): BP systolic 117–185; BP diastolic 61–81; PULSE 87–94; RESP 18–21
[2017-03-01] MEDS: ACCU-CHEK XX SCH (02:00)
[2017-03-01 06:04] LABS: ALBUMIN 2.8 g/dl (3.3-4.9); BILIRUBIN,INDIRECT 0.2 mg/dl (0-1.1); BILIRUBIN,TOTAL 0.2 mg/dl (0.2-1.3); CALCIUM 8.8 mg/dl (8.4-10.2); CREATININE 0.66 mg/dl (0.44-1.00); MAGNESIUM 1.9 mg/dl (1.7-2.5); POTASSIUM 3.8 mmol/L (3.5-5.1); TOTAL PROTEIN 5.6 g/dl (6.1-8.1)
[2017-03-01] MEDS: SOD CHLORIDE 0.9% 1,000 ML IV SCH ×2 (06:45→14:44)
[2017-03-01] MEDS: LABETALOL HCL 20MG INJ IV PRN (06:46)
[2017-03-01] MEDS: GABAPENTIN 300 MG CAP PO SCH ×2 (08:33→13:01)
[2017-03-01] MEDS: CALCIUM/VITAMIN D (500/200) TAB PO SCH (08:33)
[2017-03-01] MEDS: METOPROLOL 25 MG TAB PO SCH (08:33)
[2017-03-01] MEDS: FUROSEMIDE 40 MG INJ IV SCH (08:33)
[2017-03-01] MEDS: ISOSORBIDE MONONITRATE(SR)60 MG TAB PO SCH (08:34)
[2017-03-01] MEDS: FERROUS SULFATE (EC) 325 MG TAB PO SCH (08:34)
[2017-03-01] MEDS: LISINOPRIL 5 MG TAB PO SCH (08:34)
[2017-03-01] MEDS: INSULIN ASPART [NOVOLOG] 3 ML PEN SC SCH ×2 (08:36→11:56)
[2017-03-01] MEDS: SENNA TAB PO SCH ×2 (08:37→08:38)
[2017-03-01] MEDS: ALBUTEROL/IPRATROPIUM (NEB) 3 ML AMP HHN SCH ×2 (09:39→14:02)
[2017-03-01] MEDS: morphine 2 MG INJ IV PRN (11:53)
--- NOTE | 2017-03-01 12:12 | PN ---
Date/Time of Note Date/Time of Note DATE: 03/01/17 TIME: 12:03 Assessment/Plan VTE Prophylaxis VTE Prophylaxis Intervention: heparin Lines/Catheters IV [facility]ter Type (from [facility]): Peripheral IV Urinary Cath still in place: No Assessment/Plan Chief Complaint/Hosp Course This is a 87-year-old female who was brought by paramedics for evaluation of generalized weakness who was noted with sepsis with UTI and incidental finding of pericardial effusion in CT abdomen. 1.Status post Sepsis with Ecoli UTI. Status:Acute -Patient received 7 day course on IV ceftriaxone. No further antibiotics indicated. 2. Pericardial effusion with echocardiographic evidence of early Cardiac tamponade. Status: Acute -Status post pericardiocentesis with removal of 540cc serosanguineous. -s/p Pigtail drain removed. Repeat Echo stable. 3. Hyponatremia.Stable. Status: Acute on chronic. -Nephrology on board. Lasix has been resumed. 4. Hyperkalemia, mild,possible ACEi-induced? Stable. Status: Acute -Resolved. - Resumed on DAR inhibitor-will monitor potassium. 5. Essential hypertension , now with suboptimal control. Status: Chronic. -Titrate antihypertensives back to home regimen. Patient will be continued on Coreg 6.25 mg twice daily, lisinopril 5 mg daily, clonidine 0.1 mg twice daily as needed for SBP greater than 160 and Imdur 60 mg daily. 6. Type 2 diabetes. A1C 8.1.Now with hypoglycemic episodes with too tight control. Status: Chronic - Continue Accu-Cheks/insulin sliding scale. At home, patient takes Levemir 55 units every morning and 2 units Humalog every afternoon as needed. Patient is not receptive for any oral agents to continue at home and she has been under her primary care doctor with her insulin regimen. 7. Coronary artery disease. Status: Chronic -Continue current medical management. 8. Hyperlipidemia Status: Chronic -On statin 9. Osteoporosis/osteoarthritis/degenerative joint disease. Status: Chronic -PT evaluation and treatment. 10. Dementia. -Supportive care. 11. Progressive debility. -Follow-up with PT recommendations 12. Reported Abdominal hernia. Not a surgical candidate. Status;Chronic. Stable.Monitor. Prophylaxis: Heparin/PPIs Case management for arranging home health physical therapy. Discharge once PT is arranged. Patient to follow-up with mill tender warm up in 2 weeks. Patient was seen in collaboration with DR. Swan. Problems: Subjective 24 Hr Interval Summary Free Text/Dictation Doing well. Exam/Review of Systems Vital Signs Vitals Vital Signs Date Time Temp Pulse Resp B/P Pulse Ox O2 Delivery O2 Flow Rate FiO2 03/01/17 11:45 98.5 69 19 117/61 100 03/01/17 09:41 21 02/27/17 07:00 Room Air 02/26/17 17:47 2.0 Intake and Output 02/28/17 02/28/17 03/01/17 15:00 23:00 07:00 Intake Total 1810 ml Balance 1810 ml Exam General: Chronically ill looking elderly female, not in any acute distress . HEENT: Normocephalic, Atraumatic, No laceration or hematoma; Eyes: PEERL, Conjunctiva clear, Anicteric sclera Neck: Supple without any lymphadenopathy, nontender, no JVD, no carotid bruits, trachea midline, no thyromegaly Cardiac: S1, S2 auscultated, regular rhythm and rate, no mumurs or gallop Pulmonary: Diminished breath sounds bibasilar.Normal respiratory effort. Chest clear to auscultation bilaterally, no adventitious breath sounds GI: Mild tenderness to epigastric/substernal area. Abdomen normal to inspection. Soft, non- distended, no masses, no rebound tenderness or guarding. Bowel sounds active on all four quadrants Genitourinary: Incontinent Extremities: Generalized weakness to all 4 extremities. No cyanosis, clubbing, or edema. Pulses [2+] bilaterally. No focal weakness. Neurologic: Alert oriented 3. Intact sensation. Skin: Clean,dry, and intact. No ecchymosis, no rashes, or lesions Results Result Diagram: 02/28/17 0643 03/01/17 0504 Results 24 hrs Laboratory Tests Test 02/28/17 12:56 02/28/17 17:09 02/28/17 20:52 03/01/17 02:06 Bedside Glucose 217 215 279 H 224 H Test 03/01/17 05:04 03/01/17 08:09 03/01/17 11:44 Sodium Level 134 L Potassium Level 3.8 Chloride Level 96 L Carbon Dioxide Level 31 Anion Gap 11 Blood Urea Nitrogen 7 Creatinine 0.66 Glucose Level 221 H Calcium Level 8.8 Magnesium Level 1.9 Total Bilirubin 0.2 Direct Bilirubin 0.00 Indirect Bilirubin 0.2 Aspartate Amino Transf (AST/SGOT) 27 Alanine Aminotransferase (ALT/SGPT) 37 Alkaline Phosphatase 63 B-Type Natriuretic Peptide 2190 H Total Protein 5.6 L Albumin 2.8 L Globulin 2.80 Albumin/Globulin Ratio 1.00 Bedside Glucose 273 H 220 Medications Medications Current Medications Atorvastatin Calcium (Lipitor) 40 mg HS PO Last administered on 02/28/17 20:32 ; Admin Dose 40 MG; Start 02/24/17 at 21:00 Calcium/Vitamin D (Oyster Shell/ Vit-D (500/200)) 1 tab DAILY PO Last administered on 03/01/17 08:33; Admin Dose 1 TAB; Start 02/25/17 at 09:00 Ergocalciferol (Drisdol) 50,000 unit Q7D PO ; Start 02/25/17 at 09:00 Ferrous Sulfate (Ferrous Sulfate (Ec)) 325 mg DAILY PO Last administered on 08:34; Admin Dose 325 MG; Start 02/25/17 at 09:00 Gabapentin 300 mg 300 mg TID PO Last administered on 03/01/17 08:33; Admin Dose 300 MG; Start 02/24/17 at 21:00 Sodium Chloride (NS) 1,000 ml @ 75 mls/hr [id number] IV Last administered on 03/01 06:45; Admin Dose 75 MLS/HR; Start 02/24/17 at 14:55 Ondansetron HCl (Zofran Inj) 4 mg Q6H PRN IV NAUSEA AND/OR VOMITING Last administered on 02/25/17 08:32; Admin Dose 4 MG; Start 02/24/17 at 15:00 Acetaminophen (Tylenol Tab) 650 mg Q6H PRN PO PAIN LEVEL 1-3 OR FEVER Last administered on 02/27/17 09:05; Admin Dose 650 MG; Start 02/24/17 at 15:00 Acetaminophen (Tylenol Supp) 650 mg Q6H PRN [place] PAIN LEVEL 1-3 OR FEVER; Start 02/24/17 at 15:00 Diagnostic Test (Pha) 1 ea 1 ea 02 XX Last administered on 03/01/17 02:00; Admin Dose 1 EA; Start 02/25/17 at 02:00 Ceftriaxone Sodium (Rocephin) 50 ml @ 100 mls/hr Q24H IVPB Last administered on 02/28/17 14:55; Admin Dose 100 MLS/HR; Start 02/24/17 at 15:00 Miscellaneous Information 1 ea NOTE XX ; Start 02/24/17 at 15:30 Glucose (Glutose) 15 gm Q15M PRN PO DECREASED GLUCOSE; Start 02/24/17 at 15:30 Glucose (Glutose) 22.5 gm Q15M PRN PO DECREASED GLUCOSE; Start 02/24/17 at 15: 30 Dextrose (D50w Syringe) 25 ml Q15M PRN IV DECREASED GLUCOSE Last administered on 02/26/17 09:22; Admin Dose 25 ML; Start 02/24/17 at 15:30 Dextrose (D50w Syringe) 50 ml Q15M PRN IV DECREASED GLUCOSE; Start 02/24/17 at 15:30 Glucagon (Glucagen) 1 mg Q15M PRN IM DECREASED GLUCOSE; Start 02/24/17 at 15:30 Glucose (Glutose) 15 gm Q15M PRN BUCCAL DECREASED GLUCOSE; Start 02/24/17 at 15 :30 Isosorbide Mononitrate (Imdur) 30 mg DAILY PO Last administered on 03/01/17 08 :34; Admin Dose 30 MG; Start 02/25/17 at 09:00 Metoprolol Tartrate (Lopressor) 25 mg BID PO Last administered on 03/01/17 08: 33; Admin Dose 25 MG; Start 02/24/17 at 21:00 Labetalol HCl (Labetalol) 20 mg Q2 PRN IV for sys >160, hold for hr <65 Last administered on 03/01/17 06:46; Admin Dose 20 MG; Start 02/25/17 at 07:30 Morphine Sulfate (morphine) 2 mg Q4H PRN IV PAIN Last administered on 11:53; Admin Dose 2 MG; Start 02/25/17 at 10:30 Heparin Sodium (Porcine) (Heparin (5000 Units/0.5 ml)) 5,000 unit BID SC Last administered on 02/26/17 09:45; Admin Dose 5,000 UNIT; Start 02/26/17 at 09:30 ; Status Future Hold Furosemide (Lasix) 40 mg DAILY IV Last administered on 03/01/17 08:33; Admin Dose 40 MG; Start 02/27/17 at 14:00 Lisinopril (Zestril) 5 mg BID PO Last administered on 03/01/17 08:34; Admin Dose 5 MG; Start 02/28/17 at 21:00 Senna (Senokot) 2 tab BID PO Last administered on 03/01/17 08:37; Admin Dose 2 TAB; Start 02/28/17 at 23:15 Magnesium Hydroxide (Milk Of Mag) 30 ml DAILY PRN PO CONSTIPATION Last administered on 02/28/17 23:45; Admin Dose 30 ML; Start 02/28/17 at 22:30 MOIZ RICE NP Mar 01, 2017 12:12
--- NOTE | 2017-03-01 12:13 | PDOCDIS ---
Discharge Instructions CONDITION Patient Condition: Stable HOME CARE INSTRUCTIONS: Special Diet: CARB CONYTOL FOLLOW UP/APPOINTMENTS Follow-up Plan Follow-up with in 2 weeks. [id number] [facility] [address] [place] [id number] Office .Follow up with primary care physician in 1 week If you don't have one please let someone know, we can give you resources that may help you pick one. You may also call your insurance company to assign one to you. Review your medication list with your nurse before leaving and if you need new prescriptions please let your nurse know. I may have made changes to your home medications or given you new prescriptions, please let your primary doctor know as well. Stay compliant with your medications and report any side effects to your PCP or pharmacist. Return to the ER if you have any concerns and cannot reach your doctors or call your insurance company, they usually have a nurse that can help you. . Call 911 or go to the nearest emergency room if experiencing loss of consciousness, dizziness, chest pain, shortness of breath, vomiting/abdominal pain, speech difficulties, motor weakness or any unusual symptoms. MOIZ RICE NP Mar 01, 2017 12:13
[2017-03-01] MEDS ORDERED: INSU100C SQ (12:23)
--- NOTE | 2017-03-01 12:26 | DS ---
Date/Time of Note Date/Time of Note DATE: 03/01/17 TIME: 12:21 Discharge Summary Admission/Discharge Info Admit Date/Time Feb 24, 2017 at 13:17 Discharge Date/Time Discharge Diagnosis 1.Status post Sepsis with Ecoli UTI. 2. Pericardial effusion with echocardiographic evidence of early Cardiac tamponade.Status post pericardiocentesis with removal of 540cc serosanguineous. 3. Hyponatremia.Stable. 4. Hyperkalemia, mild,possible ACEi-induced? Stable. 5. Essential hypertension with too tight control regimen as outpt. 6. Type 2 diabetes. A1C 8.1. 7. Coronary artery disease. 8. Hyperlipidemia 9. Osteoporosis/osteoarthritis/degenerative joint disease. 10. Progressive debility. Patient Condition: Stable Consults , cardiology , nephrology Procedures 02/24/2017. 2D echocardiogram. Normal left ventricular systolic function, ejection fraction 65%. Abnormal diastolic function. Moderate to large pericardial effusion. TV respiratory flow velocity variation consistent with tamponade. Pleural effusion seen. 02/25/2017. Pericardiocentesis Hospital Course This is a 87-year-old female with multiple comorbidities including essential hypertension, type 2 diabetes, coronary artery disease, hyperlipidemia, osteoporosis, degenerative joint disease, dementia, debility, who was brought by paramedics for evaluation of generalized weakness who was noted with sepsis with UTI and incidental finding of pericardial effusion in CT abdomen. Patient was treated with IV ceftriaxone for E. coli UTI. Echocardiogram with large pericardial effusion with sonographic evidence of early cardiac tamponade. Patient had cardiology evaluation. She had pericardial centesis with 540 cc of serosanguineous drainage removed. Postoperatively, patient was kept in intensive care unit. Pericardial drain was removed. Patient was also evaluated by nephrology colleagues for underlying hyponatremia and hypokalemia. She was then transferred back to telemetry. Patient was continued on her home medications for underlying comorbid conditions. Due to hyperkalemia and hyponatremia, Lasix and DAR inhibitors were hold initially. Electrolytes level monitored closely and sodium and potassium remain stable. Patient continued to have hypertension requiring continuation of multiple antihypertensives. She was then resume back on Lasix and low-dose DAR inhibitors with stable potassium and sodium level. Patient was then evaluated by physical therapy and the recommendation was to send patient home with home health physical therapy. Case management was consulted for arranging home health physical therapy. At this time, patient is feeling back to her baseline. She is able to tolerate diet and activities. There is no further inpatient workup indicated. Patient is stable for outpatient follow-up. She does not require any further antibiotic as she is already received 7 day course of IV ceftriaxone. There is no signs of UTI at this point. Patient to continue her home insulin regimen upon discharge. Patient to follow-up with primary care physician and client service professional in 1-2 weeks. Patient and family verbalized discharge instructions. Disposition: Home with home health physical therapy. Approximately 60 minute was spent in coordinating the discharge on this patient. Patient was encouraged by Dr. Swan. Home Meds Active Scripts Ondansetron (Ondansetron Odt) 4 Mg Tab.rapdis, 4 MG PO Q6H Y for NAUSEA AND/OR VOMITING, #10 TAB Prov:RG MOSQUEDA MD 01/02/16 Reported Medications Insulin Degludec (Tresiba Flextouch U-200) 200 Unit/1 Ml Insuln.pen, 55 UNIT SQ DAILY 03/01/17 Insulin Lispro (Humalog) 100 Unit/1 Ml Cartridge, 2 UNIT SQ QPM 03/01/17 Lisinopril* (Lisinopril*) 2.5 Mg Tablet, 2.5 MG PO DAILY, #30 TAB 02/24/17 Plecanatide (Trulance) 3 Mg Tablet, 3 MG PO DAILY, TAB 02/24/17 Metoclopramide* (Reglan*) 5 Mg Tablet, 5 MG PO BID WITH MEALS, TAB 02/24/17 Carvedilol* (Carvedilol*) 6.25 Mg Tablet, 6.25 MG PO BID, #60 TAB 02/24/17 Sennosides* (Senna Lax*) 8.6 Mg Tablet, 1 TAB PO DAILY, TAB 01/02/16 Ferrous Sulfate* (Ferrous Sulfate*) 325 Mg Tabec, 325 MG PO DAILY, TAB 01/02/16 Calcium Carbonate/Vitamin D3 (Oysco 500+D Tablet) 1 Each Tablet, 1 EACH PO DAILY , TAB 01/02/16 Ergocalciferol* (Drisdol* (Vitamin D2)) 50,000 Unit Capsule, 86717 UNIT PO Q7D, CAP 01/02/16 Gabapentin* (Gabapentin*) 300 Mg Capsule, 300 MG PO TID, #90 CAP 01/02/16 Tramadol Hcl* (Ultram*) 50 Mg Tablet, 50 MG PO BID Y for PAIN, TAB 01/02/16 Acetaminophen* (Acetaminophen*) 500 MG Extra Strength Tablet, 1-2 TAB PO Q6H Y for PAIN AND OR ELEVATED TEMP, TAB 01/02/16 Furosemide (Lasix) 40 Mg Tab, 40 MG PO DAILY 12/05/12 Aspirin* (Ecotrin*) 81 Mg Tablet.dr, 81 MG PO DAILY 12/05/12 Zolpidem Tartrate* (Ambien*) 10 Mg Tablet, 10 MG PO HS 12/05/12 Isosorbide Mononitrate* (Isosorbide Mononitrate*) 60 Mg Tab.er.24h, 60 MG PO DAILY 12/05/12 Clonidine Hcl* (Clonidine Hcl*) 0.1 Mg Tab, 0.1 MG PO BID 11/25/12 Atorvastatin (Lipitor) 40 Mg Tablet, 1 TAB PO HS 02/20/12 Pantoprazole* (Protonix* IV) 40 Mg Soln, 1 TAB PO DAILY 02/20/12 Discontinued Reported Medications Insulin Detemir (Levemir Flextouch) 100 Unit/1 Ml Insuln.pen, 2 UNIT SQ QPM 02/24/17 Insulin Degludec (Tresiba Flextouch U-200) 200 Unit/1 Ml Insuln.pen, 0 SQ QAM SLIDING SCALE 02/24/17 Amlodipine-Benazepril (Amlodipine-Benazepril) 10-40 Mg Capsule, 1 TAB PO DAILY, #30 TAB 01/02/16 Insulin Regular, Human (Humulin R) 100 Unit/1 Ml Vial, 0-6 UNIT IJ DIRECTED, VIAL SLIDING SCALE 01/02/16 Insulin Glargine* (Lantus*) 100 Unit/Ml Soln, 55 UNIT SC DAILY, #1 VIAL 01/02/16 Carvedilol* (Carvedilol*) 3.125 Mg Tablet, 3.125 MG PO BID, #60 TAB 01/02/16 Follow-up Plan Follow-up with in 2 weeks. [id number] [facility] [address] [place] [id number] Office .Follow up with primary care physician in 1 week If you don't have one please let someone know, we can give you resources that may help you pick one. You may also call your insurance company to assign one to you. Review your medication list with your nurse before leaving and if you need new prescriptions please let your nurse know. I may have made changes to your home medications or given you new prescriptions, please let your primary doctor know as well. Stay compliant with your medications and report any side effects to your PCP or pharmacist. Return to the ER if you have any concerns and cannot reach your doctors or call your insurance company, they usually have a nurse that can help you. . Call 911 or go to the nearest emergency room if experiencing loss of consciousness, dizziness, chest pain, shortness of breath, vomiting/abdominal pain, speech difficulties, motor weakness or any unusual symptoms. Primary Care Provider Margarita Gerber MD Pending Labs Laboratory Tests Test 02/28/17 12:56 02/28/17 17:09 02/28/17 20:52 03/01/17 02:06 Bedside Glucose 217mg/dL (70-220) 215mg/dL (70-220) 279mg/dL (70-220) 224mg/dL (70-220) Test 03/01/17 05:04 03/01/17 08:09 03/01/17 11:44 Sodium Level 134mmol/L (135-144) Potassium Level 3.8mmol/L (3.5-5.1) Chloride Level 96mmol/L (97-110) Carbon Dioxide Level 31mmol/L (21-31) Anion Gap 11 (8-16) Blood Urea Nitrogen 7mg/dl (7-20) Creatinine 0.66mg/dl (0.44-1.00) Glucose Level 221mg/dl (70-220) Calcium Level 8.8mg/dl (8.4-10.2) Magnesium Level 1.9mg/dl (1.7-2.5) Total Bilirubin 0.2mg/dl (0.2-1.3) Direct Bilirubin 0.00mg/dl (0.00-0.20) Indirect Bilirubin 0.2mg/dl (0-1.1) Aspartate Amino Transf (AST/SGOT) 27IU/L (15-46) Alanine Aminotransferase (ALT/SGPT) 37IU/L (13-69) Alkaline Phosphatase 63IU/L (42-121) B-Type Natriuretic Peptide 2190PG/ML (0-450) Total Protein 5.6g/dl (6.1-8.1) Albumin 2.8g/dl (3.3-4.9) Globulin 2.80g/dl (1.3-3.2) Albumin/Globulin Ratio 1.00 Bedside Glucose 273mg/dL (70-220) 220mg/dL (70-220) MOIZ RICE V. [employer] Mar 01, 2017 12:26
[2017-03-01] MEDS ORDERED: ISOSORBIDE MONONITRATE(SR)30 MG TAB PO ONE (12:30)
[2017-03-01] MEDS ORDERED: LINAGLIPTIN 5 MG TABLET PO SCH (12:30)
[2017-03-01] MEDS ORDERED: INSU200I4 SQ (12:40)
--- NOTE | 2017-03-01 12:45 | CONS ---
Date/Time of Note Date/Time of Note DATE: 03/01/17 TIME: 12:44 Assessment/Plan Assessment/Plan Additional Assessment/Plan 87 yo Female with 1. Sepsis with UTI. 2. Pericardial effusion- S/p drain 3. Hyponatremia- Improved 4. Hyperkalemia- Resolved 5. Essential hypertension 6. Hyperglycemia with type 2 diabetes. 7. Coronary artery disease. 8. Hyperlipidemia 9. Hypomagnesemia Na now normal Cr stable Resume outpt HTN Rx Pt void after Sherman removal DC planning per Hospitalist will follow at outpt Thank you for the opportunity to participate in the care of Ms Pacheco. Consultation Date/Type/Reason Admit Date/Time Feb 24, 2017 at 13:17 Initial Consult Date 02/24/17 Type of Consultation: Renal Referring Provider: MOIZ RICE NP 24 HR Interval Summary Free Text/Dictation No new complaints Constitutional: No requiring O2 Exam/Review of Systems Vital Signs Vitals Vital Signs Date Time Temp Pulse Resp B/P Pulse Ox O2 Delivery O2 Flow Rate FiO2 03/01/17 11:45 98.5 69 19 117/61 100 03/01/17 09:41 21 02/27/17 07:00 Room Air 02/26/17 17:47 2.0 Intake and Output 02/28/17 02/28/17 03/01/17 15:00 23:00 07:00 Intake Total 1810 ml Balance 1810 ml Exam Constitutional: alert, No distress Head: atraumatic, normocephalic Eyes: EOMI Neck: No jvd Respiratory: clear to auscultation Cardiovascular: regular rate and rhythm, No edema Gastrointestinal: non-tender, soft Extremities: No edema 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, No confused, No lethargic Skin: No diaphoresis Results Result Diagram: 02/28/17 0643 03/01/17 0504 Results 24 hrs Laboratory Tests Test 02/28/17 12:56 02/28/17 17:09 02/28/17 20:52 03/01/17 02:06 Bedside Glucose 217 215 279 H 224 H Test 03/01/17 05:04 03/01/17 08:09 03/01/17 11:44 Sodium Level 134 L Potassium Level 3.8 Chloride Level 96 L Carbon Dioxide Level 31 Anion Gap 11 Blood Urea Nitrogen 7 Creatinine 0.66 Glucose Level 221 H Calcium Level 8.8 Magnesium Level 1.9 Total Bilirubin 0.2 Direct Bilirubin 0.00 Indirect Bilirubin 0.2 Aspartate Amino Transf (AST/SGOT) 27 Alanine Aminotransferase (ALT/SGPT) 37 Alkaline Phosphatase 63 B-Type Natriuretic Peptide 2190 H Total Protein 5.6 L Albumin 2.8 L Globulin 2.80 Albumin/Globulin Ratio 1.00 Bedside Glucose 273 H 220 Medications Medications Current Medications Atorvastatin Calcium (Lipitor) 40 mg HS PO Last administered on 02/28/17 20:32 ; Admin Dose 40 MG; Start 02/24/17 at 21:00 Calcium/Vitamin D (Oyster Shell/ Vit-D (500/200)) 1 tab DAILY PO Last administered on 03/01/17 08:33; Admin Dose 1 TAB; Start 02/25/17 at 09:00 Ergocalciferol (Drisdol) 50,000 unit Q7D PO ; Start 02/25/17 at 09:00 Ferrous Sulfate (Ferrous Sulfate (Ec)) 325 mg DAILY PO Last administered on 08:34; Admin Dose 325 MG; Start 02/25/17 at 09:00 Gabapentin 300 mg 300 mg TID PO Last administered on 03/01/17 08:33; Admin Dose 300 MG; Start 02/24/17 at 21:00 Sodium Chloride (NS) 1,000 ml @ 75 mls/hr [id number] IV Last administered on 03/01 06:45; Admin Dose 75 MLS/HR; Start 02/24/17 at 14:55 Ondansetron HCl (Zofran Inj) 4 mg Q6H PRN IV NAUSEA AND/OR VOMITING Last administered on 02/25/17 08:32; Admin Dose 4 MG; Start 02/24/17 at 15:00 Acetaminophen (Tylenol Tab) 650 mg Q6H PRN PO PAIN LEVEL 1-3 OR FEVER Last administered on 02/27/17 09:05; Admin Dose 650 MG; Start 02/24/17 at 15:00 Acetaminophen (Tylenol Supp) 650 mg Q6H PRN NM PAIN LEVEL 1-3 OR FEVER; Start 02/24/17 at 15:00 Diagnostic Test (Pha) 1 ea 1 ea 02 XX Last administered on 03/01/17 02:00; Admin Dose 1 EA; Start 02/25/17 at 02:00 Ceftriaxone Sodium (Rocephin) 50 ml @ 100 mls/hr Q24H IVPB Last administered on 02/28/17 14:55; Admin Dose 100 MLS/HR; Start 02/24/17 at 15:00 Miscellaneous Information 1 ea NOTE XX ; Start 02/24/17 at 15:30 Glucose (Glutose) 15 gm Q15M PRN PO DECREASED GLUCOSE; Start 02/24/17 at 15:30 Glucose (Glutose) 22.5 gm Q15M PRN PO DECREASED GLUCOSE; Start 02/24/17 at 15: 30 Dextrose (D50w Syringe) 25 ml Q15M PRN IV DECREASED GLUCOSE Last administered on 02/26/17 09:22; Admin Dose 25 ML; Start 02/24/17 at 15:30 Dextrose (D50w Syringe) 50 ml Q15M PRN IV DECREASED GLUCOSE; Start 02/24/17 at 15:30 Glucagon (Glucagen) 1 mg Q15M PRN IM DECREASED GLUCOSE; Start 02/24/17 at 15:30 Glucose (Glutose) 15 gm Q15M PRN BUCCAL DECREASED GLUCOSE; Start 02/24/17 at 15 :30 Morphine Sulfate (morphine) 2 mg Q4H PRN IV PAIN Last administered on 11:53; Admin Dose 2 MG; Start 02/25/17 at 10:30 Heparin Sodium (Porcine) (Heparin (5000 Units/0.5 ml)) 5,000 unit BID SC Last administered on 02/26/17 09:45; Admin Dose 5,000 UNIT; Start 02/26/17 at 09:30 ; Status Future Hold Furosemide (Lasix) 40 mg DAILY IV Last administered on 03/01/17 08:33; Admin Dose 40 MG; Start 02/27/17 at 14:00 Lisinopril (Zestril) 5 mg BID PO Last administered on 03/01/17 08:34; Admin Dose 5 MG; Start 02/28/17 at 21:00 Senna (Senokot) 2 tab BID PO Last administered on 03/01/17 08:37; Admin Dose 2 TAB; Start 02/28/17 at 23:15 Magnesium Hydroxide (Milk Of Mag) 30 ml DAILY PRN PO CONSTIPATION Last administered on 02/28/17 23:45; Admin Dose 30 ML; Start 02/28/17 at 22:30 Linagliptin (Tradjenta) 5 mg DAILY PO ; Start 03/01/17 at 12:30 Isosorbide Mononitrate (Imdur) 60 mg DAILY PO ; Start 03/02/17 at 09:00 Carvedilol (Coreg) 6.25 mg BID PO ; Start 03/01/17 at 21:00 Clonidine (Catapres) 0.1 mg BID PRN PO SBP>160; Start 03/01/17 at 12:30 RALPH KNOTT MD Mar 01, 2017 12:45
[2017-03-02] MEDS ORDERED: ISOSORBIDE MONONITRATE(SR)60 MG TAB PO SCH (09:00)
== END 2017-03-01 15:55 | disposition home health service (06) | DRG 872 ==
LOC: E/R 09:01 → PP2 13:17 → ICU 18:47 → MS4 02-27 15:05
PROVIDERS: ADMIT Family Medicine; ATTEND Family Medicine
PROC: 0W9D3ZX Drainage of Pericardial Cavity, Percutaneous Approach, Diagnostic (ICD-10-PCS; principal; 2017-02-25 14:00)
DX: A41.9 Sepsis, unspecified organism (principal); I31.4 Cardiac tamponade; E11.65 Type 2 diabetes mellitus with hyperglycemia; I31.3 Pericardial effusion (noninflammatory); E87.1 Hypo-osmolality and hyponatremia; F03.90 Unspecified dementia, unspecified severity, without behavioral disturbance, psychotic disturbance, mood disturbance, and anxiety; E83.42 Hypomagnesemia; N39.0 Urinary tract infection, site not specified; J98.11 Atelectasis; I10 Essential (primary) hypertension; B96.20 Unspecified Escherichia coli [E. coli] as the cause of diseases classified elsewhere; E78.5 Hyperlipidemia, unspecified; I25.10 Atherosclerotic heart disease of native coronary artery without angina pectoris; R53.1 Weakness; R10.32 Left lower quadrant pain; M81.0 Age-related osteoporosis without current pathological fracture; M19.90 Unspecified osteoarthritis, unspecified site; E87.5 Hyperkalemia; D64.9 Anemia, unspecified; Z79.4 Long term (current) use of insulin; Z79.82 Long term (current) use of aspirin
CPT/HCPCS: 33010; 36415; 71010; 74176; 80048; 80053; 80061; 81001; 81003; 82550; 82553; 82962; 83036; 83540; 83605; 83735; 83880; 83930; 83935; 84100; 84155; 84300; 84436; 84439; 84443; 84479; 84484; 85025; 85610; 85730; 87040; 87070; 87086; 87102; 87116; 88104; 88305; 89051; 93005; 93306; 93308; 94640; 94664; 96374; 97162; J1940; J0696; J1644; J1815; J2250; J2270; J2405; J2543; J3010; J3475; J7030

== ENCOUNTER 2017-03-05 09:27 | Inpatient (IN) | payer MEDICARE, OTHER ==
[~2017-03-05] VITALS: Ht 162.6 cm; Wt 64.2 kg
[~2017-03-05 09:27] MED LIST changes: -AMLO1CAP15 PO; -CARV3.1260 PO; +CARV6.2579 PO; +INSU100C SQ; -INSU100V3 IJ; +INSU200I4 SQ; -LANT3I SC; +LISI2.5T59 PO; +METO5TAB58 PO; +PLEC3TAB PO
--- NOTE | 2017-03-05 10:36 | ERD ---
ER Documentation Chief Complaint Chief Complaint sob , weakness, dc from hosp last friday HPI Patient is an 87-year-old female who was recently hospitalized for E. coli sepsis and pericardial effusion. She was discharged home and was feeling better for several days, but yesterday began to be more lethargic and speaking less. She is also had increasing shortness of breath since that time. History is somewhat limited due to patient not providing detailed answers. There is no report of fever or vomiting. ROS All systems reviewed and are negative except as per history of present illness. Medications Home Meds Active Scripts Ondansetron (Ondansetron Odt) 4 Mg Tab.rapdis, 4 MG PO Q6H Y for NAUSEA AND/OR VOMITING, #10 TAB Prov:RG MOSQUEDA MD 01/02/16 Reported Medications Insulin Degludec (Tresiba Flextouch U-200) 200 Unit/1 Ml Insuln.pen, 55 UNIT SQ DAILY 03/01/17 Insulin Lispro (Humalog) 100 Unit/1 Ml Cartridge, 2 UNIT SQ QPM 03/01/17 Lisinopril* (Lisinopril*) 2.5 Mg Tablet, 2.5 MG PO DAILY, #30 TAB 02/24/17 Plecanatide (Trulance) 3 Mg Tablet, 3 MG PO DAILY, TAB 02/24/17 Metoclopramide* (Reglan*) 5 Mg Tablet, 5 MG PO BID WITH MEALS, TAB 02/24/17 Carvedilol* (Carvedilol*) 6.25 Mg Tablet, 6.25 MG PO BID, #60 TAB 02/24/17 Sennosides* (Senna Lax*) 8.6 Mg Tablet, 1 TAB PO DAILY, TAB 01/02/16 Ferrous Sulfate* (Ferrous Sulfate*) 325 Mg Tabec, 325 MG PO DAILY, TAB 01/02/16 Calcium Carbonate/Vitamin D3 (Oysco 500+D Tablet) 1 Each Tablet, 1 EACH PO DAILY , TAB 01/02/16 Ergocalciferol* (Drisdol* (Vitamin D2)) 50,000 Unit Capsule, 97323 UNIT PO Q7D, CAP 01/02/16 Gabapentin* (Gabapentin*) 300 Mg Capsule, 300 MG PO TID, #90 CAP 01/02/16 Tramadol Hcl* (Ultram*) 50 Mg Tablet, 50 MG PO BID Y for PAIN, TAB 01/02/16 Acetaminophen* (Acetaminophen*) 500 MG Extra Strength Tablet, 1-2 TAB PO Q6H Y for PAIN AND OR ELEVATED TEMP, TAB 01/02/16 Furosemide (Lasix) 40 Mg Tab, 40 MG PO DAILY 12/05/12 Aspirin* (Ecotrin*) 81 Mg Tablet.dr, 81 MG PO DAILY 12/05/12 Zolpidem Tartrate* (Ambien*) 10 Mg Tablet, 10 MG PO HS 12/05/12 Isosorbide Mononitrate* (Isosorbide Mononitrate*) 60 Mg Tab.er.24h, 60 MG PO DAILY 12/05/12 Clonidine Hcl* (Clonidine Hcl*) 0.1 Mg Tab, 0.1 MG PO BID 11/25/12 Atorvastatin (Lipitor) 40 Mg Tablet, 1 TAB PO HS 02/20/12 Pantoprazole* (Protonix* IV) 40 Mg Soln, 1 TAB PO DAILY 02/20/12 Discontinued Reported Medications Insulin Detemir (Levemir Flextouch) 100 Unit/1 Ml Insuln.pen, 2 UNIT SQ QPM 02/24/17 Insulin Degludec (Tresiba Flextouch U-200) 200 Unit/1 Ml Insuln.pen, 0 SQ QAM SLIDING SCALE 02/24/17 Amlodipine-Benazepril (Amlodipine-Benazepril) 10-40 Mg Capsule, 1 TAB PO DAILY, #30 TAB 01/02/16 Allergies Allergies: Coded Allergies: No Known Allergy (Unverified , 02/24/17) PMhx/Soc Medical history: Coronary artery disease, hypertension, diabetes mellitus, pericardial effusion, CHF Past surgical history: Denies Social history: Denies tobacco or alcohol History of Surgery: Yes Anesthesia Reaction: No Hx Neurological Disorder: No Hx Respiratory Disorders: No Hx Cardiac Disorders: Yes (htn,hyperlipidemia,cad, CHF) Hx Psychiatric Problems: No Hx Miscellaneous Medical Probl: Yes (DM) Hx Alcohol Use: No Hx Substance Use: No Hx Tobacco Use: No Smoking Status: Never smoker FmHx Noncontributory Physical Exam Vitals Vital Signs Date Time Temp Pulse Resp B/P Pulse Ox O2 Delivery O2 Flow Rate FiO2 03/05/17 12:00 94 16 110/51 95 Nasal Cannula 2.0 03/05/17 10:35 101.7 03/05/17 09:30 99.4 114 22 113/57 94 Physical Exam Const: Slightly lethargic, ill-appearing Head: Atraumatic Eyes: Normal Conjunctiva, no pallor, no icterus ENT: Normal External Ears, Nose and Mouth. His membranes moist Neck: Full range of motion. Equivocal JVD Resp: Clear to auscultation bilaterally no bibasilar rales Cardio: Tachycardia, regular rhythm, no murmurs Abd: Soft, non tender, non distended. Skin: No petechiae or rashes Ext: No cyanosis, or edema Neur: Awake and alert, cranial nerves II through XII intact bilaterally, strength grossly intact in 4 extremities Psych: Normal Mood and Affect Result Diagram: 03/05/17 1040 03/05/17 1040 Results 24 hrs Laboratory Tests Test 03/05/17 10:40 03/05/17 11:20 White Blood Count 19.710^3/ul Red Blood Count 4.5910^6/ul Hemoglobin 11.4g/dl Hematocrit 35.3% Mean Corpuscular Volume 76.9fl Mean Corpuscular Hemoglobin 24.8pg Mean Corpuscular Hemoglobin Concent 32.3g/dl Red Cell Distribution Width 13.2% Platelet Count 95867^3/UL Mean Platelet Volume 9.4fl Neutrophils % 72.2% Lymphocytes % 17.4% Monocytes % 8.8% Eosinophils % 0.4% Basophils % 0.4% Nucleated Red Blood Cells % 0.0/100WBC Neutrophils # 14.310^3/ul Lymphocytes # 3.410^3/ul Monocytes # 1.710^3/ul Eosinophils # 0.110^3/ul Basophils # 0.110^3/ul Nucleated Red Blood Cells # 0.010^3/ul Prothrombin Time 14.4Sec Prothrombin Time Ratio 1.1 INR International Normalized Ratio 1.10 Activated Partial Thromboplast Time 25.8Sec Sodium Level 128mmol/L Potassium Level 4.5mmol/L Chloride Level 88mmol/L Carbon Dioxide Level 29mmol/L Anion Gap 16 Blood Urea Nitrogen 14mg/dl Creatinine 0.92mg/dl Glucose Level 258mg/dl Lactic Acid Level 1.5mmol/L Calcium Level 9.3mg/dl Total Bilirubin 0.6mg/dl Direct Bilirubin 0.00mg/dl Indirect Bilirubin 0.6mg/dl Aspartate Amino Transf (AST/SGOT) 13IU/L Alanine Aminotransferase (ALT/SGPT) 23IU/L Alkaline Phosphatase 65IU/L Troponin I < 0.012ng/ml B-Type Natriuretic Peptide 1880PG/ML Total Protein 6.6g/dl Albumin 3.3g/dl Globulin 3.30g/dl Albumin/Globulin Ratio 1.00 Urine Color YELLOW Urine Clarity CLOUDY Urine pH 6.0 Urine Specific Trent 1.012 Urine Ketones NEGATIVEmg/dL Urine Nitrite NEGATIVEmg/dL Urine Bilirubin NEGATIVEmg/dL Urine Urobilinogen NEGATIVEmg/dL Urine Leukocyte Esterase 3+Iesha/ul Urine Microscopic RBC 6/HPF Urine Microscopic WBC > 182/HPF Urine Hemoglobin 2+mg/dL Urine Glucose NEGATIVEmg/dL Urine Total Protein 1+mg/dl Current Medications Medications (Trade) Dose Ordered Sig/Norma Route PRN Reason Start Time Stop Time Status Last Admin Dose Admin Cefepime HCl 50 ml @ 100 mls/hr ONCE ONCE IVPB 03/05/17 11:00 03/05/17 11:29 DC 03/05/17 11:03 Vancomycin HCl 250 ml @ 125 mls/hr ONCE IVPB 03/05/17 11:00 03/05/17 12:59 DC 03/05/17 11:30 Sodium Chloride (NS) 500 ml @ 500 mls/hr Q1H ONCE IV 03/05/17 11:00 03/05/17 11:59 DC 03/05/17 10:53 Ondansetron HCl (Zofran Inj) 4 mg ER BRIDGE PRN IV NAUSEA AND/OR VOMITING 03/05/17 13:30 03/06/17 13:29 Acetaminophen (Tylenol Tab) 650 mg ER BRIDGE PRN PO MILD PAIN/FEVER 03/05/17 13:30 03/06/17 13:29 Procedures/MDM EKG read by me: Time 935, rate 113 Rhythm: This tachycardia Hastings: Hastings deviation Intervals: Normal ST-T waves: T-wave flattening, no ischemic changes Ectopy: No Q-waves: No Impression: No evidence of ischemia or arrhythmia MDM: Patient is an 87-year-old female who presents to the ER with lethargy and shortness of breath. The patient was recently hospitalized for pericardial effusion and E. coli bacteremia. She was found to be febrile and tachycardic in the emergency department. Septic workup was initiated. Due to underlying CHF, she was given small boluses of fluid rather than weight-based fluids. Given recent hospitalization she was given cefepime and vancomycin for empiric broad-spectrum coverage. Blood and urine cultures were sent. The patient was found to have a urinary tract infection. She had significant leukocytosis but no increase in lactic acid. She did have hyponatremia but electrolytes were otherwise within normal limits except for elevated blood sugar. Her respiratory status was stabilized on nasal cannula oxygen. She had no focal neurological deficit. She will be admitted for further workup and treatment. Departure Diagnosis: Primary Impression: Sepsis Sepsis type: sepsis due to unspecified organism Qualified Code: A41.9 - Sepsis, due to unspecified organism Additional Impressions: Urinary tract infection Urinary tract infection type: site unspecified Hematuria presence: without hematuria Qualified Code: N39.0 - Urinary tract infection without hematuria, site unspecified CHF (congestive heart failure) Congestive heart failure type: unspecified congestive heart failure type Congestive heart failure chronicity: acute on chronic Qualified Code: I50.9 - Acute on chronic congestive heart failure, unspecified congestive heart failure type Hyponatremia Condition: ANTHONY Becerra MD Mar 05, 2017 10:36
[2017-03-05 10:56] LABS: ABNORMAL IP MESSAGE 1; BASOPHIL # 0.1 10^3/ul (0.0-0.1); BASOPHILS % 0.4 % (0.0-2.0); EOSINOPHILS # 0.1 10^3/ul (0.0-0.5); EOSINOPHILS % 0.4 % (0.0-7.0); HEMATOCRIT 35.3 % (37.0-47.0); HEMOGLOBIN 11.4 g/dl (12.0-16.0); LYMPHOCYTES # 3.4 10^3/ul (0.8-2.9); LYMPHOCYTES % 17.4 % (15.0-51.0); MEAN CORPUSCULAR HEMOGLOBIN 24.8 pg (29.0-33.0); MEAN CORPUSCULAR HGB CONC 32.3 g/dl (32.0-37.0); MEAN CORPUSCULAR VOLUME 76.9 fl (82.0-101.0); MEAN PLATELET VOLUME 9.4 fl (7.4-10.4); MONOCYTE # 1.7 10^3/ul (0.3-0.9); MONOCYTES % 8.8 % (0.0-11.0); NEUTROPHIL # 14.3 10^3/ul (1.6-7.5); NEUTROPHILS % 72.2 % (39.0-77.0); PLATELET COUNT 563 10^3/UL (140-415); RED BLOOD COUNT 4.59 10^6/ul (4.20-5.40); RED CELL DISTRIBUTION WIDTH 13.2 % (11.5-14.5); WHITE BLOOD COUNT 19.7 10^3/ul (4.8-10.8)
[2017-03-05 10:58] LABS: POSITIVE DIFF @See below
[2017-03-05] MEDS ORDERED: CEFEPIME 2GM/50 ML (PMX) 50 ML IVPB ONE (11:00)
[2017-03-05] MEDS ORDERED: SOD CHLORIDE 0.9% 500 ML IV ONE (11:00)
[2017-03-05] MEDS ORDERED: VANCOMYCIN 1 GM (PMX) 250 ML IVPB SCH (11:00)
[2017-03-05 11:14] LABS: ALANINE AMINOTRANSFERASE 23 IU/L (13-69); ALBUMIN 3.3 g/dl (3.3-4.9); ALKALINE PHOSPHATASE 65 IU/L (42-121); ANION GAP 16 (8-16); ASPARTATE AMINO TRANSFERASE 13 IU/L (15-46); BILIRUBIN,INDIRECT 0.6 mg/dl (0-1.1); BILIRUBIN,TOTAL 0.6 mg/dl (0.2-1.3); BLOOD UREA NITROGEN 14 mg/dl (7-20); CALCIUM 9.3 mg/dl (8.4-10.2); CARBON DIOXIDE 29 mmol/L (21-31); CHLORIDE 88 mmol/L (97-110); CREATININE 0.92 mg/dl (0.44-1.00); GLUCOSE 258 mg/dl (70-220); POTASSIUM 4.5 mmol/L (3.5-5.1); SODIUM 128 mmol/L (135-144); TOTAL PROTEIN 6.6 g/dl (6.1-8.1)
[2017-03-05 11:25] LABS: B-TYPE NATRIURETIC PEPTIDE 1880 PG/ML (0-450)
[2017-03-05 11:26] LABS: TROPONIN-I < 0.012 ng/ml (0.00-0.12)
[2017-03-05 11:28] LABS: INR 1.1; PROTIME 14.4 Sec (11.9-14.9); PT RATIO 1.1
[2017-03-05 11:46] LABS: ADD UMIC YES; UR ASCORBIC ACID NEGATIVE (NEGATIVE); UR BILIRUBIN (Dip) NEGATIVE (NEGATIVE); UR BLOOD (Dip) 2+ mg/dL (NEGATIVE); UR CLARITY CLOUDY (CLEAR); UR COLOR YELLOW (YELLOW); UR GLUCOSE (Dip) NEGATIVE (NEGATIVE); UR KETONES (Dip) NEGATIVE (NEGATIVE); UR LEUKOCYTE ESTERASE (Dip) 3+ Leu/ul (NEGATIVE); UR NITRITE (Dip) NEGATIVE (NEGATIVE); UR RBC 6 /HPF (0-5); UR SPECIFIC GRAVITY (Dip) 1.012 (1.003-1.030); UR TOTAL PROTEIN (Dip) 1+ mg/dl (NEGATIVE); UR UROBILINOGEN (Dip) NEGATIVE (NEGATIVE)
[2017-03-05 11:48] LABS: PARTIAL THROMBOPLASTIN TIME 25.8 Sec (25.0-35.0)
--- NOTE | 2017-03-05 11:55 | RADRPT ---
PROCEDURE: XR Chest. CLINICAL INDICATION: Dyspnea . Sepsis. TECHNIQUE: Single frontal chest x-ray. COMPARISON: CR CHEST 12/05/2012; CR CHEST 11/30/2012; CR CHEST 11/28/2012 FINDINGS: There is a new small right pleural effusion. There is increased mild bibasilar atelectasis. Linear a telectasis is also seen in the right upper lung. The remainder of the lungs are clear. . Calcific at herosclerosis of the aorta is present.. Cardiomegaly is unchanged.. The osseous structures are inta ct. IMPRESSION: New small right pleural effusion. Mild bibasilar atelectasis. Cardiomegaly with calcific atherosclerosis of the aorta.. RPTAT: GG .Antonio Calle MD, Date Time Electronically viewed and signed by .Antonio Calle MD, on 03/05/2017 11:54 .L/
[2017-03-05] MEDS ORDERED: ACETAMINOPHEN 325 MG TAB PO PRN (13:30)
[2017-03-05] MEDS ORDERED: ONDANSETRON 4 MG INJ IV PRN (13:30)
--- NOTE | 2017-03-05 14:18 | HP ---
Date/Time of Note Date/Time of Note DATE: 03/05/17 TIME: 14:04 Assessment/Plan VTE Prophylaxis VTE Prophylaxis Intervention: SCD's Lines/Catheters Urinary Cath still in place: Yes Reason Cath still needed: other (indicate) Assessment/Plan Chief Complaint/Hosp Course 87-year-old female with multiple comorbidities including recent E. coli UTI, pericardiocentesis on 02/25/2017, now returning back to the emergency room with fevers, chills, dysuria, lower abdominal pain started yesterday who was noted with sepsis and a positive urinalysis. 1. Sepsis, likely underlying urinary tract infection. UA strongly suggestive of UTI. Patient also had a recent E. coli UTI. Status: Acute/recurrent -Admit as inpatient -We will keep patient on IV fluids, IV cefepime and vancomycin -Obtain blood and urine cultures. -ID consult. 2. Recent pericardial effusion/early Cardiac tamponade.Status post pericardiocentesis 3. Hyponatremia with baseline sodium 128 -132. Status: Chronic. -Patient had nephrology evaluation with her recent visit. Sodium level currently seems at baseline. -We will monitor. 4. Essential hypertension Status: Chronic. -Resume home medications with mild adjustments to prevent hypotension as patient is in acute phase of sepsis. 5. Type 2 diabetes. Recent A1c 8.1 Status: Chronic. -Accu-Cheks/ISS/Lantus. 6. Coronary artery disease. Status: Chronic. -Resume home medications. 7. Hyperlipidemia Status: Chronic. -Resume statin. 8. Osteoporosis/osteoarthritis/degenerative joint disease. Status: Chronic. -Supportive care. 9. Progressive debility. Status: Chronic. -PT eval and treatment. With her previous visit [facility], I have recommended extended-care facility which patient's family is not receptive. DVT prophylaxis: SCDs PUD prophylaxis: Pepcid. Rest of the management depend on hospital course. Approximately 60 minutes was spent on this history and physical. Patient was seen in collaboration with . Problems: HPI/ROS Admit Date/Time Admit Date/Time Hx of Present Illness This is a 87-year-old female with recent E. coli UTI treated with ceftriaxone , pericardial effusion and early cardiac tamponade for which she had undergone pericardiocentesis on 02/25/2017 at [facility] and was discharged on 03/01/2017, now returning back to o the emergency room with fevers, chills, dysuria, lower abdominal pain started yesterday. Patient's medical history includes essential hypertension, chronic hyponatremia, type 2 diabetes, coronary artery disease, hyperlipidemia, coronary artery disease, osteoporosis, degenerative joint disease, dementia, and debility. At my encounter with the patient, patient appears very lethargic. However she was able to answer my questions. Patient denied any chest pain, palpitation, shortness of breath, nausea, vomiting, or other constitutional symptoms. Initial labs showed elevated WBC 19,700, hemoglobin 11.4, hematocrit 35.3, platelet 563, sodium 128, and glucose 258. Patient also had a temperature 101.7. Lactic acid normal. BNP 1880. Chest x-ray showed small right pleural effusion with bibasilar atelectasis. Patient was given cefepime and vancomycin in the emergency room. ROS A 12 point review of system was assessed and is negative other than what is mentioned in HPI. PMH/Family/Social Past Medical History See HPI Past Surgical History See HPI Social History Patient denied any history of alcohol, smoking or illicit drug use. Smoking Status: Never smoker Exam/Review of Systems Vital Signs Vitals Vital Signs Date Time Temp Pulse Resp B/P Pulse Ox O2 Delivery O2 Flow Rate FiO2 03/05/17 12:00 94 16 110/51 95 Nasal Cannula 2.0 03/05/17 10:35 101.7 Exam Exam General: Chronically ill looking, elderly female with generalized weakness. HEENT: Normocephalic, Atraumatic, No laceration or hematoma; Eyes: PEERL, Conjunctiva clear, Anicteric sclera Neck: Supple without any lymphadenopathy, nontender, no JVD, no carotid bruits, trachea midline, no thyromegaly Cardiac: S1, S2 auscultated, regular rhythm and rate, no mumurs or gallop Pulmonary: Diminished breath sounds RUL/RLL. Normal respiratory effort. No adventitious breath sounds GI: Abdomen normal to inspection. Soft, non tender, non- distended, no masses, no rebound tenderness or guarding. Bowel sounds active on all four quadrants Genitourinary: Deferred Extremities: No cyanosis, clubbing, or edema. Pulses [2+] bilaterally. Full ROM on all four extremities. No focal weakness appreciated. Neurologic: Lethargic. Awake and oriented 3. Follows instructions. Skin: Clean,dry, and intact. No ecchymosis, no rashes, or lesions Labs Result Diagram: 03/05/17 1040 03/05/17 1040 MOIZ RICE NP Mar 05, 2017 14:18
[2017-03-05] MEDS ORDERED: DOCUSATE SODIUM 100 MG CAP PO PRN (14:30)
[2017-03-05] MEDS ORDERED: VANCOMYCIN IV PER PHARMACY XX SCH (14:30)
[2017-03-05] MEDS ORDERED: NACL 0.9% 3 ML SYG IV SCH (14:30)
[2017-03-05 15:00] VITALS: TEMP 98.7
[2017-03-05] MEDS ORDERED: GLUCAGON 1 MG INJ IM PRN (15:00)
[2017-03-05] MEDS ORDERED: GLUCOSE GEL 15 GRAM TUBE PO PRN ×2 (15:00)
[2017-03-05] MEDS ORDERED: GLUCOSE GEL 15 GRAM TUBE BUCCAL PRN (15:00)
[2017-03-05] MEDS ORDERED: DEXTROSE 50% 50 ML SYRINGE IV PRN ×2 (15:00)
[2017-03-05] MEDS: INSULIN GLARGINE [LANtus] 3 ML PEN SC SCH (18:00)
[2017-03-05] MEDS: INSULIN ASPART [NOVOLOG] 3 ML PEN SC SCH ×2 (18:01→20:57)
[2017-03-05] MEDS: SOD CHLORIDE 0.9% 1,000 ML IV SCH (18:01)
--- NOTE | 2017-03-05 18:16 | CONS ---
DATE OF ADMISSION: 03/05/2017 DATE OF CONSULTATION: 03/05/2017 TYPE OF CONSULTATION: Infectious Disease. REASON FOR CONSULTATION: Antibiotic management. HISTORY OF PRESENT ILLNESS: Delores Pacheco is an 87-year-old female with multiple comorbidities, com es to the emergency room with fever, chills, lower abdominal pain and probable sepsis with a urinary tract infection. Her past problems include: 1. Recent E. coli UTI treated with ceftriaxone. 2. Pericardial effusion and early cardiac tamponade for which she had undergone pericardiocentesis on 02/25/2017 at [facility]. She was discharged on 03/01/2017. She now returns to the [facility] room with fever, chills, dysuria, lower abdominal pain, started the . Her problems inclu de: 1. Essential hypertension. 2. Adult-onset diabetes mellitus. 3. Coronary artery disease. 4. Hyperlipidemia. 5. Chronic hyponatremia. 6. Osteoporosis. 7. DJD. 8. Dementia. 9. Debility. 10. Recurrent UTI. The patient was lethargic in the emergency room. Her white count was 19,700, hemoglobin and hematoc rit 11.4 and 35.3, platelet count of 163,000. Glucose was 258 random. She had a temperature of 101 .7. Chest x-ray showed a small right pleural effusion with bibasilar atelectasis. The patient was started on vancomycin and cefepime. PAST MEDICAL HISTORY: Operations as outlined. FAMILY HISTORY: Noncontributory. SOCIAL HISTORY: She denies smoking, drinking or abuse of drugs. ALLERGIES: NONE TO PENICILLIN, SULFA OR FOODS. MEDICATIONS: Per chart. REVIEW OF SYSTEMS: As per HPI. PHYSICAL EXAMINATION: GENERAL: The patient is a chronically ill-appearing female. VITAL SIGNS: Her temperature was 101.7. SKIN: Dry and intact without rash or icterus. HEENT: Within normal limits. NECK: Supple. LYMPH NODES: None palpable. CHEST: Decreased breath sounds at the bases, especially right upper and lower lobes. HEART: Without murmur or gallop. ABDOMEN: Soft, nontender, without organosplenomegaly or masses. EXTREMITIES: Without cyanosis, clubbing, or edema. RECTAL AND GENITAL: Deferred. NEUROLOGIC: No focal neurological abnormality. Her white count on admission was as noted 19.7. Chest x-ray shows new small right pleural effusion, bibasilar atelectasis, cardiomegaly. Her urine shows 3+ leukocyte esterase and greater than 102 wh ite cells per high-power field, so my impression is that the patient has urinary tract infection wit h sepsis, is on vancomycin and cefepime. We will continue her on this current therapy. I will dict ate my findings to the hospitalist. Dictated By: SUBHASH COSTELLO MD, JD/TREVER Conf#: [id number] DID#: [id number] CC: ILENE MINAYA MD;*EndCC*
[2017-03-05 19:00] VITALS: PULSE 96
[2017-03-05 19:30] VITALS: BP 143/65; RESP 20
[2017-03-05] MEDS ORDERED: traMADol 50 MG TAB PO PRN (20:00)
[2017-03-05 20:01] VITALS: PULSE 95
[2017-03-05 20:02] VITALS: Ht 162.6 cm; Wt 64.2 kg
[2017-03-05] MEDS: ATORVASTATIN 20 MG TAB PO SCH (20:55)
[2017-03-05] MEDS: HEPARIN 5,000 UNIT/0.5 ML VIAL SC SCH (20:56)
[2017-03-05] MEDS: FAMOTIDINE 20 MG TAB PO SCH (20:56)
[2017-03-05] MEDS: CEFEPIME 1GM/50 ML (PMX) 50 ML IVPB SCH ×2 (22:26→22:43)
[2017-03-05] MEDS ORDERED: ZOLPIDEM 5 MG TAB PO ONE (23:00)
[2017-03-06] VITALS (13 sets, daily range): BP systolic 128–179; BP diastolic 61–74; PULSE 95–110; RESP 19–20
[2017-03-06] MEDS: ACCU-CHEK XX SCH (01:46)
[2017-03-06] MEDS: hydrALAzine 20 MG INJ IV PRN (03:34)
[2017-03-06] MEDS: SOD CHLORIDE 0.9% 1,000 ML IV SCH ×2 (03:37→16:58)
[2017-03-06] MEDS: ONDANSETRON 4 MG INJ IV PRN (04:21)
[2017-03-06 07:53] LABS: ALBUMIN 2.8 g/dl (3.3-4.9); ALBUMIN/GLOBULIN RATIO 0.93; BILIRUBIN,INDIRECT 0.3 mg/dl (0-1.1); BILIRUBIN,TOTAL 0.3 mg/dl (0.2-1.3); CREATININE 0.72 mg/dl (0.44-1.00); MAGNESIUM 1.6 mg/dl (1.7-2.5); PHOSPHORUS 3.4 mg/dl (2.5-4.9); POTASSIUM 4.1 mmol/L (3.5-5.1); TOTAL PROTEIN 5.8 g/dl (6.1-8.1)
[2017-03-06 08:01] LABS: BASOPHIL # 0.1 10^3/ul (0.0-0.1); BASOPHILS % 0.5 % (0.0-2.0); EOSINOPHILS # 0.2 10^3/ul (0.0-0.5); EOSINOPHILS % 0.8 % (0.0-7.0); HEMATOCRIT 30.1 % (37.0-47.0); HEMOGLOBIN 9.8 g/dl (12.0-16.0); LYMPHOCYTES # 1.9 10^3/ul (0.8-2.9); LYMPHOCYTES % 10.3 % (15.0-51.0); MEAN CORPUSCULAR HGB CONC 32.6 g/dl (32.0-37.0); MEAN CORPUSCULAR VOLUME 76.8 fl (82.0-101.0); MONOCYTE # 1.3 10^3/ul (0.3-0.9); NEUTROPHIL # 14.8 10^3/ul (1.6-7.5); NEUTROPHILS % 80.7 % (39.0-77.0); PLATELET COUNT 528 10^3/UL (140-415); RED BLOOD COUNT 3.92 10^6/ul (4.20-5.40); RED CELL DISTRIBUTION WIDTH 13.5 % (11.5-14.5); WHITE BLOOD COUNT 18.4 10^3/ul (4.8-10.8)
[2017-03-06] MEDS ORDERED: ISOSORBIDE MONONITRATE(SR)60 MG TAB PO SCH (09:00)
[2017-03-06] MEDS ORDERED: LISINOPRIL 5 MG TAB PO SCH (09:00)
[2017-03-06] MEDS ORDERED: ERGOCALCIFEROL 50,000 UNIT CAP PO SCH (09:00)
[2017-03-06] MEDS: CALCIUM/VITAMIN D (500/200) TAB PO SCH (09:35)
[2017-03-06] MEDS: FAMOTIDINE 20 MG TAB PO SCH ×2 (09:35→20:33)
[2017-03-06] MEDS: ASPIRIN (EC) 81 MG TAB PO SCH (09:36)
[2017-03-06] MEDS: FERROUS SULFATE (EC) 325 MG TAB PO SCH (09:36)
[2017-03-06] MEDS: VANCOMYCIN 750 MG in DEXTROSE 5% 150 ML IVPB SCH (09:37)
[2017-03-06] MEDS: INSULIN ASPART [NOVOLOG] 3 ML PEN SC SCH ×4 (09:43→22:19)
[2017-03-06] MEDS: INSULIN GLARGINE [LANtus] 3 ML PEN SC SCH (09:44)
[2017-03-06] MEDS: HEPARIN 5,000 UNIT/0.5 ML VIAL SC SCH ×2 (09:47→20:32)
--- NOTE | 2017-03-06 10:17 | PN ---
Date/Time of Note Date/Time of Note DATE: 03/06/17 TIME: 10:13 Assessment/Plan VTE Prophylaxis VTE Prophylaxis Intervention: SCD's Lines/Catheters IV [facility] (from [facility] Urinary Cath still in place: Yes Reason Cath still needed: other (indicate) Assessment/Plan Chief Complaint/Hosp Course 87-year-old female with multiple comorbidities including recent E. coli UTI, pericardiocentesis on 02/25/2017, now returning back to o the emergency room with fevers, chills, dysuria, lower abdominal pain started yesterday who was noted with sepsis and a positive urinalysis. 1. Sepsis, likely secondary to underlying urinary tract infection. UA strongly suggestive of UTI. Patient also had a recent E. coli UTI. Status: Acute/recurrent -Continue IV fluids, IV cefepime and vancomycin -Follow-up blood and urine cultures. -Follow-up with ID recommendations. 2. Recent pericardial effusion/early Cardiac tamponade.Status post pericardiocentesis -Patient has had next cardiology visit on March 12. 3. Hyponatremia with baseline sodium 128 -132. Stable sodium levels. Status: Chronic. -Monitor. 4. Essential hypertension Status: Chronic. -Continue Coreg. Resume Imdur for better blood pressure control. If needed, will also resume lisinopril. 5. Type 2 diabetes. Recent A1c 8.1 Status: Chronic. -Continue Accu-Cheks/ISS/Lantus. 6. Coronary artery disease. Status: Chronic. -Continue home medications. 7. Hyperlipidemia Status: Chronic. -On statin. 8. Osteoporosis/osteoarthritis/degenerative joint disease. Status: Chronic. -Supportive care. 9. Progressive debility. Status: Chronic. -Continue with PT eval and treatment. Patient and family not receptive for snf facility. They wanted to take patient home with current home health services. DVT prophylaxis: SCDs PUD prophylaxis: Pepcid. Patient was seen in collaboration with . Problems: Subjective 24 Hr Interval Summary Free Text/Dictation Patient is improving gradually. She is more awake. Tolerates diet. No further fevers. No dysuria, hematuria, abdominal pain or other symptoms. Saturating well on room air. Exam/Review of Systems Vital Signs Vitals Vital Signs Date Time Temp Pulse Resp B/P Pulse Ox O2 Delivery O2 Flow Rate FiO2 03/06/17 08:33 99.6 108 19 141/67 92 03/05/17 20:00 Nasal Cannula 2.0 Intake and Output 03/05/17 03/05/17 03/06/17 15:00 23:00 07:00 Intake Total 475 ml Output Total 525 ml Balance -50 ml Exam General: Chronically ill looking, elderly female with generalized weakness. HEENT: Normocephalic, Atraumatic, No laceration or hematoma; Eyes: PEERL, Conjunctiva clear, Anicteric sclera Neck: Supple without any lymphadenopathy, nontender, no JVD, no carotid bruits, trachea midline, no thyromegaly Cardiac: S1, S2 auscultated, regular rhythm and rate, no mumurs or gallop Pulmonary: Diminished breath sounds RUL/RLL. Normal respiratory effort. No adventitious breath sounds GI: Abdomen normal to inspection. Soft, non tender, non- distended, no masses, no rebound tenderness or guarding. Bowel sounds active on all four quadrants Genitourinary: Deferred Extremities: No cyanosis, clubbing, or edema. Pulses [2+] bilaterally. Full ROM on all four extremities. No focal weakness appreciated. Neurologic: Awake and oriented 3. Follows instructions. Skin: Clean,dry, and intact. No ecchymosis, no rashes, or lesions Results Result Diagram: 03/06/17 0629 03/06/17 0629 Results 24 hrs Laboratory Tests Test 03/05/17 10:40 03/05/17 11:20 03/05/17 16:07 03/05/17 17:58 White Blood Count 19.7 #H Red Blood Count 4.59 # Hemoglobin 11.4 #L Hematocrit 35.3 #L Mean Corpuscular Volume 76.9 L Mean Corpuscular Hemoglobin 24.8 L Mean Corpuscular Hemoglobin Concent 32.3 Red Cell Distribution Width 13.2 Platelet Count 563 #H Mean Platelet Volume 9.4 Neutrophils % 72.2 Lymphocytes % 17.4 Monocytes % 8.8 Eosinophils % 0.4 Basophils % 0.4 Nucleated Red Blood Cells % 0.0 Neutrophils # 14.3 H Lymphocytes # 3.4 H Monocytes # 1.7 H Eosinophils # 0.1 Basophils # 0.1 Nucleated Red Blood Cells # 0.0 Prothrombin Time 14.4 Prothrombin Time Ratio 1.1 INR International Normalized Ratio 1.10 Activated Partial Thromboplast Time 25.8 Sodium Level 128 L Potassium Level 4.5 Chloride Level 88 L Carbon Dioxide Level 29 Anion Gap 16 Blood Urea Nitrogen 14 Creatinine 0.92 Glucose Level 258 H Lactic Acid Level 1.5 Calcium Level 9.3 Total Bilirubin 0.6 Direct Bilirubin 0.00 Indirect Bilirubin 0.6 Aspartate Amino Transf (AST/SGOT) 13 L Alanine Aminotransferase (ALT/SGPT) 23 Alkaline Phosphatase 65 Troponin I < 0.012 B-Type Natriuretic Peptide 1880 H Total Protein 6.6 Albumin 3.3 Globulin 3.30 H Albumin/Globulin Ratio 1.00 Urine Color YELLOW Urine Clarity CLOUDY A Urine pH 6.0 Urine Specific Lilly 1.012 Urine Ketones NEGATIVE Urine Nitrite NEGATIVE Urine Bilirubin NEGATIVE Urine Urobilinogen NEGATIVE Urine Leukocyte Esterase 3+ H Urine Microscopic RBC 6 H Urine Microscopic WBC > 182 H Urine Hemoglobin 2+ H Urine Glucose NEGATIVE Urine Total Protein 1+ H Bedside Glucose 204 263 H Test 03/05/17 20:47 03/06/17 01:41 03/06/17 06:29 03/06/17 08:58 Bedside Glucose 250 H 154 177 White Blood Count 18.4 H Red Blood Count 3.92 L Hemoglobin 9.8 L Hematocrit 30.1 L Mean Corpuscular Volume 76.8 L Mean Corpuscular Hemoglobin 25.0 L Mean Corpuscular Hemoglobin Concent 32.6 Red Cell Distribution Width 13.5 Platelet Count 528 H Mean Platelet Volume 10.0 Neutrophils % 80.7 H Lymphocytes % 10.3 L Monocytes % 7.0 Eosinophils % 0.8 Basophils % 0.5 Nucleated Red Blood Cells % 0.0 Neutrophils # 14.8 H Lymphocytes # 1.9 Monocytes # 1.3 H Eosinophils # 0.2 Basophils # 0.1 Nucleated Red Blood Cells # 0.0 Sodium Level 131 L Potassium Level 4.1 Chloride Level 96 L Carbon Dioxide Level 27 Anion Gap 12 Blood Urea Nitrogen 16 Creatinine 0.72 Glucose Level 174 Calcium Level 9.0 Phosphorus Level 3.4 Magnesium Level 1.6 L Total Bilirubin 0.3 Direct Bilirubin 0.00 Indirect Bilirubin 0.3 Aspartate Amino Transf (AST/SGOT) 14 L Alanine Aminotransferase (ALT/SGPT) 28 Alkaline Phosphatase 65 Total Protein 5.8 L Albumin 2.8 L Globulin 3.00 Albumin/Globulin Ratio 0.93 Medications Medications Current Medications Cefepime HCl 50 ml @ 100 mls/hr Q12 IVPB Last administered on 03/05/17 22:43 ; Admin Dose 100 MLS/HR; Start 03/05/17 at 21:00 Sodium Chloride (NS) 1,000 ml @ 75 mls/hr [id number] IV Last administered on 03:37; Admin Dose 75 MLS/HR; Start 03/05/17 at 14:18 Ondansetron HCl (Zofran Inj) 4 mg Q6H PRN IV NAUSEA AND/OR VOMITING Last administered on 03/06/17 04:21; Admin Dose 4 MG; Start 03/05/17 at 14:30 Acetaminophen (Tylenol Tab) 650 mg Q6H PRN PO PAIN LEVEL 1-3 OR FEVER; Start 03/05/17 at 14:30 Docusate Sodium (Colace) 100 mg Q12H PRN PO CONSTIPATION; Start 03/05/17 at 14 :30 Famotidine (Pepcid) 20 mg Q12 PO Last administered on 03/06/17 09:35; Admin Dose 20 MG; Start 03/05/17 at 21:00 Heparin Sodium (Porcine) (Heparin (5000 Units/0.5 ml)) 5,000 unit Q12 SC Last administered on 03/06/17 09:47; Admin Dose 5,000 UNIT; Start 03/05/17 at 21: 00 Diagnostic Test (Pha) (Accu-Chek) 1 ea 02 XX Last administered on 03/06/17 01 :46; Admin Dose 1 EA; Start 03/06/17 at 02:00 Insulin Glargine (Lantus) 9 unit DAILY@08 SC Last administered on 03/06/17 09 :44; Admin Dose 9 UNIT; Start 03/05/17 at 14:30 Aspirin (Halfprin) 81 mg DAILY PO Last administered on 03/06/17 09:36; Admin Dose 81 MG; Start 03/06/17 at 09:00 Atorvastatin Calcium (Lipitor) 20 mg HS PO Last administered on 03/05/17 20: 55; Admin Dose 20 MG; Start 03/05/17 at 21:00 Calcium/Vitamin D (Oyster Shell/ Vit-D (500/200)) 1 tab DAILY PO Last administered on 03/06/17 09:35; Admin Dose 1 TAB; Start 03/06/17 at 09:00 Carvedilol (Coreg) 6.25 mg BID PO Last administered on 03/06/17 09:35; Admin Dose 6.25 MG; Start 03/05/17 at 21:00 Ergocalciferol (Drisdol) 50,000 unit Q7D PO Last administered on 03/06/17 09: 40; Admin Dose 50,000 UNIT; Start 03/06/17 at 09:00 Ferrous Sulfate (Ferrous Sulfate (Ec)) 325 mg DAILY PO Last administered on 09:36; Admin Dose 325 MG; Start 03/06/17 at 09:00 Miscellaneous Information 1 ea NOTE XX ; Start 03/05/17 at 15:00 Glucose (Glutose) 15 gm Q15M PRN PO DECREASED GLUCOSE; Start 03/05/17 at 15:00 Glucose (Glutose) 22.5 gm Q15M PRN PO DECREASED GLUCOSE; Start 03/05/17 at 15: 00 Dextrose (D50w Syringe) 25 ml Q15M PRN IV DECREASED GLUCOSE; Start 03/05/17 at 15:00 Dextrose (D50w Syringe) 50 ml Q15M PRN IV DECREASED GLUCOSE; Start 03/05/17 at 15:00 Glucagon (Glucagen) 1 mg Q15M PRN IM DECREASED GLUCOSE; Start 03/05/17 at 15: 00 Glucose 15 gm 15 gm Q15M PRN BUCCAL DECREASED GLUCOSE; Start 03/05/17 at 15:00 Vancomycin HCl/ Dextrose/Water (Vancocin/D5W) 150 ml @ 75 mls/hr Q24H IVPB Last administered on 03/06/17 09:37; Admin Dose 75 MLS/HR; Start 03/06/17 at 08:00 Tramadol HCl (Ultram) 50 mg BID PRN PO PAIN Last administered on 03/05/17 20: 55; Admin Dose 50 MG; Start 03/05/17 at 20:00 Hydralazine HCl (Apresoline) 10 mg Q4H PRN IV SBP > 170 Last administered on 03:34; Admin Dose 10 MG; Start 03/06/17 at 01:00 MOIZ RICE NP Mar 06, 2017 10:17
[2017-03-06] MEDS: ISOSORBIDE MONONITRATE(SR)60 MG TAB PO SCH (11:40)
[2017-03-06] MEDS: CEFEPIME 1GM/50 ML (PMX) 50 ML IVPB SCH ×2 (11:40→20:34)
[2017-03-06] MEDS ORDERED: morphine 2 MG INJ IV PRN (15:00)
[2017-03-06] MEDS: morphine LIQ (10 MG/5 ML) CUP PO PRN ×2 (15:21→20:32)
[2017-03-06] MEDS: ATORVASTATIN 20 MG TAB PO SCH (20:33)
[2017-03-06] MEDS: PIPER-TAZO 3.375 GM IV (PMX) 50 ML IVPB SCH (22:17)
--- NOTE | 2017-03-06 22:25 | PN ---
DATE: 03/06/2017 INFECTIOUS DISEASE PROGRESS NOTE SUBJECTIVE: No acute changes. The patient is awake, looks comfortable, complaining of abdominal di scomfort. No fevers. VITAL SIGNS: T-max 99.6, admission fever of 101.7, T-current 97.7. LABORATORY DATA: WBC 18.4, H and H 9.8 and 30.1, platelets 528, neutrophils 80.7, no bands. BUN 16 , creatinine 0.72. MICROBIOLOGY: Blood and urine cultures negative. DIAGNOSTICS: Chest x-ray revealed new small right pleural effusion, mild atelectasis. ANTIMICROBIALS: The patient is on: 1. Vancomycin. 2. Cefepime. PHYSICAL EXAMINATION: GENERAL: This is a fragile, well-developed, elderly woman who is awake, in no distress. HEENT: Head atraumatic, normocephalic. Sclerae anicteric. Buccal mucosa dry. NECK: Supple. CHEST: Rise symmetrical. Breath sounds clear, diminished to bases. HEART: S1, S2. ABDOMEN: Soft. Bowel tones present. EXTREMITIES: Without cyanosis. ASSESSMENT: 1. Sepsis with ongoing fevers and leukocytosis. 2. Abdominal pain. CT of the abdomen and pelvis on 02/24/2017 revealed gallbladder distention with cholelithiasis and new large pericardial effusion. 3. Status post pericardiocentesis with 540 mL serosanguinous drainage removed on previous admission , cytology revealed no malignancy and pericardial fluid cultures have been negative. 4. Diabetes. 5. Coronary artery disease. PLAN: The patient still with persistent leukocytosis and ongoing low-grade fevers, status post high fever on admission. We are going to change antibiotics to Zosyn, for anaerobic coverage. Consider HIDA scan. Continue supportive care and consider surgical evaluation for possibility of acute chol ecystitis given previous radiographic findings of her CAT scan of the abdomen. Dictated By: JENNIFER MENESES GAME AUTHOR for SUBHASH COSTELLO MD NI/NTS Conf#: [id number] DID#: [id number] CC: AJAY GALLAGHER MD;*EndCC*
[2017-03-07] VITALS (13 sets, daily range): BP systolic 135–167; BP diastolic 65–79; PULSE 90–104; RESP 16–20
[2017-03-07] MEDS: morphine LIQ (10 MG/5 ML) CUP PO PRN (00:35)
[2017-03-07] MEDS: ACCU-CHEK XX SCH (02:00)
[2017-03-07] MEDS: PIPER-TAZO 3.375 GM IV (PMX) 50 ML IVPB SCH ×3 (07:54→22:42)
[2017-03-07 07:55] LABS: BASOPHIL # 0.1 10^3/ul (0.0-0.1); BASOPHILS % 0.6 % (0.0-2.0); EOSINOPHILS # 0.4 10^3/ul (0.0-0.5); EOSINOPHILS % 3.6 % (0.0-7.0); HEMATOCRIT 27.4 % (37.0-47.0); HEMOGLOBIN 8.7 g/dl (12.0-16.0); LYMPHOCYTES # 2.6 10^3/ul (0.8-2.9); LYMPHOCYTES % 26.7 % (15.0-51.0); MEAN CORPUSCULAR HEMOGLOBIN 24.6 pg (29.0-33.0); MEAN CORPUSCULAR HGB CONC 31.8 g/dl (32.0-37.0); MEAN CORPUSCULAR VOLUME 77.6 fl (82.0-101.0); MEAN PLATELET VOLUME 9.7 fl (7.4-10.4); MONOCYTES % 10.6 % (0.0-11.0); NEUTROPHIL # 5.6 10^3/ul (1.6-7.5); PLATELET COUNT 465 10^3/UL (140-415); RED BLOOD COUNT 3.53 10^6/ul (4.20-5.40); RED CELL DISTRIBUTION WIDTH 13.4 % (11.5-14.5); WHITE BLOOD COUNT 9.7 10^3/ul (4.8-10.8)
[2017-03-07] MEDS: INSULIN ASPART [NOVOLOG] 3 ML PEN SC SCH ×4 (08:00→21:00)
[2017-03-07] MEDS: SOD CHLORIDE 0.9% 1,000 ML IV SCH ×2 (08:00→19:38)
[2017-03-07 08:18] LABS: CALCIUM 8.6 mg/dl (8.4-10.2); CREATININE 0.77 mg/dl (0.44-1.00); POTASSIUM 4.1 mmol/L (3.5-5.1)
[2017-03-07] MEDS: VANCOMYCIN 750 MG in DEXTROSE 5% 150 ML IVPB SCH (08:33)
--- NOTE | 2017-03-07 08:53 | PN ---
Date/Time of Note Date/Time of Note DATE: 03/07/17 TIME: 08:49 Assessment/Plan VTE Prophylaxis VTE Prophylaxis Intervention: SCD's Lines/Catheters IV C[facility]ter Type (from [facility]): Peripheral IV Urinary Cath still in place: Yes Reason Cath still needed: other (indicate) Assessment/Plan Chief Complaint/Hosp Course 87-year-old female with multiple comorbidities including recent E. coli UTI, pericardiocentesis on 02/25/2017, now returning back to o the emergency room with fevers, chills, dysuria, lower abdominal pain started yesterday who was noted with sepsis and a positive urinalysis. 1. Sepsis, likely secondary to underlying urinary tract infection. UA strongly suggestive of UTI. Patient also had a recent E. coli UTI. Improving. Status: Acute/recurrent -Continue IV fluids, IV antibiotics. -Follow-up final blood and urine cultures-please note that culture results may be affected by antibiotics that patient received. -Follow-up with ID recommendations. 2. Recent pericardial effusion/early Cardiac tamponade.Status post pericardiocentesis -Patient has had next cardiology visit on March 12. 3. Hyponatremia with baseline sodium 128 -132. Stable sodium levels. Status: Chronic. -Monitor. 4. Essential hypertension Status: Chronic. -Continue Coreg. Resume Imdur for better blood pressure control. If needed, will also resume lisinopril. 5. Type 2 diabetes. Recent A1c 8.1 Status: Chronic. -Continue Accu-Cheks/ISS/Lantus. 6. Coronary artery disease. Status: Chronic. -Continue home medications. 7. Hyperlipidemia Status: Chronic. -On statin. 8. Osteoporosis/osteoarthritis/degenerative joint disease. Status: Chronic. -Supportive care. 9. Progressive debility. Status: Chronic. -Continue with PT eval and treatment. Patient and family not receptive for [facility] facility. They wanted to take patient home with current home health services. 10. Asymptomatic cholelithiasis. Status: Chronic -Patient does not have any symptoms. A HIDA scan was ordered by ID colleagues to rule out acute cholecystitis possibilities. Please note that patient and family is against any surgical intervention in the event that it is recommended at any point. DVT prophylaxis: SCDs PUD prophylaxis: Pepcid. Patient was seen in collaboration with . Problems: Subjective 24 Hr Interval Summary Free Text/Dictation No acute overnight episodes. Requesting to discontinue morphine as it makes her confused. Exam/Review of Systems Vital Signs Vitals Vital Signs Date Time Temp Pulse Resp B/P Pulse Ox O2 Delivery O2 Flow Rate FiO2 03/07/17 08:08 93 03/07/17 07:56 98.1 16 148/65 96 03/06/17 08:00 Nasal Cannula 2.0 Intake and Output 03/06/17 03/06/17 03/07/17 15:00 23:00 07:00 Intake Total 600 ml 200 ml Output Total 450 ml Balance 600 ml -250 ml Exam General: Chronically ill looking, elderly female with generalized weakness. HEENT: Normocephalic, Atraumatic, No laceration or hematoma; Eyes: PEERL, Conjunctiva clear, Anicteric sclera Neck: Supple without any lymphadenopathy, nontender, no JVD, no carotid bruits, trachea midline, no thyromegaly Cardiac: S1, S2 auscultated, regular rhythm and rate, no mumurs or gallop Pulmonary: Diminished breath sounds RUL/RLL. Normal respiratory effort. No adventitious breath sounds GI: Abdomen normal to inspection. Soft, non tender, non- distended, no masses, no rebound tenderness or guarding. Bowel sounds active on all four quadrants Genitourinary: Deferred Extremities: No cyanosis, clubbing, or edema. Pulses [2+] bilaterally. Full ROM on all four extremities. No focal weakness appreciated. Neurologic: Lethargic, but awake and oriented 3. Follows instructions. Skin: Clean,dry, and intact. No ecchymosis, no rashes, or lesions Results Result Diagram: 03/07/17 0700 03/07/17 0700 Results 24 hrs Laboratory Tests Test 03/06/17 08:58 03/06/17 11:43 03/06/17 17:43 03/06/17 20:37 Bedside Glucose 177 200 178 184 Test 03/06/17 22:16 03/07/17 03:26 03/07/17 07:00 03/07/17 08:32 Bedside Glucose 199 137 118 White Blood Count 9.7 # Red Blood Count 3.53 L Hemoglobin 8.7 L Hematocrit 27.4 L Mean Corpuscular Volume 77.6 L Mean Corpuscular Hemoglobin 24.6 L Mean Corpuscular Hemoglobin Concent 31.8 L Red Cell Distribution Width 13.4 Platelet Count 465 H Mean Platelet Volume 9.7 Neutrophils % 58.0 Lymphocytes % 26.7 Monocytes % 10.6 Eosinophils % 3.6 Basophils % 0.6 Nucleated Red Blood Cells % 0.0 Neutrophils # 5.6 Lymphocytes # 2.6 Monocytes # 1.0 H Eosinophils # 0.4 Basophils # 0.1 Nucleated Red Blood Cells # 0.0 Sodium Level 131 L Potassium Level 4.1 Chloride Level 95 L Carbon Dioxide Level 27 Anion Gap 13 Blood Urea Nitrogen 17 Creatinine 0.77 Glucose Level 126 # Calcium Level 8.6 Medications Medications Current Medications Sodium Chloride (NS) 1,000 ml @ 75 mls/hr [id number] IV Last administered on 08:00; Admin Dose 75 MLS/HR; Start 03/05/17 at 14:18 Ondansetron HCl (Zofran Inj) 4 mg Q6H PRN IV NAUSEA AND/OR VOMITING Last administered on 03/06/17 04:21; Admin Dose 4 MG; Start 03/05/17 at 14:30 Acetaminophen (Tylenol Tab) 650 mg Q6H PRN PO PAIN LEVEL 1-3 OR FEVER; Start 03/05/17 at 14:30 Docusate Sodium (Colace) 100 mg Q12H PRN PO CONSTIPATION; Start 03/05/17 at 14 :30 Famotidine (Pepcid) 20 mg Q12 PO Last administered on 03/06/17 20:33; Admin Dose 20 MG; Start 03/05/17 at 21:00 Heparin Sodium (Porcine) (Heparin (5000 Units/0.5 ml)) 5,000 unit Q12 SC Last administered on 03/06/17 20:32; Admin Dose 5,000 UNIT; Start 03/05/17 at 21: 00 Diagnostic Test (Pha) (Accu-Chek) 1 ea 02 XX Last administered on 03/06/17 01 :46; Admin Dose 1 EA; Start 03/06/17 at 02:00 Insulin Glargine (Lantus) 9 unit DAILY@08 SC Last administered on 03/06/17 09 :44; Admin Dose 9 UNIT; Start 03/05/17 at 14:30 Aspirin (Halfprin) 81 mg DAILY PO Last administered on 03/06/17 09:36; Admin Dose 81 MG; Start 03/06/17 at 09:00 Atorvastatin Calcium (Lipitor) 20 mg HS PO Last administered on 03/06/17 20: 33; Admin Dose 20 MG; Start 03/05/17 at 21:00 Calcium/Vitamin D (Oyster Shell/ Vit-D (500/200)) 1 tab DAILY PO Last administered on 03/06/17 09:35; Admin Dose 1 TAB; Start 03/06/17 at 09:00 Carvedilol (Coreg) 6.25 mg BID PO Last administered on 03/06/17 20:34; Admin Dose 6.25 MG; Start 03/05/17 at 21:00 Ergocalciferol (Drisdol) 50,000 unit Q7D PO Last administered on 03/06/17 09: 40; Admin Dose 50,000 UNIT; Start 03/06/17 at 09:00 Ferrous Sulfate (Ferrous Sulfate (Ec)) 325 mg DAILY PO Last administered on 09:36; Admin Dose 325 MG; Start 03/06/17 at 09:00 Miscellaneous Information 1 ea NOTE XX ; Start 03/05/17 at 15:00 Glucose (Glutose) 15 gm Q15M PRN PO DECREASED GLUCOSE; Start 03/05/17 at 15:00 Glucose (Glutose) 22.5 gm Q15M PRN PO DECREASED GLUCOSE; Start 03/05/17 at 15: 00 Dextrose (D50w Syringe) 25 ml Q15M PRN IV DECREASED GLUCOSE; Start 03/05/17 at 15:00 Dextrose (D50w Syringe) 50 ml Q15M PRN IV DECREASED GLUCOSE; Start 03/05/17 at 15:00 Glucagon (Glucagen) 1 mg Q15M PRN IM DECREASED GLUCOSE; Start 03/05/17 at 15: 00 Glucose 15 gm 15 gm Q15M PRN BUCCAL DECREASED GLUCOSE; Start 03/05/17 at 15:00 Vancomycin HCl/ Dextrose/Water (Vancocin/D5W) 150 ml @ 75 mls/hr Q24H IVPB Last administered on 03/07/17 08:33; Admin Dose 75 MLS/HR; Start 03/06/17 at 08:00 Hydralazine HCl (Apresoline) 10 mg Q4H PRN IV SBP > 170 Last administered on 03:34; Admin Dose 10 MG; Start 03/06/17 at 01:00 Isosorbide Mononitrate (Imdur) 60 mg DAILY PO Last administered on 03/06/17 11:40; Admin Dose 60 MG; Start 03/06/17 at 10:30 Morphine Sulfate 3 mg 3 mg Q4H PRN PO PAIN Last administered on 03/07/17 00: 35; Admin Dose 3 MG; Start 03/06/17 at 15:30 Piperacillin Sod/ Tazobactam Sod (Zosyn 3.375gm/ 50 ml (Pmx)) 50 ml @ 100 mls/ hr Q8 IVPB Last administered on 03/07/17 07:54; Admin Dose 100 MLS/HR; Start 03/06/17 at 22:00 MOIZ RICE NP Mar 07, 2017 08:53
[2017-03-07] MEDS: HEPARIN 5,000 UNIT/0.5 ML VIAL SC SCH ×3 (09:00→20:21)
[2017-03-07] MEDS: hydrALAzine 20 MG INJ IV PRN (12:32)
--- NOTE | 2017-03-07 14:28 | CONS ---
Date/Time of Note Date/Time of Note DATE: 03/07/17 TIME: 14:27 Assessment/Plan Assessment/Plan Chief Complaint/Hosp Course SUBJECTIVE: No acute changes. The patient is awake, looks comfortable. No fevers. MICROBIOLOGY: Blood cultures negative, urine culture growing yeast DIAGNOSTICS: Chest x-ray revealed new small right pleural effusion, mild atelectasis. ANTIMICROBIALS: The patient is on: 1. Vancomycin. 2. Zosyn. PHYSICAL EXAMINATION: GENERAL: This is a fragile, well-developed, elderly woman who is awake, in no distress. HEENT: Head atraumatic, normocephalic. Sclerae anicteric. Buccal mucosa dry. NECK: Supple. CHEST: Rise symmetrical. Breath sounds clear, diminished to bases. HEART: S1, S2. ABDOMEN: Soft. Bowel tones present. EXTREMITIES: Without cyanosis. ASSESSMENT: 1. Sepsis with ongoing fevers and leukocytosis. 2. Abdominal pain. CT of the abdomen and pelvis on 02/24/2017 revealed gallbladder distention with cholelithiasis and new large pericardial effusion. 3. Status post pericardiocentesis with 540 mL serosanguinous drainage removed on previous admission, cytology revealed no malignancy and pericardial fluid cultures have been negative. 4. Diabetes. 5. Coronary artery disease. PLAN: The patient remains stable, leukocytosis resolved, we are going to discontinue vancomycin and add fluconazole to the regimen, await for HIDA scan DW staff Problems: Consultation Date/Type/Reason Admit Date/Time Mar 05, 2017 at 18:52 Initial Consult Date Type of Consultation: id Exam/Review of Systems Vital Signs Vitals Vital Signs Date Time Temp Pulse Resp B/P Pulse Ox O2 Delivery O2 Flow Rate FiO2 03/07/17 12:07 98 03/07/17 12:00 Nasal Cannula 2.0 03/07/17 11:58 98.0 18 167/79 99 Intake and Output 03/06/17 03/06/17 03/07/17 15:00 23:00 07:00 Intake Total 600 ml 200 ml Output Total 450 ml Balance 600 ml -250 ml Results Result Diagram: 03/07/17 0700 03/07/17 0700 Results 24 hrs Laboratory Tests Test 03/06/17 17:43 03/06/17 20:37 03/06/17 22:16 03/07/17 03:26 Bedside Glucose 178 184 199 137 Test 03/07/17 07:00 03/07/17 08:32 03/07/17 11:36 White Blood Count 9.7 # Red Blood Count 3.53 L Hemoglobin 8.7 L Hematocrit 27.4 L Mean Corpuscular Volume 77.6 L Mean Corpuscular Hemoglobin 24.6 L Mean Corpuscular Hemoglobin Concent 31.8 L Red Cell Distribution Width 13.4 Platelet Count 465 H Mean Platelet Volume 9.7 Neutrophils % 58.0 Lymphocytes % 26.7 Monocytes % 10.6 Eosinophils % 3.6 Basophils % 0.6 Nucleated Red Blood Cells % 0.0 Neutrophils # 5.6 Lymphocytes # 2.6 Monocytes # 1.0 H Eosinophils # 0.4 Basophils # 0.1 Nucleated Red Blood Cells # 0.0 Sodium Level 131 L Potassium Level 4.1 Chloride Level 95 L Carbon Dioxide Level 27 Anion Gap 13 Blood Urea Nitrogen 17 Creatinine 0.77 Glucose Level 126 # Calcium Level 8.6 Bedside Glucose 118 141 Medications Medications Current Medications Sodium Chloride (NS) 1,000 ml @ 75 mls/hr [id number] IV Last administered on 08:00; Admin Dose 75 MLS/HR; Start 03/05/17 at 14:18 Ondansetron HCl (Zofran Inj) 4 mg Q6H PRN IV NAUSEA AND/OR VOMITING Last administered on 03/06/17 04:21; Admin Dose 4 MG; Start 03/05/17 at 14:30 Acetaminophen (Tylenol Tab) 650 mg Q6H PRN PO PAIN LEVEL 1-3 OR FEVER; Start 03/05/17 at 14:30 Docusate Sodium (Colace) 100 mg Q12H PRN PO CONSTIPATION; Start 03/05/17 at 14 :30 Famotidine (Pepcid) 20 mg Q12 PO Last administered on 03/06/17 20:33; Admin Dose 20 MG; Start 03/05/17 at 21:00 Heparin Sodium (Porcine) (Heparin (5000 Units/0.5 ml)) 5,000 unit Q12 SC Last administered on 03/07/17 12:56; Admin Dose 5,000 UNIT; Start 03/05/17 at 21: 00 Diagnostic Test (Pha) (Accu-Chek) 1 ea 02 XX Last administered on 03/06/17 01 :46; Admin Dose 1 EA; Start 03/06/17 at 02:00 Insulin Glargine (Lantus) 9 unit DAILY@08 SC Last administered on 03/06/17 09 :44; Admin Dose 9 UNIT; Start 03/05/17 at 14:30 Aspirin (Halfprin) 81 mg DAILY PO Last administered on 03/06/17 09:36; Admin Dose 81 MG; Start 03/06/17 at 09:00 Atorvastatin Calcium (Lipitor) 20 mg HS PO Last administered on 03/06/17 20: 33; Admin Dose 20 MG; Start 03/05/17 at 21:00 Calcium/Vitamin D (Oyster Shell/ Vit-D (500/200)) 1 tab DAILY PO Last administered on 03/06/17 09:35; Admin Dose 1 TAB; Start 03/06/17 at 09:00 Carvedilol (Coreg) 6.25 mg BID PO Last administered on 03/06/17 20:34; Admin Dose 6.25 MG; Start 03/05/17 at 21:00 Ergocalciferol (Drisdol) 50,000 unit Q7D PO Last administered on 03/06/17 09: 40; Admin Dose 50,000 UNIT; Start 03/06/17 at 09:00 Ferrous Sulfate (Ferrous Sulfate (Ec)) 325 mg DAILY PO Last administered on 09:36; Admin Dose 325 MG; Start 03/06/17 at 09:00 Miscellaneous Information 1 ea NOTE XX ; Start 03/05/17 at 15:00 Glucose (Glutose) 15 gm Q15M PRN PO DECREASED GLUCOSE; Start 03/05/17 at 15:00 Glucose (Glutose) 22.5 gm Q15M PRN PO DECREASED GLUCOSE; Start 03/05/17 at 15: 00 Dextrose (D50w Syringe) 25 ml Q15M PRN IV DECREASED GLUCOSE; Start 03/05/17 at 15:00 Dextrose (D50w Syringe) 50 ml Q15M PRN IV DECREASED GLUCOSE; Start 03/05/17 at 15:00 Glucagon (Glucagen) 1 mg Q15M PRN IM DECREASED GLUCOSE; Start 03/05/17 at 15: 00 Glucose 15 gm 15 gm Q15M PRN BUCCAL DECREASED GLUCOSE; Start 03/05/17 at 15:00 Vancomycin HCl/ Dextrose/Water (Vancocin/D5W) 150 ml @ 75 mls/hr Q24H IVPB Last administered on 03/07/17 08:33; Admin Dose 75 MLS/HR; Start 03/06/17 at 08:00 Hydralazine HCl (Apresoline) 10 mg Q4H PRN IV SBP > 170 Last administered on 12:32; Admin Dose 10 MG; Start 03/06/17 at 01:00 Isosorbide Mononitrate (Imdur) 60 mg DAILY PO Last administered on 03/06/17 11:40; Admin Dose 60 MG; Start 03/06/17 at 10:30 Morphine Sulfate 3 mg 3 mg Q4H PRN PO PAIN Last administered on 03/07/17 00: 35; Admin Dose 3 MG; Start 03/06/17 at 15:30 Piperacillin Sod/ Tazobactam Sod (Zosyn 3.375gm/ 50 ml (Pmx)) 50 ml @ 100 mls/ hr Q8 IVPB Last administered on 03/07/17 12:57; Admin Dose 100 MLS/HR; Start 03/06/17 at 22:00 Miscellaneous Information (*Rx Drug Level Order Reminder*) VANCOMYCIN TROUGH ON 02/21... ONCE ONCE XX ; Start 03/08/17 at 07:00; Stop 03/08/17 at 07:01 JENNIFER MENESES NP Mar 07, 2017 14:28
[2017-03-07] MEDS: ASPIRIN (EC) 81 MG TAB PO SCH (14:53)
[2017-03-07] MEDS: ACETAMINOPHEN 325 MG TAB PO PRN (14:53)
[2017-03-07] MEDS: CALCIUM/VITAMIN D (500/200) TAB PO SCH (14:54)
[2017-03-07] MEDS: ISOSORBIDE MONONITRATE(SR)60 MG TAB PO SCH (14:54)
[2017-03-07] MEDS: FERROUS SULFATE (EC) 325 MG TAB PO SCH (14:54)
[2017-03-07] MEDS: FAMOTIDINE 20 MG TAB PO SCH ×2 (14:55→20:20)
[2017-03-07] MEDS: INSULIN GLARGINE [LANtus] 3 ML PEN SC SCH (15:02)
[2017-03-07] MEDS: ONDANSETRON 4 MG INJ IV PRN (15:08)
[2017-03-07] MEDS ORDERED: ALBUTEROL/IPRATROPIUM (NEB) 3 ML AMP HHN PRN (15:30)
[2017-03-07 15:47] LABS: AADO2 Arterial 40.8 mmHg (7.0-24.0); Allen Test ACCEPTAB; Arterial Base Excess 0.6 mmol/L (-3.0-3); Arterial COHb 0.3 % (0.0-3.0); Arterial Fraction of Oxyhgb 92.5 % (93.0-99.0); Arterial HCO3 24.9 mmol/L (22.0-26.0); Arterial MetHb 0.1 % (0.0-1.5); Arterial Total Hemglobin 10.4 g/dl (12.0-18.0); MODE ROOM AIR
[2017-03-07] MEDS: ALBUTEROL/IPRATROPIUM (NEB) 3 ML AMP HHN SCH ×2 (17:17→20:38)
[2017-03-07] MEDS: ATORVASTATIN 20 MG TAB PO SCH (20:20)
[2017-03-08] VITALS (13 sets, daily range): BP systolic 112–169; BP diastolic 58–74; PULSE 68–90; RESP 17–19
[2017-03-08] MEDS ORDERED: ZOLPIDEM 5 MG TAB PO ONE
[2017-03-08] MEDS: ALBUTEROL/IPRATROPIUM (NEB) 3 ML AMP HHN SCH ×6 (00:46→21:52)
[2017-03-08] MEDS: ACCU-CHEK XX SCH (02:00)
[2017-03-08] MEDS: SOD CHLORIDE 0.9% 1,000 ML IV SCH ×2 (05:22→22:30)
[2017-03-08] MEDS: PIPER-TAZO 3.375 GM IV (PMX) 50 ML IVPB SCH ×3 (05:23→22:30)
[2017-03-08 06:37] LABS: BASOPHIL # 0.1 10^3/ul (0.0-0.1); BASOPHILS % 0.7 % (0.0-2.0); EOSINOPHILS # 0.5 10^3/ul (0.0-0.5); EOSINOPHILS % 6.4 % (0.0-7.0); HEMATOCRIT 25.1 % (37.0-47.0); HEMOGLOBIN 8.2 g/dl (12.0-16.0); LYMPHOCYTES # 2.4 10^3/ul (0.8-2.9); LYMPHOCYTES % 34.4 % (15.0-51.0); MEAN CORPUSCULAR HEMOGLOBIN 25.3 pg (29.0-33.0); MEAN CORPUSCULAR HGB CONC 32.7 g/dl (32.0-37.0); MEAN CORPUSCULAR VOLUME 77.5 fl (82.0-101.0); MEAN PLATELET VOLUME 9.8 fl (7.4-10.4); MONOCYTE # 0.7 10^3/ul (0.3-0.9); MONOCYTES % 9.4 % (0.0-11.0); NEUTROPHIL # 3.4 10^3/ul (1.6-7.5); NEUTROPHILS % 48.5 % (39.0-77.0); PLATELET COUNT 464 10^3/UL (140-415); RED BLOOD COUNT 3.24 10^6/ul (4.20-5.40); RED CELL DISTRIBUTION WIDTH 13.5 % (11.5-14.5)
[2017-03-08 06:59] LABS: CALCIUM 8.1 mg/dl (8.4-10.2); CREATININE 0.79 mg/dl (0.44-1.00); POTASSIUM 3.9 mmol/L (3.5-5.1)
[2017-03-08] MEDS: INSULIN ASPART [NOVOLOG] 3 ML PEN SC SCH ×4 (08:00→21:20)
[2017-03-08] MEDS: INSULIN GLARGINE [LANtus] 3 ML PEN SC SCH (08:44)
[2017-03-08] MEDS: FAMOTIDINE 20 MG TAB PO SCH ×2 (08:45→21:12)
[2017-03-08] MEDS: HEPARIN 5,000 UNIT/0.5 ML VIAL SC SCH ×2 (08:45→21:20)
[2017-03-08] MEDS: CALCIUM/VITAMIN D (500/200) TAB PO SCH (08:45)
[2017-03-08] MEDS: FERROUS SULFATE (EC) 325 MG TAB PO SCH (08:46)
[2017-03-08] MEDS: ISOSORBIDE MONONITRATE(SR)60 MG TAB PO SCH (08:46)
[2017-03-08] MEDS: ASPIRIN (EC) 81 MG TAB PO SCH (08:48)
--- NOTE | 2017-03-08 12:15 | PN ---
Date/Time of Note Date/Time of Note DATE: 03/08/17 TIME: 12:12 Assessment/Plan VTE Prophylaxis VTE Prophylaxis Intervention: heparin Lines/Catheters IV [facility] Peripheral IV Urinary Cath still in place: Yes Reason Cath still needed: urinary retention Assessment/Plan Problems: (1) Sepsis Status: Acute Comment: Urine culture grows out Quin glabrata without any bacterial infection. Imaging studies have suggested a possibility of an issue with the gallbladder but is as documented by our colleagues the family declines any type of intervention that would be surgical. She is on antibiotics and will see how she does with this places us in a somewhat unusual and difficult medical situation. Especially given that the patient is full code. Family is not around and is not available by telephone I will attempt to address this with him , as all of our colleagues involved in the case well Qualifiers: Sepsis type: sepsis due to unspecified organism Qualified Code: A41.9 - Sepsis, due to unspecified organism (2) Gallstones Status: Chronic Comment: Noted and may be an issue (3) Essential hypertension Status: Chronic Comment: Adequate control (4) Diabetes mellitus type 2 in nonobese Status: Chronic Comment: Adequate control (5) Hyperlipidemia Status: Chronic Comment: Controlled on statin therapy, please note coronary disease and heart failure quiescent Qualifiers: Hyperlipidemia type: pure hypercholesterolemia Qualified Code: E78.00 - Pure hypercholesterolemia Subjective 24 Hr Interval Summary Free Text/Dictation Patient reports she is having pain and previously had done well with gabapentin. Respiratory: no complaints Cardiovascular: no complaints Exam/Review of Systems Vital Signs Vitals Vital Signs Date Time Temp Pulse Resp B/P Pulse Ox O2 Delivery O2 Flow Rate FiO2 03/08/17 12:02 88 03/08/17 09:35 20 97 Nasal Cannula 3.0 03/08/17 08:16 98.8 146/64 Intake and Output 03/07/17 03/07/17 03/08/17 15:00 23:00 07:00 Intake Total 800 ml 620 ml Output Total 650 ml Balance 800 ml -30 ml Exam Constitutional: alert, oriented Neck: non-tender, supple Respiratory: clear to auscultation, normal air movement Gastrointestinal: nl liver, spleen, non-tender, soft Results Result Diagram: 03/08/17 0547 03/08/17 0547 Results 24 hrs Laboratory Tests Test 03/07/17 14:58 03/07/17 15:18 03/07/17 17:13 03/07/17 20:17 Bedside Glucose 157 179 169 Blood Gas Specimen Source Blood arterial Arterial Blood Date Drawn 03/07/2017 3:30:39 PM Arterial Blood pH (Temp corrected) 7.429 Arterial Blood pCO2 (Temp correct) 38.4 Arterial Blood pO2 (Temp corrected) 62.9 L Arterial Blood HCO3 24.9 Arterial Blood Base Excess 0.6 Arterial Blood Oxygen Saturation 92.9 L Macho Test ACCEPTAB Arterial Blood Gas Puncture Site Right Radial Arterial Blood Carboxyhemoglobin 0.3 Arterial Blood Methemoglobin 0.1 Blood Gas A-a O2 Differential 40.8 H Oxyhemoglobin Percent 92.5 L Total Hemoglobin 10.4 L Blood Gas Temperature 37.0 Blood Gas Modality ROOM AIR FiO2 21.0 Blood Gas Notified Whom JLD Blood Gas Notified Time 03/07/2017 3:46:45 PM Test 03/08/17 05:47 03/08/17 08:41 White Blood Count 7.0 # Red Blood Count 3.24 L Hemoglobin 8.2 L Hematocrit 25.1 L Mean Corpuscular Volume 77.5 L Mean Corpuscular Hemoglobin 25.3 L Mean Corpuscular Hemoglobin Concent 32.7 Red Cell Distribution Width 13.5 Platelet Count 464 H Mean Platelet Volume 9.8 Neutrophils % 48.5 Lymphocytes % 34.4 Monocytes % 9.4 Eosinophils % 6.4 Basophils % 0.7 Nucleated Red Blood Cells % 0.0 Neutrophils # 3.4 Lymphocytes # 2.4 Monocytes # 0.7 Eosinophils # 0.5 Basophils # 0.1 Nucleated Red Blood Cells # 0.0 Sodium Level 131 L Potassium Level 3.9 Chloride Level 96 L Carbon Dioxide Level 28 Anion Gap 11 Blood Urea Nitrogen 12 Creatinine 0.79 Glucose Level 136 Calcium Level 8.1 L Bedside Glucose 120 Medications Medications Current Medications Sodium Chloride (NS) 1,000 ml @ 75 mls/hr [id number] IV Last administered on 05:22; Admin Dose 75 MLS/HR; Start 03/05/17 at 14:18 Ondansetron HCl (Zofran Inj) 4 mg Q6H PRN IV NAUSEA AND/OR VOMITING Last administered on 03/07/17 15:08; Admin Dose 4 MG; Start 03/05/17 at 14:30 Acetaminophen (Tylenol Tab) 650 mg Q6H PRN PO PAIN LEVEL 1-3 OR FEVER Last administered on 03/07/17 14:53; Admin Dose 650 MG; Start 03/05/17 at 14:30 Docusate Sodium (Colace) 100 mg Q12H PRN PO CONSTIPATION; Start 03/05/17 at 14 :30 Famotidine (Pepcid) 20 mg Q12 PO Last administered on 03/08/17 08:45; Admin Dose 20 MG; Start 03/05/17 at 21:00 Heparin Sodium (Porcine) (Heparin (5000 Units/0.5 ml)) 5,000 unit Q12 SC Last administered on 03/08/17 08:45; Admin Dose 5,000 UNIT; Start 03/05/17 at 21: 00 Diagnostic Test (Pha) (Accu-Chek) 1 ea 02 XX Last administered on 03/06/17 01 :46; Admin Dose 1 EA; Start 03/06/17 at 02:00 Insulin Glargine (Lantus) 9 unit DAILY@08 SC Last administered on 03/08/17 08 :44; Admin Dose 9 UNIT; Start 03/05/17 at 14:30 Aspirin (Halfprin) 81 mg DAILY PO Last administered on 03/08/17 08:48; Admin Dose 81 MG; Start 03/06/17 at 09:00 Atorvastatin Calcium (Lipitor) 20 mg HS PO Last administered on 03/07/17 20: 20; Admin Dose 20 MG; Start 03/05/17 at 21:00 Calcium/Vitamin D (Oyster Shell/ Vit-D (500/200)) 1 tab DAILY PO Last administered on 03/08/17 08:45; Admin Dose 1 TAB; Start 03/06/17 at 09:00 Carvedilol (Coreg) 6.25 mg BID PO Last administered on 03/08/17 08:46; Admin Dose 6.25 MG; Start 03/05/17 at 21:00 Ergocalciferol (Drisdol) 50,000 unit Q7D PO Last administered on 03/06/17 09: 40; Admin Dose 50,000 UNIT; Start 03/06/17 at 09:00 Ferrous Sulfate (Ferrous Sulfate (Ec)) 325 mg DAILY PO Last administered on 08:46; Admin Dose 325 MG; Start 03/06/17 at 09:00 Miscellaneous Information 1 ea NOTE XX ; Start 03/05/17 at 15:00 Glucose (Glutose) 15 gm Q15M PRN PO DECREASED GLUCOSE; Start 03/05/17 at 15:00 Glucose (Glutose) 22.5 gm Q15M PRN PO DECREASED GLUCOSE; Start 03/05/17 at 15: 00 Dextrose (D50w Syringe) 25 ml Q15M PRN IV DECREASED GLUCOSE; Start 03/05/17 at 15:00 Dextrose (D50w Syringe) 50 ml Q15M PRN IV DECREASED GLUCOSE; Start 03/05/17 at 15:00 Glucagon (Glucagen) 1 mg Q15M PRN IM DECREASED GLUCOSE; Start 03/05/17 at 15: 00 Glucose (Glutose) 15 gm Q15M PRN BUCCAL DECREASED GLUCOSE; Start 03/05/17 at 15:00 Hydralazine HCl (Apresoline) 10 mg Q4H PRN IV SBP > 170 Last administered on 12:32; Admin Dose 10 MG; Start 03/06/17 at 01:00 Isosorbide Mononitrate (Imdur) 60 mg DAILY PO Last administered on 03/08/17 08:46; Admin Dose 60 MG; Start 03/06/17 at 10:30 Morphine Sulfate 3 mg 3 mg Q4H PRN PO PAIN Last administered on 03/07/17 00: 35; Admin Dose 3 MG; Start 03/06/17 at 15:30 Piperacillin Sod/ Tazobactam Sod (Zosyn 3.375gm/ 50 ml (Pmx)) 50 ml @ 100 mls/ hr Q8 IVPB Last administered on 03/08/17 05:23; Admin Dose 100 MLS/HR; Start 03/06/17 at 22:00 HOOD HOYOS MD Mar 08, 2017 12:15
--- NOTE | 2017-03-08 13:58 | CONS ---
Date/Time of Note Date/Time of Note DATE: 03/08/17 TIME: 13:56 Assessment/Plan Assessment/Plan Chief Complaint/Hosp Course SUBJECTIVE: No acute changes. The patient is awake, looks comfortable. No fevers. MICROBIOLOGY: Blood cultures negative, urine culture growing yeast ANTIMICROBIALS: Zosyn. PHYSICAL EXAMINATION: GENERAL: This is a fragile, well-developed, elderly woman who is awake, in no distress. HEENT: Head atraumatic, normocephalic. Sclerae anicteric. Buccal mucosa dry. NECK: Supple. CHEST: Rise symmetrical. Breath sounds clear, diminished to bases. HEART: S1, S2. ABDOMEN: Soft. Bowel tones present. EXTREMITIES: Without cyanosis. ASSESSMENT: 1. Sepsis, s/p fevers and leukocytosis. 2. Abdominal pain. CT of the abdomen and pelvis on 02/24/2017 revealed gallbladder distention with cholelithiasis and new large pericardial effusion. 3. Status post pericardiocentesis with 540 mL serosanguinous drainage removed on previous admission, cytology revealed no malignancy and pericardial fluid cultures have been negative. 4. Diabetes. 5. Coronary artery disease. 6. Quin glabrata UTI PLAN: The patient remains stable, continue abx, add fluconazole, HIDA pending DW staff Problems: Consultation Date/Type/Reason Admit Date/Time Mar 05, 2017 at 18:52 Type of Consultation: id Exam/Review of Systems Vital Signs Vitals Vital Signs Date Time Temp Pulse Resp B/P Pulse Ox O2 Delivery O2 Flow Rate FiO2 03/08/17 13:55 87 20 96 Nasal Cannula 3.0 03/08/17 12:45 98.3 162/70 Intake and Output 03/07/17 03/07/17 03/08/17 15:00 23:00 07:00 Intake Total 800 ml 620 ml Output Total 650 ml Balance 800 ml -30 ml Results Result Diagram: 03/08/17 0547 03/08/17 0547 Results 24 hrs Laboratory Tests Test 03/07/17 14:58 03/07/17 15:18 03/07/17 17:13 03/07/17 20:17 Bedside Glucose 157 179 169 Blood Gas Specimen Source Blood arterial Arterial Blood Date Drawn 03/07/2017 3:30:39 PM Arterial Blood pH (Temp corrected) 7.429 Arterial Blood pCO2 (Temp correct) 38.4 Arterial Blood pO2 (Temp corrected) 62.9 L Arterial Blood HCO3 24.9 Arterial Blood Base Excess 0.6 Arterial Blood Oxygen Saturation 92.9 L Macho Test ACCEPTAB Arterial Blood Gas Puncture Site Right Radial Arterial Blood Carboxyhemoglobin 0.3 Arterial Blood Methemoglobin 0.1 Blood Gas A-a O2 Differential 40.8 H Oxyhemoglobin Percent 92.5 L Total Hemoglobin 10.4 L Blood Gas Temperature 37.0 Blood Gas Modality ROOM AIR FiO2 21.0 Blood Gas Notified Whom JLD Blood Gas Notified Time 03/07/2017 3:46:45 PM Test 03/08/17 05:47 03/08/17 08:41 03/08/17 12:18 White Blood Count 7.0 # Red Blood Count 3.24 L Hemoglobin 8.2 L Hematocrit 25.1 L Mean Corpuscular Volume 77.5 L Mean Corpuscular Hemoglobin 25.3 L Mean Corpuscular Hemoglobin Concent 32.7 Red Cell Distribution Width 13.5 Platelet Count 464 H Mean Platelet Volume 9.8 Neutrophils % 48.5 Lymphocytes % 34.4 Monocytes % 9.4 Eosinophils % 6.4 Basophils % 0.7 Nucleated Red Blood Cells % 0.0 Neutrophils # 3.4 Lymphocytes # 2.4 Monocytes # 0.7 Eosinophils # 0.5 Basophils # 0.1 Nucleated Red Blood Cells # 0.0 Sodium Level 131 L Potassium Level 3.9 Chloride Level 96 L Carbon Dioxide Level 28 Anion Gap 11 Blood Urea Nitrogen 12 Creatinine 0.79 Glucose Level 136 Calcium Level 8.1 L Bedside Glucose 120 126 Medications Medications Current Medications Sodium Chloride (NS) 1,000 ml @ 75 mls/hr [id number] IV Last administered on 05:22; Admin Dose 75 MLS/HR; Start 03/05/17 at 14:18 Ondansetron HCl (Zofran Inj) 4 mg Q6H PRN IV NAUSEA AND/OR VOMITING Last administered on 03/07/17 15:08; Admin Dose 4 MG; Start 03/05/17 at 14:30 Acetaminophen (Tylenol Tab) 650 mg Q6H PRN PO PAIN LEVEL 1-3 OR FEVER Last administered on 03/07/17 14:53; Admin Dose 650 MG; Start 03/05/17 at 14:30 Docusate Sodium (Colace) 100 mg Q12H PRN PO CONSTIPATION; Start 03/05/17 at 14 :30 Famotidine (Pepcid) 20 mg Q12 PO Last administered on 03/08/17 08:45; Admin Dose 20 MG; Start 03/05/17 at 21:00 Heparin Sodium (Porcine) (Heparin (5000 Units/0.5 ml)) 5,000 unit Q12 SC Last administered on 03/08/17 08:45; Admin Dose 5,000 UNIT; Start 03/05/17 at 21: 00 Diagnostic Test (Pha) (Accu-Chek) 1 ea 02 XX Last administered on 03/06/17 01 :46; Admin Dose 1 EA; Start 03/06/17 at 02:00 Insulin Glargine (Lantus) 9 unit DAILY@08 SC Last administered on 03/08/17 08 :44; Admin Dose 9 UNIT; Start 03/05/17 at 14:30 Aspirin (Halfprin) 81 mg DAILY PO Last administered on 03/08/17 08:48; Admin Dose 81 MG; Start 03/06/17 at 09:00 Atorvastatin Calcium (Lipitor) 20 mg HS PO Last administered on 03/07/17 20: 20; Admin Dose 20 MG; Start 03/05/17 at 21:00 Calcium/Vitamin D (Oyster Shell/ Vit-D (500/200)) 1 tab DAILY PO Last administered on 03/08/17 08:45; Admin Dose 1 TAB; Start 03/06/17 at 09:00 Carvedilol (Coreg) 6.25 mg BID PO Last administered on 03/08/17 08:46; Admin Dose 6.25 MG; Start 03/05/17 at 21:00 Ergocalciferol (Drisdol) 50,000 unit Q7D PO Last administered on 03/06/17 09: 40; Admin Dose 50,000 UNIT; Start 03/06/17 at 09:00 Ferrous Sulfate (Ferrous Sulfate (Ec)) 325 mg DAILY PO Last administered on 08:46; Admin Dose 325 MG; Start 03/06/17 at 09:00 Miscellaneous Information 1 ea NOTE XX ; Start 03/05/17 at 15:00 Glucose (Glutose) 15 gm Q15M PRN PO DECREASED GLUCOSE; Start 03/05/17 at 15:00 Glucose (Glutose) 22.5 gm Q15M PRN PO DECREASED GLUCOSE; Start 03/05/17 at 15: 00 Dextrose (D50w Syringe) 25 ml Q15M PRN IV DECREASED GLUCOSE; Start 03/05/17 at 15:00 Dextrose (D50w Syringe) 50 ml Q15M PRN IV DECREASED GLUCOSE; Start 03/05/17 at 15:00 Glucagon (Glucagen) 1 mg Q15M PRN IM DECREASED GLUCOSE; Start 03/05/17 at 15: 00 Glucose (Glutose) 15 gm Q15M PRN BUCCAL DECREASED GLUCOSE; Start 03/05/17 at 15:00 Hydralazine HCl (Apresoline) 10 mg Q4H PRN IV SBP > 170 Last administered on 12:32; Admin Dose 10 MG; Start 03/06/17 at 01:00 Isosorbide Mononitrate (Imdur) 60 mg DAILY PO Last administered on 03/08/17 08:46; Admin Dose 60 MG; Start 03/06/17 at 10:30 Morphine Sulfate 3 mg 3 mg Q4H PRN PO PAIN Last administered on 03/07/17 00: 35; Admin Dose 3 MG; Start 03/06/17 at 15:30 Piperacillin Sod/ Tazobactam Sod 50 ml @ 100 mls/hr Q8 IVPB Last administered on 03/08/17 13:36; Admin Dose 100 MLS/HR; Start 03/06/17 at 22:00 Ferric Sodium Gluconate Complex/ Sodium Chloride (Ferrlecit/NS) 110 ml @ 100 mls/hr Q24H IVPB ; Start 03/08/17 at 14:00; Stop 03/10/17 at 15:05 JENNIFER MENESES NP Mar 08, 2017 13:58
[2017-03-08] MEDS: SOD FERRIC GLUC COMPLX 125 MG in SOD CHLORIDE 0.9% 100 ML IVPB SCH (14:27)
[2017-03-08] MEDS: FLUCONAZOLE 100 MG/NS (PMX) 50 ML IVPB SCH (17:15)
[2017-03-08] MEDS: ACETAMINOPHEN 325 MG TAB PO PRN (21:12)
[2017-03-08] MEDS: ATORVASTATIN 20 MG TAB PO SCH (21:12)
[2017-03-08] MEDS: ZOLPIDEM 5 MG TAB PO PRN (22:30)
[2017-03-09] VITALS (11 sets, daily range): BP systolic 158–173; BP diastolic 70–77; PULSE 85–92; RESP 18–20
[2017-03-09] MEDS: ALBUTEROL/IPRATROPIUM (NEB) 3 ML AMP HHN SCH ×6 (00:14→20:41)
[2017-03-09] MEDS: ACCU-CHEK XX SCH (02:30)
[2017-03-09] MEDS: PIPER-TAZO 3.375 GM IV (PMX) 50 ML IVPB SCH ×3 (06:23→23:13)
[2017-03-09 06:51] LABS: BASOPHIL # 0.1 10^3/ul (0.0-0.1); BASOPHILS % 0.6 % (0.0-2.0); EOSINOPHILS # 0.5 10^3/ul (0.0-0.5); EOSINOPHILS % 6.6 % (0.0-7.0); HEMATOCRIT 29.6 % (37.0-47.0); HEMOGLOBIN 9.5 g/dl (12.0-16.0); LYMPHOCYTES # 3.1 10^3/ul (0.8-2.9); MEAN CORPUSCULAR HEMOGLOBIN 24.9 pg (29.0-33.0); MEAN CORPUSCULAR HGB CONC 32.1 g/dl (32.0-37.0); MEAN CORPUSCULAR VOLUME 77.5 fl (82.0-101.0); MEAN PLATELET VOLUME 9.3 fl (7.4-10.4); MONOCYTE # 0.7 10^3/ul (0.3-0.9); MONOCYTES % 9.1 % (0.0-11.0); NEUTROPHIL # 3.4 10^3/ul (1.6-7.5); NEUTROPHILS % 43.4 % (39.0-77.0); PLATELET COUNT 488 10^3/UL (140-415); RED BLOOD COUNT 3.82 10^6/ul (4.20-5.40); RED CELL DISTRIBUTION WIDTH 13.6 % (11.5-14.5); WHITE BLOOD COUNT 7.8 10^3/ul (4.8-10.8)
[2017-03-09 07:16] LABS: CREATININE 0.61 mg/dl (0.44-1.00); POTASSIUM 3.3 mmol/L (3.5-5.1)
[2017-03-09] MEDS: INSULIN ASPART [NOVOLOG] 3 ML PEN SC SCH ×4 (07:34→21:00)
[2017-03-09] MEDS: INSULIN GLARGINE [LANtus] 3 ML PEN SC SCH (07:37)
--- NOTE | 2017-03-09 08:04 | RADRPT ---
PROCEDURE: US Abdomen. CLINICAL INDICATION: Right upper quadrant pain TECHNIQUE: Multiple real-time images were acquired of the patient's abdomen and retroperitoneum ut ilizing a high resolution transducer. COMPARISON: CT abdomen pelvis from 02/24/2017 FINDINGS: Visualized portions of the pancreatic head and proximal body are unremarkable. The liver is normal in size and contour without evidence of intrapelvic biliary dilatation. Gallstones and sludge are seen within the gallbladder. There is no evidence of pericholecystic fluid or gallbladder wall thickening. The technologist reports a negative sonographic Mack's sign. T he common bile duct measures 3.7 mm in maximal dimension. No free fluid is identified. The kidneys are normal size, and demonstrate normal echogenicity and morphology. The right kidney m easures 8.7 cm in long dimension. The left kidney measures 9.1 cm. There is no dilatation of the p elvicaliceal systems bilaterally. There are no perinephric fluid collections. There are no areas o f increased echogenicity to suggest nephrolithiasis. The proximal aorta measures 1.6 cm in transverse dimension. The mid aorta measures 0.9 cm in transv erse dimension. The spleen is normal in size measuring 10.4 cm. IMPRESSION: 1. Stones and sludge are seen within the gallbladder. The gallbladder is otherwise sonographically unremarkable. 2. Otherwise, no significant abnormalities are identified. RPTAT:AAJJ Physician Shu Date Time Electronically viewed and signed by Physician Shu on 03/09/2017 08:04 HOLLY/
[2017-03-09] MEDS: ASPIRIN (EC) 81 MG TAB PO SCH (09:06)
[2017-03-09] MEDS: ISOSORBIDE MONONITRATE(SR)60 MG TAB PO SCH (09:06)
[2017-03-09] MEDS: CALCIUM/VITAMIN D (500/200) TAB PO SCH (09:07)
[2017-03-09] MEDS: FAMOTIDINE 20 MG TAB PO SCH ×2 (09:07→21:08)
[2017-03-09] MEDS: HEPARIN 5,000 UNIT/0.5 ML VIAL SC SCH ×2 (09:08→21:13)
[2017-03-09] MEDS: FERROUS SULFATE (EC) 325 MG TAB PO SCH (09:11)
[2017-03-09] MEDS: SOD CHLORIDE 0.9% 1,000 ML IV SCH ×2 (11:38→17:20)
[2017-03-09] MEDS: ACETAMINOPHEN 325 MG TAB PO PRN ×3 (11:57→21:08)
--- NOTE | 2017-03-09 12:53 | PN ---
Date/Time of Note Date/Time of Note DATE: 03/09/17 TIME: 12:50 Assessment/Plan VTE Prophylaxis VTE Prophylaxis Intervention: anti-embolic stocking Lines/Catheters IV Catheter Type (from Nrs): Peripheral IV Urinary Cath still in place: Yes Reason Cath still needed: urinary retention Assessment/Plan Problems: (1) Gallstones Status: Chronic Comment: I actually believe this is a source of the bulk of the patient's problems. However the family has declined intervention for the patient. This needs to be revisited with the family again now that we have planted the seed that this would be the patient's best interest. If they agree then that she could go for laparoscopic cholecystectomy now that she is settling down (2) CHF (congestive heart failure) Status: Acute Comment: Stable on treatment Qualifiers: Congestive heart failure type: systolic Congestive heart failure chronicity : chronic Qualified Code: I50.22 - Chronic systolic congestive heart failure (3) Sepsis Status: Acute Comment: Improving with antibiotic therapy Qualifiers: Sepsis type: sepsis due to unspecified organism Qualified Code: A41.9 - Sepsis, due to unspecified organism (4) Essential hypertension Status: Chronic Comment: Adequate control (5) Diabetes mellitus type 2 in nonobese Status: Chronic Comment: Adequate control (6) Iron deficiency anemia Status: Chronic Comment: On replacement Qualifiers: Iron deficiency anemia type: unspecified iron deficiency Qualified Code: D50.9 - Iron deficiency anemia, unspecified iron deficiency anemia type Subjective 24 Hr Interval Summary Free Text/Dictation Patient is sleeping arouses with difficulty Constitutional: no complaints (Denies fever chills or sweats) Gastrointestinal: no complaints (Denies pain) Exam/Review of Systems Vital Signs Vitals Vital Signs Date Time Temp Pulse Resp B/P Pulse Ox O2 Delivery O2 Flow Rate FiO2 03/09/17 12:04 92 03/09/17 09:41 Nasal Cannula 2.0 03/09/17 08:10 97.6 19 158/70 94 Intake and Output 03/08/17 03/08/17 03/09/17 15:00 23:00 07:00 Intake Total 200 ml 1050 ml Output Total 350 ml 700 ml Balance -150 ml 350 ml Exam Constitutional: alert Neck: non-tender, supple Respiratory: clear to auscultation, normal air movement Cardiovascular: nl pulses, regular rate and rhythm Results Result Diagram: 03/09/1762103/09/17621 Results 24 hrs Laboratory Tests Test 03/08/17 17:18 03/08/17 21:06 03/09/17 02:59 03/09/17 06:22 Bedside Glucose 125 204 127 White Blood Count 7.8 Red Blood Count 3.82 L Hemoglobin 9.5 L Hematocrit 29.6 L Mean Corpuscular Volume 77.5 L Mean Corpuscular Hemoglobin 24.9 L Mean Corpuscular Hemoglobin Concent 32.1 Red Cell Distribution Width 13.6 Platelet Count 488 H Mean Platelet Volume 9.3 Neutrophils % 43.4 Lymphocytes % 40.0 Monocytes % 9.1 Eosinophils % 6.6 Basophils % 0.6 Nucleated Red Blood Cells % 0.0 Neutrophils # 3.4 Lymphocytes # 3.1 H Monocytes # 0.7 Eosinophils # 0.5 Basophils # 0.1 Nucleated Red Blood Cells # 0.0 Sodium Level 134 L Potassium Level 3.3 L Chloride Level 98 Carbon Dioxide Level 28 Anion Gap 11 Blood Urea Nitrogen 7 Creatinine 0.61 Glucose Level 129 Calcium Level 8.0 L Test 03/09/17 07:33 03/09/17 11:54 Bedside Glucose 129 120 Medications Medications Current Medications Sodium Chloride (NS) 1,000 ml @ 75 mls/hr [id number] IV Last administered on 22:30; Admin Dose 75 MLS/HR; Start 03/05/17 at 14:18 Ondansetron HCl (Zofran Inj) 4 mg Q6H PRN IV NAUSEA AND/OR VOMITING Last administered on 03/07/17 15:08; Admin Dose 4 MG; Start 03/05/17 at 14:30 Acetaminophen (Tylenol Tab) 650 mg Q6H PRN PO PAIN LEVEL 1-3 OR FEVER Last administered on 03/09/17 11:57; Admin Dose 650 MG; Start 03/05/17 at 14:30 Docusate Sodium (Colace) 100 mg Q12H PRN PO CONSTIPATION Last administered on 03/09/17 09:06; Admin Dose 100 MG; Start 03/05/17 at 14:30 Famotidine (Pepcid) 20 mg Q12 PO Last administered on 03/09/17 09:07; Admin Dose 20 MG; Start 03/05/17 at 21:00 Heparin Sodium (Porcine) (Heparin (5000 Units/0.5 ml)) 5,000 unit Q12 SC Last administered on 03/09/17 09:08; Admin Dose 5,000 UNIT; Start 03/05/17 at 21: 00 Diagnostic Test (Pha) (Accu-Chek) 1 ea 02 XX Last administered on 03/09/17 02 :30; Admin Dose 1 EA; Start 03/06/17 at 02:00 Insulin Glargine (Lantus) 9 unit DAILY@08 SC Last administered on 03/09/17 07 :37; Admin Dose 9 UNIT; Start 03/05/17 at 14:30 Aspirin (Halfprin) 81 mg DAILY PO Last administered on 03/09/17 09:06; Admin Dose 81 MG; Start 03/06/17 at 09:00 Atorvastatin Calcium (Lipitor) 20 mg HS PO Last administered on 03/08/17 21: 12; Admin Dose 20 MG; Start 03/05/17 at 21:00 Calcium/Vitamin D (Oyster Shell/ Vit-D (500/200)) 1 tab DAILY PO Last administered on 03/09/17 09:07; Admin Dose 1 TAB; Start 03/06/17 at 09:00 Carvedilol (Coreg) 6.25 mg BID PO Last administered on 03/09/17 09:07; Admin Dose 6.25 MG; Start 03/05/17 at 21:00 Ergocalciferol (Drisdol) 50,000 unit Q7D PO Last administered on 03/06/17 09: 40; Admin Dose 50,000 UNIT; Start 03/06/17 at 09:00 Ferrous Sulfate (Ferrous Sulfate (Ec)) 325 mg DAILY PO Last administered on 09:11; Admin Dose 325 MG; Start 03/06/17 at 09:00 Miscellaneous Information 1 ea NOTE XX ; Start 03/05/17 at 15:00 Glucose (Glutose) 15 gm Q15M PRN PO DECREASED GLUCOSE; Start 03/05/17 at 15:00 Glucose (Glutose) 22.5 gm Q15M PRN PO DECREASED GLUCOSE; Start 03/05/17 at 15: 00 Dextrose (D50w Syringe) 25 ml Q15M PRN IV DECREASED GLUCOSE; Start 03/05/17 at 15:00 Dextrose (D50w Syringe) 50 ml Q15M PRN IV DECREASED GLUCOSE; Start 03/05/17 at 15:00 Glucagon (Glucagen) 1 mg Q15M PRN IM DECREASED GLUCOSE; Start 03/05/17 at 15: 00 Glucose (Glutose) 15 gm Q15M PRN BUCCAL DECREASED GLUCOSE; Start 03/05/17 at 15:00 Hydralazine HCl (Apresoline) 10 mg Q4H PRN IV SBP > 170 Last administered on 12:32; Admin Dose 10 MG; Start 03/06/17 at 01:00 Isosorbide Mononitrate (Imdur) 60 mg DAILY PO Last administered on 03/09/17 09:06; Admin Dose 60 MG; Start 03/06/17 at 10:30 Morphine Sulfate 3 mg 3 mg Q4H PRN PO PAIN Last administered on 03/07/17 00: 35; Admin Dose 3 MG; Start 03/06/17 at 15:30 Piperacillin Sod/ Tazobactam Sod 50 ml @ 100 mls/hr Q8 IVPB Last administered on 03/09/17 06:23; Admin Dose 100 MLS/HR; Start 03/06/17 at 22:00 Ferric Sodium Gluconate Complex 125 mg/Sodium Chloride 110 ml @ 100 mls/hr Q24H IVPB Last administered on 03/08/17 14:27; Admin Dose 100 MLS/HR; Start 03/08/17 at 14:00; Stop 03/10/17 at 15:05 Fluconazole/ Sodium Chloride (Diflucan 100 Mg/ NS (Pmx)) 50 ml @ 50 mls/hr Q24H IVPB Last administered on 03/08/17 17:15; Admin Dose 50 MLS/HR; Start at 15:30 Zolpidem Tartrate (Ambien) 5 mg HS PRN PO INSOMNIA Last administered on 22:30; Admin Dose 5 MG; Start 03/08/17 at 22:30 HOOD HOYOS MD Mar 09, 2017 12:53
[2017-03-09] MEDS ORDERED: POTASSIUM CHLORIDE (SR) 20 MEQ TAB PO STA (13:03)
[2017-03-09] MEDS: SOD FERRIC GLUC COMPLX 125 MG in SOD CHLORIDE 0.9% 100 ML IVPB SCH (13:05)
--- NOTE | 2017-03-09 13:33 | CONS ---
Date/Time of Note Date/Time of Note DATE: 03/09/17 TIME: 13:32 Assessment/Plan Assessment/Plan Chief Complaint/Hosp Course ID PROGRESS NOTE CURRENT ABX=> * Zosyn + DIflucan 24H INTERVAL SUMMARY * Patient is stable on room air without dyspnea, no fevers, no vomiting, ABD pain still present * Spouse in room, no complaints => Family now opts in for surgical consult Eyes: Normal Conjunctiva, anicteric ENT: Normal External Ears, Nose Neck: Supple, full ROM Resp: Equal chest rise bilaterally, without dyspnea on observation Cardio: Regular rate and rhythm Abd: Soft,NT Skin: No petechiae or rashes Back: Deferred Ext: No cyanosis, or edema Neur: Grossly intact, no focal deficits ID ASSESSMENT 87 yo F admit with: 1. Sepsis, s/p fevers and leukocytosis. 2. Abdominal pain. CT of the abdomen and pelvis on 02/24/2017 revealed gallbladder distention with cholelithiasis and new large pericardial effusion. 3. Status post pericardiocentesis with 540 mL serosanguinous drainage removed on previous admission * cytology revealed no malignancy and pericardial fluid cultures have been negative. 4. Diabetes. 5. Coronary artery disease. 6. Quin glabrata UTI ( ) MRSA Nares INVASIVES: PIV ABX ALLERGIES: KNDA CURRENT ABX=> *Zosyn + Diflucan ID RECOMMENDATIONS 1. Continue current ABX 2. Per Surgery notes => Plan is for laparoscopic cholecystectomy . Problems: Consultation Date/Type/Reason Admit Date/Time Mar 05, 2017 at 18:52 Initial Consult Date Type of Consultation: id Exam/Review of Systems Vital Signs Vitals Vital Signs Date Time Temp Pulse Resp B/P Pulse Ox O2 Delivery O2 Flow Rate FiO2 03/09/17 12:04 92 03/09/17 09:41 Nasal Cannula 2.0 03/09/17 08:10 97.6 19 158/70 94 Intake and Output 03/08/17 03/08/17 03/09/17 15:00 23:00 07:00 Intake Total 200 ml 1050 ml Output Total 350 ml 700 ml Balance -150 ml 350 ml Results Result Diagram: 03/09/17 0622 03/09/17 0622 Results 24 hrs Laboratory Tests Test 03/08/17 17:18 03/08/17 21:06 03/09/17 02:59 03/09/17 06:22 Bedside Glucose 125 204 127 White Blood Count 7.8 Red Blood Count 3.82 L Hemoglobin 9.5 L Hematocrit 29.6 L Mean Corpuscular Volume 77.5 L Mean Corpuscular Hemoglobin 24.9 L Mean Corpuscular Hemoglobin Concent 32.1 Red Cell Distribution Width 13.6 Platelet Count 488 H Mean Platelet Volume 9.3 Neutrophils % 43.4 Lymphocytes % 40.0 Monocytes % 9.1 Eosinophils % 6.6 Basophils % 0.6 Nucleated Red Blood Cells % 0.0 Neutrophils # 3.4 Lymphocytes # 3.1 H Monocytes # 0.7 Eosinophils # 0.5 Basophils # 0.1 Nucleated Red Blood Cells # 0.0 Sodium Level 134 L Potassium Level 3.3 L Chloride Level 98 Carbon Dioxide Level 28 Anion Gap 11 Blood Urea Nitrogen 7 Creatinine 0.61 Glucose Level 129 Calcium Level 8.0 L Test 03/09/17 07:33 03/09/17 11:54 Bedside Glucose 129 120 Medications Medications Current Medications Sodium Chloride (NS) 1,000 ml @ 75 mls/hr [id number] IV Last administered on 22:30; Admin Dose 75 MLS/HR; Start 03/05/17 at 14:18 Ondansetron HCl (Zofran Inj) 4 mg Q6H PRN IV NAUSEA AND/OR VOMITING Last administered on 03/07/17 15:08; Admin Dose 4 MG; Start 03/05/17 at 14:30 Acetaminophen (Tylenol Tab) 650 mg Q6H PRN PO PAIN LEVEL 1-3 OR FEVER Last administered on 03/09/17 11:57; Admin Dose 650 MG; Start 03/05/17 at 14:30 Docusate Sodium (Colace) 100 mg Q12H PRN PO CONSTIPATION Last administered on 03/09/17 09:06; Admin Dose 100 MG; Start 03/05/17 at 14:30 Famotidine (Pepcid) 20 mg Q12 PO Last administered on 03/09/17 09:07; Admin Dose 20 MG; Start 03/05/17 at 21:00 Heparin Sodium (Porcine) (Heparin (5000 Units/0.5 ml)) 5,000 unit Q12 SC Last administered on 03/09/17 09:08; Admin Dose 5,000 UNIT; Start 03/05/17 at 21: 00 Diagnostic Test (Pha) (Accu-Chek) 1 ea 02 XX Last administered on 03/09/17 02 :30; Admin Dose 1 EA; Start 03/06/17 at 02:00 Insulin Glargine (Lantus) 9 unit DAILY@08 SC Last administered on 03/09/17 07 :37; Admin Dose 9 UNIT; Start 03/05/17 at 14:30 Aspirin (Halfprin) 81 mg DAILY PO Last administered on 03/09/17 09:06; Admin Dose 81 MG; Start 03/06/17 at 09:00 Atorvastatin Calcium (Lipitor) 20 mg HS PO Last administered on 03/08/17 21: 12; Admin Dose 20 MG; Start 03/05/17 at 21:00 Calcium/Vitamin D (Oyster Shell/ Vit-D (500/200)) 1 tab DAILY PO Last administered on 03/09/17 09:07; Admin Dose 1 TAB; Start 03/06/17 at 09:00 Carvedilol (Coreg) 6.25 mg BID PO Last administered on 03/09/17 09:07; Admin Dose 6.25 MG; Start 03/05/17 at 21:00 Ergocalciferol (Drisdol) 50,000 unit Q7D PO Last administered on 03/06/17 09: 40; Admin Dose 50,000 UNIT; Start 03/06/17 at 09:00 Ferrous Sulfate (Ferrous Sulfate (Ec)) 325 mg DAILY PO Last administered on 09:11; Admin Dose 325 MG; Start 03/06/17 at 09:00 Miscellaneous Information 1 ea NOTE XX ; Start 03/05/17 at 15:00 Glucose (Glutose) 15 gm Q15M PRN PO DECREASED GLUCOSE; Start 03/05/17 at 15:00 Glucose (Glutose) 22.5 gm Q15M PRN PO DECREASED GLUCOSE; Start 03/05/17 at 15: 00 Dextrose (D50w Syringe) 25 ml Q15M PRN IV DECREASED GLUCOSE; Start 03/05/17 at 15:00 Dextrose (D50w Syringe) 50 ml Q15M PRN IV DECREASED GLUCOSE; Start 03/05/17 at 15:00 Glucagon (Glucagen) 1 mg Q15M PRN IM DECREASED GLUCOSE; Start 03/05/17 at 15: 00 Glucose (Glutose) 15 gm Q15M PRN BUCCAL DECREASED GLUCOSE; Start 03/05/17 at 15:00 Hydralazine HCl (Apresoline) 10 mg Q4H PRN IV SBP > 170 Last administered on 12:32; Admin Dose 10 MG; Start 03/06/17 at 01:00 Isosorbide Mononitrate (Imdur) 60 mg DAILY PO Last administered on 03/09/17 09:06; Admin Dose 60 MG; Start 03/06/17 at 10:30 Morphine Sulfate 3 mg 3 mg Q4H PRN PO PAIN Last administered on 03/07/17 00: 35; Admin Dose 3 MG; Start 03/06/17 at 15:30 Piperacillin Sod/ Tazobactam Sod 50 ml @ 100 mls/hr Q8 IVPB Last administered on 03/09/17 06:23; Admin Dose 100 MLS/HR; Start 03/06/17 at 22:00 Ferric Sodium Gluconate Complex 125 mg/Sodium Chloride 110 ml @ 100 mls/hr Q24H IVPB Last administered on 03/09/17 13:05; Admin Dose 100 MLS/HR; Start 03/08/17 at 14:00; Stop 03/10/17 at 15:05 Fluconazole/ Sodium Chloride (Diflucan 100 Mg/ NS (Pmx)) 50 ml @ 50 mls/hr Q24H IVPB Last administered on 03/08/17 17:15; Admin Dose 50 MLS/HR; Start at 15:30 Zolpidem Tartrate (Ambien) 5 mg HS PRN PO INSOMNIA Last administered on 22:30; Admin Dose 5 MG; Start 03/08/17 at 22:30 CRISPIN GARAY NP Mar 09, 2017 13:33
--- NOTE | 2017-03-09 14:21 | CONS ---
Date/Time of Note Date/Time of Note DATE: 03/09/17 TIME: 14:17 Assessment/Plan Assessment/Plan Additional Assessment/Plan The combination of diabetes and gallstones warrants laparoscopic cholecystectomy in this patient. I have discussed the procedure, outcomes, expectations, alternatives and risks in detail with the patient and son who have an excellent understanding of the nature of her illness and agreed to the proposed plan of therapy as outlined. The procedure has been tentatively scheduled for tomorrow. Consultation Date/Type/Reason Admit Date/Time Mar 05, 2017 at 18:52 Date of Consultation: Mar 09, 2017 Reason for Consultation Gallstones and chronic cholecystitis with possible acute overlay Hx of Present Illness The patient is an 87-year-old female who was admitted with urosepsis. She was responding nicely. She has been complaining of upper abdominal pain which resulted in abdominal ultrasound which showed gallstones and sludge. Surgical consultation was requested in regards to consideration of laparoscopic cholecystectomy. The patient has had no symptoms of jaundice Constitutional: no complaints Eyes: no complaints ENT: no complaints Respiratory: no complaints Cardiovascular: other (History of pericardiocentesis) Gastrointestinal: other (As in the HPI) Genitourinary: other (As in the HPI) Musculoskeletal: no complaints Skin: no complaints Neurologic: no complaints, other (Speaks only [place]an) Endocrine: no complaints Lymphatic: no complaints Past Medical History Medical History: congestive heart failure, coronary artery disease, diabetes, other (Recurrent urinary tract infection) Past Surgical History Past Surgical Hx: no surgical history Family History Significant Family History: no pertinent family hx Social History Alcohol Use: none Smoking Status: Never smoker Exam/Review of Systems Vital Signs Vitals Vital Signs Date Time Temp Pulse Resp B/P Pulse Ox O2 Delivery O2 Flow Rate FiO2 03/09/17 13:59 84 17 94 21 03/09/17 13:47 98.0 163/77 03/09/17 09:41 Nasal Cannula 2.0 Intake and Output 03/08/17 03/08/17 03/09/17 15:00 23:00 07:00 Intake Total 200 ml 1050 ml Output Total 350 ml 700 ml Balance -150 ml 350 ml Exam Constitutional: alert, oriented Psych: no complaints Head: normocephalic Eyes: nl conjunctiva ENMT: nl external ears & nose Neck: supple Respiratory: clear to auscultation Cardiovascular: regular rate and rhythm Gastrointestinal: soft (Slight tenderness in epigastrium and right upper quadrant.) Musculoskeletal: nl extremities to inspection Extremities: normal pulses Skin: nl turgor Lymph: nl lymph nodes Results Result Diagram: 03/09/17 0622 03/09/17 0622 Results 24 hrs Laboratory Tests Test 03/08/17 17:18 03/08/17 21:06 03/09/17 02:59 03/09/17 06:22 Bedside Glucose 125 204 127 White Blood Count 7.8 Red Blood Count 3.82 L Hemoglobin 9.5 L Hematocrit 29.6 L Mean Corpuscular Volume 77.5 L Mean Corpuscular Hemoglobin 24.9 L Mean Corpuscular Hemoglobin Concent 32.1 Red Cell Distribution Width 13.6 Platelet Count 488 H Mean Platelet Volume 9.3 Neutrophils % 43.4 Lymphocytes % 40.0 Monocytes % 9.1 Eosinophils % 6.6 Basophils % 0.6 Nucleated Red Blood Cells % 0.0 Neutrophils # 3.4 Lymphocytes # 3.1 H Monocytes # 0.7 Eosinophils # 0.5 Basophils # 0.1 Nucleated Red Blood Cells # 0.0 Sodium Level 134 L Potassium Level 3.3 L Chloride Level 98 Carbon Dioxide Level 28 Anion Gap 11 Blood Urea Nitrogen 7 Creatinine 0.61 Glucose Level 129 Calcium Level 8.0 L Test 03/09/17 07:33 03/09/17 11:54 Bedside Glucose 129 120 Medications Medications Current Medications Sodium Chloride (NS) 1,000 ml @ 75 mls/hr [id number] IV Last administered on 22:30; Admin Dose 75 MLS/HR; Start 03/05/17 at 14:18 Ondansetron HCl (Zofran Inj) 4 mg Q6H PRN IV NAUSEA AND/OR VOMITING Last administered on 03/07/17 15:08; Admin Dose 4 MG; Start 03/05/17 at 14:30 Acetaminophen (Tylenol Tab) 650 mg Q6H PRN PO PAIN LEVEL 1-3 OR FEVER Last administered on 03/09/17 11:57; Admin Dose 650 MG; Start 03/05/17 at 14:30 Docusate Sodium (Colace) 100 mg Q12H PRN PO CONSTIPATION Last administered on 03/09/17 09:06; Admin Dose 100 MG; Start 03/05/17 at 14:30 Famotidine (Pepcid) 20 mg Q12 PO Last administered on 03/09/17 09:07; Admin Dose 20 MG; Start 03/05/17 at 21:00 Heparin Sodium (Porcine) (Heparin (5000 Units/0.5 ml)) 5,000 unit Q12 SC Last administered on 03/09/17 09:08; Admin Dose 5,000 UNIT; Start 03/05/17 at 21: 00 Diagnostic Test (Pha) (Accu-Chek) 1 ea 02 XX Last administered on 03/09/17 02 :30; Admin Dose 1 EA; Start 03/06/17 at 02:00 Insulin Glargine (Lantus) 9 unit DAILY@08 SC Last administered on 03/09/17 07 :37; Admin Dose 9 UNIT; Start 03/05/17 at 14:30 Aspirin (Halfprin) 81 mg DAILY PO Last administered on 03/09/17 09:06; Admin Dose 81 MG; Start 03/06/17 at 09:00 Atorvastatin Calcium (Lipitor) 20 mg HS PO Last administered on 03/08/17 21: 12; Admin Dose 20 MG; Start 03/05/17 at 21:00 Calcium/Vitamin D (Oyster Shell/ Vit-D (500/200)) 1 tab DAILY PO Last administered on 03/09/17 09:07; Admin Dose 1 TAB; Start 03/06/17 at 09:00 Carvedilol (Coreg) 6.25 mg BID PO Last administered on 03/09/17 09:07; Admin Dose 6.25 MG; Start 03/05/17 at 21:00 Ergocalciferol (Drisdol) 50,000 unit Q7D PO Last administered on 03/06/17 09: 40; Admin Dose 50,000 UNIT; Start 03/06/17 at 09:00 Ferrous Sulfate (Ferrous Sulfate (Ec)) 325 mg DAILY PO Last administered on 09:11; Admin Dose 325 MG; Start 03/06/17 at 09:00 Miscellaneous Information 1 ea NOTE XX ; Start 03/05/17 at 15:00 Glucose (Glutose) 15 gm Q15M PRN PO DECREASED GLUCOSE; Start 03/05/17 at 15:00 Glucose (Glutose) 22.5 gm Q15M PRN PO DECREASED GLUCOSE; Start 03/05/17 at 15: 00 Dextrose (D50w Syringe) 25 ml Q15M PRN IV DECREASED GLUCOSE; Start 03/05/17 at 15:00 Dextrose (D50w Syringe) 50 ml Q15M PRN IV DECREASED GLUCOSE; Start 03/05/17 at 15:00 Glucagon (Glucagen) 1 mg Q15M PRN IM DECREASED GLUCOSE; Start 03/05/17 at 15: 00 Glucose (Glutose) 15 gm Q15M PRN BUCCAL DECREASED GLUCOSE; Start 03/05/17 at 15:00 Hydralazine HCl (Apresoline) 10 mg Q4H PRN IV SBP > 170 Last administered on 12:32; Admin Dose 10 MG; Start 03/06/17 at 01:00 Isosorbide Mononitrate (Imdur) 60 mg DAILY PO Last administered on 03/09/17 09:06; Admin Dose 60 MG; Start 03/06/17 at 10:30 Morphine Sulfate 3 mg 3 mg Q4H PRN PO PAIN Last administered on 03/07/17 00: 35; Admin Dose 3 MG; Start 03/06/17 at 15:30 Piperacillin Sod/ Tazobactam Sod 50 ml @ 100 mls/hr Q8 IVPB Last administered on 03/09/17 06:23; Admin Dose 100 MLS/HR; Start 03/06/17 at 22:00 Ferric Sodium Gluconate Complex 125 mg/Sodium Chloride 110 ml @ 100 mls/hr Q24H IVPB Last administered on 03/09/17 13:05; Admin Dose 100 MLS/HR; Start 03/08/17 at 14:00; Stop 03/10/17 at 15:05 Fluconazole/ Sodium Chloride (Diflucan 100 Mg/ NS (Pmx)) 50 ml @ 50 mls/hr Q24H IVPB Last administered on 03/08/17 17:15; Admin Dose 50 MLS/HR; Start at 15:30 Zolpidem Tartrate (Ambien) 5 mg HS PRN PO INSOMNIA Last administered on 22:30; Admin Dose 5 MG; Start 03/08/17 at 22:30 Naproxen (Naprosyn) 250 mg BID PO ; Start 03/09/17 at 14:00 POPEYE COLINDRES MD Mar 09, 2017 14:21
[2017-03-09] MEDS: FLUCONAZOLE 100 MG/NS (PMX) 50 ML IVPB SCH (15:02)
[2017-03-09] MEDS: NAPROXEN 250 MG TAB PO SCH ×2 (16:00→21:08)
[2017-03-09] MEDS: ATORVASTATIN 20 MG TAB PO SCH (21:08)
[2017-03-09] MEDS: ZOLPIDEM 5 MG TAB PO PRN (21:08)
[2017-03-10] VITALS (24 sets, daily range): BP systolic 102–195; BP diastolic 47–88; PULSE 72–98; RESP 16–30
[2017-03-10] MEDS: ALBUTEROL/IPRATROPIUM (NEB) 3 ML AMP HHN SCH ×6 (01:00→20:12)
[2017-03-10] MEDS: ACCU-CHEK XX SCH (02:00)
[2017-03-10] MEDS: hydrALAzine 20 MG INJ IV PRN (05:12)
[2017-03-10] MEDS: PIPER-TAZO 3.375 GM IV (PMX) 50 ML IVPB SCH ×3 (05:13→22:16)
[2017-03-10] MEDS: INSULIN ASPART [NOVOLOG] 3 ML PEN SC SCH ×4 (08:00→21:00)
[2017-03-10] MEDS: CALCIUM/VITAMIN D (500/200) TAB PO SCH (08:18)
[2017-03-10] MEDS: NAPROXEN 250 MG TAB PO SCH ×2 (08:18→22:11)
[2017-03-10] MEDS: FERROUS SULFATE (EC) 325 MG TAB PO SCH (08:19)
[2017-03-10] MEDS: ASPIRIN (EC) 81 MG TAB PO SCH (08:19)
[2017-03-10] MEDS: ISOSORBIDE MONONITRATE(SR)60 MG TAB PO SCH (08:19)
[2017-03-10] MEDS: FAMOTIDINE 20 MG TAB PO SCH ×2 (08:19→22:11)
[2017-03-10] MEDS: SOD CHLORIDE 0.9% 1,000 ML IV SCH (08:26)
[2017-03-10] MEDS: INSULIN GLARGINE [LANtus] 3 ML PEN SC SCH (08:33)
[2017-03-10 08:39] LABS: BASOPHIL # 0.1 10^3/ul (0.0-0.1); BASOPHILS % 0.7 % (0.0-2.0); EOSINOPHILS # 0.5 10^3/ul (0.0-0.5); EOSINOPHILS % 6.8 % (0.0-7.0); HEMATOCRIT 30.6 % (37.0-47.0); HEMOGLOBIN 9.8 g/dl (12.0-16.0); LYMPHOCYTES # 3.1 10^3/ul (0.8-2.9); LYMPHOCYTES % 44.6 % (15.0-51.0); MEAN CORPUSCULAR HEMOGLOBIN 24.6 pg (29.0-33.0); MEAN CORPUSCULAR VOLUME 76.7 fl (82.0-101.0); MEAN PLATELET VOLUME 9.5 fl (7.4-10.4); MONOCYTE # 0.7 10^3/ul (0.3-0.9); MONOCYTES % 9.6 % (0.0-11.0); NEUTROPHIL # 2.6 10^3/ul (1.6-7.5); PLATELET COUNT 547 10^3/UL (140-415); RED BLOOD COUNT 3.99 10^6/ul (4.20-5.40); RED CELL DISTRIBUTION WIDTH 13.6 % (11.5-14.5)
[2017-03-10] MEDS: ACETAMINOPHEN 325 MG TAB PO PRN ×2 (08:40→12:53)
[2017-03-10] MEDS: HEPARIN 5,000 UNIT/0.5 ML VIAL SC SCH ×2 (08:40→22:15)
[2017-03-10 08:57] LABS: CALCIUM 8.3 mg/dl (8.4-10.2); CREATININE 0.6 mg/dl (0.44-1.00); POTASSIUM 3.5 mmol/L (3.5-5.1)
--- NOTE | 2017-03-10 09:29 | PN ---
Date/Time of Note Date/Time of Note DATE: 03/10/17 TIME: 09:17 Assessment/Plan VTE Prophylaxis VTE Prophylaxis Intervention: SCD's Lines/Catheters IV Catheter Type (from [facility]): Peripheral IV Urinary Cath still in place: No Assessment/Plan Chief Complaint/Hosp Course 87-year-old female with multiple comorbidities including recent E. coli UTI, pericardiocentesis on 02/25/2017, now returning back to o the emergency room with fevers, chills, dysuria, lower abdominal pain started yesterday who was noted with sepsis and a positive urinalysis. 1. Status post Sepsis, likely secondary to underlying urinary tract infection. UA strongly suggestive of UTI. Patient also had a recent E. coli UTI. Improving. Status: Acute/recurrent -Cultures negative-this is not unusual as pt was treated wth abx prior.Go ahead and recheck UA to make sure this is clearing up. -ID on board and defer abx to ID team. 2.Cholelithiasis,now symptomatic. US with Gallstones and sludge are seen within the gallbladder. There is no evidence of pericholecystic fluid or gallbladder wall thickening with a negative sonographic Mack's sign. -Tentative plan for Lap сергей today-I will also call a preop cardiology eval as patient with high risk factors. 3. Recent pericardial effusion/early Cardiac tamponade.Status post pericardiocentesis Status:Chronic -Patient has had next cardiology visit on March 12. -Will order a repeat echo as patient also scheduled for surgical intervention 4. Hyponatremia with baseline sodium 128 -132. Stable sodium levels. Status: Chronic. -Monitor. 5. Essential hypertension- sub-optomal control. Status: Chronic. -Continue Coreg,Imdur for better blood pressure control. Resume lisinopril. 6. Type 2 diabetes. Recent A1c 8.1 Status: Chronic. -Continue Accu-Cheks/ISS/Lantus. 7. Coronary artery disease. Status: Chronic. -Continue home medications. 8. Hyperlipidemia Status: Chronic. -On statin. 9. Osteoporosis/osteoarthritis/degenerative joint disease. Status: Chronic. -Supportive care. 10. Progressive debility. Status: Chronic. -Continue with PT eval and treatment. Patient and family not receptive for [facility] facility. They wanted to take patient home with current home health services. DVT prophylaxis: SCDs PUD prophylaxis: Pepcid. Given patient's medical condition, patient is at high risk for any untoward medical events for surgery. Please follow-up with cardiology recs prior to any surgical intervention. Patient was seen in collaboration with . Problems: Subjective 24 Hr Interval Summary Free Text/Dictation Patient with right sided abdominal pain. No nausea/vomiting/fevers or chills. Exam/Review of Systems Vital Signs Vitals Vital Signs Date Time Temp Pulse Resp B/P Pulse Ox O2 Delivery O2 Flow Rate FiO2 03/10/17 08:35 3.0 03/10/17 08:35 89 18 Nasal Cannula 96 03/10/17 08:03 98.2 194/88 98 Intake and Output 03/09/17 03/09/17 03/10/17 15:00 23:00 07:00 Intake Total 450 ml 1220 ml 200 ml Output Total 500 ml 2000 ml 350 ml Balance -50 ml -780 ml -150 ml Exam General: Chronically ill looking, elderly female with generalized weakness. HEENT: Normocephalic, Atraumatic, No laceration or hematoma; Eyes: PEERL, Conjunctiva clear, Anicteric sclera Neck: Supple without any lymphadenopathy, nontender, no JVD, no carotid bruits, trachea midline, no thyromegaly Cardiac: S1, S2 auscultated, regular rhythm and rate, no mumurs or gallop Pulmonary: Diminished breath sounds RUL/RLL. Normal respiratory effort. No adventitious breath sounds GI: with RUQ/RLQ tenderness.Soft, non- distended, no masses, no rebound tenderness or guarding. Bowel sounds active on all four quadrants Genitourinary: Deferred Extremities: No cyanosis, clubbing, or edema. Pulses [2+] bilaterally. Full ROM on all four extremities. No focal weakness appreciated. Neurologic:awake and oriented 3. Follows instructions. Skin: Clean,dry, and intact. No ecchymosis, no rashes, or lesions Results Result Diagram: 03/10/17 0741 03/10/17 0741 Results 24 hrs Laboratory Tests Test 03/09/17 11:54 03/09/17 17:22 03/09/17 21:06 03/10/17 07:41 Bedside Glucose 120 137 153 White Blood Count 7.0 Red Blood Count 3.99 L Hemoglobin 9.8 L Hematocrit 30.6 L Mean Corpuscular Volume 76.7 L Mean Corpuscular Hemoglobin 24.6 L Mean Corpuscular Hemoglobin Concent 32.0 Red Cell Distribution Width 13.6 Platelet Count 547 H Mean Platelet Volume 9.5 Neutrophils % 38.0 L Lymphocytes % 44.6 Monocytes % 9.6 Eosinophils % 6.8 Basophils % 0.7 Nucleated Red Blood Cells % 0.0 Neutrophils # 2.6 Lymphocytes # 3.1 H Monocytes # 0.7 Eosinophils # 0.5 Basophils # 0.1 Nucleated Red Blood Cells # 0.0 Sodium Level 133 L Potassium Level 3.5 Chloride Level 95 L Carbon Dioxide Level 28 Anion Gap 14 Blood Urea Nitrogen 5 L Creatinine 0.60 Glucose Level 151 Calcium Level 8.3 L Test 03/10/17 08:18 Bedside Glucose 145 Medications Medications Current Medications Sodium Chloride (NS) 1,000 ml @ 75 mls/hr [id number] IV Last administered on 08:26; Admin Dose 75 MLS/HR; Start 03/05/17 at 14:18 Ondansetron HCl (Zofran Inj) 4 mg Q6H PRN IV NAUSEA AND/OR VOMITING Last administered on 03/07/17 15:08; Admin Dose 4 MG; Start 03/05/17 at 14:30 Acetaminophen (Tylenol Tab) 650 mg Q6H PRN PO PAIN LEVEL 1-3 OR FEVER Last administered on 03/10/17 08:40; Admin Dose 650 MG; Start 03/05/17 at 14:30 Docusate Sodium (Colace) 100 mg Q12H PRN PO CONSTIPATION Last administered on 03/09/17 09:06; Admin Dose 100 MG; Start 03/05/17 at 14:30 Famotidine (Pepcid) 20 mg Q12 PO Last administered on 03/10/17 08:19; Admin Dose 20 MG; Start 03/05/17 at 21:00 Heparin Sodium (Porcine) (Heparin (5000 Units/0.5 ml)) 5,000 unit Q12 SC Last administered on 03/09/17 21:13; Admin Dose 5,000 UNIT; Start 03/05/17 at 21: 00 Diagnostic Test (Pha) (Accu-Chek) 1 ea 02 XX Last administered on 03/09/17 02 :30; Admin Dose 1 EA; Start 03/06/17 at 02:00 Insulin Glargine (Lantus) 9 unit DAILY@08 SC Last administered on 03/10/17 08 :33; Admin Dose 9 UNIT; Start 03/05/17 at 14:30 Aspirin (Halfprin) 81 mg DAILY PO Last administered on 03/10/17 08:19; Admin Dose 81 MG; Start 03/06/17 at 09:00 Atorvastatin Calcium (Lipitor) 20 mg HS PO Last administered on 03/09/17 21: 08; Admin Dose 20 MG; Start 03/05/17 at 21:00 Calcium/Vitamin D (Oyster Shell/ Vit-D (500/200)) 1 tab DAILY PO Last administered on 03/10/17 08:18; Admin Dose 1 TAB; Start 03/06/17 at 09:00 Carvedilol (Coreg) 6.25 mg BID PO Last administered on 03/10/17 08:20; Admin Dose 6.25 MG; Start 03/05/17 at 21:00 Ergocalciferol (Drisdol) 50,000 unit Q7D PO Last administered on 03/06/17 09: 40; Admin Dose 50,000 UNIT; Start 03/06/17 at 09:00 Ferrous Sulfate (Ferrous Sulfate (Ec)) 325 mg DAILY PO Last administered on 08:19; Admin Dose 325 MG; Start 03/06/17 at 09:00 Miscellaneous Information 1 ea NOTE XX ; Start 03/05/17 at 15:00 Glucose (Glutose) 15 gm Q15M PRN PO DECREASED GLUCOSE; Start 03/05/17 at 15:00 Glucose (Glutose) 22.5 gm Q15M PRN PO DECREASED GLUCOSE; Start 03/05/17 at 15: 00 Dextrose (D50w Syringe) 25 ml Q15M PRN IV DECREASED GLUCOSE; Start 03/05/17 at 15:00 Dextrose (D50w Syringe) 50 ml Q15M PRN IV DECREASED GLUCOSE; Start 03/05/17 at 15:00 Glucagon (Glucagen) 1 mg Q15M PRN IM DECREASED GLUCOSE; Start 03/05/17 at 15: 00 Glucose (Glutose) 15 gm Q15M PRN BUCCAL DECREASED GLUCOSE; Start 03/05/17 at 15:00 Hydralazine HCl (Apresoline) 10 mg Q4H PRN IV SBP > 170 Last administered on 05:12; Admin Dose 10 MG; Start 03/06/17 at 01:00 Isosorbide Mononitrate (Imdur) 60 mg DAILY PO Last administered on 03/10/17 08:19; Admin Dose 60 MG; Start 03/06/17 at 10:30 Morphine Sulfate 3 mg 3 mg Q4H PRN PO PAIN Last administered on 03/07/17 00: 35; Admin Dose 3 MG; Start 03/06/17 at 15:30 Piperacillin Sod/ Tazobactam Sod 50 ml @ 100 mls/hr Q8 IVPB Last administered on 03/10/17 05:13; Admin Dose 100 MLS/HR; Start 03/06/17 at 22:00 Ferric Sodium Gluconate Complex 125 mg/Sodium Chloride 110 ml @ 100 mls/hr Q24H IVPB Last administered on 03/09/17 13:05; Admin Dose 100 MLS/HR; Start 03/08/17 at 14:00; Stop 03/10/17 at 15:05 Fluconazole/ Sodium Chloride (Diflucan 100 Mg/ NS (Pmx)) 50 ml @ 50 mls/hr Q24H IVPB Last administered on 03/09/17 15:02; Admin Dose 50 MLS/HR; Start at 15:30 Zolpidem Tartrate (Ambien) 5 mg HS PRN PO INSOMNIA Last administered on 21:08; Admin Dose 5 MG; Start 03/08/17 at 22:30 Naproxen (Naprosyn) 250 mg BID PO Last administered on 03/10/17 08:18; Admin Dose 250 MG; Start 03/09/17 at 14:00 MOIZ RICE NP Mar 10, 2017 09:28
[2017-03-10] MEDS: LISINOPRIL 5 MG TAB PO SCH (10:07)
[2017-03-10 12:08] LABS: ADD UMIC YES; UR ASCORBIC ACID NEGATIVE (NEGATIVE); UR BILIRUBIN (Dip) NEGATIVE (NEGATIVE); UR BLOOD (Dip) NEGATIVE (NEGATIVE); UR CLARITY CLEAR (CLEAR); UR COLOR STRAW (YELLOW); UR GLUCOSE (Dip) 1+ mg/dL (NEGATIVE); UR KETONES (Dip) 1+ mg/dL (NEGATIVE); UR LEUKOCYTE ESTERASE (Dip) TRACE Leu/ul (NEGATIVE); UR NITRITE (Dip) NEGATIVE (NEGATIVE); UR RBC 1 /HPF (0-5); UR TOTAL PROTEIN (Dip) NEGATIVE (NEGATIVE); UR UROBILINOGEN (Dip) NEGATIVE (NEGATIVE)
[2017-03-10] MEDS: SOD FERRIC GLUC COMPLX 125 MG in SOD CHLORIDE 0.9% 100 ML IVPB SCH (14:46)
--- NOTE | 2017-03-10 14:47 | CONS ---
Date/Time of Note Date/Time of Note DATE: 03/10/17 TIME: 14:45 Assessment/Plan Assessment/Plan Chief Complaint/Hosp Course SUBJECTIVE: No acute changes. The patient is awake, looks comfortable. No fevers. Still with abdominal discomfort MICROBIOLOGY: Blood cultures negative, urine culture growing yeast ANTIMICROBIALS: Diflucan, Zosyn. PHYSICAL EXAMINATION: GENERAL: This is a fragile, well-developed, elderly woman who is awake, in no distress. HEENT: Head atraumatic, normocephalic. Sclerae anicteric. Buccal mucosa dry. NECK: Supple. CHEST: Rise symmetrical. Breath sounds clear, diminished to bases. HEART: S1, S2. ABDOMEN: Soft. Bowel tones present. EXTREMITIES: Without cyanosis. ASSESSMENT: 1. S/ p sepsis with fevers and leukocytosis. 2. Abdominal pain related to symptomatic cholelithiasis. CT of the abdomen and pelvis on 02/24/2017 revealed gallbladder distention with cholelithiasis and new large pericardial effusion. 3. Status post pericardiocentesis with 540 mL serosanguinous drainage removed on previous admission, cytology revealed no malignancy and pericardial fluid cultures have been negative. 4. Diabetes. 5. Coronary artery disease. 6. Quin glabrata UTI PLAN: The patient remains stable, continue abx, surgical recommendations noted , possible cholecystectomy DW staff/family at bedside Problems: Consultation Date/Type/Reason Admit Date/Time Mar 05, 2017 at 18:52 Type of Consultation: id Exam/Review of Systems Vital Signs Vitals Vital Signs Date Time Temp Pulse Resp B/P Pulse Ox O2 Delivery O2 Flow Rate FiO2 03/10/17 12:48 88 20 97 Nasal Cannula 3.0 03/10/17 12:04 97.8 178/79 03/10/17 08:35 Intake and Output 03/09/17 03/09/17 03/10/17 15:00 23:00 07:00 Intake Total 450 ml 1220 ml 275 ml Output Total 500 ml 2000 ml 350 ml Balance -50 ml -780 ml -75 ml Results Result Diagram: 03/10/17 0741 03/10/17 0741 Results 24 hrs Laboratory Tests Test 03/09/17 17:22 03/09/17 21:06 03/10/17 07:41 03/10/17 08:18 Bedside Glucose 137 153 145 White Blood Count 7.0 Red Blood Count 3.99 L Hemoglobin 9.8 L Hematocrit 30.6 L Mean Corpuscular Volume 76.7 L Mean Corpuscular Hemoglobin 24.6 L Mean Corpuscular Hemoglobin Concent 32.0 Red Cell Distribution Width 13.6 Platelet Count 547 H Mean Platelet Volume 9.5 Neutrophils % 38.0 L Lymphocytes % 44.6 Monocytes % 9.6 Eosinophils % 6.8 Basophils % 0.7 Nucleated Red Blood Cells % 0.0 Neutrophils # 2.6 Lymphocytes # 3.1 H Monocytes # 0.7 Eosinophils # 0.5 Basophils # 0.1 Nucleated Red Blood Cells # 0.0 Sodium Level 133 L Potassium Level 3.5 Chloride Level 95 L Carbon Dioxide Level 28 Anion Gap 14 Blood Urea Nitrogen 5 L Creatinine 0.60 Glucose Level 151 Calcium Level 8.3 L Test 03/10/17 10:00 03/10/17 12:49 Urine Color STRAW Urine Clarity CLEAR Urine pH 7.0 Urine Specific [place] 1.010 Urine Ketones 1+ H Urine Nitrite NEGATIVE Urine Bilirubin NEGATIVE Urine Urobilinogen NEGATIVE Urine Leukocyte Esterase TRACE A Urine Microscopic RBC 1 Urine Microscopic WBC 22 H Urine Hemoglobin NEGATIVE Urine Glucose 1+ H Urine Total Protein NEGATIVE Bedside Glucose 120 Medications Medications Current Medications Sodium Chloride (NS) 1,000 ml @ 75 mls/hr [id number] IV Last administered on 08:26; Admin Dose 75 MLS/HR; Start 03/05/17 at 14:18 Ondansetron HCl (Zofran Inj) 4 mg Q6H PRN IV NAUSEA AND/OR VOMITING Last administered on 03/07/17 15:08; Admin Dose 4 MG; Start 03/05/17 at 14:30 Acetaminophen (Tylenol Tab) 650 mg Q6H PRN PO PAIN LEVEL 1-3 OR FEVER Last administered on 03/10/17 12:53; Admin Dose 650 MG; Start 03/05/17 at 14:30 Docusate Sodium (Colace) 100 mg Q12H PRN PO CONSTIPATION Last administered on 03/09/17 09:06; Admin Dose 100 MG; Start 03/05/17 at 14:30 Famotidine (Pepcid) 20 mg Q12 PO Last administered on 03/10/17 08:19; Admin Dose 20 MG; Start 03/05/17 at 21:00 Heparin Sodium (Porcine) (Heparin (5000 Units/0.5 ml)) 5,000 unit Q12 SC Last administered on 03/09/17 21:13; Admin Dose 5,000 UNIT; Start 03/05/17 at 21: 00 Diagnostic Test (Pha) (Accu-Chek) 1 ea 02 XX Last administered on 03/09/17 02 :30; Admin Dose 1 EA; Start 03/06/17 at 02:00 Insulin Glargine (Lantus) 9 unit DAILY@08 SC Last administered on 03/10/17 08 :33; Admin Dose 9 UNIT; Start 03/05/17 at 14:30 Aspirin (Halfprin) 81 mg DAILY PO Last administered on 03/10/17 08:19; Admin Dose 81 MG; Start 03/06/17 at 09:00 Atorvastatin Calcium (Lipitor) 20 mg HS PO Last administered on 03/09/17 21: 08; Admin Dose 20 MG; Start 03/05/17 at 21:00 Calcium/Vitamin D (Oyster Shell/ Vit-D (500/200)) 1 tab DAILY PO Last administered on 03/10/17 08:18; Admin Dose 1 TAB; Start 03/06/17 at 09:00 Carvedilol (Coreg) 6.25 mg BID PO Last administered on 03/10/17 08:20; Admin Dose 6.25 MG; Start 03/05/17 at 21:00 Ergocalciferol (Drisdol) 50,000 unit Q7D PO Last administered on 03/06/17 09: 40; Admin Dose 50,000 UNIT; Start 03/06/17 at 09:00 Ferrous Sulfate (Ferrous Sulfate (Ec)) 325 mg DAILY PO Last administered on 08:19; Admin Dose 325 MG; Start 03/06/17 at 09:00 Miscellaneous Information 1 ea NOTE XX ; Start 03/05/17 at 15:00 Glucose (Glutose) 15 gm Q15M PRN PO DECREASED GLUCOSE; Start 03/05/17 at 15:00 Glucose (Glutose) 22.5 gm Q15M PRN PO DECREASED GLUCOSE; Start 03/05/17 at 15: 00 Dextrose (D50w Syringe) 25 ml Q15M PRN IV DECREASED GLUCOSE; Start 03/05/17 at 15:00 Dextrose (D50w Syringe) 50 ml Q15M PRN IV DECREASED GLUCOSE; Start 03/05/17 at 15:00 Glucagon (Glucagen) 1 mg Q15M PRN IM DECREASED GLUCOSE; Start 03/05/17 at 15: 00 Glucose (Glutose) 15 gm Q15M PRN BUCCAL DECREASED GLUCOSE; Start 03/05/17 at 15:00 Hydralazine HCl (Apresoline) 10 mg Q4H PRN IV SBP > 170 Last administered on 05:12; Admin Dose 10 MG; Start 03/06/17 at 01:00 Isosorbide Mononitrate (Imdur) 60 mg DAILY PO Last administered on 03/10/17 08:19; Admin Dose 60 MG; Start 03/06/17 at 10:30 Morphine Sulfate 3 mg 3 mg Q4H PRN PO PAIN Last administered on 03/07/17 00: 35; Admin Dose 3 MG; Start 03/06/17 at 15:30 Piperacillin Sod/ Tazobactam Sod 50 ml @ 100 mls/hr Q8 IVPB Last administered on 03/10/17 13:21; Admin Dose 100 MLS/HR; Start 03/06/17 at 22:00 Ferric Sodium Gluconate Complex 125 mg/Sodium Chloride 110 ml @ 100 mls/hr Q24H IVPB Last administered on 03/09/17 13:05; Admin Dose 100 MLS/HR; Start 03/08/17 at 14:00; Stop 03/10/17 at 15:05 Fluconazole/ Sodium Chloride (Diflucan 100 Mg/ NS (Pmx)) 50 ml @ 50 mls/hr Q24H IVPB Last administered on 03/09/17 15:02; Admin Dose 50 MLS/HR; Start at 15:30 Zolpidem Tartrate (Ambien) 5 mg HS PRN PO INSOMNIA Last administered on 21:08; Admin Dose 5 MG; Start 03/08/17 at 22:30 Naproxen (Naprosyn) 250 mg BID PO Last administered on 03/10/17 08:18; Admin Dose 250 MG; Start 03/09/17 at 14:00 Lisinopril (Zestril) 5 mg DAILY PO Last administered on 03/10/17 10:07; Admin Dose 5 MG; Start 03/10/17 at 09:30 JENNIFER MENESES NP Mar 10, 2017 14:47
[2017-03-10] MEDS: FLUCONAZOLE 100 MG/NS (PMX) 50 ML IVPB SCH (16:04)
[2017-03-10] MEDS ORDERED: FENTAnyl 50 MCG/ML VIAL IV PRN ×3 (17:00)
[2017-03-10] MEDS ORDERED: MEPERIDINE 25 MG INJ IV PRN (17:00)
[2017-03-10] MEDS ORDERED: MIDAZOLAM 1 MG/ML 2 ML INJ IV PRN (17:00)
[2017-03-10] MEDS ORDERED: hydrALAzine 20 MG INJ IV PRN (17:00)
[2017-03-10] MEDS ORDERED: ONDANSETRON 4 MG INJ IV PRN ×2 (17:00→18:00)
[2017-03-10] MEDS ORDERED: HYDROmorphONE (0.2 MG/ML) 10ML SYG IV PRN ×2 (17:00)
[2017-03-10] MEDS ORDERED: METOCLOPRAMIDE 10 MG INJ IV PRN (17:00)
[2017-03-10] MEDS ORDERED: LABETALOL HCL 20MG INJ IV PRN (17:00)
[2017-03-10] MEDS ORDERED: DIPHENHYDRAMINE 50 MG INJ IV PRN (17:00)
[2017-03-10] MEDS ORDERED: KETOROLAC 30 MG INJ IV PRN (17:00)
[2017-03-10] MEDS ORDERED: EPHEDrine SULFATE 50 MG/5 ML SYG IV PRN (17:00)
[2017-03-10] MEDS ORDERED: ALBUTEROL 0.083% (NEB) 2.5 MG/3 ML AMP HHN PRN (17:00)
--- NOTE | 2017-03-10 17:15 | RADRPT ---
Echocardiogram Report Patient Name: YAJAIRA ARANGO Gender: Female Date: 1930 Study Date: 10-Mar-2017 Director Of Reimbursement: AYALA Location: 5540 Ref. Physician: MOIZ RICE Quality: Good Procedures: Transthoracic echocardiogram examination. Indications: Pericardial Effusion. 2D/M Mode Doppler Measurement Value Normal Range Measurement Value Normal Range LVIDd 2D 3.6 3.5 - 5.6 cm LVIDs 2D 2.4 2.1 - 4.1 cm LVPWd 2D 1.3 0.6 - 1.1 cm IVSd 2D 1.3 0.6 - 1.1 cm EDV 2D 55.1 cm3 ESV 2D 14.2 cm3 EF 2D 60.0 50.0 - 65.0 % Findings Left Ventricle: Normal left ventricular cavity size, wall thickness and systolic function. Normal left ventricular cavity size. Mild concentric left ventricular hypertrophy. The left ventricular ejection fraction is visually estimated at 6065 %. Pericardium: Trivial pericardial effusion. Pleural effusion present. Conclusions 1.Normal left ventricular cavity size, wall thickness and systolic function. Normal left ventricular cavity size. Mild concentric left ventricular hypertrophy. The left ventricular ejection fraction is visually estimated at 6065 %. 2.Trivial pericardial effusion. Pleural effusion present. Electronically Signed By: Baron Tamez 10-Mar-2017 17:14:35 -0800 Patient Name: YAJAIRA ARANGO Study Date: 10-Mar-[id number]
[2017-03-10] MEDS ORDERED: LIDOCAINE 2% (SDV) 5 ML INJ ONE (17:17)
[2017-03-10] MEDS ORDERED: ETOMIDATE 20 MG INJ ONE (17:17)
[2017-03-10] MEDS ORDERED: ROCURONIUM 50 MG INJ ONE (17:17)
[2017-03-10] MEDS ORDERED: FENTAnyl 50 MCG/ML VIAL ONE (17:17)
[2017-03-10] MEDS ORDERED: DEXAMETHASONE 4 MG/ML 1 ML INJ ONE (17:18)
[2017-03-10] MEDS ORDERED: ONDANSETRON 4 MG INJ ONE (17:18)
[2017-03-10] MEDS ORDERED: BUPIVACAINE 0.25% (MPF) 30 ML INJ ONE (17:22)
[2017-03-10] MEDS ORDERED: OXYCODONE/ACETAMINOPHEN (5/325) TAB PO PRN ×2 (18:00)
[2017-03-10] MEDS ORDERED: morphine 2 MG INJ IV PRN ×2 (18:00→20:30)
--- NOTE | 2017-03-10 18:01 | OPR ---
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 The abdomen was insufflated with carbon dioxide through an umbilical Veress needle to 15 mmHg pressure. The Veress needle was removed and the umbilical incision extended to 5 mm through which a 5 mm trocar was placed. A 5 mm 0 lens was placed. Laparoscopy showed a massively distended and chronically inflamed gallbladder. Under direct visualization an 11 mm epigastric trocar was placed as well as 2 5 mm right lateral abdominal trochars. The dome of the gallbladder was grasped and retracted superiorly. Omental adhesions to the distal gallbladder were taken down with gentle blunt dissection the duodenum was from the distal gallbladder with sharp dissection. The hepatoduodenal ligament was carefully dissected. The cystic duct was then dissected between the gallbladder and the well-visualized common bile duct. It was triply hemoclipped and divided high at the junction of the gallbladder and the cystic duct. The cystic artery was identified coming off the right hepatic and was triply hemoclipped and divided. The gallbladder was then dissected from below using electrocautery dissection and placed fully intact into an Endo Catch removed by the epigastric route. The gallbladder was submitted. Hemostasis of liver bed was total and irrigant returned clear. The abdomen was then desufflated and the trochars were removed. The fascia of the epigastrium was closed with 2 sutures of 0 Vicryl. The skin punctures were infiltrated with 30 cc of 0.25% plain Marcaine and closed with jeremy. Sponge and needle counts were reported as correct 2. The patient tolerated the procedure well and without incident or complication. GERRY COLINDRES MD Mar 10, 2017 18:01
[2017-03-10] MEDS: HYDROmorphONE (0.2 MG/ML) 10ML SYG IV PRN ×2 (18:10→18:34)
--- NOTE | 2017-03-10 20:10 | CONS ---
DATE OF ADMISSION: 03/05/2017 DATE OF CONSULTATION: 03/10/2017 CARDIOLOGY CONSULTATION REFERRING: ____ REASON FOR CONSULTATION: Pericardial effusion, ____ evaluation. CHIEF COMPLAINT: Fever, chills, abdominal pain. HISTORY OF PRESENT ILLNESS: Thank you for this referral. History obtained from the patient, esperanza fitzpatrick with her son and review of the old chart, discussion with the staff and physician ____. This i s a pleasant 87-year-old [place] female with history of pericardial effusion and pericardial tampon kathy, status post pericardiocentesis on 02/25/2017, who was preadmitted to the hospital with complain ts of fever, chills, dysuria, abdominal discomfort. Patient has been diagnosed with cholecystitis. We were kindly asked to evaluate and treat. The patient has undergone cholecystectomy today and to lerated it well. Denies any chest pain or pressure. Abdominal pain has improved now. PAST MEDICAL HISTORY: History of moderate to large pericardial effusion/pericardial tamponade, stat us post pericardiocentesis 02/25/2017, history of hypertension, dyslipidemia, history of diabetes, h istory of some sort of cardiac disorder, although details are not clear, ____ appears to have an ang ioplasty and stent ____ reports the obesity. FAMILY HISTORY: No reported early coronary artery disease. ALLERGIES: NO REPORTED ALLERGIES. MEDICATIONS: As per medical reconciliation sheet which was personally reviewed. PHYSICAL EXAMINATION: VITAL SIGNS: Temperature 98, heart rate of 72, blood pressure 102/47, respiration rate 18, saturati ng 97%. HEENT: Normocephalic, atraumatic. Elderly female. Pupils are equal. NECK: Supple. CARDIOVASCULAR: Regular rate and rhythm, systolic murmur. PULMONARY: Anteriorly with no wheezes. GASTROINTESTINAL: Status post surgery, otherwise soft. No rebound, no guarding. Mild tenderness. EXTREMITIES: Trivial edema. NEUROLOGIC: Awake, responds appropriately. PSYCHIATRIC: Appears to be calm and pleasant. LABORATORY DATA: WBC of 7, hemoglobin 9.8, platelets of 547. Sodium 132, potassium 3.5, BUN of 5, creatinine 0.6, glucose of 151. Echocardiogram was personally reviewed, which showed normal LV size and ejection fraction of 60% to 65%. There is trivial pericardial effusion noted. ASSESSMENT AND PLAN: 1. Status post sepsis, urinary tract infection and probably cholecystitis status post surgery. 2. Pericardial effusion, status post pericardiocentesis, currently with very trivial effusion left. 3. Electrolyte abnormality, hyponatremia. 4. Hypertension, currently hypotensive, but is stable now. 5. Diabetes. 6. Questionable history of coronary artery disease, details are not clear at this point. 7. History of dyslipidemia. RECOMMENDATIONS: We will continue with the current cardiac care. Continue with the postop care. D VT prophylaxis as per internal medicine. Review of the old chart showed no evidence of malignancies seen in the pericardial fluid. We will continue to monitor along with you. Dictated By: SHREE TOPETE MD AV/NTS Conf#: [id number] DID#: [id number] CC: ; AJAY AGLLAGHER MD;*End*
[2017-03-10] MEDS: ATORVASTATIN 20 MG TAB PO SCH (22:11)
[2017-03-11] VITALS (11 sets, daily range): BP systolic 146–172; BP diastolic 65–77; PULSE 85–90; RESP 17–18
[2017-03-11] MEDS: ACETAMINOPHEN 325 MG TAB PO PRN ×3 (00:17→20:55)
[2017-03-11] MEDS: ALBUTEROL/IPRATROPIUM (NEB) 3 ML AMP HHN SCH ×6 (01:00→20:05)
[2017-03-11] MEDS: SOD CHLORIDE 0.9% 1,000 ML IV SCH ×2 (02:00→16:44)
[2017-03-11] MEDS: ACCU-CHEK XX SCH (02:44)
[2017-03-11] MEDS: ZOLPIDEM 5 MG TAB PO PRN ×2 (05:11→21:08)
[2017-03-11] MEDS: PIPER-TAZO 3.375 GM IV (PMX) 50 ML IVPB SCH ×3 (06:14→22:26)
--- NOTE | 2017-03-11 07:07 | RADRPT ---
Vent Rate: 93 bpm RR Interval: 0 msec [place] Interval: 174 msec QRS Duration: 84 msec QT Interval: 334 msec QTC Interval: 415 msec P-R-T [place]: 34 - 6 - 32 degrees Normal sinus rhythm Normal ECG Electronically Signed By: Edwin Hollis [id number]
--- NOTE | 2017-03-11 08:11 | PN ---
Date/Time of Note Date/Time of Note DATE: 03/11/17 TIME: 08:10 Assessment/Plan Lines/Catheters IV Catheter Type (from [facility]): Peripheral IV [place] in Place (from [facility]): Yes Assessment/Plan Chief Complaint/Hosp Course The patient is an 87-year-old female who was admitted with urosepsis. She was responding nicely. She has been complaining of upper abdominal pain which resulted in abdominal ultrasound which showed gallstones and sludge. Surgical consultation was requested in regards to consideration of laparoscopic cholecystectomy. The patient has had no symptoms of jaundice Problems: Assessment/Plan Abdominal examination is benign Leukocytosis resolved Plan: Therefore discharge from surgical standpoint. Discharge timing per hospitalist Subjective 24 Hr Interval Summary Postoperative day #1 Patient feels quite well overall Exam/Review of Systems Vital Signs Vitals Vital Signs Date Time Temp Pulse Resp B/P Pulse Ox O2 Delivery O2 Flow Rate FiO2 03/11/17 04:00 90 03/11/17 04:00 98.3 17 163/74 97 03/11/17 01:47 4.0 03/10/17 20:12 Nasal Cannula 03/10/17 08:35 Intake and Output 03/10/17 03/10/17 03/11/17 15:00 23:00 07:00 Intake Total 575 ml 735 ml 230 ml Output Total 780 ml 1300 ml Balance 575 ml -45 ml -1070 ml Results Result Diagram: 03/10/17 0741 03/10/17 0741 POPEYE COLINDRES MD Mar 11, 2017 08:11
[2017-03-11] MEDS: INSULIN GLARGINE [LANtus] 3 ML PEN SC SCH (09:00)
[2017-03-11] MEDS: INSULIN ASPART [NOVOLOG] 3 ML PEN SC SCH ×4 (09:01→20:58)
[2017-03-11] MEDS: FAMOTIDINE 20 MG TAB PO SCH ×2 (09:06→20:55)
[2017-03-11] MEDS: NAPROXEN 250 MG TAB PO SCH ×2 (09:07→20:55)
[2017-03-11] MEDS: LISINOPRIL 5 MG TAB PO SCH (09:07)
[2017-03-11] MEDS: CALCIUM/VITAMIN D (500/200) TAB PO SCH (09:07)
[2017-03-11] MEDS: ASPIRIN (EC) 81 MG TAB PO SCH (09:07)
[2017-03-11] MEDS: FERROUS SULFATE (EC) 325 MG TAB PO SCH (09:07)
[2017-03-11] MEDS: ISOSORBIDE MONONITRATE(SR)60 MG TAB PO SCH (09:08)
[2017-03-11] MEDS: HEPARIN 5,000 UNIT/0.5 ML VIAL SC SCH ×2 (09:09→20:57)
[2017-03-11 09:10] LABS: BASOPHILS % 0.3 % (0.0-2.0); HEMATOCRIT 30.5 % (37.0-47.0); HEMOGLOBIN 9.7 g/dl (12.0-16.0); LYMPHOCYTES % 29.3 % (15.0-51.0); MEAN CORPUSCULAR HEMOGLOBIN 24.8 pg (29.0-33.0); MEAN CORPUSCULAR HGB CONC 31.8 g/dl (32.0-37.0); MEAN PLATELET VOLUME 9.3 fl (7.4-10.4); MONOCYTE # 0.2 10^3/ul (0.3-0.9); MONOCYTES % 2.9 % (0.0-11.0); NEUTROPHIL # 4.7 10^3/ul (1.6-7.5); NEUTROPHILS % 66.9 % (39.0-77.0); PLATELET COUNT 578 10^3/UL (140-415); RED BLOOD COUNT 3.91 10^6/ul (4.20-5.40); WHITE BLOOD COUNT 6.9 10^3/ul (4.8-10.8)
--- NOTE | 2017-03-11 09:15 | PN ---
Date/Time of Note Date/Time of Note DATE: 03/11/17 TIME: 09:11 Assessment/Plan VTE Prophylaxis VTE Prophylaxis Intervention: SCD's Lines/Catheters IV Catheter Type (from [facility] Peripheral IV Urinary Cath still in place: No Assessment/Plan Chief Complaint/Hosp Course 87-year-old female with multiple comorbidities including recent E. coli UTI, pericardiocentesis on 02/25/2017, now returning back to o the emergency room with fevers, chills, dysuria, lower abdominal pain started yesterday who was noted with sepsis and a positive urinalysis. 1. Status post Sepsis, likely secondary to underlying urinary tract infection. UA on admission strongly suggestive of UTI. Patient also had a recent E. coli UTI. Status: Acute/recurrent -Cultures negative-this is not unusual as pt was treated with abx prior. Repeat UA on 03/10/2017 showed evidence of UTI clearing up. -ID on board and defer abx to ID team. 2. Symptomatic cholelithiasis with possible cholecystitis. Status: Acute -Status post laparoscopic cholecystectomy on 03/11/2017. 3. Recent pericardial effusion/early Cardiac tamponade.Status post pericardiocentesis . Stable. Status:Chronic -Repeat echocardiogram with trivial pericardial effusion. Patient has had next cardiology visit on March 12. 4. Hyponatremia with baseline sodium 128 -132. Stable sodium levels. Status: Chronic. -Monitor. 5. Essential hypertension- sub-optomal control. Status: Chronic. -Continue Coreg,Imdur,lisinopril. 6. Type 2 diabetes. Recent A1c 8.1 Status: Chronic. -Continue Accu-Cheks/ISS/Lantus. 7. Coronary artery disease. Status: Chronic. -Continue home medications. 8. Hyperlipidemia Status: Chronic. -On statin. 9. Osteoporosis/osteoarthritis/degenerative joint disease. Status: Chronic. -Supportive care. 10. Progressive debility. Status: Chronic. -Continue with PT eval and treatment. Patient and family not receptive for retirement facility. They wanted to take patient home with current home health services. DVT prophylaxis: SCDs PUD prophylaxis: Pepcid. Overall, patient with improvement in symptoms. Discharge planning on appropriate antibiotic per ID recommendations. Patient was seen in collaboration with . Problems: Subjective 24 Hr Interval Summary Free Text/Dictation Status post laparoscopic cholecystectomy. Patient is doing well. Diet is advanced. No fever. No further abdominal pain. Exam/Review of Systems Vital Signs Vitals Vital Signs Date Time Temp Pulse Resp B/P Pulse Ox O2 Delivery O2 Flow Rate FiO2 03/11/17 08:38 90 18 94 21 03/11/17 04:00 98.3 163/74 03/11/17 01:47 4.0 03/10/17 20:12 Nasal Cannula Intake and Output 03/10/17 03/10/17 03/11/17 15:00 23:00 07:00 Intake Total 575 ml 735 ml 230 ml Output Total 780 ml 1300 ml Balance 575 ml -45 ml -1070 ml Exam General: Chronically ill looking, elderly female with generalized weakness. HEENT: Normocephalic, Atraumatic, No laceration or hematoma; Eyes: PEERL, Conjunctiva clear, Anicteric sclera Neck: Supple without any lymphadenopathy, nontender, no JVD, no carotid bruits, trachea midline, no thyromegaly Cardiac: S1, S2 auscultated, regular rhythm and rate, no mumurs or gallop Pulmonary: Diminished breath sounds RUL/RLL. Normal respiratory effort. No adventitious breath sounds GI: Laparoscopic abdominal incision site intact. No tenderness.Soft, non- distended, no masses, no rebound tenderness or guarding. Bowel sounds active on all four quadrants Genitourinary: Deferred Extremities: No cyanosis, clubbing, or edema. Pulses [2+] bilaterally. Full ROM on all four extremities. No focal weakness appreciated. Neurologic:awake and oriented 3. Follows instructions. Skin: Clean,dry, and intact. No ecchymosis, no rashes, or lesions Results Result Diagram: 03/11/17 0834 03/10/17 0741 Results 24 hrs Laboratory Tests Test 03/10/17 10:00 03/10/17 12:49 03/10/17 18:17 03/10/17 21:33 Urine Color STRAW Urine Clarity CLEAR Urine pH 7.0 Urine Specific [place] 1.010 Urine Ketones 1+ H Urine Nitrite NEGATIVE Urine Bilirubin NEGATIVE Urine Urobilinogen NEGATIVE Urine Leukocyte Esterase TRACE A Urine Microscopic RBC 1 Urine Microscopic WBC 22 H Urine Hemoglobin NEGATIVE Urine Glucose 1+ H Urine Total Protein NEGATIVE Bedside Glucose 120 89 200 Test 03/11/17 02:39 03/11/17 08:34 03/11/17 08:37 Bedside Glucose 169 199 White Blood Count 6.9 Red Blood Count 3.91 L Hemoglobin 9.7 L Hematocrit 30.5 L Mean Corpuscular Volume 78.0 L Mean Corpuscular Hemoglobin 24.8 L Mean Corpuscular Hemoglobin Concent 31.8 L Red Cell Distribution Width 14.0 Platelet Count 578 H Mean Platelet Volume 9.3 Neutrophils % 66.9 Lymphocytes % 29.3 Monocytes % 2.9 Eosinophils % 0.0 Basophils % 0.3 Nucleated Red Blood Cells % 0.0 Neutrophils # 4.7 Lymphocytes # 2.0 Monocytes # 0.2 L Eosinophils # 0.0 Basophils # 0.0 Nucleated Red Blood Cells # 0.0 Medications Medications Current Medications Sodium Chloride (NS) 1,000 ml @ 75 mls/hr [id number] IV Last administered on 02:00; Admin Dose 75 MLS/HR; Start 03/05/17 at 14:18 Ondansetron HCl (Zofran Inj) 4 mg Q6H PRN IV NAUSEA AND/OR VOMITING Last administered on 03/07/17 15:08; Admin Dose 4 MG; Start 03/05/17 at 14:30 Acetaminophen (Tylenol Tab) 650 mg Q6H PRN PO PAIN LEVEL 1-3 OR FEVER Last administered on 03/11/17 00:17; Admin Dose 650 MG; Start 03/05/17 at 14:30 Docusate Sodium (Colace) 100 mg Q12H PRN PO CONSTIPATION Last administered on 03/09/17 09:06; Admin Dose 100 MG; Start 03/05/17 at 14:30 Famotidine (Pepcid) 20 mg Q12 PO Last administered on 03/10/17 22:11; Admin Dose 20 MG; Start 03/05/17 at 21:00 Heparin Sodium (Porcine) (Heparin (5000 Units/0.5 ml)) 5,000 unit Q12 SC Last administered on 03/10/17 22:15; Admin Dose 5,000 UNIT; Start 03/05/17 at 21: 00 Diagnostic Test (Pha) (Accu-Chek) 1 ea 02 XX Last administered on 03/11/17 02 :44; Admin Dose 1 EA; Start 03/06/17 at 02:00 Insulin Glargine (Lantus) 9 unit DAILY@08 SC Last administered on 03/11/17 09 :00; Admin Dose 9 UNIT; Start 03/05/17 at 14:30 Aspirin (Halfprin) 81 mg DAILY PO Last administered on 03/10/17 08:19; Admin Dose 81 MG; Start 03/06/17 at 09:00 Atorvastatin Calcium (Lipitor) 20 mg HS PO Last administered on 03/10/17 22: 11; Admin Dose 20 MG; Start 03/05/17 at 21:00 Calcium/Vitamin D (Oyster Shell/ Vit-D (500/200)) 1 tab DAILY PO Last administered on 03/10/17 08:18; Admin Dose 1 TAB; Start 03/06/17 at 09:00 Carvedilol (Coreg) 6.25 mg BID PO Last administered on 03/10/17 22:12; Admin Dose 6.25 MG; Start 03/05/17 at 21:00 Ergocalciferol (Drisdol) 50,000 unit Q7D PO Last administered on 03/06/17 09: 40; Admin Dose 50,000 UNIT; Start 03/06/17 at 09:00 Ferrous Sulfate (Ferrous Sulfate (Ec)) 325 mg DAILY PO Last administered on 08:19; Admin Dose 325 MG; Start 03/06/17 at 09:00 Miscellaneous Information 1 ea NOTE XX ; Start 03/05/17 at 15:00 Glucose (Glutose) 15 gm Q15M PRN PO DECREASED GLUCOSE; Start 03/05/17 at 15:00 Glucose (Glutose) 22.5 gm Q15M PRN PO DECREASED GLUCOSE; Start 03/05/17 at 15: 00 Dextrose (D50w Syringe) 25 ml Q15M PRN IV DECREASED GLUCOSE; Start 03/05/17 at 15:00 Dextrose (D50w Syringe) 50 ml Q15M PRN IV DECREASED GLUCOSE; Start 03/05/17 at 15:00 Glucagon (Glucagen) 1 mg Q15M PRN IM DECREASED GLUCOSE; Start 03/05/17 at 15: 00 Glucose (Glutose) 15 gm Q15M PRN BUCCAL DECREASED GLUCOSE; Start 03/05/17 at 15:00 Hydralazine HCl (Apresoline) 10 mg Q4H PRN IV SBP > 170 Last administered on 05:12; Admin Dose 10 MG; Start 03/06/17 at 01:00 Isosorbide Mononitrate (Imdur) 60 mg DAILY PO Last administered on 03/10/17 08:19; Admin Dose 60 MG; Start 03/06/17 at 10:30 Morphine Sulfate 3 mg 3 mg Q4H PRN PO PAIN Last administered on 03/07/17 00: 35; Admin Dose 3 MG; Start 03/06/17 at 15:30 Piperacillin Sod/ Tazobactam Sod 50 ml @ 100 mls/hr Q8 IVPB Last administered on 03/11/17 06:14; Admin Dose 100 MLS/HR; Start 03/06/17 at 22:00 Fluconazole/ Sodium Chloride (Diflucan 100 Mg/ NS (Pmx)) 50 ml @ 50 mls/hr Q24H IVPB Last administered on 03/10/17 16:04; Admin Dose 50 MLS/HR; Start at 15:30 Zolpidem Tartrate (Ambien) 5 mg HS PRN PO INSOMNIA Last administered on 05:11; Admin Dose 5 MG; Start 03/08/17 at 22:30 Naproxen (Naprosyn) 250 mg BID PO Last administered on 03/10/17 22:11; Admin Dose 250 MG; Start 03/09/17 at 14:00 Lisinopril (Zestril) 5 mg DAILY PO Last administered on 03/10/17 10:07; Admin Dose 5 MG; Start 03/10/17 at 09:30 Oxycodone/ Acetaminophen (Percocet (5/ 325)) 1 tab Q4H PRN PO MILD PAIN (1-3); Start 03/10/17 at 18:00 Oxycodone/ Acetaminophen (Percocet (5/ 325)) 2 tab Q4H PRN PO MODERATE PAIN (4- 6) Last administered on 03/11/17 02:42; Admin Dose 2 TAB; Start 03/10/17 at 18:00 Ondansetron HCl (Zofran Inj) 4 mg Q6H PRN IV NAUSEA; Start 03/10/17 at 18:00 Morphine Sulfate (morphine) 2 mg Q2H PRN IV PAIN; Start 03/10/17 at 20:30 MOIZ RICE NP Mar 11, 2017 09:15
[2017-03-11 09:52] LABS: ALBUMIN 2.8 g/dl (3.3-4.9); ALBUMIN/GLOBULIN RATIO 0.96; BILIRUBIN,INDIRECT 0.2 mg/dl (0-1.1); BILIRUBIN,TOTAL 0.2 mg/dl (0.2-1.3); CALCIUM 8.8 mg/dl (8.4-10.2); CREATININE 0.93 mg/dl (0.44-1.00); POTASSIUM 4.3 mmol/L (3.5-5.1); TOTAL PROTEIN 5.7 g/dl (6.1-8.1)
[2017-03-11] MEDS: FLUCONAZOLE 100 MG/NS (PMX) 50 ML IVPB SCH (16:29)
--- NOTE | 2017-03-11 20:08 | CONS ---
Date/Time of Note Date/Time of Note DATE: 03/11/17 TIME: 20:06 Assessment/Plan Assessment/Plan Chief Complaint/Hosp Course SUBJECTIVE: No acute changes. The patient is awake, looks comfortable. No fevers. MICROBIOLOGY: Blood cultures negative, urine culture growing yeast ANTIMICROBIALS: Diflucan, Zosyn. PHYSICAL EXAMINATION: GENERAL: This is a fragile, well-developed, elderly woman who is awake, in no distress. HEENT: Head atraumatic, normocephalic. Sclerae anicteric. Buccal mucosa dry. NECK: Supple. CHEST: Rise symmetrical. Breath sounds clear, diminished to bases. HEART: S1, S2. ABDOMEN: Soft. Bowel tones present. EXTREMITIES: Without cyanosis. ASSESSMENT: 1. S/ p sepsis with fevers and leukocytosis. 2. Abdominal pain related to symptomatic cholelithiasis, s/p laparoscopic cholecystectomy 03/10/17 3. Status post pericardiocentesis with 540 mL serosanguinous drainage removed on previous admission, cytology revealed no malignancy and pericardial fluid cultures have been negative. 4. Diabetes. 5. Coronary artery disease. 6. Quin glabrata UTI PLAN: The patient remains stable postoperatively, continue abx, follow surgical recommendations, to be discharged on oral Flagyl and levofloxacin DW staff/family at bedside Problems: Consultation Date/Type/Reason Admit Date/Time Mar 05, 2017 at 18:52 Type of Consultation: ID Exam/Review of Systems Vital Signs Vitals Vital Signs Date Time Temp Pulse Resp B/P Pulse Ox O2 Delivery O2 Flow Rate FiO2 03/11/17 17:26 83 18 94 21 03/11/17 17:07 97.8 147/67 03/11/17 08:55 Nasal Cannula 2.0 Intake and Output 03/10/17 03/10/17 03/11/17 15:00 23:00 07:00 Intake Total 575 ml 735 ml 230 ml Output Total 780 ml 1300 ml Balance 575 ml -45 ml -1070 ml Results Result Diagram: 03/11/17 0834 03/11/17 0834 Results 24 hrs Laboratory Tests Test 03/10/17 21:33 03/11/17 02:39 03/11/17 08:34 03/11/17 08:37 Bedside Glucose 200 169 199 White Blood Count 6.9 Red Blood Count 3.91 L Hemoglobin 9.7 L Hematocrit 30.5 L Mean Corpuscular Volume 78.0 L Mean Corpuscular Hemoglobin 24.8 L Mean Corpuscular Hemoglobin Concent 31.8 L Red Cell Distribution Width 14.0 Platelet Count 578 H Mean Platelet Volume 9.3 Neutrophils % 66.9 Lymphocytes % 29.3 Monocytes % 2.9 Eosinophils % 0.0 Basophils % 0.3 Nucleated Red Blood Cells % 0.0 Neutrophils # 4.7 Lymphocytes # 2.0 Monocytes # 0.2 L Eosinophils # 0.0 Basophils # 0.0 Nucleated Red Blood Cells # 0.0 Sodium Level 133 L Potassium Level 4.3 Chloride Level 96 L Carbon Dioxide Level 23 Anion Gap 18 H Blood Urea Nitrogen 16 # Creatinine 0.93 Glucose Level 192 Calcium Level 8.8 Total Bilirubin 0.2 Direct Bilirubin 0.00 Indirect Bilirubin 0.2 Aspartate Amino Transf (AST/SGOT) 37 Alanine Aminotransferase (ALT/SGPT) 37 Alkaline Phosphatase 73 Total Protein 5.7 L Albumin 2.8 L Globulin 2.90 Albumin/Globulin Ratio 0.96 Test 03/11/17 12:41 03/11/17 17:21 Bedside Glucose 276 H 263 H Medications Medications Current Medications Sodium Chloride (NS) 1,000 ml @ 75 mls/hr [id number] IV Last administered on 16:44; Admin Dose 75 MLS/HR; Start 03/05/17 at 14:18 Ondansetron HCl (Zofran Inj) 4 mg Q6H PRN IV NAUSEA AND/OR VOMITING Last administered on 03/07/17 15:08; Admin Dose 4 MG; Start 03/05/17 at 14:30 Acetaminophen (Tylenol Tab) 650 mg Q6H PRN PO PAIN LEVEL 1-3 OR FEVER Last administered on 03/11/17 16:44; Admin Dose 650 MG; Start 03/05/17 at 14:30 Docusate Sodium (Colace) 100 mg Q12H PRN PO CONSTIPATION Last administered on 03/09/17 09:06; Admin Dose 100 MG; Start 03/05/17 at 14:30 Famotidine (Pepcid) 20 mg Q12 PO Last administered on 03/11/17 09:06; Admin Dose 20 MG; Start 03/05/17 at 21:00 Heparin Sodium (Porcine) (Heparin (5000 Units/0.5 ml)) 5,000 unit Q12 SC Last administered on 03/11/17 09:09; Admin Dose 5,000 UNIT; Start 03/05/17 at 21: 00 Diagnostic Test (Pha) (Accu-Chek) 1 ea 02 XX Last administered on 03/11/17 02 :44; Admin Dose 1 EA; Start 03/06/17 at 02:00 Insulin Glargine (Lantus) 9 unit DAILY@08 SC Last administered on 03/11/17 09 :00; Admin Dose 9 UNIT; Start 03/05/17 at 14:30 Aspirin (Halfprin) 81 mg DAILY PO Last administered on 03/11/17 09:07; Admin Dose 81 MG; Start 03/06/17 at 09:00 Atorvastatin Calcium (Lipitor) 20 mg HS PO Last administered on 03/10/17 22: 11; Admin Dose 20 MG; Start 03/05/17 at 21:00 Calcium/Vitamin D (Oyster Shell/ Vit-D (500/200)) 1 tab DAILY PO Last administered on 03/11/17 09:07; Admin Dose 1 TAB; Start 03/06/17 at 09:00 Carvedilol (Coreg) 6.25 mg BID PO Last administered on 03/11/17 09:08; Admin Dose 6.25 MG; Start 03/05/17 at 21:00 Ergocalciferol (Drisdol) 50,000 unit Q7D PO Last administered on 03/06/17 09: 40; Admin Dose 50,000 UNIT; Start 03/06/17 at 09:00 Ferrous Sulfate (Ferrous Sulfate (Ec)) 325 mg DAILY PO Last administered on 09:07; Admin Dose 325 MG; Start 03/06/17 at 09:00 Miscellaneous Information 1 ea NOTE XX ; Start 03/05/17 at 15:00 Glucose (Glutose) 15 gm Q15M PRN PO DECREASED GLUCOSE; Start 03/05/17 at 15:00 Glucose (Glutose) 22.5 gm Q15M PRN PO DECREASED GLUCOSE; Start 03/05/17 at 15: 00 Dextrose (D50w Syringe) 25 ml Q15M PRN IV DECREASED GLUCOSE; Start 03/05/17 at 15:00 Dextrose (D50w Syringe) 50 ml Q15M PRN IV DECREASED GLUCOSE; Start 03/05/17 at 15:00 Glucagon (Glucagen) 1 mg Q15M PRN IM DECREASED GLUCOSE; Start 03/05/17 at 15: 00 Glucose (Glutose) 15 gm Q15M PRN BUCCAL DECREASED GLUCOSE; Start 03/05/17 at 15:00 Hydralazine HCl (Apresoline) 10 mg Q4H PRN IV SBP > 170 Last administered on 05:12; Admin Dose 10 MG; Start 03/06/17 at 01:00 Isosorbide Mononitrate (Imdur) 60 mg DAILY PO Last administered on 03/11/17 09:08; Admin Dose 60 MG; Start 03/06/17 at 10:30 Morphine Sulfate 3 mg 3 mg Q4H PRN PO PAIN Last administered on 03/07/17 00: 35; Admin Dose 3 MG; Start 03/06/17 at 15:30 Piperacillin Sod/ Tazobactam Sod 50 ml @ 100 mls/hr Q8 IVPB Last administered on 03/11/17 14:41; Admin Dose 100 MLS/HR; Start 03/06/17 at 22:00 Fluconazole/ Sodium Chloride (Diflucan 100 Mg/ NS (Pmx)) 50 ml @ 50 mls/hr Q24H IVPB Last administered on 03/11/17 16:29; Admin Dose 50 MLS/HR; Start at 15:30 Zolpidem Tartrate (Ambien) 5 mg HS PRN PO INSOMNIA Last administered on 05:11; Admin Dose 5 MG; Start 03/08/17 at 22:30 Naproxen (Naprosyn) 250 mg BID PO Last administered on 03/11/17 09:07; Admin Dose 250 MG; Start 03/09/17 at 14:00 Lisinopril (Zestril) 5 mg DAILY PO Last administered on 03/11/17 09:07; Admin Dose 5 MG; Start 03/10/17 at 09:30 Oxycodone/ Acetaminophen (Percocet (5/ 325)) 1 tab Q4H PRN PO MILD PAIN (1-3); Start 03/10/17 at 18:00 Oxycodone/ Acetaminophen (Percocet (5/ 325)) 2 tab Q4H PRN PO MODERATE PAIN (4- 6) Last administered on 03/11/17t 02:42; Admin Dose 2 TAB; Start 03/10/17 at 18:00 Ondansetron HCl (Zofran Inj) 4 mg Q6H PRN IV NAUSEA; Start 03/10/17 at 18:00 Morphine Sulfate (morphine) 2 mg Q2H PRN IV PAIN; Start 03/10/17 at 20:30 JENNIFER MENESES NP Mar 11, 2017 20:07
[2017-03-11] MEDS: ATORVASTATIN 20 MG TAB PO SCH (20:55)
[2017-03-12] VITALS (9 sets, daily range): BP systolic 116–199; BP diastolic 68–84; PULSE 78–100; RESP 17–18
[2017-03-12] MEDS: ALBUTEROL/IPRATROPIUM (NEB) 3 ML AMP HHN SCH ×3 (01:00→13:02)
[2017-03-12] MEDS: ACCU-CHEK XX SCH (02:45)
[2017-03-12] MEDS ORDERED: INSULIN ASPART [NOVOLOG] 3 ML PEN SC ONE (03:30)
[2017-03-12] MEDS: PIPER-TAZO 3.375 GM IV (PMX) 50 ML IVPB SCH (06:52)
[2017-03-12] MEDS: SOD CHLORIDE 0.9% 1,000 ML IV SCH (06:53)
[2017-03-12] MEDS ORDERED: LORAZEPAM 2 MG INJ ONE (07:09)
[2017-03-12] MEDS ORDERED: LORAZEPAM 2 MG INJ IM ONE (07:30)
[2017-03-12] MEDS: INSULIN ASPART [NOVOLOG] 3 ML PEN SC SCH ×2 (09:04→12:00)
[2017-03-12] MEDS: INSULIN GLARGINE [LANtus] 3 ML PEN SC SCH (09:04)
[2017-03-12] MEDS: ISOSORBIDE MONONITRATE(SR)60 MG TAB PO SCH (09:05)
[2017-03-12] MEDS: HEPARIN 5,000 UNIT/0.5 ML VIAL SC SCH (09:05)
[2017-03-12] MEDS: ASPIRIN (EC) 81 MG TAB PO SCH (09:05)
[2017-03-12] MEDS: CALCIUM/VITAMIN D (500/200) TAB PO SCH (09:05)
[2017-03-12] MEDS: NAPROXEN 250 MG TAB PO SCH (09:05)
[2017-03-12] MEDS: FERROUS SULFATE (EC) 325 MG TAB PO SCH (09:05)
[2017-03-12] MEDS: FAMOTIDINE 20 MG TAB PO SCH (09:05)
[2017-03-12] MEDS: LISINOPRIL 5 MG TAB PO SCH (09:06)
--- NOTE | 2017-03-12 09:33 | PDOCDIS ---
Discharge Instructions CONDITION Patient Condition: Stable HOME CARE INSTRUCTIONS: Special Diet: Carb control diet FOLLOW UP/APPOINTMENTS Follow-up Plan 1. Follow-up with Dr. Odonnell in 1 week. [address] [facility] [address] [place] [address] Office 2. Follow-up with in 2 weeks [id number] [facility] [address] [place] [address] Office Follow up with primary care physician in 1 week If you don't have one please let someone know, we can give you resources that may help you pick one. You may also call your insurance company to assign one to you. Review your medication list with your nurse before leaving and if you need new prescriptions please let your nurse know. I may have made changes to your home medications or given you new prescriptions, please let your primary doctor know as well. Stay compliant with your medications and report any side effects to your PCP or pharmacist. Return to the ER if you have any concerns and cannot reach your doctors or call your insurance company, they usually have a nurse that can help you. Call 911 or go to the nearest emergency room if experiencing loss of consciousness, dizziness, chest pain, shortness of breath, vomiting/abdominal pain, speech difficulties, motor weakness or any unusual symptoms. Post operative Instructions *Do not lift anything more than 25 pounds for 6 to 8 weeks *Do not swim or take hot tub bath for 2weeks *Remove dressing and May shower-Use mild soap around site and pat dry *If you notice any oozing, bleeding or other drainage or having fever or chills from site please contact Surgeon's office-If unable to get office, you may go to nearest emergency room MOIZ RICE NP Mar 12, 2017 09:33
--- NOTE | 2017-03-12 09:44 | DS ---
Date/Time of Note Date/Time of Note DATE: 03/12/17 TIME: 09:37 Discharge Summary Admission/Discharge Info Admit Date/Time Mar 05, 2017 at 18:52 Discharge Date/Time Discharge Diagnosis 1. Status post Sepsis (present on admission), likely secondary to Quin glabrata urinary tract infection. 2. Symptomatic cholelithiasis with possible cholecystitis.Status post laparoscopic cholecystectomy on 03/11/2017. 3. Recent pericardial effusion/early Cardiac tamponade.Status post pericardiocentesis . Stable. 4. Hyponatremia with baseline sodium 128 -132. Stable sodium levels. 5. Essential hypertension- sub-optimal control. 6. Type 2 diabetes. Recent A1c 8.1 7. Coronary artery disease. 8. Hyperlipidemia 9. Osteoporosis/osteoarthritis/degenerative joint disease. 10. Progressive debility. Patient Condition: Stable Consults ,CARDS , surgery Dr. Yadav, ID Procedures 03/08/2017, ultrasound right upper quadrant. IMPRESSION: 1. Stones and sludge are seen within the gallbladder. The gallbladder is otherwise sonographically unremarkable. Operation performed: 03/11/2017, she had undergone laparoscopic cholecystectomy. Hospital Course This is a 87-year-old female with a past medical history of multiple comorbidities including recent E. coli urinary tract infection, pericardial effusion with early cardiac tamponade for which on 02/25/2017, patient had undergone pericardiocentesis at [facility], return back to the emergency room with fevers, chills, dysuria, lower abdominal pain for 1 day duration and was noted with sepsis and positive urinalysis. Patient was admitted and was started on broad-spectrum IV antibiotics. Patient had ID evaluation. She was continued on home medication for underlying comorbid conditions. Blood pressure medication titrated per cardiology for better control. Urine culture showed Quin glabrata. Patient was also noted with symptomatic cholelithiasis with possible cholecystitis for which on 03/11/2017, she had undergone laparoscopic cholecystectomy. Patient tolerated procedure well. There was minimal postoperative pain. She was able to tolerate diet. Sepsis resolved. At this time, patient's labs and vital signs remained at her baseline. She is feeling ready for discharge. Patient is cleared from cardiac, surgery and ID standpoint for outpatient follow -up. She was recommended to continue Levaquin and Flagyl upon discharge. Patient was also instructed to follow-up with rn radiation oncology and surgery. She was given appointment instructions time for her next cardiology visit which is April 22 3 PM. Patient to call surgery office to make appointment in 1 week. Patient and family verbalized discharge instructions. Approximately 60 minute was spent in coordinating the discharge on this patient. Patient is in collaboration with . Home Meds Active Scripts Ondansetron (Ondansetron Odt) 4 Mg Tab.rapdis, 4 MG PO Q6H Y for NAUSEA AND/OR VOMITING, #10 TAB Prov:RG MOSQUEDA MD 01/02/16 Reported Medications Insulin Degludec (Tresiba Flextouch U-200) 200 Unit/1 Ml Insuln.pen, 55 UNIT SQ DAILY 03/01/17 Insulin Lispro (Humalog) 100 Unit/1 Ml Cartridge, 2 UNIT SQ QPM 03/01/17 Lisinopril* (Lisinopril*) 2.5 Mg Tablet, 2.5 MG PO DAILY, #30 TAB 02/24/17 Plecanatide (Trulance) 3 Mg Tablet, 3 MG PO DAILY, TAB 02/24/17 Metoclopramide* (Reglan*) 5 Mg Tablet, 5 MG PO BID WITH MEALS, TAB 02/24/17 Carvedilol* (Carvedilol*) 6.25 Mg Tablet, 6.25 MG PO BID, #60 TAB 02/24/17 Sennosides* (Senna Lax*) 8.6 Mg Tablet, 1 TAB PO DAILY, TAB 01/02/16 Ferrous Sulfate* (Ferrous Sulfate*) 325 Mg Tabec, 325 MG PO DAILY, TAB 01/02/16 Calcium Carbonate/Vitamin D3 ([place] 500+D Tablet) 1 Each Tablet, 1 EACH PO DAILY , TAB 01/02/16 Ergocalciferol* (Drisdol* (Vitamin D2)) 50,000 Unit Capsule, 42044 UNIT PO Q7D, CAP 01/02/16 Gabapentin* (Gabapentin*) 300 Mg Capsule, 300 MG PO TID, #90 CAP 01/02/16 Tramadol Hcl* (Ultram*) 50 Mg Tablet, 50 MG PO BID Y for PAIN, TAB 01/02/16 Acetaminophen* (Acetaminophen*) 500 MG Extra Strength Tablet, 1-2 TAB PO Q6H Y for PAIN AND OR ELEVATED TEMP, TAB 01/02/16 Furosemide (Lasix) 40 Mg Tab, 40 MG PO DAILY 12/05/12 Aspirin* (Ecotrin*) 81 Mg Tablet.dr, 81 MG PO DAILY 12/05/12 Zolpidem Tartrate* (Ambien*) 10 Mg Tablet, 10 MG PO HS 12/05/12 Isosorbide Mononitrate* (Isosorbide Mononitrate*) 60 Mg Tab.er.24h, 60 MG PO DAILY 12/05/12 Clonidine Hcl* (Clonidine Hcl*) 0.1 Mg Tab, 0.1 MG PO BID 11/25/12 Atorvastatin (Lipitor) 40 Mg Tablet, 1 TAB PO HS 02/20/12 Pantoprazole* (Protonix* IV) 40 Mg Soln, 1 TAB PO DAILY 02/20/12 Follow-up Plan 1. Follow-up with Dr. Odonnell in 1 week. [address] [address] [place] [address] Office 2. Follow-up with on next appointment confirmed on March AT 3PM. PLEASE ARRIVE 15MINS PRIOR. [address] [facility] [address] [place] [address] Office Follow up with primary care physician in 1 week If you don't have one please let someone know, we can give you resources that may help you pick one. You may also call your insurance company to assign one to you. Review your medication list with your nurse before leaving and if you need new prescriptions please let your nurse know. I may have made changes to your home medications or given you new prescriptions, please let your primary doctor know as well. Stay compliant with your medications and report any side effects to your PCP or pharmacist. Return to the ER if you have any concerns and cannot reach your doctors or call your insurance company, they usually have a nurse that can help you. Call 911 or go to the nearest emergency room if experiencing loss of consciousness, dizziness, chest pain, shortness of breath, vomiting/abdominal pain, speech difficulties, motor weakness or any unusual symptoms. Post operative Instructions *Do not lift anything more than 25 pounds for 6 to 8 weeks *Do not swim or take hot tub bath for 2weeks *Remove dressing and May shower-Use mild soap around site and pat dry *If you notice any oozing, bleeding or other drainage or having fever or chills from site please contact Surgeon's office-If unable to get office, you may go to nearest emergency room Primary Care Provider Margarita Gerber MD Pending Labs Laboratory Tests Test 03/11/17 12:41 03/11/17 17:21 03/11/17 20:53 03/12/17 02:54 Bedside Glucose 276mg/dL (70-220) 263mg/dL (70-220) 270mg/dL (70-220) 204mg/dL (70-220) Test 03/12/17 08:12 Bedside Glucose 162mg/dL (70-220) MOIZ RICE NP Mar 12, 2017 09:44
--- NOTE | 2017-03-12 09:48 | CONS ---
Date/Time of Note Date/Time of Note DATE: 03/12/17 TIME: 09:44 Consult Date/Type/Reason Admit Date/Time Mar 05, 2017 at 18:52 Initial Consult Date 03/09/17 Type of Consultation: cv Subjective Cardiology follow-up progress note: Subjective: Discussed with the staff and discussed with patient's son. Rhythm strip was reviewed. Patient remained in sinus rhythm. d/w Taylor Ram AUTHORIZATION REP Patient denies any left-sided chest pain or pressure to me. Denies any PND orthopnea to me. She has had more abdominal pain last night which has improved now. Objective: General: Elderly female. No acute distress HEENT: NC/AT. pupils are equal. round. NECK: NO JVD. no stridor. CV: RRR. systolic murmur; no gallop or rubs. PULM: no wheezing or rhonchi. GI: SOFT, ND, no rebound or guarding mild tenderness. Status post surgery. Extremity: trace B/L LE edema. no clubbing. neuro: awake and alert, and oriented.. Psych: calm and pleasant rectal: deferred Objective Vital Signs Date Time Temp Pulse Resp B/P Pulse Ox O2 Delivery O2 Flow Rate FiO2 03/12/17 08:12 78 03/12/17 08:12 98.4 18 155/68 95 03/11/17 17:26 21 03/11/17 08:55 Nasal Cannula 2.0 Intake and Output 03/11/17 03/11/17 03/12/17 15:00 23:00 07:00 Intake Total 600 ml 200 ml Output Total 600 ml Balance 0 ml 200 ml Results/Medications Result Diagram: 03/11/17 0834 03/11/17 0834 Results 24 hrs Laboratory Tests Test 03/11/17 12:41 03/11/17 17:21 03/11/17 20:53 03/12/17 02:54 Bedside Glucose 276 H 263 H 270 H 204 Test 03/12/17 08:12 Bedside Glucose 162 Medications Current Medications Sodium Chloride (NS) 1,000 ml @ 75 mls/hr [id number] IV Last administered on t 06:53; Admin Dose 75 MLS/HR; Start 03/05/17 at 14:18 Ondansetron HCl (Zofran Inj) 4 mg Q6H PRN IV NAUSEA AND/OR VOMITING Last administered on 03/07/17 15:08; Admin Dose 4 MG; Start 03/05/17 at 14:30 Acetaminophen (Tylenol Tab) 650 mg Q6H PRN PO PAIN LEVEL 1-3 OR FEVER Last administered on 03/11/17 20:55; Admin Dose 650 MG; Start 03/05/17 at 14:30 Docusate Sodium (Colace) 100 mg Q12H PRN PO CONSTIPATION Last administered on 03/09/17 09:06; Admin Dose 100 MG; Start 03/05/17 at 14:30 Famotidine (Pepcid) 20 mg Q12 PO Last administered on 03/12/17 09:05; Admin Dose 20 MG; Start 03/05/17 at 21:00 Heparin Sodium (Porcine) (Heparin (5000 Units/0.5 ml)) 5,000 unit Q12 SC Last administered on 03/12/17 09:05; Admin Dose 5,000 UNIT; Start 03/05/17 at 21: 00 Diagnostic Test (Pha) (Accu-Chek) 1 ea 02 XX Last administered on 03/11/17 02 :44; Admin Dose 1 EA; Start 03/06/17 at 02:00 Insulin Glargine (Lantus) 9 unit DAILY@08 SC Last administered on 03/12/17 09 :04; Admin Dose 9 UNIT; Start 03/05/17 at 14:30 Aspirin (Halfprin) 81 mg DAILY PO Last administered on 03/12/17 09:05; Admin Dose 81 MG; Start 03/06/17 at 09:00 Atorvastatin Calcium (Lipitor) 20 mg HS PO Last administered on 03/11/17 20: 55; Admin Dose 20 MG; Start 03/05/17 at 21:00 Calcium/Vitamin D (Oyster Shell/ Vit-D (500/200)) 1 tab DAILY PO Last administered on 03/12/17 09:05; Admin Dose 1 TAB; Start 03/06/17 at 09:00 Carvedilol (Coreg) 6.25 mg BID PO Last administered on 03/12/17 09:06; Admin Dose 6.25 MG; Start 03/05/17 at 21:00 Ergocalciferol (Drisdol) 50,000 unit Q7D PO Last administered on 03/06/17 09: 40; Admin Dose 50,000 UNIT; Start 03/06/17 at 09:00 Ferrous Sulfate (Ferrous Sulfate (Ec)) 325 mg DAILY PO Last administered on 09:05; Admin Dose 325 MG; Start 03/06/17 at 09:00 Miscellaneous Information 1 ea NOTE XX ; Start 03/05/17 at 15:00 Glucose (Glutose) 15 gm Q15M PRN PO DECREASED GLUCOSE; Start 03/05/17 at 15:00 Glucose (Glutose) 22.5 gm Q15M PRN PO DECREASED GLUCOSE; Start 03/05/17 at 15: 00 Dextrose (D50w Syringe) 25 ml Q15M PRN IV DECREASED GLUCOSE; Start 03/05/17 at 15:00 Dextrose (D50w Syringe) 50 ml Q15M PRN IV DECREASED GLUCOSE; Start 03/05/17 at 15:00 Glucagon (Glucagen) 1 mg Q15M PRN IM DECREASED GLUCOSE; Start 03/05/17 at 15: 00 Glucose (Glutose) 15 gm Q15M PRN BUCCAL DECREASED GLUCOSE; Start 03/05/17 at 15:00 Hydralazine HCl (Apresoline) 10 mg Q4H PRN IV SBP > 170 Last administered on 05:12; Admin Dose 10 MG; Start 03/06/17 at 01:00 Isosorbide Mononitrate (Imdur) 60 mg DAILY PO Last administered on 03/12/17 09:05; Admin Dose 60 MG; Start 03/06/17 at 10:30 Morphine Sulfate 3 mg 3 mg Q4H PRN PO PAIN Last administered on 03/07/17 00: 35; Admin Dose 3 MG; Start 03/06/17 at 15:30 Piperacillin Sod/ Tazobactam Sod 50 ml @ 100 mls/hr Q8 IVPB Last administered on 03/12/17 06:52; Admin Dose 100 MLS/HR; Start 03/06/17 at 22:00 Fluconazole/ Sodium Chloride (Diflucan 100 Mg/ NS (Pmx)) 50 ml @ 50 mls/hr Q24H IVPB Last administered on 03/11/17 16:29; Admin Dose 50 MLS/HR; Start at 15:30 Zolpidem Tartrate (Ambien) 5 mg HS PRN PO INSOMNIA Last administered on 21:08; Admin Dose 5 MG; Start 03/08/17 at 22:30 Naproxen (Naprosyn) 250 mg BID PO Last administered on 03/12/17 09:05; Admin Dose 250 MG; Start 03/09/17 at 14:00 Lisinopril (Zestril) 5 mg DAILY PO Last administered on 03/12/17 09:06; Admin Dose 5 MG; Start 03/10/17 at 09:30 Oxycodone/ Acetaminophen (Percocet (5/ 325)) 1 tab Q4H PRN PO MILD PAIN (1-3); Start 03/10/17 at 18:00 Oxycodone/ Acetaminophen (Percocet (5/ 325)) 2 tab Q4H PRN PO MODERATE PAIN (4- 6) Last administered on 03/11/17 02:42; Admin Dose 2 TAB; Start 03/10/17 at 18:00 Ondansetron HCl (Zofran Inj) 4 mg Q6H PRN IV NAUSEA; Start 03/10/17 at 18:00 Morphine Sulfate (morphine) 2 mg Q2H PRN IV PAIN; Start 03/10/17 at 20:30 Carvedilol (Coreg) 3.125 mg BID PO ; Start 03/12/17 at 10:00 Assessment/Plan Chief Complaint/Hosp Course 1. Status post sepsis, urinary tract infection and probably cholecystitis status post surgery. 2. Pericardial effusion, status post pericardiocentesis, currently with trivial effusion left. 3. Electrolyte abnormality, hyponatremia. 4. Hypertension, currently hypotensive, but is stable now. 5. Diabetes. 6. Questionable history of coronary artery disease, details are not clear at this point. 7. History of dyslipidemia. RECOMMENDATIONS: ADD Coreg Continue with the postop care. DVT prophylaxis as per internal medicine. Review of the old chart showed no evidence of malignancies seen in the pericardial fluid. You for his referral. .We will continue to monitor along with you. SHREE TOPETE MD [facility] Problems: SHREE TOPETE MD Mar 12, 2017 09:48
[2017-03-12] MEDS ORDERED: LISI-313 PO (09:50)
[2017-03-12] MEDS ORDERED: METR500T14 PO (09:50)
[2017-03-12] MEDS ORDERED: CARV3.1260 PO (09:50)
[2017-03-12] MEDS ORDERED: LEVO500T10 PO (09:50)
--- NOTE | 2017-03-12 14:53 | CONS ---
Date/Time of Note Date/Time of Note DATE: 03/12/17 TIME: 14:52 Assessment/Plan Assessment/Plan Chief Complaint/Hosp Course SUBJECTIVE: No acute changes. [place], looks comfortable, no fevers, family at bedside MICROBIOLOGY: Blood cultures negative, urine culture growing yeast ANTIMICROBIALS: Diflucan, Zosyn. PHYSICAL EXAMINATION: GENERAL: This is a fragile, well-developed, elderly woman who is awake, in no distress. HEENT: Head atraumatic, normocephalic. Sclerae anicteric. Buccal mucosa dry. NECK: Supple. CHEST: Rise symmetrical. Breath sounds clear, diminished to bases. HEART: S1, S2. ABDOMEN: Soft. Bowel tones present. EXTREMITIES: Without cyanosis. ASSESSMENT: 1. S/ p sepsis with fevers and leukocytosis. 2. Abdominal pain related to symptomatic cholelithiasis, s/p laparoscopic cholecystectomy 03/10/17 3. Status post pericardiocentesis with 540 mL serosanguinous drainage removed on previous admission, cytology revealed no malignancy and pericardial fluid cultures have been negative. 4. Diabetes. 5. Coronary artery disease. 6. Quin glabrata UTI PLAN: The patient remains stable postoperatively day #2, will change Zosyn to levofloxacin and Flagyl, follow surgical recommendations DW staff/family at bedside Problems: Consultation Date/Type/Reason Admit Date/Time Mar 05, 2017 at 18:52 Type of Consultation: id Exam/Review of Systems Vital Signs Vitals Vital Signs Date Time Temp Pulse Resp B/P Pulse Ox O2 Delivery O2 Flow Rate FiO2 03/12/17 13:03 74 18 97 21 03/12/17 12:15 97.8 199/84 03/12/17 08:00 Nasal Cannula 2.0 Intake and Output 03/11/17 03/11/17 03/12/17 15:00 23:00 07:00 Intake Total 600 ml 200 ml Output Total 600 ml Balance 0 ml 200 ml Results Result Diagram: 03/11/17 0834 03/11/17 0834 Results 24 hrs Laboratory Tests Test 03/11/17 17:21 03/11/17 20:53 03/12/17 02:54 03/12/17 08:12 Bedside Glucose 263 H 270 H 204 162 Test 03/12/17 12:15 03/12/17 12:40 Bedside Glucose 181 173 Medications Medications Current Medications Sodium Chloride (NS) 1,000 ml @ 75 mls/hr [id number] IV Last administered on 06:53; Admin Dose 75 MLS/HR; Start 03/05/17 at 14:18 Ondansetron HCl (Zofran Inj) 4 mg Q6H PRN IV NAUSEA AND/OR VOMITING Last administered on 03/07/17 15:08; Admin Dose 4 MG; Start 03/05/17 at 14:30 Acetaminophen (Tylenol Tab) 650 mg Q6H PRN PO PAIN LEVEL 1-3 OR FEVER Last administered on 03/11/17 20:55; Admin Dose 650 MG; Start 03/05/17 at 14:30 Docusate Sodium (Colace) 100 mg Q12H PRN PO CONSTIPATION Last administered on 03/09/17 09:06; Admin Dose 100 MG; Start 03/05/17 at 14:30 Famotidine (Pepcid) 20 mg Q12 PO Last administered on 03/12/17 09:05; Admin Dose 20 MG; Start 03/05/17 at 21:00 Heparin Sodium (Porcine) (Heparin (5000 Units/0.5 ml)) 5,000 unit Q12 SC Last administered on 03/12/17 09:05; Admin Dose 5,000 UNIT; Start 03/05/17 at 21: 00 Diagnostic Test (Pha) (Accu-Chek) 1 ea 02 XX Last administered on 03/11/17 02 :44; Admin Dose 1 EA; Start 03/06/17 at 02:00 Insulin Glargine (Lantus) 9 unit DAILY@08 SC Last administered on 03/12/17 09 :04; Admin Dose 9 UNIT; Start 03/05/17 at 14:30 Aspirin (Halfprin) 81 mg DAILY PO Last administered on 03/12/17 09:05; Admin Dose 81 MG; Start 03/06/17 at 09:00 Atorvastatin Calcium (Lipitor) 20 mg HS PO Last administered on 03/11/17 20: 55; Admin Dose 20 MG; Start 03/05/17 at 21:00 Calcium/Vitamin D (Oyster Shell/ Vit-D (500/200)) 1 tab DAILY PO Last administered on 03/12/17 09:05; Admin Dose 1 TAB; Start 03/06/17 at 09:00 Carvedilol (Coreg) 6.25 mg BID PO Last administered on 03/12/17 09:06; Admin Dose 6.25 MG; Start 03/05/17 at 21:00 Ergocalciferol (Drisdol) 50,000 unit Q7D PO Last administered on 03/06/17 09: 40; Admin Dose 50,000 UNIT; Start 03/06/17 at 09:00 Ferrous Sulfate (Ferrous Sulfate (Ec)) 325 mg DAILY PO Last administered on 09:05; Admin Dose 325 MG; Start 03/06/17 at 09:00 Miscellaneous Information 1 ea NOTE XX ; Start 03/05/17 at 15:00 Glucose (Glutose) 15 gm Q15M PRN PO DECREASED GLUCOSE; Start 03/05/17 at 15:00 Glucose (Glutose) 22.5 gm Q15M PRN PO DECREASED GLUCOSE; Start 03/05/17 at 15: 00 Dextrose (D50w Syringe) 25 ml Q15M PRN IV DECREASED GLUCOSE; Start 03/05/17 at 15:00 Dextrose (D50w Syringe) 50 ml Q15M PRN IV DECREASED GLUCOSE; Start 03/05/17 at 15:00 Glucagon (Glucagen) 1 mg Q15M PRN IM DECREASED GLUCOSE; Start 03/05/17 at 15: 00 Glucose (Glutose) 15 gm Q15M PRN BUCCAL DECREASED GLUCOSE; Start 03/05/17 at 15:00 Hydralazine HCl (Apresoline) 10 mg Q4H PRN IV SBP > 170 Last administered on 05:12; Admin Dose 10 MG; Start 03/06/17 at 01:00 Isosorbide Mononitrate (Imdur) 60 mg DAILY PO Last administered on 03/12/17 09:05; Admin Dose 60 MG; Start 03/06/17 at 10:30 Morphine Sulfate 3 mg 3 mg Q4H PRN PO PAIN Last administered on 03/07/17 00: 35; Admin Dose 3 MG; Start 03/06/17 at 15:30 Piperacillin Sod/ Tazobactam Sod 50 ml @ 100 mls/hr Q8 IVPB Last administered on 03/12/17 06:52; Admin Dose 100 MLS/HR; Start 03/06/17 at 22:00 Fluconazole/ Sodium Chloride (Diflucan 100 Mg/ NS (Pmx)) 50 ml @ 50 mls/hr Q24H IVPB Last administered on 03/11/17 16:29; Admin Dose 50 MLS/HR; Start at 15:30 Zolpidem Tartrate (Ambien) 5 mg HS PRN PO INSOMNIA Last administered on 21:08; Admin Dose 5 MG; Start 03/08/17 at 22:30 Naproxen (Naprosyn) 250 mg BID PO Last administered on 03/12/17 09:05; Admin Dose 250 MG; Start 03/09/17 at 14:00 Lisinopril (Zestril) 5 mg DAILY PO Last administered on 03/12/17 09:06; Admin Dose 5 MG; Start 03/10/17 at 09:30 Oxycodone/ Acetaminophen (Percocet (5/ 325)) 1 tab Q4H PRN PO MILD PAIN (1-3); Start 03/10/17 at 18:00 Oxycodone/ Acetaminophen (Percocet (5/ 325)) 2 tab Q4H PRN PO MODERATE PAIN (4- 6) Last administered on 03/11/17 02:42; Admin Dose 2 TAB; Start 03/10/17 at 18:00 Ondansetron HCl (Zofran Inj) 4 mg Q6H PRN IV NAUSEA; Start 03/10/17 at 18:00 Morphine Sulfate (morphine) 2 mg Q2H PRN IV PAIN; Start 03/10/17 at 20:30 Carvedilol (Coreg) 3.125 mg BID PO Last administered on 03/12/17 12:17; Admin Dose 3.125 MG; Start 03/12/17 at 10:00 JENNIFER MENESES NP Mar 12, 2017 14:53
[2017-03-12] MEDS ORDERED: LEVOFLOXACIN 500 MG TAB PO ONE (15:00)
[2017-03-12] MEDS ORDERED: metroNIDAZOLE 500 MG TAB PO SCH (22:00)
[2017-03-13] MEDS ORDERED: LEVOFLOXACIN 500 MG TAB PO SCH (06:00)
== END 2017-03-12 16:51 | disposition home health service (06) | DRG 853 ==
LOC: E/R 09:27 → MS4 18:52
PROVIDERS: ADMIT Family Medicine; ATTEND Family Medicine
PROC: 0FT44ZZ Resection of Gallbladder, Percutaneous Endoscopic Approach (ICD-10-PCS; principal; 2017-03-10 17:30)
DX: B37.7 Candidal sepsis (principal); I31.3 Pericardial effusion (noninflammatory); K80.10 Calculus of gallbladder with chronic cholecystitis without obstruction; E87.1 Hypo-osmolality and hyponatremia; I11.0 Hypertensive heart disease with heart failure; I50.22 Chronic systolic (congestive) heart failure; N39.0 Urinary tract infection, site not specified; I25.10 Atherosclerotic heart disease of native coronary artery without angina pectoris; E78.5 Hyperlipidemia, unspecified; M81.8 Other osteoporosis without current pathological fracture; R53.81 Other malaise; M19.91 Primary osteoarthritis, unspecified site; K80.80 Other cholelithiasis without obstruction; D50.9 Iron deficiency anemia, unspecified; E11.9 Type 2 diabetes mellitus without complications; B96.20 Unspecified Escherichia coli [E. coli] as the cause of diseases classified elsewhere
CPT/HCPCS: 36415; 36600; 71010; 76700; 80048; 80053; 81001; 82803; 82962; 83605; 83735; 83880; 84100; 84484; 85025; 85610; 85730; 87040; 87086; 88304; 93005; 93308; 94640; 94664; 96372; 96374; 96375; 97163; J0360; J0692; J1100; J1170; J1450; J1644; J1815; J2060; J2405; J2543; J2916; J3010; J3370; J7030; J7040

== ENCOUNTER 2017-03-17 19:39 | Inpatient (IN) | END 2017-03-29 18:16 | disposition home health service (06) | DRG 872 ==

== ENCOUNTER 2017-05-21 19:20 | Inpatient (IN) | END 2017-06-07 15:20 | disposition home health service (06) | DRG 186 ==

== ENCOUNTER 2018-01-21 20:37 | Inpatient (IN) | END 2018-01-25 17:25 | disposition home or self-care (01) | DRG 871 ==

== ENCOUNTER 2018-02-04 00:33 | Inpatient (IN) | END 2018-02-15 14:26 | DRG 853 ==

== ENCOUNTER 2018-02-17 20:21 | Inpatient (IN) | END 2018-02-18 13:07 | disposition EXP | DRG 871 ==